=== PATIENT | female | born 1940 | race Caucasian/White ===

== ENCOUNTER → 2017-06-09 | Outpatient (CLI) | payer OTHER ==
[~2017-06-09] MED LIST: AMIODARONE HCL200 MG PO; ASPIR 8181 MG PO; ASPIRIN; ASPIRIN CHEW81 MG PO; ASPIRIN325 MG PO; ASPIRIN81 M1; BENTYL10 MG PO; COREG3.125 MG PO; DIAMOX SEQUELS500 MG PO; DIGOXIN125 MCG PO; DOXYCYCLINE HY100 MG PO; HYDROCHLOROTHIA25 MG; IPRATROPIU0.2 MG/1 M NEB; K DUR10 MEQ PO; LASIX20 MG PO; LEVOTHROID; LEVOTHROID100 MCG; LEVOTHYROXINE100 MC1 PO; LIPITOR20 MG PO; LISINOPRIL; LORAZEPAM0.5 MG PO; METOPROLOL; METOPROLOL SUCC50 MG; METRONIDAZOLE500 MG PO; MIRTAZAPINE15 MG PO; PRADAXA75 MG PO; PRINIVIL10 MG; PROTONIX40 MG/ML PO; SYNTHROID125 MCG PO; ZOLOFT; ZOLOFT100 MG; ZOLOFT50 MG PO
== END ==
LOC: NPA 12:00
DX: I50.9 Heart failure, unspecified (principal)

== ENCOUNTER 2017-07-04 19:43 | Inpatient (IN) | payer MEDICARE, OTHER ==
[~2017-07-04] VITALS: Ht 167.6 cm; Wt 61.2 kg
[2017-07-04] MEDS ORDERED: SODIUM CHLORIDE 0.9% 50ML 50 ML ONE ×2 (20:10→21:05)
[2017-07-04 20:15] LABS: BASOPHILS # (AUTO) 0.1 (0.0-0.1); BASOPHILS % 0.9 % (0.0-1.0); BILIRUBIN,URINE NEGATIVE (NEGATIVE); CLARITY,URINE CLOUDY (CLEAR); COLOR,URINE YELLOW (YELLOW); EOSINOPHILS # (AUTO) 0.7 (0.0-0.4); EOSINOPHILS % 4.9 % (0.0-6.0); HEMATOCRIT 32.7 % (34.2-44.1); HEMOGLOBIN 9.7 g/dL (12.0-16.0); KETONES,URINE NEGATIVE (NEGATIVE); LEUKOCYTE ESTERASE ,URINE 2+ (NEGATIVE); LYMPHOCYTES # (AUTO) 3.4 (1.0-3.2); LYMPHOCYTES % 23.3 % (18.0-39.1); MEAN CORPUSCULAR HEMOGLOBIN 28.5 pg (28-32); MEAN CORPUSCULAR HGB CONC 29.7 g/dL (31-35); MEAN CORPUSCULAR VOLUME 96.2 fL (81-99); MONOCYTES # (AUTO) 0.5 (0.2-0.8); MONOCYTES % 3.5 % (4.4-11.3); NEUTROPHILS # (AUTO) 9.8 (2.1-6.9); NEUTROPHILS % 66.7 % (38.7-80.0); PLATELET COUNT 479 x10e3/uL (140-360); RED CELL DISTRIBUTION WIDTH 15.4 % (11.7-14.4); URINE UROBILINOGEN 0.2 mg/dL (0.2 - 1)
[2017-07-04] MEDS ORDERED: DILTIAZEM HCL 100 ML IV PRN (20:15)
[2017-07-04] MEDS ORDERED: SODIUM CHLORIDE 0.9% 1000ML 1,000 ML IV SCH (20:15)
[2017-07-04] MEDS ORDERED: DILTIAZEM HCL 5 MG/ML 5 ML VIAL IV ONE (20:15)
[2017-07-04 20:20] LABS: NITRITE,URINE POSITIVE (NEGATIVE); PROTEIN,URINE DIPSTICK 1+ (NEGATIVE)
[2017-07-04 20:28] LABS: INR 0.95; PROTHROMBIN TIME 13.1 seconds (11.9-14.5)
[2017-07-04 20:29] LABS: PARTIAL THROMBOPLASTIN TIME 25.2 seconds (23.8-35.5)
--- NOTE | 2017-07-04 20:29 | Diagnostic Imaging Report ---
EXAM: CHEST SINGLE (PORTABLE), AP 1 view DATE: 07/04/2017 7:53 PM Time stamp on exam: 2013 hours INDICATION: Shortness of breath COMPARISON: AP view of the chest December 07, 2016 FINDINGS: LINES/TUBES: Left approach dual-lead cardiac device. LUNGS: Suspected early edema and right lower lobe scarring. PLEURA: No effusions or pneumothorax. HEART AND MEDIASTINUM: Decreased cardiac enlargement and vascular congestion since prior exam. BONES AND SOFT TISSUES: No acute findings. IMPRESSION: Suspected early edema. Signed by: Dr. Melita Fay M.D. on 07/04/2017 8:26 PM
[2017-07-04 20:37] LABS: ALANINE AMINOTRANSFERASE 15 IU/L (0-55); ALBUMIN 2.4 g/dL (3.5-5.0); ALBUMIN/GLOBULIN RATIO 0.7 (0.8-2.0); ALKALINE PHOSPHATASE 106 IU/L (40-150); ANION GAP 16.9 mmol/L (8-16); BLOOD UREA NITROGEN 12 mg/dL (7-26); BUN/CREATININE RATIO 9 (6-25); CALCIUM 8.5 mg/dL (8.4-10.2); CARBON DIOXIDE 24 mmol/L (22-29); CHLORIDE 107 mmol/L (98-107); CREATINE KINASE 56 IU/L (29-168); CREATININE, SERUM 1.38 mg/dL (0.57-1.11); EST GLOMERULAR FILTRATION RATE 37 ML/MIN (60-); GLUCOSE 224 mg/dL (74-118); POTASSIUM 3.9 mmol/L (3.5-5.1); SODIUM 144 mmol/L (136-145)
[2017-07-04 20:45] LABS: AMORPHOUS SEDIMENT,URINE MODERATE (FEW); BACTERIA,URINE MANY /HPF; EPITHELIAL CELLS,URINE RARE /LPF; WBC,URINE (MAN) >50 /HPF (0-5)
[2017-07-04 20:46] LABS: TROPONIN I 0.054 ng/mL (0-0.300)
[2017-07-04] MEDS ORDERED: IOPAMIDOL 370 MG/ML 200 ML INFUS..BTL INJ ONE (21:05)
--- NOTE | 2017-07-04 22:04 | Diagnostic Imaging Report ---
EXAM: CT CHEST W DATE: 07/04/2017 8:44 PM Time stamp on exam: 2134 hours INDICATION: Shortness of breath and positive d-dimer COMPARISON: None TECHNIQUE: Multidetector CT scanning of the chest was performed. Coronal and sagittal multiplanar reformations were obtained. PE protocol performed. IV Contrast: 100 cc Isovue-370 CTDIvol has been reviewed. It is below the limits set by the Radiation Protocol Committee (RPC). FINDINGS: LUNGS AND AIRWAYS: The trachea and major bronchi are unremarkable. Interlobular septal thickening and ground glass opacities. Centrilobular emphysema. Bibasilar atelectasis. PLEURA: Small bilateral pleural effusions. HEART, MEDIASTINUM, VESSELS: The heart is at the upper limits of normal in size. No abnormal pericardial effusion. Calcifications of the thoracic aorta and coronary arteries. The main pulmonary artery is enlarged at 3.5 cm. No evidence of a pulmonary embolism to the segmental level. UPPER ABDOMEN: No acute findings MUSCULOSKELETAL: No acute findings. IMPRESSION: Mild fluid overload with early pulmonary edema and small bilateral pleural effusions. No pulmonary embolism. Signed by: Dr. Melita Fay M.D. on 07/04/2017 10:01 PM
[2017-07-04] MEDS ORDERED: CEFTRIAXONE SOD 1 GM VIAL IV STA (22:12)
[2017-07-04] MEDS ORDERED: FUROSEMIDE INJ 10 MG/ML 4 ML VIAL IV ONE (22:15)
[2017-07-04] MEDS ORDERED: DEXTROSE 50% SYRINGE 50 ML IV PRN (23:00)
[2017-07-05 04:26] LABS: BASOPHILS # (AUTO) 0.1 (0.0-0.1); BASOPHILS % 0.8 % (0.0-1.0); EOSINOPHILS # (AUTO) 0.2 (0.0-0.4); HEMATOCRIT 25.2 % (34.2-44.1); LYMPHOCYTES % 10.5 % (18.0-39.1); MEAN CORPUSCULAR HEMOGLOBIN 28.5 pg (28-32); MEAN CORPUSCULAR HGB CONC 30.2 g/dL (31-35); MEAN CORPUSCULAR VOLUME 94.4 fL (81-99); MONOCYTES # (AUTO) 0.5 (0.2-0.8); MONOCYTES % 4.9 % (4.4-11.3); NEUTROPHILS # (AUTO) 7.7 (2.1-6.9); NEUTROPHILS % 81.3 % (38.7-80.0); PLATELET COUNT 302 x10e3/uL (140-360); RED BLOOD COUNT 2.67 x10e6/uL (3.6-5.1); RED CELL DISTRIBUTION WIDTH 15.2 % (11.7-14.4)
[2017-07-05 04:36] LABS: HEMOGLOBIN 7.6 g/dL (12.0-16.0)
[2017-07-05 04:38] LABS: ALANINE AMINOTRANSFERASE 14 IU/L (0-55); ALBUMIN/GLOBULIN RATIO 0.7 (0.8-2.0); ALKALINE PHOSPHATASE 81 IU/L (40-150); ANION GAP 9.3 mmol/L (8-16); BLOOD UREA NITROGEN 12 mg/dL (7-26); BUN/CREATININE RATIO 10 (6-25); CALCIUM 7.9 mg/dL (8.4-10.2); CARBON DIOXIDE 27 mmol/L (22-29); CHLORIDE 105 mmol/L (98-107); CREATININE, SERUM 1.18 mg/dL (0.57-1.11); EST GLOMERULAR FILTRATION RATE 45 ML/MIN (60-); GLUCOSE 85 mg/dL (74-118); POTASSIUM 3.3 mmol/L (3.5-5.1); SODIUM 138 mmol/L (136-145)
[2017-07-05 04:45] LABS: CREATINE KINASE MB 1.4 ng/mL (0.00-5.00); TROPONIN I 0.083 ng/mL (0-0.300)
[2017-07-05] MEDS ORDERED: LEVOTHYROXINE100 MCG PO (05:41)
[2017-07-05] MEDS ORDERED: LEVOTHYROXINE SODIUM 100 MCG TAB ONE (05:45)
[2017-07-05] MEDS ORDERED: LEVOTHYROXINE SODIUM 75 MCG TAB ONE (05:48)
[2017-07-05] MEDS ORDERED: LEVOTHYROXINE SODIUM 25 MCG TABLET ONE (05:49)
[2017-07-05] MEDS: LEVOTHYROXINE SODIUM 100 MCG TAB PO SCH ×2 (06:00→08:06)
[2017-07-05] MEDS ORDERED: LEVOTHYROXINE SODIUM 125 MCG TAB PO SCH (06:30)
[2017-07-05] MEDS: PANTOPRAZOLE SOD 40 MG TABEC PO SCH (08:05)
[2017-07-05] MEDS: AMIODARONE HCL 200 MG TAB PO SCH ×2 (08:05→15:01)
[2017-07-05] MEDS: FUROSEMIDE INJ 10 MG/ML 4 ML VIAL IV SCH ×2 (08:05→15:01)
[2017-07-05] MEDS: ASPIRIN 81 MG CHEW TAB PO SCH (08:05)
[2017-07-05] MEDS: INSULIN REGULAR, HUMAN 100 UNIT/1 ML 3ML VIAL SQ SCH ×4 (08:05→21:50)
[2017-07-05] MEDS: LORAZEPAM 0.5 MG TAB PO SCH ×3 (08:10→21:50)
[2017-07-05] MEDS ORDERED: LEVOTHYROXINE SODIUM 100 MCG TAB PO SCH (09:00)
[2017-07-05 11:49] LABS: % IRON SATURATION 15 % (15-50); IRON 22 ug/dL (50-170); TOTAL IRON BINDING CAPACITY 148 ug/dL (261-478); TRANSFERRIN 106 mg/dL (180-382)
[2017-07-05] MEDS: ALBUTEROL/IPRATROPIUM 3 ML NEB NEB SCH ×2 (13:00→17:01)
[2017-07-05 13:02] LABS: CREATINE KINASE MB 1.7 ng/mL (0.00-5.00); TROPONIN I 0.071 ng/mL (0-0.300)
[2017-07-05] MEDS: OYST-CAL-D 500MG TABLET PO SCH ×2 (13:16→15:01)
[2017-07-05] MEDS: GUAIFENESIN 600MG/DEXTROMETHORPHAN 30MG TABSR PO SCH ×2 (13:16→15:01)
[2017-07-05] MEDS: POTASSIUM CHLORIDE 20 MEQ TAB CR PO SCH ×2 (13:17→15:01)
[2017-07-05] MEDS: DOXYCYCLINE 100MG/NS 100ML 100 ML IV SCH (13:17)
--- NOTE | 2017-07-05 13:22 | History and Physical ---
PRIMARY CARE PROVIDER: A house-call doctor. CHIEF COMPLAINT: Shortness of breath. HISTORY OF PRESENT ILLNESS: Ms. 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 She had a sigmoid resection and colostomy formation about a week ago and was discharged home a couple of days ago with home health for wound care. She has a chronic indwelling Sarkar for incontinence. She is pretty much bedbound, using a wheelchair right now with home physical therapy for rehabilitation after surgery. The patient began developing shortness of breath yesterday. She does have chronic respiratory failure due to emphysema and is on 2 to 3 L nasal cannula continuous 24/7 at home with nebulized medication for COPD. She had worsening shortness of breath and orthopnea and called 9-- and was brought to the ER by EMS. They noted her O2 sats to be in the 70s at home. She required BiPAP initially but is currently on nasal cannula. PAST MEDICAL HISTORY: Significant for longstanding hypertension, coronary artery disease with previous RI and coronary stent placement in 1996. She has chronic systolic congestive heart failure with an EF of 20% to 25% in 2016, both ischemic and nonischemic apparently in nature. She has chronic atrial fibrillation, chronic kidney disease stage 3, COPD as noted, chronic respiratory failure as noted and urinary incontinence. She had an AICD pacemaker defibrillator placed in 2004. She had a left carotid endarterectomy. She has a distant history of hysterectomy and appendectomy but more recent bladder suspension. She a week ago had sigmoid resection and colostomy formation and repair of colovesicular fistula. CURRENT MEDICATIONS: Include: 1. Doxycycline 100 mg twice daily. 2. Lasix 40 mg daily. 3. Zoloft 200 mg at bedtime. 4. Amiodarone 200 mg twice daily. 5. Aspirin 81 mg daily. 6. Lipitor 40 mg daily. 7. Coreg 3.25 mg twice a day. 8. Pradaxa 75 mg daily. 9. Levothyroxine 100 mcg daily. 10. Lorazepam 0.5 mg 3 times a day. 11. Mirtazapine, Remeron, 15 mg at bedtime. 12. Protonix 40 mg before breakfast. ALLERGIES: SHE HAS STATED ALLERGIES TO LEVOFLOXACIN, CODEINE, LIDOCAINE, NEUROMUSCULAR BLOCKS, AND STEROIDS. PAST SURGICAL HISTORY: The patient is . Pashto is her primary language. She smoked some in college, but has not smoked in over 40 or 50 years. She denies alcohol use. She denies recreational drug use. She is bedbound and uses a wheelchair. Requires quite a bit of assistance with ADLs. FAMILY HISTORY: Significant for hypertension. PHYSICAL EXAMINATION PSYCHIATRIC: She is alert and oriented times 3 with normal mood and affect. CONSTITUTIONAL: She has a normal body habitus. She is in no acute distress. VITAL SIGNS: Blood pressure 126/62. Pulse 72 and irregular. Intermittently paced on the telemetry. Respiratory rate 16. O2 sat is 100% on 2 L nasal cannula. Temperature 98.3. HEENT: Head is atraumatic. Eyes are anicteric with clear conjunctivae. Ears and nares are without erythema or discharge. Oropharynx is clear. NECK: Supple with no mass or thyromegaly. LYMPHATIC SYSTEM: She has no palpable cervical, axillary or inguinal adenopathy. CARDIOVASCULAR: Her heart has an irregularly irregular rhythm without murmur or extra heart sound. She has no carotid bruit. She has trace bipedal edema. Weak dorsal pedal pulses. RESPIRATORY: Lungs reveal generally diminished breath sounds and some bibasilar rales, otherwise clear with no wheezing and normal respiratory effort. GASTROINTESTINAL: Abdomen is soft without organomegaly, masses or tenderness. She has a midline surgical scar that healing well that is without drainage or erythema. It was closed with julio, which are still in place. The dressing, which was the one applied prior to discharge, had some serosanguineous and possibly some purulent drainage. However, again, the wound itself has no drainage or erythema and appears to be healing well. She has a functioning colostomy in the left lower quadrant, which appears healthy. She has no hepatosplenomegaly or masses palpable, and normal bowel sounds are present. CUTANEOUS: Her skin is warm and dry to touch with no rash or skin breakdown. MUSCULOSKELETAL: Her joints are in normal alignment without erythema or swelling. She has no calf tenderness. NEUROLOGIC: Exam is nonfocal with intact cranial nerves and no motor or sensory deficits. DIAGNOSTIC STUDIES: Chest x-ray shows pulmonary edema. D-dimer 3.[address] scan was done, which showed no pulmonary embolus but did confirm early pulmonary edema and small bilateral effusions. Her UA has greater than 50 white cells, 11 to 20 red cells and many bacteria. Cultures pending. Flu screen is negative. EKG shows atrial fibrillation with rapid ventricular response of 124. Currently, she is in AFib with a rate of 72 with occasional pacer spikes. Her troponin is 0.054, 0.083. BNP 2646.5 and then 2800.4. Chemistry profile shows normal electrolytes. CO2 24. Creatinine 1.38 and BUN 37 for a GFR of 37. Her baseline is around 40. Calcium is 8.5. Glucose is 224. After overnight receiving IV Lasix, the patient's potassium is 3.3. The rest of her electrolytes are normal. CO2 is 27. Creatinine 1.18 and BUN 12. Glucose 85. Calcium 7.9. GFR is 45. Her transaminases, bilirubin and alk phos are normal. CBC shows a lactic acid level 28.7 which is elevated. CBC shows a white count of 14.74 with 67% neutrophils and 23% lymphocytes. Overnight white count 9.52 with 81% neutrophils, 10% lymphocytes, 5% monocytes. Hemoglobin 7.6, hematocrit 25.2 with microcytic indices and platelet count 302,000. Coags are normal. IMPRESSION AND PLAN 1. Kfuex-af-yvobrly systolic heart failure. Will start the patient on IV Lasix 40 mg twice daily. Monitor fluid balance, BNP and chest x-ray. 2. Chronic obstructive pulmonary disease and chronic hypoxic respiratory failure. The patient will continue O2. Will give the patient routine nebs. Will continue the doxycycline and Mucinex. 3. Urinary tract infection with sepsis. The patient has a chronic Sarkar. Will use IV cefepime for now pending culture results. 4. Chronic atrial fibrillation. Will continue amiodarone, Pradaxa and Coreg. 5. Hypertension complicated by coronary artery disease and congestive heart failure and chronic kidney disease, stage 4. Will continue Coreg and aspirin. 6. Elevated blood sugar with no history of diabetes. The patient has been started on sliding-scale insulin. Followup glucose is normal. 7. Microcytic anemia. Will check anemia labs, iron and vitamin levels, fecal occult blood test. Patient has been started on Protonix. We will start iron and vitamin supplementation. Her anemia quite likely is due to recent surgery. 8. For prophylaxis, the patient is on Pradaxa for DVT prophylaxis and stroke prophylaxis from the atrial fibrillation and on Protonix for GI prophylaxis. Job#: [id number] MH
[2017-07-05] MEDS: CEFEPIME HCL 1GM 1 GM in WATER STERILE 10ML VIAL 10 ML IV SCH ×2 (15:00→21:58)
[2017-07-05] MEDS: FERROUS SULFATE 325 MG TAB PO SCH (15:01)
[2017-07-05] MEDS: ASCORBIC ACID 500 MG TAB PO SCH (15:01)
[2017-07-05] MEDS: MULTIVITAMINS/MINERALS TAB PO SCH (15:01)
[2017-07-05 21:15] LABS: TROPONIN I 0.069 ng/mL (0-0.300)
[2017-07-05] MEDS ORDERED: ONDANSETRON HCL INJ 2 MG/ML VIAL IV PRN (21:15)
[2017-07-05] MEDS: CARVEDILOL 3.125 MG TAB PO SCH (21:50)
[2017-07-05] MEDS: MIRTAZAPINE 15 MG TAB PO SCH (21:50)
[2017-07-05] MEDS: ATORVASTATIN 20 MG TAB PO SCH (21:50)
[2017-07-05] MEDS: SERTRALINE HCL 100 MG TAB PO SCH (21:50)
[2017-07-06] MEDS: ALBUTEROL/IPRATROPIUM 3 ML NEB NEB SCH ×4 (01:00→19:00)
[2017-07-06] MEDS: DOXYCYCLINE 100MG/NS 100ML 100 ML IV SCH ×2 (01:24→14:34)
[2017-07-06] MEDS: GUAIFENESIN 600MG/DEXTROMETHORPHAN 30MG TABSR PO SCH ×4 (01:24→17:09)
[2017-07-06] MEDS: CEFEPIME HCL 1GM 1 GM in WATER STERILE 10ML VIAL 10 ML IV SCH ×2 (06:34→13:37)
[2017-07-06 06:51] LABS: ANION GAP 10.7 mmol/L (8-16); CALCIUM 8.2 mg/dL (8.4-10.2); CREATININE, SERUM 1.1 mg/dL (0.57-1.11); POTASSIUM 3.7 mmol/L (3.5-5.1)
[2017-07-06 07:01] LABS: BASOPHILS # (AUTO) 0.1 (0.0-0.1); BASOPHILS % 1.2 % (0.0-1.0); EOSINOPHILS # (AUTO) 0.7 (0.0-0.4); EOSINOPHILS % 7.1 % (0.0-6.0); HEMATOCRIT 25.1 % (34.2-44.1); LYMPHOCYTES # (AUTO) 0.8 (1.0-3.2); LYMPHOCYTES % 8.3 % (18.0-39.1); MEAN CORPUSCULAR HEMOGLOBIN 28.6 pg (28-32); MEAN CORPUSCULAR HGB CONC 30.7 g/dL (31-35); MEAN CORPUSCULAR VOLUME 93.3 fL (81-99); MONOCYTES # (AUTO) 0.6 (0.2-0.8); NEUTROPHILS # (AUTO) 7.5 (2.1-6.9); NEUTROPHILS % 76.9 % (38.7-80.0); PLATELET COUNT 327 x10e3/uL (140-360); RED BLOOD COUNT 2.69 x10e6/uL (3.6-5.1); RED CELL DISTRIBUTION WIDTH 15.5 % (11.7-14.4)
[2017-07-06 07:13] LABS: FREE T4 (FREE THYROXINE) 1.02 ng/dL (0.8-1.8); THYROID STIMULATING HORMONE 5.046 uIU/mL (0.350-4.940)
[2017-07-06 07:19] LABS: HEMOGLOBIN 7.7 g/dL (12.0-16.0)
[2017-07-06] MEDS: INSULIN REGULAR, HUMAN 100 UNIT/1 ML 3ML VIAL SQ SCH ×4 (07:54→21:00)
[2017-07-06 08:33] LABS: FOLATE 17.5 ng/mL (7.0-15.4)
[2017-07-06] MEDS ORDERED: ASPIRIN 81 MG CHEW TAB PO SCH (09:00)
[2017-07-06] MEDS ORDERED: MAGNESIUM SULFATE 2GM/50ML 50 ML IV ONE ×2 (09:30→15:30)
[2017-07-06] MEDS: PANTOPRAZOLE SOD 40 MG TABEC PO SCH (10:12)
[2017-07-06] MEDS: ASCORBIC ACID 500 MG TAB PO SCH ×2 (10:12→17:26)
[2017-07-06] MEDS: FERROUS SULFATE 325 MG TAB PO SCH ×2 (10:12→17:26)
[2017-07-06] MEDS: LEVOTHYROXINE SODIUM 100 MCG TAB PO SCH (10:12)
[2017-07-06] MEDS: OYST-CAL-D 500MG TABLET PO SCH ×3 (10:13→17:26)
[2017-07-06] MEDS: ASPIRIN 81 MG CHEW TAB PO SCH (10:13)
[2017-07-06] MEDS: AMIODARONE HCL 200 MG TAB PO SCH ×2 (10:13→17:26)
[2017-07-06] MEDS: POTASSIUM CHLORIDE 20 MEQ TAB CR PO SCH ×2 (10:13→17:26)
[2017-07-06] MEDS: FUROSEMIDE INJ 10 MG/ML 4 ML VIAL IV SCH ×2 (10:13→17:26)
[2017-07-06] MEDS: CARVEDILOL 3.125 MG TAB PO SCH ×2 (10:13→23:23)
[2017-07-06] MEDS: MULTIVITAMINS/MINERALS TAB PO SCH ×2 (10:13→17:26)
[2017-07-06] MEDS: DABIGATRAN ETEXILATE 75 MG CAP PO SCH (10:13)
[2017-07-06] MEDS: LORAZEPAM 0.5 MG TAB PO SCH ×3 (10:13→23:23)
--- NOTE | 2017-07-06 13:23 | Diagnostic Imaging Report ---
PROCEDURE: A single AP view of the chest. COMPARISON: 07/04/17 INDICATIONS: PICC LINE PLACMENT FINDINGS: Lines/tubes: Stable triple lead left chest wall cardiac device in place. Status post right PICC placement with tip overlying inferior SVC. Lungs: The lungs are well inflated and clear. There is no evidence of pneumonia or pulmonary edema. Right apical calcifications again seen. Pleura: There is no pleural effusion or pneumothorax. Heart and mediastinum: The cardiac silhouette is borderline enlarged. Aorta is calcified and tortuous. Bones: No acute bony abnormality. IMPRESSION: Status post right PICC line placement with tip overlying the inferior SVC. No visible pneumothorax. Dictated by: Jed Uribe M.D. on 07/06/2017 at 13:32 Electronically approved by: Jed Uribe M.D. on 07/06/2017 at 13:32
[2017-07-06] MEDS ORDERED: SODIUM CHLORIDE 0.9% 250ML 250 ML IV ONE (15:30)
[2017-07-06] MEDS ORDERED: FUROSEMIDE INJ 10 MG/ML 2 ML VIAL IV SCH (15:30)
[2017-07-06] MEDS: MAGNESIUM OXIDE 400 MG TAB PO SCH (17:26)
[2017-07-06] MEDS ORDERED: SODIUM CHLORIDE 0.9% 250ML 250 ML ONE (19:49)
[2017-07-06 22:15] VITALS: BP 105/63
[2017-07-06] MEDS: MIRTAZAPINE 15 MG TAB PO SCH (23:23)
[2017-07-06] MEDS: ATORVASTATIN 20 MG TAB PO SCH (23:23)
[2017-07-06] MEDS: SERTRALINE HCL 100 MG TAB PO SCH (23:24)
[2017-07-07] MEDS: ALBUTEROL/IPRATROPIUM 3 ML NEB NEB SCH ×4 (01:00→19:00)
[2017-07-07] MEDS ORDERED: SODIUM CHLORIDE 0.9% 50ML 50 ML ONE (02:47)
[2017-07-07] MEDS: DOXYCYCLINE 100MG/NS 100ML 100 ML IV SCH (02:58)
[2017-07-07] MEDS ORDERED: SODIUM CHLORIDE 0.9% 250ML 250 ML ONE (03:40)
[2017-07-07 04:00] VITALS: BP 113/65
[2017-07-07] MEDS: GUAIFENESIN 600MG/DEXTROMETHORPHAN 30MG TABSR PO SCH ×4 (04:55→18:00)
--- NOTE | 2017-07-07 07:01 | Diagnostic Imaging Report ---
EXAM: CHEST SINGLE (PORTABLE), AP 1 view DATE: 07/07/2017 7:00 AM Time stamp on exam: 0 5:24 AM INDICATION: Pulmonary edema COMPARISON: AP view of the chest December 07, 2016, 07/06/2017 FINDINGS: LINES/TUBES: Left approach triple lead ICD device. Right upper extremity PICC line is stable LUNGS: There is no evidence of interlobular septi thickening PLEURA: No effusions or pneumothorax. HEART AND MEDIASTINUM: Decreased cardiac enlargement and vascular congestion since prior exam. BONES AND SOFT TISSUES: No acute findings. IMPRESSION: Resolution of previously noted pulmonary edema Signed by: Dr. Martín Huizar M.D. on 07/07/2017 6:58 AM
[2017-07-07] MEDS: INSULIN REGULAR, HUMAN 100 UNIT/1 ML 3ML VIAL SQ SCH ×4 (07:30→21:00)
[2017-07-07 08:00] VITALS: BP 106/60
[2017-07-07] MEDS: MULTIVITAMINS/MINERALS TAB PO SCH ×2 (09:14→16:18)
[2017-07-07] MEDS: LEVOTHYROXINE SODIUM 100 MCG TAB PO SCH (09:14)
[2017-07-07] MEDS: POTASSIUM CHLORIDE 20 MEQ TAB CR PO SCH ×2 (09:14→16:18)
[2017-07-07] MEDS: ASPIRIN 81 MG CHEW TAB PO SCH (09:14)
[2017-07-07] MEDS: FERROUS SULFATE 325 MG TAB PO SCH ×2 (09:14→16:18)
[2017-07-07] MEDS: PANTOPRAZOLE SOD 40 MG TABEC PO SCH (09:14)
[2017-07-07] MEDS: MAGNESIUM OXIDE 400 MG TAB PO SCH ×2 (09:14→16:18)
[2017-07-07] MEDS: ASCORBIC ACID 500 MG TAB PO SCH ×2 (09:14→16:18)
[2017-07-07] MEDS: OYST-CAL-D 500MG TABLET PO SCH ×3 (09:14→16:19)
[2017-07-07] MEDS: FUROSEMIDE INJ 10 MG/ML 4 ML VIAL IV SCH ×2 (09:14→16:17)
[2017-07-07] MEDS: SUCRALFATE 1 GM TAB PO SCH ×4 (09:14→21:52)
[2017-07-07] MEDS: AMIODARONE HCL 200 MG TAB PO SCH ×2 (09:14→16:18)
[2017-07-07] MEDS: CARVEDILOL 3.125 MG TAB PO SCH ×2 (09:15→21:52)
[2017-07-07] MEDS: LORAZEPAM 0.5 MG TAB PO SCH ×3 (09:32→21:52)
[2017-07-07] MEDS: DABIGATRAN ETEXILATE 75 MG CAP PO SCH (09:32)
[2017-07-07 10:37] LABS: BASOPHILS # (AUTO) 0.1 (0.0-0.1); BASOPHILS % 1.2 % (0.0-1.0); EOSINOPHILS # (AUTO) 0.7 (0.0-0.4); EOSINOPHILS % 6.2 % (0.0-6.0); HEMATOCRIT 32.3 % (34.2-44.1); HEMOGLOBIN 10.4 g/dL (12.0-16.0); LYMPHOCYTES % 9.2 % (18.0-39.1); MEAN CORPUSCULAR HEMOGLOBIN 29.3 pg (28-32); MEAN CORPUSCULAR HGB CONC 32.2 g/dL (31-35); MONOCYTES # (AUTO) 0.7 (0.2-0.8); MONOCYTES % 6.5 % (4.4-11.3); NEUTROPHILS # (AUTO) 8.5 (2.1-6.9); NEUTROPHILS % 76.4 % (38.7-80.0); PLATELET COUNT 347 x10e3/uL (140-360); RED BLOOD COUNT 3.55 x10e6/uL (3.6-5.1); RED CELL DISTRIBUTION WIDTH 15.8 % (11.7-14.4)
[2017-07-07 11:15] LABS: ANION GAP 12.2 mmol/L (8-16); CALCIUM 8.9 mg/dL (8.4-10.2); CREATININE, SERUM 1.22 mg/dL (0.57-1.11); POTASSIUM 4.2 mmol/L (3.5-5.1)
[2017-07-07 11:29] LABS: B-TYPE NATRIURETIC PEPTIDE2 1185.5 pg/mL (0-100)
[2017-07-07 12:00] VITALS: BP 103/61
--- NOTE | 2017-07-07 12:21 | Diagnostic Imaging Report ---
Tagged-RBC GI Bleed Study Clinical information: 76-year-old female with 10 days s/p sigmoid colon resection and colostomy due to perforation and fistulae now with hemoglobin of 7.6 g/dL. Discussion: The patient's own red blood cells were labeled with 27 mCi of technetium-99m pertechnetate using the in vitro method (UltraTag). Dynamic images of the abdomen were obtained through 60 minutes. Distribution of tracer activity appears physiologic throughout the abdomen. No abnormal accumulation of tracer is seen within the gastrointestinal lumen. Impression: No scan evidence of active gastrointestinal bleeding at this time, specifically, none in the sigmoid colon. Signed by: Dr. Catalina Sarmiento M.D. on 07/07/2017 12:18 PM
[2017-07-07] MEDS: DOXYCYCLINE HYCLATE TABLET 100 MG TAB PO SCH ×2 (13:00→21:53)
[2017-07-07 16:00] VITALS: BP 113/63
[2017-07-07] MEDS ORDERED: PROMETHAZINE HCL 25 MG TAB PO PRN (16:15)
[2017-07-07] MEDS: CEFUROXIME AXETIL 250 MG TAB PO SCH (16:20)
[2017-07-07 20:00] VITALS: BP 115/56
[2017-07-07] MEDS: ATORVASTATIN 20 MG TAB PO SCH (21:53)
[2017-07-07] MEDS: MIRTAZAPINE 15 MG TAB PO SCH (21:53)
[2017-07-07] MEDS: SERTRALINE HCL 100 MG TAB PO SCH (21:53)
[2017-07-08] VITALS (7 sets, daily range): BP systolic 113–142; BP diastolic 60–88
[2017-07-08] MEDS: ALBUTEROL/IPRATROPIUM 3 ML NEB NEB SCH ×3 (01:00→13:00)
[2017-07-08] MEDS: GUAIFENESIN 600MG/DEXTROMETHORPHAN 30MG TABSR PO SCH ×3 (05:35→12:00)
[2017-07-08] MEDS: INSULIN REGULAR, HUMAN 100 UNIT/1 ML 3ML VIAL SQ SCH ×2 (07:30→11:30)
[2017-07-08 07:41] LABS: BASOPHILS # (AUTO) 0.1 (0.0-0.1); BASOPHILS % 1.3 % (0.0-1.0); EOSINOPHILS # (AUTO) 0.7 (0.0-0.4); EOSINOPHILS % 7.5 % (0.0-6.0); HEMOGLOBIN 10.8 g/dL (12.0-16.0); LYMPHOCYTES # (AUTO) 1.3 (1.0-3.2); LYMPHOCYTES % 13.3 % (18.0-39.1); MEAN CORPUSCULAR HEMOGLOBIN 29.3 pg (28-32); MEAN CORPUSCULAR HGB CONC 31.8 g/dL (31-35); MEAN CORPUSCULAR VOLUME 92.4 fL (81-99); MONOCYTES # (AUTO) 0.7 (0.2-0.8); MONOCYTES % 6.9 % (4.4-11.3); NEUTROPHILS # (AUTO) 6.7 (2.1-6.9); NEUTROPHILS % 70.5 % (38.7-80.0); PLATELET COUNT 360 x10e3/uL (140-360); RED BLOOD COUNT 3.68 x10e6/uL (3.6-5.1); RED CELL DISTRIBUTION WIDTH 15.3 % (11.7-14.4)
[2017-07-08 07:57] LABS: ANION GAP 12.5 mmol/L (8-16); CALCIUM 9.4 mg/dL (8.4-10.2); CREATININE, SERUM 1.17 mg/dL (0.57-1.11); MAGNESIUM 1.5 MG/DL (1.3-2.1); POTASSIUM 4.5 mmol/L (3.5-5.1)
[2017-07-08] MEDS: SUCRALFATE 1 GM TAB PO SCH ×2 (09:14→11:32)
[2017-07-08] MEDS: ASCORBIC ACID 500 MG TAB PO SCH (09:14)
[2017-07-08] MEDS: AMIODARONE HCL 200 MG TAB PO SCH (09:14)
[2017-07-08] MEDS: FERROUS SULFATE 325 MG TAB PO SCH (09:14)
[2017-07-08] MEDS: PANTOPRAZOLE SOD 40 MG TABEC PO SCH (09:14)
[2017-07-08] MEDS: LORAZEPAM 0.5 MG TAB PO SCH (09:14)
[2017-07-08] MEDS: LEVOTHYROXINE SODIUM 100 MCG TAB PO SCH (09:14)
[2017-07-08] MEDS: CEFUROXIME AXETIL 250 MG TAB PO SCH (09:14)
[2017-07-08] MEDS: OYST-CAL-D 500MG TABLET PO SCH ×2 (09:14→12:42)
[2017-07-08] MEDS: FUROSEMIDE INJ 10 MG/ML 4 ML VIAL IV SCH (09:14)
[2017-07-08] MEDS: CARVEDILOL 3.125 MG TAB PO SCH (09:14)
[2017-07-08] MEDS: MULTIVITAMINS/MINERALS TAB PO SCH (09:14)
[2017-07-08] MEDS: ASPIRIN 81 MG CHEW TAB PO SCH (09:14)
[2017-07-08] MEDS: POTASSIUM CHLORIDE 20 MEQ TAB CR PO SCH (09:15)
[2017-07-08] MEDS: MAGNESIUM OXIDE 400 MG TAB PO SCH (09:15)
[2017-07-08] MEDS: DABIGATRAN ETEXILATE 75 MG CAP PO SCH (09:15)
[2017-07-08] MEDS: DOXYCYCLINE HYCLATE TABLET 100 MG TAB PO SCH (09:15)
[2017-07-08] MEDS ORDERED: Multivitamins/Minerals PO (14:29)
[2017-07-08] MEDS ORDERED: ASCORBIC ACID500 MG PO (14:29)
[2017-07-08] MEDS ORDERED: ZYVOX600 MG PO (14:29)
[2017-07-08] MEDS ORDERED: CEFUROXIME250 MG PO (14:29)
[2017-07-08] MEDS ORDERED: FEOSOL325 MG PO (14:29)
[2017-07-08] MEDS ORDERED: FUROSEMIDE40 MG PO (15:07)
[2017-07-08] MEDS ORDERED: POTASSIUM CHLO20 ME1 PO (15:07)
--- NOTE | 2017-07-08 20:12 | Discharge Summary ---
ADMISSION DIAGNOSES 1. Dclul-ub-zdgmbnq systolic heart failure. 2. Chronic obstructive pulmonary disease. 3. Chronic hypoxic respiratory failure. 4. Urinary tract infection with sepsis. 5. Chronic atrial fibrillation. 6. Hypertension complicated by coronary artery disease and congestive heart failure and chronic kidney disease 4. 7. Elevated blood sugar with no history of diabetes. 8. Microcytic anemia. DISCHARGE DIAGNOSES 1. Kmxik-ho-dvlybvc systolic heart failure. 2. Chronic obstructive pulmonary disease. 3. Chronic hypoxic respiratory failure. 4. Urinary tract infection with sepsis. 5. Chronic atrial fibrillation. 6. Hypertension complicated by coronary artery disease and congestive heart failure and chronic kidney disease 4. 7. Elevated blood sugar with no history of diabetes. 8. Microcytic anemia. 9. Gastrointestinal bleed. HISTORY: The patient has a history of hypertension, CAD with previous TX and stent in 1996, chronic systolic CHF with an EF of 20% to 25%, both ischemic and nonischemic in nature. She has chronic atrial fibrillation, chronic kidney disease 3, COPD, chronic respiratory failure, and urinary incontinence. She had an AICD pacer placed in 2004, left carotid endarterectomy and a distant history of hysterectomy and appendectomy, more recent bladder suspension. About a week ago, she had a sigmoid resection and colostomy formation and repair of a colovesicular fistula. 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 She had the resection and colostomy formation and was discharged home a couple of days ago with home health for wound care. She has a chronic indwelling Sarkar catheter incontinence. She is using a wheelchair and home physical therapy for rehab after surgery. She developed shortness of breath. Even with chronic respiratory failure due to emphysema she is on 2-3 liters nasal cannula, 24 hours, 7 days a week with COPD nebulized medications. Regardless of meds and oxygen she had worsening shortness of breath and orthopnea. At home, her saturation was in the 70's per EMS. She required BiPAP initially but is currently nasal cannula. The patient was started on IV Lasix twice daily. BMP and chest x-ray were ordered. The patient started on Mucinex and doxycycline for COPD and IV cefepime for UTI, pending culture results. For atrial fibrillation, she was continued on amiodarone, Pradaxa and Coreg. Chest x-ray on admission showed mild fluid overload with early pulmonary edema and small bilateral pleural effusion, no PE. On admission, a fecal occult blood test was performed which showed blood in the stool, so per GI she did a sleep scan which was negative. Prior to discharge, chest x-ray was done which showed resolution of previously noted pulmonary edema. Blood cultures negative. Urine culture showed Klebsiella Enterococcus sensitive to Bactrim and Zyvox. Her flu was negative. Her A1c was 4.5 despite her elevated blood sugar at admission. At the time of discharge, WBC was 9.43, hemoglobin 10.8, hematocrit 34.0. To bring the hemoglobin back up the patient received 2 units packed red blood cells after her hemoglobin was dropped to 7.6 during hospitalization. On admission, her BNP was 2646 and at discharge it was 1294. The patient was discharged on antibiotics for UTI, iron, vitamin C, multivitamins, Lasix 40 daily with potassium supplement. The patient is to follow up with surgeon and primary care physician. Dictated by: Gladis Aj NP SHIRLEY KIDD MD Job#: [id number]
[2017-07-08] MEDS ORDERED: ATORVASTATIN 40 MG TAB PO SCH (21:00)
== END 2017-07-08 16:12 | disposition home health service (06) | DRG 871 ==
LOC: ER 19:43 → ERHOLD 23:10 → MED/SURG2 07-06 21:46
PROVIDERS: ADMIT Internal Medicine; ATTEND Internal Medicine
PROC: 02HV33Z Insertion of Infusion Device into Superior Vena Cava, Percutaneous Approach (ICD-10-PCS; principal; 2017-07-06)
PROC: 30243N1 Transfusion of Nonautologous Red Blood Cells into Central Vein, Percutaneous Approach (ICD-10-PCS; 2017-07-06)
DX: A41.89 Other specified sepsis (principal); I50.43 Acute on chronic combined systolic (congestive) and diastolic (congestive) heart failure; N18.4 Chronic kidney disease, stage 4 (severe); J96.11 Chronic respiratory failure with hypoxia; I48.2 Chronic atrial fibrillation; E83.42 Hypomagnesemia; K92.2 Gastrointestinal hemorrhage, unspecified; I13.0 Hypertensive heart and chronic kidney disease with heart failure and stage 1 through stage 4 chronic kidney disease, or unspecified chronic kidney disease; N39.0 Urinary tract infection, site not specified; T83.511A Infection and inflammatory reaction due to indwelling urethral catheter, initial encounter; J44.9 Chronic obstructive pulmonary disease, unspecified; I25.10 Atherosclerotic heart disease of native coronary artery without angina pectoris; R73.9 Hyperglycemia, unspecified; D64.9 Anemia, unspecified; N39.41 Urge incontinence; B95.2 Enterococcus as the cause of diseases classified elsewhere; I25.2 Old myocardial infarction; E03.9 Hypothyroidism, unspecified; F41.9 Anxiety disorder, unspecified; Z95.810 Presence of automatic (implantable) cardiac defibrillator; Z90.49 Acquired absence of other specified parts of digestive tract; Z79.52 Long term (current) use of systemic steroids; Z79.01 Long term (current) use of anticoagulants; D50.0 Iron deficiency anemia secondary to blood loss (chronic); Z99.3 Dependence on wheelchair; Z93.3 Colostomy status
CPT/HCPCS: 36415; 36430; 36569; 71010; 71045; 71260; 78278; 80048; 80053; 81001; 82270; 82550; 82553; 82607; 82746; 82948; 83036; 83540; 83605; 83735; 83880; 84439; 84443; 84466; 84484; 85025; 85379; 85610; 85730; 86850; 86900; 86920; 87040; 87086; 87186; 87400; 93005; 94660; 96374; 99284; A9512; J0692; J0696; J1940; J2405; J7030; J7050; P9016; Q9967

== ENCOUNTER 2017-09-15 05:14 | Inpatient (IN) | payer MEDICARE, OTHER ==
[~2017-09-15] VITALS: Ht 167.6 cm; Wt 61.2 kg
[~2017-09-15 05:14] MED LIST changes: +ASCORBIC ACID500 MG PO; +CEFUROXIME250 MG PO; +FEOSOL325 MG PO; +FUROSEMIDE40 MG PO; +LEVOTHYROXINE100 MCG PO; +Multivitamins/Minerals PO; +POTASSIUM CHLO20 ME1 PO; +ZYVOX600 MG PO
--- OUTSIDE RECORDS SUMMARY | 2017-09-15 05:16 | XMS REPORT ---
Author [facility] Address Unknown Phone Unavailable Care Team Providers Care Professor Of Food Biochemistry Name Role Phone SHIRLEY KIDD Unavailable Unavailable Problems This patient has no known problems. Allergies, Adverse Reactions, Alerts This patient has no known allergies or adverse reactions. Medications This patient has no known medications. Results Test Description Test Time Test Comments Text Results Atomic Results Result Comments CHEST SINGLE (PORTABLE) [place] [id number] Patient Name: ANNALEE ACOSTA MR #: [id number] : 1940 Age/Sex: 76/F Req #: [id number] Adm Physician: SHIRLEY KIDD MD Ordered by: Gladis Yates [employer] LEASING CONSULTANT Report #: [id number] Location: MED/SURG2 Room/Bed: [facility] Procedure: [id number] DX/CHEST SINGLE (PORTABLE) Exam Date: 07/07/17 Exam Time: 0450 REPORT STATUS: Signed EXAM: CHEST SINGLE (PORTABLE), AP 1 view DATE: 07/07/2017 7:00 AM Time stamp on exam: 0 5:24 AM INDICATION: Pulmonary edema COMPARISON: AP view of the chest December 07, 2016, 07/06/2017 FINDINGS: LINES/TUBES: Left approach triple lead ICD device. Right upper extremity PICC line is stable LUNGS: There is no evidence of interlobular septi thickening PLEURA: No effusions or pneumothorax. HEART AND MEDIASTINUM: Decreased cardiac enlargement and vascular congestion since prior exam. BONES AND SOFT TISSUES: No acute findings. IMPRESSION: Resolution of previously noted pulmonary edema Signed by: Dr. Martín Huizar M.D. on 07/07/2017 6:58 AM Dictated By: MARTÍN BELL MD 7 Transcribed By: MARY JANE on 07/07/17657 COPY TO: GLADIS YATES NP G I BLEED [place] [address] Patient Name: ANNALEE ACOSTA MR #: [id number] : 1940 Age/Sex: 76/F Req #: [id number] Adm Physician: SHIRLEY KIDD MD Ordered by: JESUS EDMONDS MD Report #: [id number] Location: MED/SURG2 Room/Bed: [facility] _ Procedure: [id number] NM/G I BLEED Exam Date: 07/07/17 Exam Time: 1000 REPORT STATUS: Signed Tagged-RBC GI Bleed Study Clinical information: 76-year-old female with 10 days s/p sigmoid colon resection and colostomy due to perforation and fistulae now with hemoglobin of 7.6 g/dL. Discussion: The patient's own red blood cells were labeled with 27 mCi of technetium-99m pertechnetate using the in vitro method (UltraTag). Dynamic images of the abdomen were obtained through 60 minutes. Distribution of tracer activity appears physiologic throughout the abdomen. No abnormal accumulation of tracer is seen within the gastrointestinal lumen. Impression: No scan evidence of active gastrointestinal bleeding at this time, specifically, none in the sigmoid colon. Signed by: Dr. Vinh Sarmiento M.D. on 07/07/2017 12:18 PM Dictated By: VINH SARMIENTO MD 17 COPY TO: JESUS EDMONDS MD CHEST XRAY LINE PLACEMENT [place] [address] Patient Name: ANNALEE ACOSTA MR #: [id number] : 1940 Age/Sex: 76/F Req #: [id number] Adm Physician: SHIRLEY KIDD MD Ordered by: SHIRLEY KIDD MD Report #: [id number] Location: [facility] Room/Bed: [place] [address] Procedure: [id number] DX/CHEST XRAY LINE PLACEMENT Exam Date: 07/06/17 Exam Time: 1255 REPORT STATUS: Signed PROCEDURE: A single AP view of the chest. COMPARISON: 07/04/17 INDICATIONS: PICC LINE PLACMENT FINDINGS: Lines/ tubes: Stable triple lead left chest wall cardiac device in place. Status post right PICC placement with tip overlying inferior SVC. Lungs: The lungs are well inflated and clear. There is no evidence of pneumonia or pulmonary edema. Right apical calcifications again seen. Pleura: There is no pleural effusion or pneumothorax. Heart and mediastinum: The cardiac silhouette is borderline enlarged. Aorta is calcified and tortuous. Bones: No acute bony abnormality. IMPRESSION: Status post right PICC line placement with tip overlying the inferior SVC. No visible pneumothorax. Dictated by: Jed Jimenes M.D. on 07/06/2017 at 13:32 Electronically approved by: Jed Jimenes M.D. on 07/06/2017 at 13:32 Dictated By: JED JIMENES MD 31 Transcribed By: ASIA on 07/06/171331 COPY TO: SHIRLEY KIDD MD CT CHEST W [place] [address] Patient Name: ANNALEE ACOSTA MR #: [id number] : 1940 Age/Sex: 76/F Req #: [id number] Adm Physician: Ordered by: ELSY DEWITT MD Report #: [id number] Location: ER Room/Bed: Procedure: [id number] CT/CT CHEST W Exam Date: Exam Time: REPORT STATUS: Signed EXAM: CT CHEST W DATE: 07/04/2017 8:44 PM Time stamp on exam: 2134 hours INDICATION: Shortness of breath and positive d-dimer COMPARISON: None TECHNIQUE: Multidetector CT scanning of the chest was performed. Coronal and sagittal multiplanar reformations were obtained. PE protocol performed. IV Contrast: 100 cc Isovue-370 CTDIvol has been reviewed. It is below the limits set by the Radiation Protocol Committee (RPC) . FINDINGS: LUNGS AND AIRWAYS: The trachea and major bronchi are unremarkable. Interlobular septal thickening and ground glass opacities. Centrilobular emphysema. Bibasilar atelectasis. PLEURA: Small bilateral pleural effusions. HEART, MEDIASTINUM, VESSELS: The heart is at the upper limits of normal in size. No abnormal pericardial effusion. Calcifications of the thoracic aorta and coronary arteries. The main pulmonary artery is enlarged at 3.5 cm. No evidence of a pulmonary embolism to the segmental level. UPPER ABDOMEN: No acute findings MUSCULOSKELETAL: No acute findings. IMPRESSION: Mild fluid overload with early pulmonary edema and small bilateral pleural effusions. No pulmonary embolism. Signed by: Dr. Genevieve Fay M.D. on 07/04/2017 10:01 PM Dictated By : GENEVIEVE FAY MD 00 Transcribed By: MARY JANE on 07/04/172200 COPY TO: ELSY DEWITT MD CHEST SINGLE (PORTABLE) [place] [address] Patient Name: ANNALEE ACOSTA MR #: [id number] : 1940 Age/Sex: 76/F Req #: [id number] Adm Physician: Ordered by: ELSY DEWITT MD Report #: [id number] Location: ER Room/Bed: ___ Procedure: [id number] DX/CHEST SINGLE (PORTABLE) Exam Date: 07/04/17 Exam Time: 2004 REPORT STATUS: Signed EXAM: CHEST SINGLE (PORTABLE), AP 1 view DATE: 07/04/2017 7:53 PM Time stamp on exam : 2013 INDICATION: Shortness of breath COMPARISON: AP view of the chest December 07, 2016 FINDINGS: LINES/TUBES: Left approach dual-lead cardiac device. LUNGS: Suspected early edema and right lower lobe scarring. PLEURA: No effusions or pneumothorax. HEART AND MEDIASTINUM : Decreased cardiac enlargement and vascular congestion since prior exam. BONES AND SOFT TISSUES: No acute findings. IMPRESSION: Suspected early edema. Signed by: Dr. Genevieve Fay M.D. on 07/04/2017 8: 26 PM Dictated By: GENEVIEVE FAY MD 25 Transcribed By: MARY JANE on 07/04/172025 COPY TO: ELSY DEWITT MD
[2017-09-15] MEDS ORDERED: ALBUTEROL SULF 0.083% NEB SOLN 3 ML NEB NEB STA (05:17)
[2017-09-15] MEDS ORDERED: ALBUTEROL SULF 0.083% NEB SOLN 3 ML NEB ONE (05:24)
[2017-09-15] MEDS ORDERED: METHYLPREDNISOLONE SOD SUCC 125 MG/2ML VIAL IV ONE (05:30)
[2017-09-15] MEDS ORDERED: IPRATROPIUM BROMIDE 0.02% 2.5 ML NEB NEB ONE (05:30)
--- NOTE | 2017-09-15 06:20 | Diagnostic Imaging Report ---
CHEST SINGLE (PORTABLE), 09/15/2017 5:17 AM Technique: CHEST SINGLE (PORTABLE) Comparison: 07/07/2017 Clinical history: Shortness of breath Findings: See Impression. Lung apices are partially excluded. Impression: 1. Lines/Tubes: Stable left chest wall ICD. Right PICC is no longer seen. Catheter fragment over the right lung apex may be external. 2. Stable cardiomediastinal silhouette. 3. Central vascular congestion without overt edema. No effusion. Signed by: Dr Tosin Swain MD on 09/15/2017 6:17 AM
[2017-09-15 06:21] LABS: BASOPHILS # (AUTO) 0.1 (0.0-0.1); BASOPHILS % 0.5 % (0.0-1.0); EOSINOPHILS # (AUTO) 0.1 (0.0-0.4); EOSINOPHILS % 0.8 % (0.0-6.0); HEMATOCRIT 33.4 % (34.2-44.1); HEMOGLOBIN 9.8 g/dL (12.0-16.0); LYMPHOCYTES # (AUTO) 1.1 (1.0-3.2); LYMPHOCYTES % 9.2 % (18.0-39.1); MEAN CORPUSCULAR HEMOGLOBIN 29.9 pg (28-32); MEAN CORPUSCULAR HGB CONC 29.3 g/dL (31-35); MEAN CORPUSCULAR VOLUME 101.8 fL (81-99); MONOCYTES # (AUTO) 0.7 (0.2-0.8); MONOCYTES % 5.3 % (4.4-11.3); NEUTROPHILS # (AUTO) 10.2 (2.1-6.9); NEUTROPHILS % 83.6 % (38.7-80.0); PLATELET COUNT 205 x10e3/uL (140-360); RED BLOOD COUNT 3.28 x10e6/uL (3.6-5.1); RED CELL DISTRIBUTION WIDTH 14.6 % (11.7-14.4)
[2017-09-15 06:48] LABS: ALANINE AMINOTRANSFERASE 18 IU/L (0-55); ALBUMIN 3.2 g/dL (3.5-5.0); ALKALINE PHOSPHATASE 89 IU/L (40-150); ANION GAP 15.5 mmol/L (8-16); BLOOD UREA NITROGEN 26 mg/dL (7-26); BUN/CREATININE RATIO 22 (6-25); CALCIUM 9.3 mg/dL (8.4-10.2); CARBON DIOXIDE 25 mmol/L (22-29); CHLORIDE 104 mmol/L (98-107); CREATINE KINASE 36 IU/L (29-168); CREATININE, SERUM 1.19 mg/dL (0.57-1.11); EST GLOMERULAR FILTRATION RATE 44 ML/MIN (60-); GLUCOSE 139 mg/dL (74-118); POTASSIUM 4.5 mmol/L (3.5-5.1); SODIUM 140 mmol/L (136-145)
[2017-09-15] MEDS: ALBUTEROL/IPRATROPIUM 3 ML NEB NEB SCH ×5 (07:00→23:00)
[2017-09-15] MEDS ORDERED: AZITHROMYCIN 500MG/SOD CHL 0.9% 250ML BAG IV SCH (07:00)
[2017-09-15] MEDS: AZITHROMYCIN 500MG/NS 250 ML 250 ML IV SCH (07:53)
[2017-09-15] MEDS ORDERED: BENZONATATE 100 MG CAP PO PRN (08:15)
[2017-09-15 08:36] LABS: CHOL/HDL RATIO 2.9 (3.0-3.6)
--- NOTE | 2017-09-15 08:48 | History and Physical ---
PRIMARY CARE PHYSICIAN: Dr. Olivera CHIEF COMPLAINT: Shortness of breath. HISTORY OF PRESENT ILLNESS: This is a 77-year-old woman with a history of COPD due to second-hand cigarette smoke, now developing shortness of breath over the last day without any cough, fever or chest pain. She does have a history of acute respiratory failure where she was intubated on 2 occasions. Last time was 3 years ago. She is now started on BiPAP, 50% FIO2 and admitted for further evaluation and management. Denies any chest pain. PAST MEDICAL HISTORY: Hypertension, myocardial infarction, status post stent in , hypothyroidism, acute respiratory failure, status post ventilatory support on 2 occasions. Last time was 3 years ago. Hyperlipidemia, systolic congestive heart failure with ejection fraction of 20% to 25%, status post AICD placement, insomnia, chronic atrial fibrillation, chronic kidney disease, stage 3, colovesical fistula, status post colostomy placement. PAST SURGICAL HISTORY: AICD placement, hysterectomy, coronary stent placement in 1996, bladder suspension surgery, bowel resection/colostomy placement. ALLERGIES: PER ELECTRONIC MEDICAL RECORD. FAMILY HISTORY/SOCIAL HISTORY: Patient is . She has children. She denies any alcohol, illicits or cigarettes. MEDICATIONS: Per electronic medical record. REVIEW OF SYSTEMS: Denies any dizziness or chest pain. PHYSICAL EXAMINATION VITAL SIGNS: Reviewed. GENERAL: A tired-appearing woman resting in bed. HEENT: Anicteric. Pupils respond to light. She has a BiPAP mask in place and 50% FIO2 oxygen. CARDIOVASCULAR: Normal S1 and S2. LUNGS: She has reduced breath sounds at the bases. ABDOMEN: Soft, nontender and nondistended. She has left-sided colostomy in place with green stool. She has a right-sided abdominal dressing in place clean and dry. EXTREMITIES: No edema or calf tenderness. NEUROLOGICAL: Alert and oriented times 3. She moves all extremities. SKIN: Dry. PSYCHIATRIC: Normal affect. LABS: Reviewed. MEDICATIONS: Reviewed. ASSESSMENT AND PLAN: This is a 77-year-old woman with: 1. Acute exacerbation of chronic obstructive pulmonary disease: Continue BiPAP support and consult pulmonary services to assist in management. 2. Acute respiratory failure: Continue BiPAP support and medical therapy. 3. Chronic atrial fibrillation: Will continue and continue rate control. 4. Coronary artery disease with history of stent: Will continue medication regimen, including the patient on statin control and blood thinner. Lipid panel. 5. Microcytic anemia which is moderate: Obtain anemia panel. 6. Chronic kidney disease, stage 3: Appears to be at baseline. Will monitor. 7. Systolic congestive heart failure: She has an automatic implanted cardioverter defibrillator in place. Brain natriuretic peptide is 1070, but she does not appear to be fluid overloaded at this time. Chest x-ray does not reveal any excess fluid. Will monitor closely and monitor I's and O's. Will restart her home dose of Lasix. 8. Sigmoid perforation/colovesical fistula: She has a colostomy in place. She has a right-sided dressing in place. Will consult nurse from wound care services. 9. Physical deconditioning: Physical therapy consultation. 10. Prophylaxis: Will use proton pump inhibitor while on . 11. Disposition: Monitor closely. Continue BiPAP. Pulmonary consultation. Job#: [id number] CT
[2017-09-15 08:58] LABS: FERRITIN 140.26 ng/mL (4.63-204.00); THYROID STIMULATING HORMONE 10.272 uIU/mL (0.350-4.940)
[2017-09-15] MEDS ORDERED: LEVOTHYROXINE SODIUM 100 MCG TAB PO SCH (09:00)
[2017-09-15] MEDS ORDERED: FUROSEMIDE 40 MG TAB PO SCH (09:00)
[2017-09-15] MEDS ORDERED: CARVEDILOL 3.125 MG TAB PO SCH (09:00)
[2017-09-15] MEDS: AMIODARONE HCL 200 MG TAB PO SCH ×2 (10:01→17:07)
[2017-09-15] MEDS: ASPIRIN 81 MG CHEW TAB PO SCH (10:01)
[2017-09-15] MEDS: LORATADINE 10 MG TAB PO SCH (10:01)
[2017-09-15] MEDS: DABIGATRAN ETEXILATE 75 MG CAP PO SCH (10:01)
[2017-09-15] MEDS: SERTRALINE HCL 50 MG TAB PO SCH (10:02)
[2017-09-15] MEDS: LORAZEPAM 0.5 MG TAB PO PRN ×2 (10:53→22:10)
[2017-09-15] MEDS ORDERED: METHYLPREDNISOLONE SOD SUCC 40 MG/ML VIAL IV SCH (12:00)
[2017-09-15] MEDS ORDERED: IRON SUCROSE 100 MG in SODIUM CHLORIDE 0.9% 100 ML 100 ML IV SCH (14:15)
[2017-09-15 15:31] LABS: CREATINE KINASE MB 1.5 ng/mL (0-5.0)
[2017-09-15] MEDS ORDERED: FERROUS SULFATE 325 MG TAB PO SCH (17:00)
[2017-09-15] MEDS: IRON SUCROSE 100 MG in SODIUM CHLORIDE 0.9% 100 ML 100 ML IV SCH (17:07)
--- NOTE | 2017-09-15 17:36 | Consultation ---
DATE OF CONSULTATION: September 15, 2017 PULMONARY CONSULTATION A patient of Dr. Rodrigues, Dr. Mora, Dr. Lorenz, , Dr. Chepe Desir. 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 She has a history of COPD though she has smoked only in college. History of anemia which has been chronic, presumably iron deficient. History of coronary disease with stent, congestive heart failure, atrial fibrillation. ALLERGIC TO CODEINE, LIDOCAINE AND FLAGYL. Her home medications in addition to oxygen include aspirin, linezolid, Ceftin, Lasix, Ativan, Remeron, Zoloft, amiodarone, Coreg, Pradaxa and Levoxyl. She has had a hysterectomy, coronary stent, pacemaker, colostomy. She had repair of a colovesicular fistula, chronic draining sinus to the skin approximately 3 months ago. Family history is positive for asthma. PHYSICAL EXAMINATION GENERAL: She is a slight white female. Weak, uses a wheelchair at home, homebound, has housebound medical care. VITAL SIGNS: Temperature 98.8, pulse 78, respiration 17, blood pressure 107/50. HEAD: Normocephalic, atraumatic. NECK: Trachea midline. LUNGS: Diminished breath sounds. HEART: Regular rhythm. ABDOMEN: Nontender. There is a wound which is packed in the abdomen, which she says is quite deep, approximately 1 cm in diameter. There is a colostomy. EXTREMITIES: Nonedematous. IMPRESSION: One of 1. Congestive heart failure. 2. Acute exacerbation of chronic obstructive pulmonary disease versus asthma in this nonsmoker. 3. Hypothyroidism with elevated thyroid-stimulating hormone despite thyroid replacement. 4. Possible malabsorption iron deficiency. PLAN: To optimize bronchodilators. Cautious diuresis. Wound care. Empiric antibiotics. White count is slightly elevated at 12,000. Chest x-ray reveals a pacemaker and moderate vascular congestion. Thank you for this kind referral. Job#: [id number] EV
[2017-09-15 18:05] VITALS: BP 124/58
[2017-09-15] MEDS: FUROSEMIDE INJ 10 MG/ML 2 ML VIAL IV SCH (18:30)
[2017-09-15 18:44] VITALS: BP 124/58
[2017-09-15] MEDS: BUDESONIDE 0.5MG/2 ML NEB INH SCH (19:15)
[2017-09-15 19:47] VITALS: BP 121/62
[2017-09-15] MEDS: ATORVASTATIN 40 MG TAB PO SCH (21:07)
[2017-09-15] MEDS: MONTELUKAST SODIUM 10 MG TAB PO SCH (21:07)
[2017-09-15] MEDS: DIPHENHYDRAMINE HCL 25 MG CAP PO PRN (22:10)
[2017-09-15 23:03] LABS: CREATINE KINASE MB 1.6 ng/mL (0-5.0)
[2017-09-16] VITALS (7 sets, daily range): BP systolic 103–128; BP diastolic 45–66
[2017-09-16] MEDS: ALBUTEROL/IPRATROPIUM 3 ML NEB NEB SCH ×2 (03:00→07:25)
[2017-09-16] MEDS: FUROSEMIDE INJ 10 MG/ML 2 ML VIAL IV SCH ×2 (06:06→17:48)
[2017-09-16] MEDS: LEVOTHYROXINE SODIUM 100 MCG TAB PO SCH (06:06)
[2017-09-16 06:20] LABS: BASOPHILS % 0.4 % (0.0-1.0); EOSINOPHILS # (AUTO) 0.1 (0.0-0.4); EOSINOPHILS % 0.7 % (0.0-6.0); HEMATOCRIT 28.8 % (34.2-44.1); HEMOGLOBIN 8.5 g/dL (12.0-16.0); LYMPHOCYTES # (AUTO) 1.3 (1.0-3.2); LYMPHOCYTES % 18.2 % (18.0-39.1); MEAN CORPUSCULAR HEMOGLOBIN 29.3 pg (28-32); MEAN CORPUSCULAR HGB CONC 29.5 g/dL (31-35); MEAN CORPUSCULAR VOLUME 99.3 fL (81-99); MONOCYTES # (AUTO) 0.5 (0.2-0.8); MONOCYTES % 6.8 % (4.4-11.3); NEUTROPHILS # (AUTO) 5.1 (2.1-6.9); NEUTROPHILS % 73.8 % (38.7-80.0); PLATELET COUNT 198 x10e3/uL (140-360); RED CELL DISTRIBUTION WIDTH 14.5 % (11.7-14.4)
[2017-09-16 06:49] LABS: ANION GAP 12.6 mmol/L (8-16); CALCIUM 9.5 mg/dL (8.4-10.2); CREATININE, SERUM 1.22 mg/dL (0.57-1.11); POTASSIUM 4.6 mmol/L (3.5-5.1)
[2017-09-16] MEDS: BUDESONIDE 0.5MG/2 ML NEB INH SCH ×2 (07:25→20:00)
[2017-09-16] MEDS ORDERED: METHYLPREDNISOLONE SOD SUCC 40 MG/ML VIAL IV SCH (07:30)
[2017-09-16 07:36] LABS: FREE THYROXINE INDEX 2.5087 (1.4-3.8); THYROID STIMULATING HORMONE 11.951 uIU/mL (0.350-4.940)
--- NOTE | 2017-09-16 07:59 | Progress Note ---
DATE: September 16, 2017 TIME: 6:15 a.m. OVERNIGHT: Feeling a little better. REVIEW OF SYSTEMS: Denies any dizziness. VITAL SIGNS: Have been reviewed. PHYSICAL EXAMINATION GENERAL: Resting in bed. HEENT: Anicteric. CARDIOVASCULAR: Normal S1 and S2. LUNGS: Reduced breath sounds at the base. ABDOMEN: Soft, nontender and nondistended. She has left-sided colostomy in place. She has a right-sided abdominal dressing in place. EXTREMITIES: No edema. SKIN: Dry. PSYCHIATRIC: Flat affect. NEUROLOGICAL: Alert and oriented times 3. LABS: Reviewed. MEDICATIONS: Reviewed. ASSESSMENT: This is a 77-year-old woman. 1. Acute exacerbation of chronic obstructive pulmonary disease. 2. Acute respiratory failure. 3. Chronic atrial fibrillation. 4. Coronary artery disease with history of stent. 5. Microcytic anemia. 6. Chronic kidney disease, stage 3. 7. Systolic congestive heart failure with history of automatic implanted cardioverter defibrillator placement. 8. History of sigmoid perforation with colovesical fistula. She has a colostomy in place. 9. Physical deconditioning. 10. Iron deficiency anemia. 11. Hypothyroidism. PLAN 1. Start iron sulfate. Iron level is 26% saturation. 2. TSH 10.2. Will check thyroid function tests. 3. Follow blebs. Respiratory-crocker, the patient is doing better on nasal cannula now. Job#: [id number]
[2017-09-16] MEDS ORDERED: ASPIRIN 81 MG CHEW TAB PO SCH (09:00)
[2017-09-16] MEDS: ASPIRIN 81 MG CHEW TAB PO SCH (09:26)
[2017-09-16] MEDS: AMIODARONE HCL 200 MG TAB PO SCH ×2 (09:26→17:47)
[2017-09-16] MEDS: FERROUS SULFATE 325 MG TAB PO SCH ×2 (09:26→17:48)
[2017-09-16] MEDS: LORATADINE 10 MG TAB PO SCH (09:26)
[2017-09-16] MEDS: AZITHROMYCIN 500MG/NS 250 ML 250 ML IV SCH (09:26)
[2017-09-16] MEDS: METOPROLOL TARTRATE 25 MG TAB PO SCH (09:26)
[2017-09-16] MEDS: PANTOPRAZOLE SOD 40 MG TABEC PO SCH (09:26)
[2017-09-16] MEDS: DABIGATRAN ETEXILATE 75 MG CAP PO SCH (09:27)
[2017-09-16] MEDS: LORAZEPAM 0.5 MG TAB PO PRN ×2 (09:27→18:19)
[2017-09-16] MEDS: SERTRALINE HCL 50 MG TAB PO SCH (09:27)
[2017-09-16] MEDS ORDERED: LEVALBUTEROL HCL SOLN NEBU 0.63 MG/3 ML NEB INH SCH (10:00)
[2017-09-16] MEDS: LEVALBUTEROL HCL SOLN NEBU 0.63 MG/3 ML NEB INH SCH ×2 (11:55→20:00)
--- NOTE | 2017-09-16 12:43 | Diagnostic Imaging Report ---
PROCEDURE: X-RAY CHEST, TWO VIEWS COMPARISON: Patients [facility], CT, CT CHEST W, 07/04/2017, 21:31. Patients [facility], DX, CHEST SINGLE (PORTABLE), 09/15/2017, 6:04. INDICATIONS: COPD, SHORTNESS OF BREATH FINDINGS: LUNGS: Diffusely hyperinflated. No mass or infiltrate.Central pulmonary vasculature is prominent but stable. PLEURA: Trace blunting of the posterior costophrenic angles. No pneumothorax. HEART \T\ MEDIASTINUM: Stable cardiomegaly and aortic ectasia. Multiple pacer/defibrillator wires are present. BONES \T\ SOFT TISSUES: No acute findings. CONCLUSION: Stable cardiomegaly and aortic ectasia. No evidence of CHF. Enlarged central pulmonary vasculature is suggestive of pulmonary artery hypertension. Pulmonary hyperinflation consistent with COPD. Small posterior pleural effusions. Dictated by: Grzegorz Cutler M.D. on 09/16/2017 at 12:44 Electronically approved by: Grzegorz Cutler M.D. on 09/16/2017 at 12:44
[2017-09-16] MEDS: IRON SUCROSE 100 MG in SODIUM CHLORIDE 0.9% 100 ML 100 ML IV SCH (15:00)
[2017-09-16] MEDS ORDERED: TRAZODONE HCL 50 MG TAB PO PRN (16:30)
--- NOTE | 2017-09-16 17:36 | Consultation ---
DATE OF CONSULTATION: September 16, 2017 PSYCHIATRIC CONSULTATION Patient evaluated and events noted. REASON FOR CONSULTATION: To evaluate patient's mood. HISTORY OF PRESENTING ILLNESS: The patient is a 77-year-old female admitted to the hospital for COPD evaluation. Psychiatric consultation is called to evaluate patient's mood. As per the medical record, patient with a history of hypertension, NV status post stent, hypothyroid, acute respiratory failure, hyperlipidemia, systolic congestive heart failure, AFib, chronic kidney disease. Upon evaluation today, patient is found to be lying on the bed. She is alert, awake and oriented to situation, person, place and time. She reports having anxiety all her life and also some depression due to her family issues with her son. She admits she is feeling hopeless and helpless. She denies any suicidal or homicidal ideation. She denies any hallucination. She complains of sleep problem. She slept about 4 hours last night. Her appetite she claims has improved somewhat. Patient states that she believes that life is not worth living but again denies any suicidal ideation. PAST PSYCHIATRIC HISTORY: Patient reports history of depression/anxiety for many years. She denies past suicide attempt. She denies alcohol and drug use. FAMILY HISTORY: Patient denies any family history of psychiatric illness. SOCIAL HISTORY: Patient states she lives alone. MENTAL STATUS EXAMINATION: The patient is an elderly female. She is alert, awake and oriented to situation. Her mood is depressed and anxious. Affect is congruent with mood. Psychomotor state is passive and relaxed. She denies any suicidal or homicidal ideation. She denies any hallucination. Thought process is concrete. She does not elicit paranoia or delusional thinking. Insight and judgment are fair. Memory appears to be grossly intact. CURRENT MEDICATIONS 1. Albuterol. 2. Ativan 0.5 three times a day p.r.n. 3. Zoloft 50 mg p.o. daily. 4. Pradaxa. 5. Ferrous sulfate. 6. Metoprolol. 7. Pantoprazole. 8. Aspirin. 9. Amiodarone. 10. Loratadine. 11. Azithromycin. 12. Budesonide. 13. Lasix. 14. Levothyroxine. 15. Benadryl p.r.n. 16. Atorvastatin. 17. Montelukast. 18. Iron sucrose. 19. Methylprednisolone. 20. Benzonatate. CURRENT LAB: WBC is 6.87, RBC 2.90, hemoglobin 8.5, hematocrit 28.8, platelet 189. Sodium 142, potassium 4.6, chloride 103, CO2 31, BUN 30, creatinine 1.22. ASSESSMENT: Major depressive disorder, recurrent, moderate; generalized anxiety disorder. PLAN 1. Increase Zoloft from 50 mg p.o. daily to 75 mg p.o. daily. 2. Increase Ativan from 0.5 mg p.o. 3 times a day p.r.n. to 0.5 mg q.4 h. p.r.n. 3. Add trazodone 50 mg p.o. nightly p.r.n. 4. Supportive therapy. 5. Monitor for mood. Thank you for this consultation. Dictated by: LAI Proctor Job#: [id number] EV
[2017-09-16] MEDS: MONTELUKAST SODIUM 10 MG TAB PO SCH (20:31)
[2017-09-16] MEDS: ATORVASTATIN 40 MG TAB PO SCH (20:31)
[2017-09-16] MEDS: DIPHENHYDRAMINE HCL 25 MG CAP PO PRN (23:00)
[2017-09-17] MEDS: LEVALBUTEROL HCL SOLN NEBU 0.63 MG/3 ML NEB INH SCH ×4 (02:50→20:30)
[2017-09-17] MEDS: LORAZEPAM 0.5 MG TAB PO PRN ×2 (03:15→16:22)
[2017-09-17 04:00] VITALS: BP 102/43
[2017-09-17] MEDS: LEVOTHYROXINE SODIUM 100 MCG TAB PO SCH (06:00)
[2017-09-17] MEDS: FUROSEMIDE INJ 10 MG/ML 2 ML VIAL IV SCH (06:00)
[2017-09-17] MEDS ORDERED: SODIUM CHLORIDE 0.9% 250ML 250 ML ONE (06:40)
[2017-09-17] MEDS: BUDESONIDE 0.5MG/2 ML NEB INH SCH ×2 (07:00→20:30)
[2017-09-17] MEDS: AZITHROMYCIN 500MG/NS 250 ML 250 ML IV SCH (07:15)
[2017-09-17] MEDS ORDERED: METHYLPREDNISOLONE SOD SUCC 40 MG/ML VIAL IV SCH (07:30)
[2017-09-17] MEDS: PANTOPRAZOLE SOD 40 MG TABEC PO SCH (07:30)
[2017-09-17 08:00] VITALS: BP 126/70
[2017-09-17] MEDS: FERROUS SULFATE 325 MG TAB PO SCH ×2 (08:00→17:00)
[2017-09-17] MEDS ORDERED: ACETAMINOPHEN 325 MG TAB PO PRN (08:15)
[2017-09-17] MEDS ORDERED: AZITHROMYCIN 250 MG TAB PO ONE (08:45)
[2017-09-17] MEDS: LORATADINE 10 MG TAB PO SCH (09:00)
[2017-09-17] MEDS: AMIODARONE HCL 200 MG TAB PO SCH ×2 (09:00→17:00)
[2017-09-17] MEDS: METOPROLOL TARTRATE 25 MG TAB PO SCH (09:00)
[2017-09-17] MEDS ORDERED: SERTRALINE HCL 50 MG TAB PO SCH (09:00)
[2017-09-17] MEDS: ASPIRIN 81 MG CHEW TAB PO SCH (09:00)
[2017-09-17] MEDS: DABIGATRAN ETEXILATE 75 MG CAP PO SCH (09:00)
[2017-09-17 12:00] VITALS: BP 117/52
[2017-09-17] MEDS: IRON SUCROSE 100 MG in SODIUM CHLORIDE 0.9% 100 ML 100 ML IV SCH (15:00)
--- NOTE | 2017-09-17 15:23 | Progress Note ---
DATE: September 17, 2017 Patient evaluated and events noted. Upon evaluation today, the patient was found to be lying on her bed. Her mother is at her bedside. She is alert, awake, and oriented to situation. She is reporting anxiety, but denies feeling depressed. She denies any issues with her appetite. She denies any hallucinations or any suicidal thoughts. She does report that she is having some issues with sleep. The patient appears to be at her baseline from a psychiatric standpoint. ASSESSMENT: Major depressive disorder, recurrent, moderate/generalized anxiety disorder. PLAN 1. Increase Zoloft to 100 mg p.o. daily. 2. Continue p.r.n. Ativan. 3. Continue p.r.n. trazodone. 4. Supportive therapy. Job#: [id number]
[2017-09-17 16:29] VITALS: BP 95/44
[2017-09-17] MEDS: FUROSEMIDE 20 MG TAB PO SCH (18:29)
[2017-09-17 19:42] VITALS: BP 117/54
[2017-09-17 20:00] VITALS: BP 117/54
[2017-09-17] MEDS: ATORVASTATIN 40 MG TAB PO SCH (21:14)
[2017-09-17] MEDS: DIPHENHYDRAMINE HCL 25 MG CAP PO PRN (21:14)
[2017-09-17] MEDS: MONTELUKAST SODIUM 10 MG TAB PO SCH (21:14)
[2017-09-18] MEDS: LEVALBUTEROL HCL SOLN NEBU 0.63 MG/3 ML NEB INH SCH (01:00)
[2017-09-18 01:09] VITALS: BP 108/55
[2017-09-18] MEDS: LEVOTHYROXINE SODIUM 100 MCG TAB PO SCH (05:28)
[2017-09-18] MEDS: FUROSEMIDE 20 MG TAB PO SCH (05:28)
[2017-09-18 06:28] VITALS: BP 114/65
[2017-09-18] MEDS: BUDESONIDE 0.5MG/2 ML NEB INH SCH (07:00)
[2017-09-18] MEDS ORDERED: TESSALON PERLE100 MG PO (07:04)
[2017-09-18] MEDS ORDERED: LORATADINE10 MG PO (07:04)
[2017-09-18] MEDS ORDERED: FUROSEMIDE20 MG PO (07:04)
[2017-09-18] MEDS ORDERED: TRAZODONE HCL50 MG PO (07:04)
[2017-09-18] MEDS ORDERED: FERROUS SULFAT325 MG PO (07:04)
[2017-09-18] MEDS ORDERED: PULMICORT2 M1 INH (07:04)
[2017-09-18] MEDS ORDERED: SINGULAIR10 MG PO (07:04)
[2017-09-18] MEDS ORDERED: SYNTHROID100 MCG PO (07:04)
[2017-09-18] MEDS ORDERED: ZOLOFT50 MG PO (07:04)
[2017-09-18 08:19] VITALS: BP 120/56
--- NOTE | 2017-09-18 08:43 | Progress Note ---
DATE: September 17, 2017 TIME: 7 a.m. OVERNIGHT: Feeling better. REVIEW OF SYSTEMS: Denies any dizziness. PHYSICAL EXAMINATION VITAL SIGNS: Reviewed. GENERAL: A tired-appearing woman resting in bed. HEENT: Anicteric. CARDIOVASCULAR: Normal S1 and S2. LUNGS: Reduced breath sounds. ABDOMEN: Soft and nontender. Left-sided colostomy in place. She has a midline abdominal dressing. EXTREMITIES: No edema. SKIN: Dry. PSYCHIATRIC: Normal affect. LABS: Reviewed. MEDICATIONS: Reviewed. ASSESSMENT: A 77-year-old woman with: 1. Acute exacerbation of chronic obstructive pulmonary disease. 2. Acute respiratory failure. 3. Chronic atrial fibrillation. 4. Coronary artery disease with history of stent. 5. Microcytic anemia. 6. Chronic kidney disease, stage 3. 7. Systolic congestive heart failure with history of automatic implanted cardioverter defibrillator. 8. History of sigmoid perforation and colovesical fistula: Colostomy in place. 9. Physical deconditioning. 10. Iron deficiency anemia. 11. Hypothyroidism. PLAN 1. Continue iron supplementation. 2. Continue antibiotics and breathing treatments. 3. Continue Lasix b.i.d. 4. Continue Singulair. 5. TSH elevated with somewhat low T4. Titrate Synthroid up. 6. Continue care. Discharge planning. Job#: [id number] ELLA
--- NOTE | 2017-09-18 08:58 | Discharge Summary ---
PRINCIPAL DIAGNOSES 1. Acute exacerbation of chronic obstructive pulmonary disease. 2. Acute respiratory failure. 3. Chronic atrial fibrillation. 4. Coronary artery disease with history of stent. 5. Microcytic anemia. 6. Chronic kidney disease, stage 3. 7. Systolic congestive heart failure with history of automatic implanted cardioverter defibrillator. 8. Physical deconditioning. 9. Iron deficiency anemia. SECONDARY DIAGNOSES 1. Hypothyroidism. 2. Systolic congestive heart failure. CHIEF COMPLAINT: Shortness of breath. HISTORY OF PRESENT ILLNESS: A 77-year-old woman with shortness of breath. Refer to the H and P for further details. HOSPITAL COURSE: The patient was treated for acute exacerbation of COPD and acute respiratory failure. Required BiPAP support. She had chronic atrial fibrillation. Rate was controlled. She had coronary artery disease. She had chronic kidney disease, stage 3, which was stable. Systolic congestive heart failure and had AICD in place. She had physical deconditioning treated with physical therapy. Iron deficiency anemia and received iron supplementation. Hypothyroidism. TSH was high. Synthroid was titrated up. The patient is doing better and currently appropriate for discharge and followup. DISCHARGE MEDICATIONS: Per electronic medical record. FOLLOWUP 1. Primary care doctor in 1 week. 2. Follow up with Dr. Wood of pulmonary services in 2 weeks. CONDITION ON DISCHARGE: Stable and improving. DISCHARGE LOCATION: Home with physical therapy. ANGELA TERRAZAS MD Job#: [id number] MD
[2017-09-18] MEDS ORDERED: SERTRALINE HCL 50 MG TAB PO SCH (09:00)
[2017-09-18] MEDS: ASPIRIN 81 MG CHEW TAB PO SCH (09:10)
[2017-09-18] MEDS: METOPROLOL TARTRATE 25 MG TAB PO SCH (09:10)
[2017-09-18] MEDS: AMIODARONE HCL 200 MG TAB PO SCH (09:10)
[2017-09-18] MEDS: DABIGATRAN ETEXILATE 75 MG CAP PO SCH (09:10)
[2017-09-18] MEDS: LORATADINE 10 MG TAB PO SCH (09:10)
[2017-09-18] MEDS: FERROUS SULFATE 325 MG TAB PO SCH (09:10)
[2017-09-18] MEDS: PANTOPRAZOLE SOD 40 MG TABEC PO SCH (09:10)
[2017-09-18 09:30] VITALS: BP 120/56
== END 2017-09-18 12:15 | disposition home or self-care (01) | DRG 190 ==
LOC: ER 05:14 → ERHOLD 06:49 → IMCU 17:03 → MED/SURG2 09-17 18:11
PROVIDERS: ADMIT Internal Medicine; ATTEND Internal Medicine
DX: J44.1 Chronic obstructive pulmonary disease with (acute) exacerbation (principal); J96.00 Acute respiratory failure, unspecified whether with hypoxia or hypercapnia; I13.0 Hypertensive heart and chronic kidney disease with heart failure and stage 1 through stage 4 chronic kidney disease, or unspecified chronic kidney disease; I50.22 Chronic systolic (congestive) heart failure; E61.1 Iron deficiency; K90.9 Intestinal malabsorption, unspecified; F33.1 Major depressive disorder, recurrent, moderate; N18.3 Chronic kidney disease, stage 3 (moderate); I48.2 Chronic atrial fibrillation; Z95.810 Presence of automatic (implantable) cardiac defibrillator; I25.10 Atherosclerotic heart disease of native coronary artery without angina pectoris; Z95.5 Presence of coronary angioplasty implant and graft; D64.9 Anemia, unspecified; Z93.3 Colostomy status; E03.9 Hypothyroidism, unspecified; Z77.22 Contact with and (suspected) exposure to environmental tobacco smoke (acute) (chronic); F41.1 Generalized anxiety disorder
CPT/HCPCS: 36415; 71045; 71046; 80048; 80053; 80061; 82550; 82553; 82607; 82728; 83540; 83880; 84436; 84443; 84466; 84479; 84484; 85025; 93005; 94640; 94660; 96374; 99284; J0456; J1756; J1940; J2920; J2930; J7050

== ENCOUNTER 2017-10-18 22:11 | Inpatient (IN) | payer MEDICARE ==
[~2017-10-18] VITALS: Ht 168.9 cm; Wt 61.2 kg
[~2017-10-18 22:11] MED LIST changes: +FERROUS SULFAT325 MG PO; +FUROSEMIDE20 MG PO; +LORATADINE10 MG PO; +PULMICORT2 M1 INH; +SINGULAIR10 MG PO; +SYNTHROID100 MCG PO; +TESSALON PERLE100 MG PO; +TRAZODONE HCL50 MG PO
--- OUTSIDE RECORDS SUMMARY | 2017-10-18 22:13 | XMS REPORT | Continuity of Care Document ---
Author Author [facility] Organization [facility] Address [address] [place] [address] Phone Unavailable Care Team Providers Care Strap Sewer Name Role Phone NONSTAFF PCP Unavailable Insurance Providers Guarantor Bettye Acosta Address [address] [address] Email PTDECLINED Payer [employer] Medicare Policy Number [id number] Subscriber's Name Bettye Acosta Relationship 18 Self / Same As Patient Group Number [id number] Group Name [employer] Effective Date 17 Advance Directives Directive Response Recorded Date/Time Does the patient have an advance directive? No 09/15/17 6:08pm If yes, is advance directive on file with [facility]? No 09/15/17 6:08pm If not on file with [facility] will patient provide a copy? No 09/15/17 6:08pm Do you have a Directive to Physician? No 09/15/17 5:23am Do you have a Medical Power of Location Man? No 09/15/17 5:23am Do you have an out of hospital Do Not Resuscitate Order? No 09/15/17 5:23am Do you have any special needs we should be aware of? No 09/15/17 5:24am Do you have a support person here with you today? No 09/15/17 5:23am Did patient receive Notice of Privacy Practices? Yes 09/15/17 5:24am Did patient receive patient rights and responsibilities? Yes 09/15/17 5:24am Problems Medical Problem Onset Date Status CHF (congestive heart failure) 2014 Acute CHF (congestive heart failure) Unknown COPD (chronic obstructive pulmonary disease) 2014 Acute COPD exacerbation Unknown Chronic a-fib Unknown Sarkar catheter in place prior to arrival Unknown Pneumonia Unknown Respiratory distress Unknown Respiratory failure Unknown UTI (urinary tract infection) Unknown Medications Current Home Medications Medication Dose Units Route Directions Days Qty Instructions Start Date Amiodarone Hcl 200 Mg Tablet 200 Mg Oral Twice A Day Ascorbic Acid 500 Mg Tablet 500 Mg Oral Twice Daily With Meals 30 Days 07/08/17 Aspirin (Aspir 81) 81 Mg Tablet.dr 81 Mg Oral Daily Atorvastatin Calcium (Lipitor) 20 Mg Tablet 40 Mg Oral Daily 90 Days 12/11/16 Benzonatate (Tessalon Perle) 100 Mg Capsule 100 Mg Oral Twice A Day as needed for Cough 7 Days 09/18/17 Budesonide (Pulmicort) 2 Ml Nebu 2 Ml Inhalation Rt Bid 30 Days Carvedilol (Coreg) 3.125 Mg Tab 3.125 Mg Oral Every 12 Hours 90 Days 12/11/16 Dabigatran Etexilate Mesylate (Pradaxa) 75 Mg Capsule 75 Mg Oral Daily Ferrous Sulfate (Feosol) 325 Mg Tablet 325 Mg Oral Twice Daily With Meals 30 Days 07/08/17 Ferrous Sulfate 325 Mg Tablet 325 Mg Oral Twice Daily With Meals 30 Days 09/18/17 Furosemide 20 Mg Tablet 20 Mg Oral Bid@ 30 Days 09/18/17 Levothyroxine Sodium (Synthroid) 100 Mcg Tab 150 Mcg Oral Daily@06 30 Days 09/18/17 Loratadine 10 Mg Tablet 10 Mg Oral Daily 30 Days 09/18/17 Lorazepam 0.5 Mg Tablet 0.5 Mg Oral Three Times A Day Mirtazapine 15 Mg Tab 15 Mg Oral Bedtime 60 Days 12/11/16 Montelukast Sodium (Singulair) 10 Mg Tablet 10 Mg Oral Bedtime 30 Days 09/18/17 Multivitamins/Minerals 1 Tab 1 Oral Twice Daily With Meals 30 Days 07/08/17 Pantoprazole Sod (Protonix) 40 Mg/Ml Susp 40 Mg Oral Before Breakfast 60 Days 12/11/16 Potassium Chloride 20 Meq Tab.er.prt 20 Meq Oral Daily 30 07/08/17 Sertraline Hcl (Zoloft) 50 Mg Tablet 100 Mg Oral Daily 30 Days Trazodone Hcl 50 Mg Tablet 50 Mg Oral Bedtime as needed for Insomnia 30 Days 09/18/17 Past Home Medications Medication Directions Ordered Status Acetazolamide (Diamox Sequels) 500 Mg Cap, 250 Mg Oral Qmonday Discontinued Aspirin (Aspirin Chew) 81 Mg Chew, 81 Mg Oral Daily 12/11/16 Discontinued Aspirin 325 Mg Tablet, 325 Mg Oral Discontinued Aspirin 81 Mg Tablet, Daily Discontinued Aspirin , Discontinued Cefuroxime Axetil (Cefuroxime) 250 Mg Tablet, 500 Mg Oral Every 12 Hours Discontinued Dicyclomine Hcl (Bentyl) 10 Mg Capsule, 10 Mg Oral Three Times A Day Discontinued Digoxin 125 Mcg Tablet, 0.125 Mg Oral Every Morning 01/10/16 Discontinued Doxycycline Hyclate 100 Mg Capsule, 100 Mg Oral Twice A Day 12/11/16 Discontinued Furosemide 40 Mg Tablet, 40 Mg Oral Daily 07/08/17 Discontinued Furosemide (Lasix) 20 Mg Tablet, 40 Mg Oral Daily Discontinued Furosemide (Lasix) 20 Mg Tablet, 20 Mg Oral Daily Discontinued Hydrochlorothiazide 25 Mg Tablet, Daily Discontinued Ipratropium Luttrell 0.2 Mg/1 Ml Solution, 0.57 Units Nebullizer Four Times Daily Discontinued Levothroid , Discontinued Levothyroxine Sodium 100 Mcg Tablet, 100 Mcg Oral Daily Discontinued Levothyroxine Sodium (Synthroid) 125 Mcg Tab, 100 Mcg Oral Today At 6:30AM Discontinued Levothyroxine Sodium 100 Mcg Vial, 100 Mcg Oral Daily Discontinued Levothyroxine Sodium (Levothroid) 100 Mcg Tablet, Daily Discontinued Linezolid (Zyvox) 600 Mg Tablet, 600 Mg Oral Twice A Day 07/08/17 Discontinued Lisinopril (Prinivil) 10 Mg Tablet, Bid Discontinued Lisinopril , Discontinued Metoprolol , Discontinued Metoprolol Succinate 50 Mg Tab.er.24h, Bid Discontinued Metronidazole 500 Mg Tablet, 500 Mg Oral Three Times A Day 01/10/16 Discontinued Potassium Chloride (K Dur*) 10 Meq Tabcr, 40 Meq Oral Daily Discontinued Sertraline Hcl (Zoloft) 50 Mg Tablet, 50 Mg Oral Daily 12/11/16 Discontinued Sertraline Hcl (Zoloft) 50 Mg Tablet, 200 Mg Oral Every Morning Discontinued Sertraline Hcl (Zoloft) 50 Mg Tablet, 200 Mg Oral Bedtime Discontinued Sertraline Hcl (Zoloft) 100 Mg Tablet, Daily Discontinued Zoloft , Discontinued Social History Social History Problem Response Recorded Date/Time Onset Date Status Hx Psychiatric Problems Y - depression, anxiety 09/15/2017 6:08pm Not Applicable Not Applicable Hx Eating Disorder No 09/15/2017 6:08pm Not Applicable Not Applicable Hx Substance Use Disorder No 09/15/2017 6:08pm Not Applicable Not Applicable Hx Depression Yes 09/15/2017 6:08pm Not Applicable Not Applicable Hx Alcohol Use No 09/15/2017 6:08pm Not Applicable Not Applicable Hx Substance Use Treatment No 09/15/2017 6:08pm Not Applicable Not Applicable Hx Physical Abuse No 09/15/2017 6:08pm Not Applicable Not Applicable Smoking Status Start Date Stop Date Former smoker Hospital Discharge Instructions No hospital discharge instruction information available. Plan of Care Discharge Date 09/18/17 12:15pm Disposition HOME, SELF-CARE Instructions/Education Provided COPD Prescriptions See Medication Section Referrals PCP (Internal Medicine) Order Date: 5-7 Days Entered Date: 09/18/2017 7:05am EFREN PETERSEN MD (Pulmonary) Order Date: 2 Weeks Entered Date: 09/18/2017 7:05am Address: [address] [place] [id number] NUNEZ MD (Psychiatry) Order Date: 1 Week Entered Date: 09/18/2017 7:05am Address: [address] [place] [id number] Additional Instructions/Education Regular Diet. Functional Status Query Response Date Recorded FUNCTIONAL STATUS . September 15, 2017 12:02pm Assistive Devices Standard Walker September 15, 2017 6:44pm Ambulation Ability Minimum Assistance September 15, 2017 6:44pm Toileting Ability Independent September 15, 2017 6:44pm Allergies, Adverse Reactions, Alerts Allergen Type Severity Reaction Status Last Updated Neuromuscular Blockers, Steroidal Allergy Mild HEART PALPITATION Active Lidocaine Allergy Severe ANAPHYLACTIC Active 04/23/09 Codeine Allergy Mild HALLUCINATION Active 04/23/09 Levofloxacin Adverse Reaction Mild HEADACHE, VOMITING Active 04/23/09 Immunizations No immunization information available. Vital Signs Acute Vital Signs Vital Response Date/Time Temperature (Fahrenheit) 96.2 degrees F (97.6 - 99.5) 09/18/2017 9:30am Pulse Pulse Rate (adult) 68 bpm (60 - 90) 09/18/2017 9:30am Respiratory Rate 18 bpm (12 - 24) 09/18/2017 9:30am Blood Pressure 120/56 mm Hg 09/18/2017 9:30am Height 5 ft 6 in 09/15/2017 5:17am Weight 135 lb 09/15/2017 5:17am Body Mass Index 21.8 kg/m^2 09/15/2017 6:08pm Results Laboratory Results Test Name Result Units Flags Reference Collection Date/Time Result Date/ Time Comments Differential Total Cells Counted 100 12/07/2016 5:00am 12/07/2016 10:17am Neutrophils % (Manual) 95 % H 40-74 12/07/2016 5:00am 12/07/2016 10: 17am Lymphocytes % (Manual) 4 % L 19-48 12/07/2016 5:00am 12/07/2016 10:17am Monocytes % (Manual) 1 % L 3.4-9.0 12/07/2016 5:00am 12/07/2016 10:17am Platelet Estimate ADEQUATE 12/07/2016 5:00am 12/07/2016 10:17am Platelet Morphology Comment FEW LARGE 12/07/2016 5:00am 12/07/2016 10:17am Hypochromasia SLIGHT 12/07/2016 5:00am 12/07/2016 10:17am Anisocytosis SLIG 12/07/2016 5:00am 12/07/2016 10:17am Ovalocytes FEW 12/07/2016 5:00am 12/07/2016 10:17am Red Cell Morphology Comment NORMAL 12/07/2016 5:00am 12/07/2016 10: 17am Digoxin Level < 0.30 ng/mL L 0.8-2.0 12/04/2016 9:10pm 12/05/2016 12: 09am Arterial Blood pH 7.45 H 7.31-7.41 12/06/2016 5:39pm 12/06/2016 5: 49pm Arterial Blood Partial Pressure CO2 46 mmHg 41-51 12/06/2016 5:39pm 5:49pm Arterial Blood Partial Pressure O2 181 mmHg H 80-105 12/06/2016 5:39pm 12/06/2016 5:49pm Arterial Blood HCO3 32 mmol/L H 23-28 12/06/2016 5:39pm 12/06/2016 5: 49pm Arterial Blood Base Excess 8.0 mmol/L H -2 - 3 12/06/2016 5:39pm 2016 5:49pm Arterial Blood Oxygen Saturation 100.0 % H 95-98 12/06/2016 5:39pm 12/06 5:49pm Prothrombin Time 13.1 seconds 11.9-14.5 07/04/2017 7:50pm 07/04/2017 8: 40pm Prothromb Time International Ratio 0.95 07/04/2017 7:50pm 2017 8:40pm Oral Anticoagulant Therapy INR Values: 1. Low Intensity Therapy 1.5 - 2.0 2. Moderate Intensity Therapy 2.0 - 3.0 3. High Intensity Therapy(1) 2.5 - 3.5 4. High Intensity Therapy(2) 3.0 - 4.0 5. Panic Value INR > 5.0 Activated Partial Thromboplast Time 25.2 seconds 23.8-35.5 07/04/2017 7: 50pm 07/04/2017 8:40pm D-Dimer Quantitative (PE/DVT) 3.95 ug/mLFEU H 0.00-0.45 07/04/2017 7: 50pm 07/04/2017 8:40pm As with all in vitro diagnostic tests, the test results should be interpreted by the physician in conjunction with clinical findings and other test results. Test results are reported in NEW D-dimer units(ug/mLFEU). Urine Color YELLOW YELLOW 07/04/2017 7:50pm 07/04/2017 8:20pm Urine Clarity CLOUDY H CLEAR 07/04/2017 7:50pm 07/04/2017 8:20pm Urine Specific [place] 1.010 1.010-1.025 07/04/2017 7:50pm 2017 8:20pm Urine pH 6.5 5 - 7 07/04/2017 7:50pm 07/04/2017 8:20pm Urine Leukocyte Esterase 2+ H NEGATIVE 07/04/2017 7:50pm 07/04/2017 8: 20pm Urine Nitrite POSITIVE H NEGATIVE 07/04/2017 7:50pm 07/04/2017 8:20pm Urine Protein 1+ H NEGATIVE 07/04/2017 7:50pm 07/04/2017 8:20pm Urine Glucose (UA) NEGATIVE NEGATIVE 07/04/2017 7:50pm 07/04/2017 8: 20pm Urine Ketones NEGATIVE NEGATIVE 07/04/2017 7:50pm 07/04/2017 8:20pm Urine Urobilinogen 0.2 mg/dL 0.2 - 1 07/04/2017 7:50pm 07/04/2017 8: 20pm Urine Bilirubin NEGATIVE NEGATIVE 07/04/2017 7:50pm 07/04/2017 8: 20pm Urine Blood 2+ H NEGATIVE 07/04/2017 7:50pm 07/04/2017 8:20pm Urine WBC >50 /HPF H 0-5 07/04/2017 7:50pm 07/04/2017 8:45pm Urine RBC 11-20 /HPF H 0-5 07/04/2017 7:50pm 07/04/2017 8:45pm Urine Bacteria MANY /HPF H NONE 07/04/2017 7:50pm 07/04/2017 8:45pm Urine Epithelial Cells RARE /LPF NONE 07/04/2017 7:50pm 07/04/2017 8: 45pm Urine Amorphous Sediment MODERATE H FEW 07/04/2017 7:50pm 07/04/2017 8 :45pm Influenza Virus Types A,B Antigen NEGATIVE NEGATIVE 07/04/2017 7:50pm 07/04/2017 9:12pm Bedside Glucose 122 mg/dL H 70-120 07/08/2017 3:53pm 07/08/2017 4:01pm Meter ID: [id number] Hemoglobin A1c Percent 4.5 % 4.0-7.0 07/07/2017 10:25am 07/07/2017 10: 50am Lactic Acid Level 28.7 MG/DL H 4.5-19.8 07/04/2017 7:50pm 07/04/2017 8: 34pm Magnesium Level 1.5 MG/DL 1.3-2.1 07/08/2017 7:21am 07/08/2017 7:57am Folate 17.5 ng/mL H 7.0-15.4 07/06/2017 6:15am 07/06/2017 8:37am Free Thyroxine 1.02 ng/dL 0.8-1.8 07/06/2017 6:15am 07/06/2017 7:52am Stool Occult Blood POSITIVE H NEGATIVE 07/06/2017 6:30am 07/06/2017 8: 31am White Blood Count 6.87 x10e3/uL 4.8-10.8 09/16/2017 5:55am 09/16/2017 6 :28am Red Blood Count 2.90 x10e6/uL L 3.6-5.1 09/16/2017 5:55am 09/16/2017 6: 28am Hemoglobin 8.5 g/dL L 12.0-16.0 09/16/2017 5:55am 09/16/2017 6:28am Hematocrit 28.8 % L 34.2-44.1 09/16/2017 5:55am 09/16/2017 6:28am Mean Corpuscular Volume 99.3 fL H 81-99 09/16/2017 5:55am 09/16/2017 6: 28am Mean Corpuscular Hemoglobin 29.3 pg 28-32 09/16/2017 5:55am 09/16/2017 6:28am Mean Corpuscular Hemoglobin Concent 29.5 g/dL L 31-35 09/16/2017 5:55am 09/16/2017 6:28am Red Cell Distribution Width 14.5 % H 11.7-14.4 09/16/2017 5:55am 2017 6:28am Platelet Count 198 x10e3/uL 140-360 09/16/2017 5:55am 09/16/2017 6: 28am Neutrophils (%) (Auto) 73.8 % 38.7-80.0 09/16/2017 5:55am 09/16/2017 6: 28am Lymphocytes (%) (Auto) 18.2 % 18.0-39.1 09/16/2017 5:55am 09/16/2017 6: 28am Monocytes (%) (Auto) 6.8 % 4.4-11.3 09/16/2017 5:55am 09/16/2017 6: 28am Eosinophils (%) (Auto) 0.7 % 0.0-6.0 09/16/2017 5:55am 09/16/2017 6: 28am Basophils (%) (Auto) 0.4 % 0.0-1.0 09/16/2017 5:55am 09/16/2017 6:28am IM GRANULOCYTES % 0.1 % 0.0-1.0 09/16/2017 5:55am 09/16/2017 6:28am Neutrophils # (Auto) 5.1 2.1-6.9 09/16/2017 5:55am 09/16/2017 6:28am Lymphocytes # (Auto) 1.3 1.0-3.2 09/16/2017 5:55am 09/16/2017 6:28am Monocytes # (Auto) 0.5 0.2-0.8 09/16/2017 5:55am 09/16/2017 6:28am Eosinophils # (Auto) 0.1 0.0-0.4 09/16/2017 5:55am 09/16/2017 6:28am Basophils # (Auto) 0.0 0.0-0.1 09/16/2017 5:55am 09/16/2017 6:28am Absolute Immature Granulocyte (auto 0.01 x10e3/uL 0-0.1 09/16/2017 5: 55am 09/16/2017 6:28am Sodium Level 142 mmol/L 136-145 09/16/2017 5:55am 09/16/2017 6:52am Potassium Level 4.6 mmol/L 3.5-5.1 09/16/2017 5:55am 09/16/2017 6:52am Chloride Level 103 mmol/L 98-107 09/16/2017 5:55am 09/16/2017 6:52am Carbon Dioxide Level 31 mmol/L H 22-09/16/2017 5:55am 09/16/2017 6: 52am Anion Gap 12.6 mmol/L 8-16 09/16/2017 5:55am 09/16/2017 6:52am Blood Urea Nitrogen 30 mg/dL H 7-09/16/2017 5:55am 09/16/2017 6:52am Creatinine 1.22 mg/dL H 0.57-1.11 09/16/2017 5:55am 09/16/2017 6:52am BUN/Creatinine Ratio 25 6-25 09/16/2017 5:55am 09/16/2017 6:52am Estimat Glomerular Filtration Rate 43 ML/MIN L 60- 09/16/2017 5:55am 6:52am Ranges were taken from the National Kidney Disease Education Program and the National [employer] literature. Reference ranges: 60 or greater: Normal 16-59 (for 3 consecutive months): Chronic kidney disease 15 or less: Kidney failure Glucose Level 89 mg/dL 74-118 09/16/2017 5:55am 09/16/2017 6:52am Calcium Level 9.5 mg/dL 8.4-10.2 09/16/2017 5:55am 09/16/2017 6:52am Iron Level 26 ug/dL L 50-170 09/15/2017 6:00am 09/15/2017 8:35am Total Iron Binding Capacity 312 ug/dL 261-478 09/15/2017 6:00am 2017 8:35am Percent Iron Saturation 8 % L 15-50 09/15/2017 6:00am 09/15/2017 8:35am Transferrin 223 mg/dL 180-382 09/15/2017 6:00am 09/15/2017 8:35am Ferritin 140.26 ng/mL 4.63-204.00 09/15/2017 6:00am 09/15/2017 9:02am Total Bilirubin < 0.3 mg/dL 0.2-1.2 09/15/2017 6:00am 09/15/2017 7: 01am Aspartate Amino Transf (AST/SGOT) 27 IU/L 5-34 09/15/2017 6:00am 2017 7:01am Alanine Aminotransferase (ALT/SGPT) 18 IU/L 0-55 09/15/2017 6:00am 7:01am Total Protein 6.4 g/dL L 6.5-8.1 09/15/2017 6:00am 09/15/2017 7:01am Albumin 3.2 g/dL L 3.5-5.0 09/15/2017 6:00am 09/15/2017 7:01am Globulin 3.2 g/dL 2.3-3.5 09/15/2017 6:00am 09/15/2017 7:01am Albumin/Globulin Ratio 1.0 0.8-2.0 09/15/2017 6:00am 09/15/2017 7: 01am Alkaline Phosphatase 89 IU/L 40-150 09/15/2017 6:00am 09/15/2017 7: 01am Triglycerides Level 123 MG/DL 0-149 09/15/2017 6:00am 09/15/2017 8: 38am Cholesterol Level 180 MD/DL 0-199 09/15/2017 6:00am 09/15/2017 8:38am Less than 200 mg/dL Low Risk 201 - 239 mg/dL Borderline Risk 240 mg/dl and greater High Risk LDL Cholesterol 93 MG/DL 60-130 09/15/2017 6:00am 09/15/2017 8:38am HDL Cholesterol 62 MG/DL H 40-60 09/15/2017 6:00am 09/15/2017 8:38am Cholesterol/HDL Ratio 2.9 L 3.0-3.6 09/15/2017 6:00am 09/15/2017 8: 38am B-Type Natriuretic Peptide 1070.5 pg/mL H 0-100 09/15/2017 6:00am 2017 7:01am Creatine Kinase 57 IU/L 29-168 09/15/2017 10:20pm 09/15/2017 11:02pm Creatine Kinase MB 1.60 ng/mL 0-5.0 09/15/2017 10:20pm 09/15/2017 11: 14pm Troponin I 0.037 ng/mL 0-0.300 09/15/2017 10:20pm 09/15/2017 11:14pm Vitamin B12 Level 838 pg/mL H 213-816 09/15/2017 6:00am 09/15/2017 8: 58am Free Thyroxine Index 2.5087 1.4-3.8 09/16/2017 5:55am 09/16/2017 7: 37am Thyroxine (T4) 7.83 ug/dL 4.5-10.9 09/16/2017 5:55am 09/16/2017 7:37am Our current method for Total T4 is not recommended for use as the only marker for evaluating patients for thyroid disorders. Triiodothyronine (T3) Uptake 32.04 % 22.5-37.0 09/16/2017 5:55am 2017 7:37am Thyroid Stimulating Hormone (TSH) 11.951 uIU/mL H 0.350-4.940 09/16/2017 5:55am 09/16/2017 7:37am Microbiology Results Procedure Source Organism/Result Collection Date/Time Result Date/Time Result Status Blood Culture Blood NO GROWTH AFTER 5 DAYS, FINAL REPORT 07/06/2017 5:30pm 07/11/2017 5:38pm Final Urine Culture Urine,[place] KLEBSIELLA PNEUMONIAE 07/08/2017 10:25am 11:47am Final Procedures Procedure Status Date Provider(s) INSERTION OF ENDOTRACHEAL AIRWAY INTO TRACHEA, VIA OPENING Completed DANNY VANG MD RESPIRATORY VENTILATION, 24-96 CONSECUTIVE HOURS Completed 12/04/16 DANNY VANG MD INSERTION OF INFUSION DEV INTO SUP VENA CAVA, PERC APPROACH Completed SUSAN JAVIER MD INSERTION OF INFUSION DEV INTO SUP VENA CAVA, PERC APPROACH Completed HARSHIL JIMENES MD TRANSFUSE NONAUT RED BLOOD CELLS IN CENTRAL VEIN, PERC Completed 07/06/17 HARLEY YATES NP Computed tomography of brain without radiopaque contrast Active 12/05/16 DANNY VANG MD Ultrasound, renal Active 12/05/16 SHERMAN ROSE Computed tomography of chest with contrast Active 07/04/17 ELSY DEWITT MD X-ray of chest, two views Active 09/16/17 EFREN PETERSEN MD Encounters Encounter Location Arrival/Admit Date Discharge/Depart Date Attending Provider Discharged [facility]patient [facility] 09/15/17 6:49am 09/18/17 12:15pm ANGELA TERRAZAS MD Discharged Inpatient [facility] 07/04/17 11:10pm 4:12pm SHIRLEY KIDD MD Registered Referred [facility] 06/09/17 3:38am HARSHAD EDMONDS MD Discharged Inpatient [facility] 12/05/16 1:18am 12/11/16 2:45pm MARGARETTE ESCOBAR MD
[2017-10-18] MEDS ORDERED: METHYLPREDNISOLONE SOD SUCC 125 MG/2ML VIAL IV ONE (22:15)
[2017-10-18] MEDS ORDERED: ALBUTEROL SULF 0.083% NEB SOLN 3 ML NEB NEB STA (22:24)
[2017-10-18] MEDS ORDERED: IPRATROPIUM BROMIDE 0.02% 2.5 ML NEB NEB ONE (22:30)
[2017-10-18 23:13] LABS: BASOPHILS # (AUTO) 0.1 (0.0-0.1); BASOPHILS % 0.6 % (0.0-1.0); EOSINOPHILS # (AUTO) 0.2 (0.0-0.4); EOSINOPHILS % 1.2 % (0.0-6.0); HEMATOCRIT 33.8 % (34.2-44.1); HEMOGLOBIN 10.1 g/dL (12.0-16.0); LYMPHOCYTES # (AUTO) 1.1 (1.0-3.2); LYMPHOCYTES % 7.9 % (18.0-39.1); MEAN CORPUSCULAR HEMOGLOBIN 29.1 pg (28-32); MEAN CORPUSCULAR HGB CONC 29.9 g/dL (31-35); MEAN CORPUSCULAR VOLUME 97.4 fL (81-99); MONOCYTES # (AUTO) 0.8 (0.2-0.8); MONOCYTES % 5.5 % (4.4-11.3); NEUTROPHILS # (AUTO) 11.5 (2.1-6.9); NEUTROPHILS % 84.4 % (38.7-80.0); PLATELET COUNT 224 x10e3/uL (140-360); RED BLOOD COUNT 3.47 x10e6/uL (3.6-5.1); RED CELL DISTRIBUTION WIDTH 13.9 % (11.7-14.4)
[2017-10-18 23:31] LABS: ALBUMIN 3.3 g/dL (3.5-5.0); ANION GAP 15.6 mmol/L (8-16); CALCIUM 9.5 mg/dL (8.4-10.2); CREATININE, SERUM 1.47 mg/dL (0.57-1.11); POTASSIUM 4.6 mmol/L (3.5-5.1)
[2017-10-18 23:37] LABS: CREATINE KINASE MB 3.3 ng/mL (0-5.0)
--- NOTE | 2017-10-18 23:43 | Diagnostic Imaging Report ---
EXAMINATION: CHEST SINGLE (PORTABLE) INDICATION: Shortness of breath COMPARISON: 09/16/2017 FINDINGS: TUBES and LINES: AICD is intact. LUNGS: Lungs are well inflated. There is alveolar and perihilar interstitial opacities, consistent with interstitial edema. PLEURA: Small left pleural effusion. HEART AND MEDIASTINUM: Cardiac size is moderately enlarged. There are atherosclerotic calcifications within the aorta. BONES AND SOFT TISSUES: No acute osseous lesion. Soft tissues are unremarkable. UPPER ABDOMEN: No free air under the diaphragm. IMPRESSION: Findings are suggestive of recurrent cardiogenic pulmonary edema associated with left pleural effusion. Signed by: Dr. Martín Huizar M.D. on 10/18/2017 11:39 PM
[2017-10-19] MEDS ORDERED: FUROSEMIDE INJ 10 MG/ML 4 ML VIAL IV ONE
[2017-10-19] MEDS ORDERED: CARAFATE1 GM/10 ML PO (01:04)
[2017-10-19] MEDS: ALBUTEROL/IPRATROPIUM 3 ML NEB NEB SCH ×4 (03:20→15:37)
[2017-10-19] MEDS ORDERED: TRAZODONE HCL 50 MG TAB PO PRN (05:30)
[2017-10-19] MEDS ORDERED: GABAPENTIN100 MG PO (05:49)
[2017-10-19] MEDS: LEVOTHYROXINE SODIUM 100 MCG TAB PO SCH (06:29)
[2017-10-19] MEDS: FERROUS SULFATE 325 MG TAB PO SCH ×2 (07:52→16:48)
[2017-10-19] MEDS: ASCORBIC ACID 500 MG TAB PO SCH ×2 (07:52→16:48)
[2017-10-19 07:59] LABS: HEMATOCRIT 30.8 % (34.2-44.1); HEMOGLOBIN 9.2 g/dL (12.0-16.0); LYMPHOCYTES # (AUTO) 0.3 (1.0-3.2); LYMPHOCYTES % 4.5 % (18.0-39.1); MEAN CORPUSCULAR HEMOGLOBIN 28.7 pg (28-32); MEAN CORPUSCULAR HGB CONC 29.9 g/dL (31-35); MONOCYTES # (AUTO) 0.1 (0.2-0.8); MONOCYTES % 1.4 % (4.4-11.3); NEUTROPHILS # (AUTO) 5.2 (2.1-6.9); NEUTROPHILS % 93.6 % (38.7-80.0); PLATELET COUNT 166 x10e3/uL (140-360); RED BLOOD COUNT 3.21 x10e6/uL (3.6-5.1); RED CELL DISTRIBUTION WIDTH 13.8 % (11.7-14.4)
[2017-10-19 08:28] LABS: CREATINE KINASE MB 2.3 ng/mL (0-5.0)
[2017-10-19 08:46] LABS: ALBUMIN 3.1 g/dL (3.5-5.0); ANION GAP 13.8 mmol/L (8-16); CALCIUM 9.4 mg/dL (8.4-10.2); CREATININE, SERUM 1.45 mg/dL (0.57-1.11); POTASSIUM 4.8 mmol/L (3.5-5.1)
[2017-10-19] MEDS: POTASSIUM CHLORIDE 20 MEQ TAB CR PO SCH (09:58)
[2017-10-19] MEDS: FUROSEMIDE INJ 10 MG/ML 4 ML VIAL IV SCH ×2 (09:58→16:48)
[2017-10-19] MEDS: DABIGATRAN ETEXILATE 75 MG CAP PO SCH (09:58)
[2017-10-19] MEDS: ASPIRIN 81 MG CHEW TAB PO SCH (09:58)
[2017-10-19] MEDS: AMIODARONE HCL 200 MG TAB PO SCH ×2 (09:58→16:48)
[2017-10-19] MEDS: LORAZEPAM 0.5 MG TAB PO SCH ×3 (09:58→21:25)
[2017-10-19] MEDS ORDERED: ALBUTEROL/IPRATROPIUM 3 ML NEB NEB PRN (13:00)
--- NOTE | 2017-10-19 19:01 | Consultation ---
DATE OF CONSULTATION: October 19, 2017 CARDIOLOGY CONSULTATION REASON FOR CONSULTATION: CHF exacerbation. HISTORY OF PRESENT ILLNESS: Ms. Hermosillo is a 77-year-old lady with past medical history of hypertension, hypercholesterolemia, coronary artery disease with remote history of PCI in 1997, s/p INCIDENT HANDLER Device. Known systolic heart failure, history of complicated left bundle branch block amongst other things. The patient is known with systolic CHF with the last EF of about 20% to 25% in December 2016 and notable severe global hypokinesis, and noted to have also severe mitral regurgitation. The patient was in her usual state of health utilizing 4 liters of oxygen on home O2 up until the last several days where she has noted progressively worsening exertional dyspnea. 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 Details are unknown. She left the hospital with a left lower quadrant ostomy and what appears to be a large fistulous cavity with 2 drainage spots and requires home nursing and packing. She reports seeing her primary care physician approximately 3 weeks ago, and was decreased on her diuretic therapy from Lasix 40 twice a day to Lasix 20 twice a day and progressively worsened. She reports dyspnea at rest currently. Reports poor exercise tolerance, development of 3 to 4 pillow orthopnea as well as lower extremity edema. PAST MEDICAL HISTORY: 1. Hypertension. 2. Hypercholesterolemia. 3. Chronic systolic heart failure. 4. Left bundle branch block, s/p INCIDENT HANDLER Device 5. Chronic kidney disease, stage 3. 6. COPD on 4 liters home oxygen which exposed to extensive secondary hand smoke, and was a former smoker, quit over 50 years ago. 7. Hypothyroidism. 8. Coronary artery disease with prior history of PCI in 1997. 9. History of pacemaker implant. No details. PAST SURGICAL HISTORY: Major abdominal surgery back in June or July of this year, resulting in ostomy and notable small and large bowel fistula. FAMILY HISTORY: Mother at 79 of breast cancer. Father at the age of 72 with a heart attack. SOCIAL HISTORY: She . She is a former smoker. Denies any alcohol or illicit drug use. ALLERGIES: CODEINE, LIDOCAINE, LEVAQUIN. CURRENT MEDICATIONS: 1. Aspirin 81 mg daily. 2. Plavix 75 mg daily. 3. Metoprolol 12.5 mg b.i.d. 4. Atorvastatin 40 mg daily. 5. Losartan 25 mg daily. 6. Lasix 40 mg b.i.d. 7. Synthroid 100 mcg daily. 8. Lorazepam 0.5 mg daily. 9. Sertraline 100 mg daily. 10. Risperidone 0.25 mg daily. 11. Prednisone 10 mg daily. 12. Iron sulfate 325 mg daily. This was her last known list. However, appears to be on a totally different set of medications as a result from other hospitalizations and other providers, and question her regularity of care. REVIEW OF SYSTEMS: GENERAL: Positive for fatigue and malaise. Denies any fevers or chills. HEENT: Has occasional headaches, occasional lightheadedness, sore throat, stuffy nose. RESPIRATORY: Denies any pleuritic chest pain. Has a nonproductive cough. Positive for shortness of breath at rest. CARDIOVASCULAR: Per HPI. Denies any chest pain, pressure, tightness. Positive for orthopnea and PND as noted above. GI: GERD. Has an ostomy. No nausea or vomiting or bright red blood per rectum. HEMATOLOGY: Positive for easy bruising. No bleeding. : Denies any urinary frequency, incontinence, pyuria in urine currently. MUSCULOSKELETAL: Has chronic lower back pain. Lumbar disk problems. Knee pain and swelling in her legs. SKIN: Positive for fistula in her midline abdominal wounds. PSYCHIATRIC: Positive for depression and trouble sleeping. NEUROLOGIC: Good coordination. Fair memory and speech. Generalized weakness. Appears nonfocal. PHYSICAL EXAMINATION VITAL SIGNS: Height of 66 inches, weight 135 pounds. BMI 21.8. Blood pressure is 115/55. Pulse 85. Respiratory rate 18. O2 sat 98% on 4 liters nasal cannula. GENERAL: A frail, elderly lady who appears older than stated age. Currently, in no apparent distress. HEENT: Normocephalic, atraumatic. Extraocular movements intact. Pupils are equally round and reactive to light. Oropharynx is clear with poor dentition. NECK: There is elevation of the jugular venous pulsation to the angle of the mandible. No carotid bruits. CARDIOVASCULAR: Regular rate and rhythm. Normal S1 and S2. Positive S3 gallop. There is a left shoulder pacemaker scar site that is noted. LUNGS: Left shoulder Pacemaker, Bibasilar Crackles, Poor air entry ABDOMEN: Soft, nontender and nondistended. There is a midline exploratory laparotomy scar with 2 fistula entry spots packed with Iodoform gauze. BACK: No costovertebral angle tenderness. EXTREMITIES: Warm with 1+ to 2+ edema. There are markedly diminished pedal pulses and 2+ femoral pulses and 2+ radial pulses. NEUROLOGIC: Cranial nerves II-XII are intact. Strength is 4+ to 5-/5 in all 4 extremities. PSYCHIATRIC: Normal fluent speech and affect. No delusions. LABORATORY DATA: White count 5.6, hemoglobin 9.2, hematocrit 38.8, platelets 166,000, sodium 140, potassium 4.8, chloride 103, bicarb 28, BUN 34, creatinine 1.45, glucose of 166, calcium 9.4, AST 26, ALT 24, alkaline phosphatase 109, total protein 6.3, albumin 3.1. BNP went from 1222 to 1744. Troponin went from 0.030 to 0.038. EKG reveals sinus rhythm, complicated left bundle branch block pattern. Chest x-ray was suggestive of pulmonary edema pattern and cardiomegaly with left-sided total effusion. DIAGNOSES 1. Uouqf-mx-zldigab decompensated systolic/diastolic heart failure. 2. History of severe mitral regurgitation. 3. Coronary artery disease with prior history of coronary stenting. 4. Chronic obstructive pulmonary disease on home oxygen. 5. Chronic kidney disease, stage 3, with baseline serum creatinine of 1.4. 6. Status post device INCIDENT HANDLER Device. 7. Hypothyroidism. 8. 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 9. Anticoagulant therapy use. 10. Bilateral lower extremity edema. PLAN/RECOMMENDATIONS: 1. From a cardiovascular standpoint, will agree with current diuretic therapy and is currently receiving Lasix 40 mg IV b.i.d. with current improvement in clinical functional status. 2. Continue beta zhou therapy. 3. At one point in time the patient was on losartan therapy. However, seems she might of had issues with hypotension associated with it. 4. Will check echocardiogram to look at her left ventricular function. 5. Telemetry monitoring. 6. Strict I's and O's, daily weights. 7. Will continue to follow this patient with you. Thank you for this referral. Job#: [id number] ROQUE
[2017-10-19 19:41] LABS: CREATINE KINASE MB 1.6 ng/mL (0-5.0)
--- NOTE | 2017-10-19 20:47 | Consultation ---
DATE OF CONSULTATION: October 19, 2017 PULMONARY CONSULTATION REASON FOR CONSULTATION: Shortness of breath. HPI: Ms. Hermosillo is a 77-year-old female who presented to the emergency room with shortness of breath. Patient was in pulmonary edema. Diuretics were given.. Now, she is feeling much better. She reported that she refused the dose of Lasix cause she wanted to go to the republican and she has to urinate so often, and probably that led to difficulty breathing. Her EF was 20% to 25% in December of 2016 with severe global hypokinesis. She denies any chest pain, nausea or vomiting. She is a lifelong nonsmoker. She had a pacemaker placed a few years ago. With her shortness of breath, she had orthopnea as well and she used nebulizer treatment at home without any benefit so she decided to come to the emergency room. REVIEW OF SYSTEMS: GENERAL: Denies any fever or chills. HEENT: Denies any head trauma. Denies any earache. CVS: Denies any chest pain. RESPIRATORY: Shortness of breath. GI: Denies any nausea or vomiting. Rest of the review systems are negative except as in history of present illness. PAST MEDICAL HISTORY: Hypertension, hypercholesterolemia, chronic systolic heart failure with EF of 25%. She says that she has been diagnosed with COPD. She was on lifelong nonsmoker; however, her smoked. She had a bowel perforation in June 2017 for which she had surgery and she has a colostomy which will be reversed soon. PAST SURGICAL HISTORY: As above. FAMILY/SOCIAL HISTORY: Mother with breast cancer. She is a lifelong nonsmoker. Her smoked. She is . She never smoked and never drank in her life. PHYSICAL EXAMINATION: VITALS: Temperature 98.3, pulse of 80, blood pressure 115/55, respiratory rate 18. O2 sat 92% on 2 liters. SKIN: Warm and dry. HEENT: Head atraumatic and normocephalic. Pupils reactive. NECK: Supple. CHEST: Clear to auscultation bilaterally with no wheezing. HEART: S1, S2 audible. ABDOMEN: Soft, nontender, nondistended. Bowel sounds audible. No hepatosplenomegaly. She has a colostomy. EXTREMITIES: No clubbing, cyanosis or edema. NEUROLOGIC: Awake and alert. No focal neurologic deficit. EKG is showing wide QRS complex, sinus rhythm, possibly bundle branch block morphology. Chest x-ray revealed images showing evidence of pulmonary edema. She is feeling much better after diuretic. ASSESSMENT AND PLAN: Ms. Hermosillo is a 77-year-old female with systolic congestive heart failure who presented with worsening pulmonary edema and heart failure. Patient is feeling better. CURRENT PROBLEMS: 1. Goaiq-dw-ormaenc systolic heart failure. Patient is on Lasix, which will be continued. Cardiology has been consulted. 2. History of chronic obstructive pulmonary disease. The patient is to undergo nebulizer as needed. No wheezing at this point. 3. Hypothyroidism. Levothyroxine has been started. 4. History of colostomy. 5. History of bowel perforation status post surgery on colostomy, currently stable. RECOMMENDATIONS: At this point, I do not think the patient needs any antibiotics as there is no evidence of pneumonia on chest x-ray and BNP was 1744. Thank you for this consult. Job#: [id number]
[2017-10-19] MEDS ORDERED: ATORVASTATIN 20 MG TAB PO SCH (21:00)
[2017-10-19] MEDS: MONTELUKAST SODIUM 10 MG TAB PO SCH (21:25)
[2017-10-19] MEDS: GABAPENTIN 100 MG CAP PO SCH (21:25)
[2017-10-19] MEDS: MIRTAZAPINE 15 MG TAB PO SCH (21:25)
[2017-10-19] MEDS: CARVEDILOL 3.125 MG TAB PO SCH (21:25)
[2017-10-19 23:40] VITALS: BP 116/56
[2017-10-20] VITALS (9 sets, daily range): BP systolic 116–135; BP diastolic 58–63
[2017-10-20] MEDS: LEVOTHYROXINE SODIUM 100 MCG TAB PO SCH (06:03)
--- NOTE | 2017-10-20 06:41 | Diagnostic Imaging Report ---
EXAM: CHEST SINGLE (PORTABLE), AP 1 view INDICATION: Congestive heart failure COMPARISON: AP view of the chest October 18, 2017 FINDINGS: LINES/TUBES: Stable cardiac device LUNGS: Interval decreased pulmonary edema PLEURA: No effusions or pneumothorax. HEART AND MEDIASTINUM: Mild cardiac enlargement. BONES AND SOFT TISSUES: No acute findings. IMPRESSION: Interval decreased pulmonary edema. Signed by: Dr. Melita Fay M.D. on 10/20/2017 6:38 AM
[2017-10-20 07:13] LABS: BASOPHILS % 0.3 % (0.0-1.0); EOSINOPHILS # (AUTO) 0.1 (0.0-0.4); EOSINOPHILS % 1.6 % (0.0-6.0); HEMATOCRIT 30.4 % (34.2-44.1); HEMOGLOBIN 9.3 g/dL (12.0-16.0); LYMPHOCYTES # (AUTO) 1.2 (1.0-3.2); LYMPHOCYTES % 17.8 % (18.0-39.1); MEAN CORPUSCULAR HEMOGLOBIN 28.7 pg (28-32); MEAN CORPUSCULAR HGB CONC 30.6 g/dL (31-35); MEAN CORPUSCULAR VOLUME 93.8 fL (81-99); MONOCYTES # (AUTO) 0.5 (0.2-0.8); MONOCYTES % 7.3 % (4.4-11.3); NEUTROPHILS % 72.7 % (38.7-80.0); PLATELET COUNT 186 x10e3/uL (140-360); RED BLOOD COUNT 3.24 x10e6/uL (3.6-5.1)
[2017-10-20 07:51] LABS: ANION GAP 13.4 mmol/L (8-16); CALCIUM 9.6 mg/dL (8.4-10.2); CREATININE, SERUM 1.51 mg/dL (0.57-1.11); MAGNESIUM 1.6 MG/DL (1.3-2.1); POTASSIUM 4.4 mmol/L (3.5-5.1)
[2017-10-20 08:16] LABS: THYROID STIMULATING HORMONE 0.679 uIU/mL (0.350-4.940)
[2017-10-20] MEDS: SERTRALINE HCL 50 MG TAB PO SCH (09:00)
[2017-10-20] MEDS: ASCORBIC ACID 500 MG TAB PO SCH ×2 (09:17→17:33)
[2017-10-20] MEDS: FERROUS SULFATE 325 MG TAB PO SCH ×2 (09:17→17:33)
[2017-10-20] MEDS: FUROSEMIDE INJ 10 MG/ML 4 ML VIAL IV SCH ×2 (09:17→17:33)
[2017-10-20] MEDS: AMIODARONE HCL 200 MG TAB PO SCH ×2 (09:20→17:33)
[2017-10-20] MEDS: LORAZEPAM 0.5 MG TAB PO SCH ×3 (09:20→21:00)
[2017-10-20] MEDS: ASPIRIN 81 MG CHEW TAB PO SCH (09:20)
[2017-10-20] MEDS: CARVEDILOL 3.125 MG TAB PO SCH ×2 (09:21→21:00)
[2017-10-20] MEDS: POTASSIUM CHLORIDE 20 MEQ TAB CR PO SCH (09:21)
[2017-10-20] MEDS: DABIGATRAN ETEXILATE 75 MG CAP PO SCH (09:22)
[2017-10-20] MEDS: DOCUSATE SODIUM LIQD 100 MG/10 ML UDC NG SCH (17:00)
[2017-10-20] MEDS ORDERED: ATORVASTATIN 40 MG TAB PO SCH (21:00)
[2017-10-20] MEDS: MONTELUKAST SODIUM 10 MG TAB PO SCH (21:00)
[2017-10-20] MEDS: GABAPENTIN 100 MG CAP PO SCH (21:00)
[2017-10-20] MEDS: MIRTAZAPINE 15 MG TAB PO SCH (21:00)
[2017-10-21] VITALS (7 sets, daily range): BP systolic 104–125; BP diastolic 52–65
[2017-10-21] MEDS: LEVOTHYROXINE SODIUM 100 MCG TAB PO SCH (05:53)
--- NOTE | 2017-10-21 06:15 | Diagnostic Imaging Report ---
EXAM: CHEST SINGLE (PORTABLE), AP 1 view INDICATION: CHF, COPD COMPARISON: AP view of the chest October 20, 2017 FINDINGS: LINES/TUBES: Stable position of cardiac device. LUNGS: No consolidations or edema. PLEURA: No effusions or pneumothorax. HEART AND MEDIASTINUM: Stable BONES AND SOFT TISSUES: No acute findings. IMPRESSION: No interval change. No significant pulmonary edema. Signed by: Dr. Melita Fay M.D. on 10/21/2017 6:11 AM
[2017-10-21 07:08] LABS: BASOPHILS # (AUTO) 0.1 (0.0-0.1); BASOPHILS % 1.1 % (0.0-1.0); EOSINOPHILS # (AUTO) 0.2 (0.0-0.4); EOSINOPHILS % 3.4 % (0.0-6.0); HEMATOCRIT 32.2 % (34.2-44.1); LYMPHOCYTES # (AUTO) 1.5 (1.0-3.2); LYMPHOCYTES % 21.8 % (18.0-39.1); MEAN CORPUSCULAR HEMOGLOBIN 28.9 pg (28-32); MEAN CORPUSCULAR HGB CONC 31.1 g/dL (31-35); MEAN CORPUSCULAR VOLUME 93.1 fL (81-99); MONOCYTES # (AUTO) 0.6 (0.2-0.8); MONOCYTES % 8.3 % (4.4-11.3); NEUTROPHILS # (AUTO) 4.5 (2.1-6.9); NEUTROPHILS % 64.8 % (38.7-80.0); PLATELET COUNT 229 x10e3/uL (140-360); RED BLOOD COUNT 3.46 x10e6/uL (3.6-5.1); RED CELL DISTRIBUTION WIDTH 13.9 % (11.7-14.4)
[2017-10-21 07:28] LABS: ALBUMIN 3.1 g/dL (3.5-5.0); ANION GAP 14.4 mmol/L (8-16); CALCIUM 9.6 mg/dL (8.4-10.2); CREATININE, SERUM 1.84 mg/dL (0.57-1.11); POTASSIUM 4.4 mmol/L (3.5-5.1)
[2017-10-21] MEDS: AMIODARONE HCL 200 MG TAB PO SCH (08:27)
[2017-10-21] MEDS: FUROSEMIDE INJ 10 MG/ML 4 ML VIAL IV SCH (08:27)
[2017-10-21] MEDS: FERROUS SULFATE 325 MG TAB PO SCH (08:27)
[2017-10-21] MEDS: ASPIRIN 81 MG CHEW TAB PO SCH (08:27)
[2017-10-21] MEDS: LORAZEPAM 0.5 MG TAB PO SCH ×2 (08:27→14:39)
[2017-10-21] MEDS: DOCUSATE SODIUM LIQD 100 MG/10 ML UDC NG SCH (08:27)
[2017-10-21] MEDS: ASCORBIC ACID 500 MG TAB PO SCH (08:27)
[2017-10-21] MEDS: CARVEDILOL 3.125 MG TAB PO SCH (08:27)
[2017-10-21] MEDS: SERTRALINE HCL 50 MG TAB PO SCH (08:28)
[2017-10-21] MEDS: POTASSIUM CHLORIDE 20 MEQ TAB CR PO SCH (08:28)
[2017-10-21] MEDS: DABIGATRAN ETEXILATE 75 MG CAP PO SCH (08:28)
--- NOTE | 2017-10-21 15:23 | Discharge Summary ---
PRIMARY CARE DOCTOR: Dr. Romaine Rodrigues FINAL DIAGNOSIS: Acute systolic congestive heart failure exacerbation. SECONDARY DIAGNOSES 1. Chronic respiratory failure. 2. Hypertension. 3. Atrial fibrillation. 4. Hypothyroidism. 5. Anxiety. 6. Coronary artery disease with previous stent. 7. Stage 3 chronic kidney disease. 8. Automatic implantable cardioverter defibrillator status. 9. Iron deficiency anemia. 10. Colovesical fistula. 11. Colostomy status. CONSULTANTS 1. Dr. Mora, cardiology. 2. Dr. Dowd, frame stripper. HISTORY: Per H and P. HOSPITAL COURSE: The patient was admitted for acute failure, acute congestive heart failure. IV Lasix was initiated. Patient diuresed very well. However her creatinine did bump from 1.5 to 1.8. Initially I was going to hold her IV Lasix and repeat a creatinine in the morning however patient stated she already arranged her caregiver for tonight and she wishes to go home. I have spoken to her house-call doctor, a nurse practitioner. She will schedule a creatinine check tomorrow and if that is stable we may restart oral Lasix. I have discussed this case with Dr. Mora and Dr. Dowd. I have seen and examined today. It took 35 minutes total to discharge this patient. CONDITION ON DISCHARGE: Stable. DISCHARGE MEDICATIONS: Please see medication reconciliation form. ERIC MOCK M.D. Job#: [id number] DG cc:ROMAINE RODRIGUES MD
[2017-10-22] MEDS ORDERED: AMIODARONE HCL 200 MG TAB PO SCH (09:00)
== END 2017-10-21 15:37 | disposition home or self-care (01) | DRG 291 ==
LOC: ER 22:11 → ERHOLD 23:59 → MED/SURG3 10-19 22:41
PROVIDERS: ADMIT Internal Medicine; ATTEND Internal Medicine
PROC: 4B02XTZ Measurement of Cardiac Defibrillator, External Approach (ICD-10-PCS; principal; 2017-10-20)
DX: I13.0 Hypertensive heart and chronic kidney disease with heart failure and stage 1 through stage 4 chronic kidney disease, or unspecified chronic kidney disease (principal); I50.43 Acute on chronic combined systolic (congestive) and diastolic (congestive) heart failure; J96.10 Chronic respiratory failure, unspecified whether with hypoxia or hypercapnia; N32.1 Vesicointestinal fistula; J44.1 Chronic obstructive pulmonary disease with (acute) exacerbation; N18.3 Chronic kidney disease, stage 3 (moderate); I48.91 Unspecified atrial fibrillation; Z79.01 Long term (current) use of anticoagulants; E03.9 Hypothyroidism, unspecified; Z79.52 Long term (current) use of systemic steroids; Z93.3 Colostomy status; F41.9 Anxiety disorder, unspecified; I25.10 Atherosclerotic heart disease of native coronary artery without angina pectoris; Z95.5 Presence of coronary angioplasty implant and graft; Z95.810 Presence of automatic (implantable) cardiac defibrillator; E78.00 Pure hypercholesterolemia, unspecified; I34.0 Nonrheumatic mitral (valve) insufficiency; R60.0 Localized edema
CPT/HCPCS: 36415; 51700; 71045; 80048; 80053; 82550; 82553; 83735; 83880; 84443; 84484; 85025; 93005; 93306; 93970; 94640; 99284; J1940; J2930

== ENCOUNTER 2017-12-07 15:49 | Inpatient (IN) | payer MEDICARE ==
[~2017-12-07] VITALS: Ht 168.9 cm; Wt 61.2 kg
[~2017-12-07 15:49] MED LIST changes: +CARAFATE1 GM/10 ML PO; +GABAPENTIN100 MG PO
[2017-12-07] MEDS ORDERED: FUROSEMIDE INJ 10 MG/ML 4 ML VIAL IV ONE (16:15)
[2017-12-07 16:34] LABS: BASOPHILS # (AUTO) 0.1 (0.0-0.1); EOSINOPHILS # (AUTO) 0.4 (0.0-0.4); HEMATOCRIT 40.8 % (34.2-44.1); HEMOGLOBIN 12.1 g/dL (12.0-16.0); LYMPHOCYTES # (AUTO) 1.7 (1.0-3.2); LYMPHOCYTES % 14.6 % (18.0-39.1); MEAN CORPUSCULAR HEMOGLOBIN 27.4 pg (28-32); MEAN CORPUSCULAR HGB CONC 29.7 g/dL (31-35); MEAN CORPUSCULAR VOLUME 92.3 fL (81-99); MONOCYTES # (AUTO) 0.5 (0.2-0.8); MONOCYTES % 4.1 % (4.4-11.3); NEUTROPHILS # (AUTO) 9.1 (2.1-6.9); NEUTROPHILS % 76.7 % (38.7-80.0); PLATELET COUNT 302 x10e3/uL (140-360); RED BLOOD COUNT 4.42 x10e6/uL (3.6-5.1); RED CELL DISTRIBUTION WIDTH 14.9 % (11.7-14.4)
[2017-12-07 16:44] LABS: INR 1.05; PROTHROMBIN TIME 12.9 seconds (11.9-14.5)
[2017-12-07 16:47] LABS: PARTIAL THROMBOPLASTIN TIME 22.7 seconds (23.8-35.5)
[2017-12-07 16:56] LABS: ALBUMIN/GLOBULIN RATIO 1.1 (0.8-2.0); ANION GAP 17.3 mmol/L (8-16); CALCIUM 9.9 mg/dL (8.4-10.2); CREATININE, SERUM 2.33 mg/dL (0.57-1.11)
[2017-12-07 16:58] LABS: POTASSIUM 5.3 mmol/L (3.5-5.1)
--- NOTE | 2017-12-07 17:19 | Diagnostic Imaging Report ---
PROCEDURE: single AP view of the chest. COMPARISON: Patients [facility], DX, CHEST SINGLE (PORTABLE), 10/21/2017, 5:54. INDICATIONS: SHORTNESS OF BREATH FINDINGS: Lines/tubes: None. Dual lead eft sided cardiac pacemaker again observed. Lungs: Patchy consolidation in the right middle and lower lobes consistent with pneumonia. Mild patchy density in the left lung base may represent atelectasis versus mild pneumonia. Pleura: There is no pleural effusion or pneumothorax. Heart and mediastinum: The heart and the mediastinum are unremarkable. Bones: No acute bony abnormality. IMPRESSION: 1. Right middle and lower lobe pneumonia. Recommend followup chest PA and lateral views after treatment in 6 weeks to document resolution. Shankar Hall M.D. Dictated by: Shankar Hall M.D. on 12/07/2017 at 17:22 Electronically approved by: Shankar Hall M.D. on 12/07/2017 at 17:22
[2017-12-07 17:23] LABS: BILIRUBIN,URINE NEGATIVE (NEGATIVE); CLARITY,URINE CLEAR (CLEAR); COLOR,URINE YELLOW (YELLOW); EPITHELIAL CELLS,URINE RARE /LPF; KETONES,URINE NEGATIVE (NEGATIVE); LEUKOCYTE ESTERASE ,URINE NEGATIVE (NEGATIVE); MUCUS,URINE RARE (RARE); NITRITE,URINE NEGATIVE (NEGATIVE); PROTEIN,URINE DIPSTICK NEGATIVE (NEGATIVE); URINE UROBILINOGEN 0.2 mg/dL (0.2 - 1); WBC,URINE (MAN) 0-5 /HPF (0-5)
[2017-12-07] MEDS ORDERED: ALBUTEROL SULF 0.083% NEB SOLN 3 ML NEB NEB SCH (18:30)
[2017-12-07 19:00] LABS: ABG PCO2 49 mmHg (41-51); ABG PH 7.44 (7.31-7.41)
[2017-12-07] MEDS: ALBUTEROL SULF 0.083% NEB SOLN 3 ML NEB NEB SCH (19:00)
[2017-12-07] MEDS: IPRATROPIUM BROMIDE 0.02% 2.5 ML NEB NEB SCH (19:00)
[2017-12-07 19:01] LABS: ABG HCO3 33 mmol/L (23-28); ABG PO2 362 mmHg (80-105)
[2017-12-07 20:19] VITALS: BP 106/53
[2017-12-07 20:21] VITALS: BP 106/53
[2017-12-07] MEDS ORDERED: TRAZODONE HCL 50 MG TAB PO PRN (20:45)
[2017-12-07] MEDS ORDERED: BENZONATATE 100 MG CAP PO PRN (20:45)
[2017-12-07] MEDS: SODIUM CHLORIDE 0.9% 1000ML 1,000 ML IV SCH (20:50)
[2017-12-07] MEDS: CARVEDILOL 3.125 MG TAB PO SCH (21:00)
[2017-12-07] MEDS ORDERED: VANCOMYCIN 500MG/NS 0.9% 100ML 100 ML IV SCH ×3 (21:00→22:00)
[2017-12-07] MEDS: MIRTAZAPINE 15 MG TAB PO SCH (21:04)
[2017-12-07] MEDS: LORAZEPAM 0.5 MG TAB PO SCH (21:04)
[2017-12-07] MEDS: ATORVASTATIN 20 MG TAB PO SCH (21:04)
[2017-12-07] MEDS: MONTELUKAST SODIUM 10 MG TAB PO SCH (21:04)
[2017-12-07 21:36] VITALS: BP 106/53
--- NOTE | 2017-12-07 21:41 | History and Physical ---
CHIEF COMPLAINT: Shortness of breath that started this morning. HPI: Ms. Hermosillo is a 77-year-old female known to me from previous admission. Patient has history of congestive heart failure with EF of 20% to 25%. She is on Lasix. She is a lifelong nonsmoker. She has a pacemaker as well. She reports that this morning she started having shortness of breath, which progressively got worse. Lately, she has been coughing and bringing up phlegm as well. She denies any fever or chills. REVIEW OF SYSTEMS: GENERAL: Denies any fever or chills. HEAD: Denies any head trauma. ENT: Denies any earache. CVS: Denies any chest pain. RESPIRATORY: Shortness of breath. GI: Denies any nausea or vomiting. The rest of the review of systems are negative except as in HPI. PAST MEDICAL HISTORY: Hypertension, hyperlipidemia, chronic systolic heart failure. She reports that she has COPD, however, she is a lifelong nonsmoker. Her smoked. FAMILY AND SOCIAL HISTORY: Mother with breast cancer. She is a lifelong nonsmoker, smoked. PHYSICAL EXAMINATION: VITAL SIGNS: Temperature 97.9, pulse of 75, blood pressure 106/53, respiratory rate of 18. O2 sat 99%. HEENT: Head atraumatic, normocephalic. NECK: Supple. No JVD. CHEST: Crackles bilaterally. HEART: S1 and S2 audible. ABDOMEN: Soft, nontender. Bowel sounds audible. No hepatosplenomegaly. EXTREMITIES: No clubbing, cyanosis, or edema. NEUROLOGICAL: Awake and alert. No focal neurologic deficit. Chest x-ray showing right lower lobe and middle lobe infiltrate. LABS: White count of 11,000; hemoglobin 12.1; platelets 302,000. Chemistry: Sodium 142, potassium 5.3, chloride 102, bicarb 28, anion gap of 17, BUN 37, creatinine 2.3. Lactic acid 11.7. BNP 1283.6. ASSESSMENT: Ms. Hermosillo is a 77-year-old female. She presented to the emergency room with worsening shortness of breath. Chest x-ray showing evidence of pneumonia. Patient has ejection fraction of 25% and has seen Dr. Mora in the past. PLAN: 1. I will start the patient on IV vancomycin and Zosyn; recent hospitalization. 2. Nebulizer treatment q.4-6h. 3. Will start the patient on IV hydration. Patient's baseline creatinine is around 1.8-1.5. It is 2.33 now. 4. Increasing BNP is likely due to pneumonia. I doubt that this is heart failure. 5. Will consult Dr. Mora. Patient was seen by him during last admission for heart failure. 6. Patient has history of anxiety. Will start the patient on low-dose Ativan, she takes at home. 7. Acute hypoxic respiratory failure. Patient is on BiPAP. I have reviewed the BiPAP setting. Will continue the patient on current BiPAP setting for now. Oxygen saturation is 100% on FiO2 of 60%. She is on IPAP of 14 and EPAP of 7. Critical care time spent 45 minutes. Job#: [id number]
--- NOTE | 2017-12-07 22:14 | Consultation ---
DATE OF CONSULTATION: No Dictation 00:06 seconds. Job#: [id number]
[2017-12-08] VITALS (8 sets, daily range): BP systolic 100–134; BP diastolic 49–59
[2017-12-08] MEDS ORDERED: IPRATROPIUM BROMIDE 0.02% 2.5 ML NEB NEB SCH
[2017-12-08] MEDS: IPRATROPIUM BROMIDE 0.02% 2.5 ML NEB NEB SCH ×4 (00:10→19:55)
[2017-12-08] MEDS: ALBUTEROL SULF 0.083% NEB SOLN 3 ML NEB NEB SCH ×8 (00:15→23:40)
[2017-12-08] MEDS: PIPERACILLIN/TAZO 2.25 GM 50 ML IV SCH ×4 (00:41→17:10)
[2017-12-08 02:40] LABS: CREATINE KINASE MB 1.3 ng/mL (0-5.0)
[2017-12-08 05:41] LABS: BASOPHILS # (AUTO) 0.1 (0.0-0.1); BASOPHILS % 0.6 % (0.0-1.0); EOSINOPHILS # (AUTO) 0.2 (0.0-0.4); EOSINOPHILS % 2.2 % (0.0-6.0); HEMATOCRIT 30.1 % (34.2-44.1); LYMPHOCYTES # (AUTO) 0.9 (1.0-3.2); LYMPHOCYTES % 11.5 % (18.0-39.1); MEAN CORPUSCULAR HGB CONC 29.6 g/dL (31-35); MEAN CORPUSCULAR VOLUME 91.2 fL (81-99); MONOCYTES # (AUTO) 0.6 (0.2-0.8); MONOCYTES % 7.1 % (4.4-11.3); NEUTROPHILS # (AUTO) 6.3 (2.1-6.9); NEUTROPHILS % 78.2 % (38.7-80.0); PLATELET COUNT 187 x10e3/uL (140-360); RED CELL DISTRIBUTION WIDTH 15.1 % (11.7-14.4)
[2017-12-08 05:46] LABS: HEMOGLOBIN 8.9 g/dL (12.0-16.0)
[2017-12-08 06:03] LABS: ANION GAP 11.4 mmol/L (8-16); CALCIUM 9.1 mg/dL (8.4-10.2); CREATININE, SERUM 1.78 mg/dL (0.57-1.11); POTASSIUM 4.4 mmol/L (3.5-5.1)
[2017-12-08] MEDS: LEVOTHYROXINE SODIUM 100 MCG TAB PO SCH (06:27)
--- NOTE | 2017-12-08 06:41 | Diagnostic Imaging Report ---
CHEST SINGLE (PORTABLE), 12/08/2017 5:00 AM Technique: CHEST SINGLE (PORTABLE) Comparison: 10/21/2017, 10/20/2017 Clinical history: Pneumonia Findings: See Impression Impression: 1. Lines/Tubes: Stable left chest wall 3-lead ICD. 2. Stable mildly enlarged cardiac silhouette. 3. Central vascular congestion. Mild bibasilar opacity which could reflect vascular crowding/atelectasis or aspiration/early infection. Recommend follow-up upright PA and lateral when feasible. Signed by: Dr Tosin Swain MD on 12/08/2017 6:37 AM
[2017-12-08 07:00] LABS: CREATINE KINASE MB 1.2 ng/mL (0-5.0)
[2017-12-08] MEDS: SODIUM CHLORIDE 0.9% 1000ML 1,000 ML IV SCH (07:22)
[2017-12-08] MEDS ORDERED: FERROUS SULFATE 325 MG TAB PO SCH (08:00)
[2017-12-08] MEDS: CARVEDILOL 3.125 MG TAB PO SCH ×2 (08:40→20:32)
[2017-12-08] MEDS: LORATADINE 10 MG TAB PO SCH (08:49)
[2017-12-08] MEDS: ASCORBIC ACID 500 MG TAB PO SCH ×2 (08:49→16:26)
[2017-12-08] MEDS: SUCRALFATE 1 GM/10 ML SUSP PO SCH ×2 (08:49→16:25)
[2017-12-08] MEDS: ASPIRIN 81 MG CHEW TAB PO SCH (08:49)
[2017-12-08] MEDS: PANTOPRAZOLE SOD 40 MG TABEC PO SCH (08:49)
[2017-12-08] MEDS: FERROUS SULFATE 325 MG TAB PO SCH ×2 (08:49→16:25)
[2017-12-08] MEDS: LORAZEPAM 0.5 MG TAB PO SCH ×3 (08:49→20:32)
[2017-12-08] MEDS ORDERED: SERTRALINE HCL 50 MG TAB PO SCH (09:00)
[2017-12-08] MEDS ORDERED: DABIGATRAN ETEXILATE 75 MG CAP PO SCH (09:00)
[2017-12-08] MEDS ORDERED: VANCOMYCIN HCL 1GM/NS 250 ML BAG IV SCH (09:00)
[2017-12-08] MEDS ORDERED: ATORVASTATIN 20 MG TAB PO SCH (09:00)
[2017-12-08] MEDS ORDERED: AMIODARONE HCL 200 MG TAB PO SCH (09:00)
[2017-12-08] MEDS ORDERED: VANCOMYCIN 1GM/NS 250 ML 250 ML IV ONE (09:30)
[2017-12-08] MEDS: FUROSEMIDE INJ 10 MG/ML 4 ML VIAL IV SCH (12:38)
--- NOTE | 2017-12-08 13:10 | Consultation ---
DATE OF CONSULTATION: December 08, 2017 REASON FOR CONSULTATION: History of CHF. HPI: This is a well known patient, a 77-year-old lady known to the practice with history of chronic systolic heart failure, hypertension, hypercholesterolemia, CAD with PCI in 1997, status post RESTAURANT AREA MANAGER device, also with known infrarenal abdominal aortic aneurysm and recent history of rectovaginal fistula, underwent bowel resection surgery, status post colostomy at [facility] in June 2017. The patient, however, presented to [facility] ER with complaints of shortness of breath, cough and phlegm that started Thursday morning. Therefore, she came to the ER for further evaluation. On imaging, the patient was noted with right middle and lower lobe pneumonia and has been on antibiotic therapy since. Cardiology is consulted given the patient's extensive cardiac history. The patient is seen in the room in no acute distress on nasal cannula. Reports her breathing is much better. Denies any fever or chills. On antibiotic therapy. PAST MEDICAL HISTORY 1. Hypertension. 2. Hypercholesterolemia. 3. Chronic systolic heart failure. 4. Left bundle-branch block. 5. Status post RESTAURANT AREA MANAGER device. 6. Chronic kidney disease, stage 3. 7. COPD on home oxygen about 4 L. 8. Former smoker. 9. Hypothyroidism. 10. CAD with RCA PCI in 1997. PAST SURGICAL HISTORY 1. Left CEA. 2. Bi-V ICD, [facility], inserted by Dr. Cartwright in January 2017. 3. In June 2017, extensive abdominal surgery for a vaginal-rectal fistula. 4. Also, status post left ostomy tube. 5. Currently with abdominal wound VAC. FAMILY HISTORY: Mother at age 79 apparently from breast cancer. Father at age 72 with apparent [place]. SOCIAL HISTORY: She is . She is a former smoker. Denies any alcohol use or illicit drug use. ALLERGIES: CODEINE, LIDOCAINE, LEVAQUIN. HOME MEDICATIONS: Include: 1. Amiodarone 200 mg twice a day. 2. Aspirin 81 mg once a day. 3. Plavix 75 mg once a day. 4. Coreg 3.125 mg twice a day. 5. Losartan 25 mg a day. 6. Atorvastatin 20 mg once a day. 7. Levothyroxine 150 mcg once a day. 8. Furosemide 40 mg once a day. 9. Sertraline 100 mg once a day. 10. Risperidone 0.25 mg daily. 11. Prednisone 10 mg daily. 12. Iron sulfate 325 mg daily. REVIEW OF SYSTEMS GENERAL: Denies any weight changes. Positive for fatigue and weakness. Denies any fever or chills. SKIN: No rashes. No bruises. HEENT: Denies any nausea, vomiting, vision changes, any blurred vision or double vision, hearing loss, earaches. Positive for nasal stuffiness and sneezing. Denies any epistaxis. Denies any hoarseness or sore throat. CARDIAC: Denies any chest pain. Positive for dyspnea on exertion. Denies any orthopnea or PND. Denies any lower extremity edema. RESPIRATORY: Positive for shortness of breath on exertion. Positive wheezing and coughing. Positive sputum. Denies any hemoptysis. GI: Denies any nausea, vomiting, constipation, diarrhea, any melena, hematochezia. Positive for abdominal wound VAC and left ostomy. URINARY: Positive for frequency and urgency. Positive for nocturia. Denies any hematuria or dysuria. VASCULAR: Denies any lower extremity edema or any claudication. MUSCULOSKELETAL: Positive for generalized muscle weakness. Positive for generalized joint pains and back pain. HEMATOLOGY: Denies any anemia or any easy bruising or bleeding. ENDOCRINE: Denies any heat or cold intolerance or any excessive sweating, polyuria or polydipsia. PHYSICAL EXAMINATION GENERAL: Height 66 inches, weight 135 pounds. Appears stated age, a reliable informant in no acute distress. CURRENT VITAL SIGNS: Temperature 98.6, pulse 68, respiratory rate 18, blood pressure 100/50. On nasal cannula at 2 L, pulse ox 99%. SKIN: No rashes or bruises noted. HEENT: Normocephalic. Pupils are equal and reactive. Extraocular motor intact. Left CEA scar noted. No JVD. No thyromegaly noted. Oral mucosa is pink. Trachea is midline. HEART: Regular rate and rhythm. Soft systolic murmur noted. PMI in 5th intercostal space. LUNGS: Crackles and rhonchi noted predominantly in right lung field ABDOMEN: Soft. Nontender. Positive wound VAC in lower infraumbilical area. Also, with left colostomy. : Positive Sarkar to gravity. MUSCULOSKELETAL: Muscle weakness throughout, 4/5. VASCULAR: There are +2 bilateral radial pulses, +1 DP and PT pulses. NEURO: Cranial nerves II through XII seem intact. LABS: White count 8, hemoglobin 8.9, hematocrit 30, platelets 187. Chemistry: Sodium 140, potassium 4.4, chloride 104, bicarb 29, creatinine 1.78, glucose 88. Troponin 0.03, next 0.06, next 0.05. BNP 1283. Chest x-ray showing right middle and lower lobe pneumonia. No EKG available on the chart. ASSESSMENT 1. Right middle lobe and lower lobe pneumonia. 2. Vuuwj-ho-huhelih systolic and diastolic heart failure. 3. Coronary artery disease with prior history of coronary stent in 1997. 4. Chronic obstructive pulmonary disease on home oxygen. 5. Jbyip-li-xoievcr kidney disease, stage 3, with baseline about 1.4. 6. Status post cardiac resynchronization therapy device. 7. Hypothyroidism. 8. History of moderate to severe mitral regurgitation. 9. 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 10. Wound VAC to abdomen. 11. Left colostomy. 12. Paroxysmal atrial fibrillation. PLAN 1. The patient is progressing slowly. Reports that breathing is much better. On antibiotic therapy as per primary and pulmonary services. 2. Will continue the patient's heart failure regimen, which includes beta zhou. Will hold fluids for now since the patient is known with systolic heart failure. Will give a dose of Lasix. 3. Continue telemetry monitoring for now. 4. Will continue the patient's amiodarone therapy and beta zhou therapy. 5. Regarding the patient's oral anticoagulation, will hold Pradaxa right now since there has been a decrease in her hemoglobin. Hemoglobin initially 12 and now 8.9. Thank you very much for this consult. We will follow the patient and address cardiac therapy as the course dictates. Dictated by: Germán Baptiste NP SEEN AND EXAMINED AMIODARONE TO BE DECREASED TO 100 MG PER DAY PRADAXA IS RELATIVELY CONTRAINDICATED, AGE, RENAL FAILURE ETC.. IF AOC IN FUTURE WARFARIN OR ELIQUIS ARE BETTER CHAR FINCH M.D. Job#: [id number] [facility] HOSPITALJosué
[2017-12-08] MEDS: DOCUSATE SODIUM 100 MG CAP PO SCH (16:25)
[2017-12-08] MEDS: MIRTAZAPINE 15 MG TAB PO SCH (20:32)
[2017-12-08] MEDS: ATORVASTATIN 20 MG TAB PO SCH (20:32)
[2017-12-08] MEDS: MONTELUKAST SODIUM 10 MG TAB PO SCH (20:32)
[2017-12-09] VITALS (8 sets, daily range): BP systolic 95–135; BP diastolic 43–64
[2017-12-09] MEDS: PIPERACILLIN/TAZO 2.25 GM 50 ML IV SCH ×5 (00:19→23:08)
[2017-12-09] MEDS: ALBUTEROL SULF 0.083% NEB SOLN 3 ML NEB NEB SCH ×5 (03:15→19:45)
[2017-12-09] MEDS: IPRATROPIUM BROMIDE 0.02% 2.5 ML NEB NEB SCH ×4 (03:15→19:45)
[2017-12-09 06:06] LABS: BASOPHILS # (AUTO) 0.1 (0.0-0.1); EOSINOPHILS # (AUTO) 0.3 (0.0-0.4); EOSINOPHILS % 4.6 % (0.0-6.0); HEMATOCRIT 31.5 % (34.2-44.1); HEMOGLOBIN 9.4 g/dL (12.0-16.0); LYMPHOCYTES # (AUTO) 0.6 (1.0-3.2); LYMPHOCYTES % 9.7 % (18.0-39.1); MEAN CORPUSCULAR HEMOGLOBIN 27.2 pg (28-32); MEAN CORPUSCULAR HGB CONC 29.8 g/dL (31-35); MONOCYTES # (AUTO) 0.5 (0.2-0.8); MONOCYTES % 7.8 % (4.4-11.3); NEUTROPHILS # (AUTO) 4.8 (2.1-6.9); NEUTROPHILS % 76.6 % (38.7-80.0); PLATELET COUNT 183 x10e3/uL (140-360); RED BLOOD COUNT 3.46 x10e6/uL (3.6-5.1)
[2017-12-09] MEDS: LEVOTHYROXINE SODIUM 100 MCG TAB PO SCH (06:30)
[2017-12-09 06:41] LABS: ALBUMIN 3.2 g/dL (3.5-5.0); ALBUMIN/GLOBULIN RATIO 1.1 (0.8-2.0); ANION GAP 13.6 mmol/L (8-16); CALCIUM 9.4 mg/dL (8.4-10.2); CREATININE, SERUM 1.77 mg/dL (0.57-1.11); POTASSIUM 4.6 mmol/L (3.5-5.1)
[2017-12-09 06:53] LABS: THYROID STIMULATING HORMONE 11.361 uIU/mL (0.350-4.940)
[2017-12-09] MEDS: SUCRALFATE 1 GM/10 ML SUSP PO SCH ×2 (07:51→16:45)
[2017-12-09] MEDS: PANTOPRAZOLE SOD 40 MG TABEC PO SCH (07:51)
[2017-12-09] MEDS: FERROUS SULFATE 325 MG TAB PO SCH ×2 (08:00→16:45)
[2017-12-09] MEDS: ASCORBIC ACID 500 MG TAB PO SCH ×2 (08:00→16:45)
[2017-12-09] MEDS: CARVEDILOL 3.125 MG TAB PO SCH ×2 (08:45→20:41)
[2017-12-09] MEDS: LORAZEPAM 0.5 MG TAB PO SCH ×3 (09:00→20:41)
[2017-12-09] MEDS: FUROSEMIDE INJ 10 MG/ML 4 ML VIAL IV SCH (09:00)
[2017-12-09] MEDS: DOCUSATE SODIUM 100 MG CAP PO SCH (09:00)
[2017-12-09] MEDS: AMIODARONE HCL 200 MG TAB PO SCH (09:00)
[2017-12-09] MEDS: ASPIRIN 81 MG CHEW TAB PO SCH (09:00)
[2017-12-09] MEDS: LORATADINE 10 MG TAB PO SCH (09:00)
[2017-12-09] MEDS ORDERED: FUROSEMIDE INJ 10 MG/ML 4 ML VIAL IV SCH (09:00)
[2017-12-09] MEDS ORDERED: SODIUM CHLORIDE 0.9% 1000ML 1,000 ML ONE (20:29)
[2017-12-09] MEDS: MIRTAZAPINE 15 MG TAB PO SCH (20:42)
[2017-12-09] MEDS: ATORVASTATIN 20 MG TAB PO SCH (20:42)
[2017-12-09] MEDS: MONTELUKAST SODIUM 10 MG TAB PO SCH (20:42)
[2017-12-10] MEDS: ALBUTEROL SULF 0.083% NEB SOLN 3 ML NEB NEB SCH ×6 (02:40→23:00)
[2017-12-10] MEDS: IPRATROPIUM BROMIDE 0.02% 2.5 ML NEB NEB SCH ×4 (02:40→19:35)
[2017-12-10 04:25] VITALS: BP 113/46
[2017-12-10] MEDS: PIPERACILLIN/TAZO 2.25 GM 50 ML IV SCH ×4 (06:17→23:34)
[2017-12-10] MEDS: LEVOTHYROXINE SODIUM 100 MCG TAB PO SCH (06:17)
[2017-12-10 07:00] VITALS: BP 110/55
[2017-12-10] MEDS: FERROUS SULFATE 325 MG TAB PO SCH ×2 (08:52→17:20)
[2017-12-10] MEDS: ASPIRIN 81 MG CHEW TAB PO SCH (08:52)
[2017-12-10] MEDS: ASCORBIC ACID 500 MG TAB PO SCH ×2 (08:52→17:20)
[2017-12-10] MEDS: PANTOPRAZOLE SOD 40 MG TABEC PO SCH (08:52)
[2017-12-10] MEDS: SUCRALFATE 1 GM/10 ML SUSP PO SCH ×2 (08:52→17:00)
[2017-12-10] MEDS: CARVEDILOL 3.125 MG TAB PO SCH ×2 (08:52→21:21)
[2017-12-10] MEDS: LORAZEPAM 0.5 MG TAB PO SCH ×3 (08:52→21:20)
[2017-12-10] MEDS: CLOPIDOGREL BISULFATE 75 MG TAB PO SCH (08:52)
[2017-12-10] MEDS: FUROSEMIDE INJ 10 MG/ML 4 ML VIAL IV SCH (08:52)
[2017-12-10] MEDS: AMIODARONE HCL 200 MG TAB PO SCH (08:52)
[2017-12-10] MEDS: DOCUSATE SODIUM 100 MG CAP PO SCH (08:52)
[2017-12-10] MEDS: LORATADINE 10 MG TAB PO SCH (08:52)
[2017-12-10] MEDS: MUPIROCIN 2% OINT 22 GM TUBE TOP SCH ×2 (09:00→17:20)
[2017-12-10 11:40] VITALS: BP 115/54
--- NOTE | 2017-12-10 11:53 | Diagnostic Imaging Report ---
PROCEDURE:US GUIDANCE FOR VASCULAR ACCESS COMPARISON:None. INDICATIONS:Not provided. FINDINGS:Ultrasound evaluation of potential access sites was performed. After successfully identifying a patent vessel, US guidance was used to puncture the vein. A permanent recording was created for the patient record. CONCLUSION:Successful IV access by Ultrasound guidance. Jhony Candelaria M.D. Dictated by: Jhony Candelaria M.D. on 12/10/2017 at 11:57 Electronically approved by: Jhony Candelaria M.D. on 12/10/2017 at 11:57
--- NOTE | 2017-12-10 12:57 | Consultation ---
DATE OF CONSULTATION: REASON FOR CONSULTATION: Pneumonia. Thank you so much for asking me to see this patient. HISTORY OF PRESENT ILLNESS: This is a very pleasant, 77-year-old white female with history of congestive heart failure, history of COPD, hypertension, chronic systolic heart failure. The patient comes into the hospital because she is not feeling well with shortness of breath and having cough. The patient was admitted on 12/07/2017. She was started on IV antibiotic. She is telling me she is feeling better. She is planning to go home in the next day or two. Infectious disease was consulted today to make recommendation in terms of antibiotic. Patient, who was lying in bed comfortably, has no other complaints. She said today she had a good day in general. PAST MEDICAL HISTORY: Hypertension, hypercholesterolemia, chronic systolic heart failure, left bundle branch block, status post NEON PUMPER device, chronic kidney disease stage 3, COPD on home oxygen, former smoker, hypothyroidism, coronary artery disease with RCA PCI in 1987. PAST SURGICAL HISTORY: Left CEA. Biventricular ICD, [facility]. In June 2017, extensive abdominal surgery for vaginorectal fistula. Status post left ostomy tube. Currently with abdominal wound. FAMILY HISTORY: Mother with breast cancer. Father had myocardial infarction. SOCIAL HISTORY: She is . Used to be a smoker, quit. ALLERGIES: CODEINE. MEDICATION: At home she is on amiodarone, aspirin, Plavix, Coreg, losartan, atorvastatin, levothyroxine, furosemide, prednisone. REVIEW OF SYSTEMS HEENT: There is no headache, visual changes, hearing changes. GI: There is no nausea, no vomiting, no diarrhea. CARDIAC: There is no arrhythmia or chest pain. NEURO: No seizure activity or focal weakness. SKIN: There is no rash. JOINTS: There is no erythema or swelling. PSYCH: There is no depression. LABORATORY DATA: Reviewed. Her blood cultures are negative. She had a culture from the nose that showed MRSA. White count on admission was 11.85, today 6.3. Hemoglobin 9.4 and hematocrit 31. Sodium 142, potassium 4.6, creatinine 1.77. Chest x-ray on 12/08/2017 showed enlarged heart with congestion, mild bibasilar opacities. Patient has been on current medications here. She is on Plavix 75 daily, Colace, Cordarone, Lasix, Carafate, Protonix, Ativan, Claritin, levothyroxine 150 mcg daily, Zosyn, Singulair. PHYSICAL EXAMINATION GENERAL: She is currently alert and oriented, does not seem to be in acute distress. VITALS: Stable. Afebrile since admission. HEENT: She is not icteric. NECK: Supple. CHEST: Clear. HEART: S1 and S2, no murmur. ABDOMEN: Soft. Bowel sounds are present. EXTREMITIES: No edema or skin rash. IMPRESSION 1. Pneumonia on admission, community acquired, seems to be getting better with Zosyn. I would recommend to finish 8 days of antibiotics. Can probably change to oral Augmentin once discharged home, Augmentin 875 p.o. daily to finish 8 days. 2. 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 Can use Bactroban nasal twice a day for 15 days. This will be done as an outpatient. 3. Chronic kidney disease. 4. Congestive heart failure. 5. History hypertension. 6. History of hypothyroidism. 7. From an infectious disease point of view, the patient is otherwise stable. Thank you so much for asking me to see this patient. Will follow. Job#: [id number]
[2017-12-10 19:43] VITALS: BP 127/64
[2017-12-10 20:00] VITALS: BP 127/64
[2017-12-10] MEDS: ATORVASTATIN 20 MG TAB PO SCH (21:21)
[2017-12-10] MEDS: MONTELUKAST SODIUM 10 MG TAB PO SCH (21:21)
[2017-12-10] MEDS: MIRTAZAPINE 15 MG TAB PO SCH (21:21)
[2017-12-11 00:20] VITALS: BP 111/46
[2017-12-11] MEDS: IPRATROPIUM BROMIDE 0.02% 2.5 ML NEB NEB SCH ×3 (02:50→13:00)
[2017-12-11] MEDS: ALBUTEROL SULF 0.083% NEB SOLN 3 ML NEB NEB SCH ×3 (02:50→10:35)
[2017-12-11 05:10] VITALS: BP 130/94
[2017-12-11] MEDS: LEVOTHYROXINE SODIUM 100 MCG TAB PO SCH (05:46)
[2017-12-11] MEDS: PIPERACILLIN/TAZO 2.25 GM 50 ML IV SCH ×2 (05:46→14:43)
[2017-12-11 07:46] VITALS: BP 121/56
[2017-12-11] MEDS: DOCUSATE SODIUM 100 MG CAP PO SCH (08:05)
[2017-12-11] MEDS: SUCRALFATE 1 GM/10 ML SUSP PO SCH (08:05)
[2017-12-11] MEDS: CARVEDILOL 3.125 MG TAB PO SCH (08:05)
[2017-12-11] MEDS: ASCORBIC ACID 500 MG TAB PO SCH (08:05)
[2017-12-11] MEDS: LORAZEPAM 0.5 MG TAB PO SCH (08:05)
[2017-12-11] MEDS: LORATADINE 10 MG TAB PO SCH (08:05)
[2017-12-11] MEDS: FUROSEMIDE INJ 10 MG/ML 4 ML VIAL IV SCH (08:05)
[2017-12-11] MEDS: ASPIRIN 81 MG CHEW TAB PO SCH (08:05)
[2017-12-11] MEDS: FERROUS SULFATE 325 MG TAB PO SCH (08:05)
[2017-12-11] MEDS: PANTOPRAZOLE SOD 40 MG TABEC PO SCH (08:05)
[2017-12-11] MEDS: AMIODARONE HCL 200 MG TAB PO SCH (08:05)
[2017-12-11] MEDS: CLOPIDOGREL BISULFATE 75 MG TAB PO SCH (08:06)
[2017-12-11] MEDS: MUPIROCIN 2% OINT 22 GM TUBE TOP SCH (08:06)
[2017-12-11] MEDS ORDERED: AUGMENTIN 875-1 EACH PO (08:46)
--- NOTE | 2017-12-11 09:51 | Discharge Summary ---
Patient of Dr. Rodrigues and Dr. Mora. A charming but unfortunate 77-year-old woman admitted with shortness of breath, history of severe congestive heart failure with ejection fraction of 20%, history of _knee joint infection \ . Chest x-ray showed a right lower lobe and right middle pneumonia. She was placed on BiPAP and gradually improved. Was eventually weaned to nasal oxygen. She plans to be on oxygen at home. Cultures were negative. She was seen by Dr. Mora. She has a history of hyperlipidemia, CAD with PCI in 1997, status post TECHNICAL ACCOUNT REPRESENTATIVE device. Also, has a known infrarenal abdominal aortic aneurysm, history of colostomy in June of this year, history of chronic kidney disease, history of smoking in the past, on home oxygen at 4 L, stent in the right coronary, left carotid surgery, biventricular AICD, abdominal wound with VAC. She is and former smoker. The patient gradually improved. She is discharged to be followed by Dr. Rodrigues as an outpatient. Discharged on Augmentin. She had been treated in the hospital with Yue. She will be continued on: 1. Albuterol. 2. Amiodarone 100 mg. 3. Aspirin 81 mg. 4. Lipitor 40 mg. 5. Coreg 3.125 mg b.i.d. 6. Plavix 75 mg. 7. Levoxyl 150 mcg. 8. Claritin 10 mg. 9. Lorazepam 0.25 mg t.i.d. 10. Remeron 50 mg at night. 11. Montelukast 10 mg. 12. Protonix 40 mg. 13. Carafate 1 g b.i.d. 14. Trazodone 50 mg at bedtime. 15. Four liters nasal oxygen. 16. Pulmicort. Follow up with Dr. Rodrigues. EFREN PETERSEN MD Job#: [id number] RI MTDD
--- NOTE | 2017-12-11 10:45 | Discharge Summary ---
ADDENDUM TO DISCHARGE SUMMARY Ms. Hermosillo has a degree of renal failure. The patient will be instructed to discontinue her Pradaxa. Defer anticoagulation to Dr. Mora. EFREN PETERSEN MD Job#: [id number]
[2017-12-11 17:18] VITALS: BP 127/67
[2017-12-11] MEDS ORDERED: ATORVASTATIN 40 MG TAB PO SCH (21:00)
== END 2017-12-11 17:45 | disposition home or self-care (01) | DRG 291 ==
LOC: ER 15:49 → ERHOLD 18:35 → IMCU 19:46
PROVIDERS: ADMIT Internal Medicine Pulmonary Disease; ATTEND Internal Medicine Pulmonary Disease
PROC: 02HV33Z Insertion of Infusion Device into Superior Vena Cava, Percutaneous Approach (ICD-10-PCS; principal; 2017-12-07)
DX: I13.0 Hypertensive heart and chronic kidney disease with heart failure and stage 1 through stage 4 chronic kidney disease, or unspecified chronic kidney disease (principal); J15.9 Unspecified bacterial pneumonia; J96.01 Acute respiratory failure with hypoxia; I50.43 Acute on chronic combined systolic (congestive) and diastolic (congestive) heart failure; N17.9 Acute kidney failure, unspecified; N18.4 Chronic kidney disease, stage 4 (severe); I50.22 Chronic systolic (congestive) heart failure; Z95.0 Presence of cardiac pacemaker; Z80.3 Family history of malignant neoplasm of breast; Z93.3 Colostomy status; I48.0 Paroxysmal atrial fibrillation; I25.10 Atherosclerotic heart disease of native coronary artery without angina pectoris; Z95.810 Presence of automatic (implantable) cardiac defibrillator; J44.9 Chronic obstructive pulmonary disease, unspecified; Z99.81 Dependence on supplemental oxygen; Z87.891 Personal history of nicotine dependence; E03.9 Hypothyroidism, unspecified; Z95.5 Presence of coronary angioplasty implant and graft
CPT/HCPCS: 36415; 36600; 51700; 71045; 76937; 80048; 80053; 80202; 81001; 82550; 82553; 82805; 83605; 83880; 84443; 84484; 85025; 85610; 85730; 87040; 87070; 87081; 87086; 87205; 93005; 94640; 94660; 96360; 97605; 97606; 99284; J1940; J2543; J3370; J7030

== ENCOUNTER 2018-07-23 16:43 | Inpatient (IN) | payer MEDICARE, OTHER ==
[~2018-07-23] VITALS: Ht 167.6 cm; Wt 77.4 kg
[~2018-07-23 16:43] MED LIST changes: +AUGMENTIN 875-1 EACH PO
--- OUTSIDE RECORDS SUMMARY | 2018-07-23 16:45 | XMS REPORT | Clinical Summary ---
Author Author [facility] Organization [facility] Address Unknown Phone Unavailable Care Team Providers Care Exchange Specialist Name Role Phone Romaine Rodrigues MD PCP Allergies Comments Active Allergy Reactions Severity Noted Date Codeine 11/04/2017 Metronidazole 11/04/2017 Lidocaine Hcl 11/04/2017 Medications End Date Status Medication Sig Dispensed Refills Start Date Active levothyroxine (SYNTHROID, Take 150 mcg 0 LEVOXYL) 150 mcg tablet by mouth every morning. Active amIODarone (PACERONE) 200 Take 200 mg 0 MG tablet by mouth daily. Active furosemide (LASIX) 20 mg Take 20 mg by 0 tablet mouth 2 (two) times a day. Active loratadine (CLARITIN) 10 Take 10 mg by 0 mg tablet mouth daily. Active clopidogrel (PLAVIX) 75 Take 75 mg by 0 mg tablet mouth daily. Active atorvastatin (LIPITOR) 20 Take 20 mg by 0 MG tablet mouth daily. Default OP ins Active sucralfate (CARAFATE) 1 Take 1 g by 0 gram tablet mouth 4 (four) times a day. Active aspirin 81 mg chewable Chew 81 mg 0 tablet daily. Active METOPROLOL SUCCINATE ORAL Take 12.5 mg 0 by mouth. Active LORAZepam (ATIVAN) 0.5 MG Take 0.5 mg 0 tablet by mouth every 6 (six) hours as needed for anxiety. Active acetaminophen (TYLENOL) Take 325 mg 0 325 MG tablet by mouth every 6 (six) hours as needed for fever. Active ferrous sulfate 325 (65 Take 325 mg 0 FE) MG tablet by mouth daily with breakfast. Active gabapentin (NEURONTIN) Take 100 mg 0 100 mg capsule by mouth 3 (three) times a day. Active traZODone (DESYREL) 50 MG Take 50 mg by 0 tablet mouth nightly. Active montelukast (SINGULAIR) Take 10 mg by 0 10 mg tablet mouth nightly. Active mirtazapine (REMERON) 7.5 Take 7.5 mg 0 MG tablet by mouth nightly. Active shoaib Take by 0 m-hor [phone] mg mouth. tablet Active cholecalciferol, vitamin Take 2,000 0 D3, (VITAMIN D3) 2,000 Units by unit capsule capsule mouth daily. Active ascorbic acid, vitamin C, Take 1,000 mg 0 (ascorbic acid with paxton by mouth hips) 1000 MG tablet daily. Active b complex vitamins Take 1 0 capsule capsule by mouth daily. Active cyanocobalamin Take 1,000 0 (cyanocobalamin) 1000 MCG mcg by mouth tablet daily. Active Problems No known active problems Encounters Care Team Description Date Type Specialty Lázaro May MD 11/05/2017 Anesthesia General Surgery Event Germán Arreaga MD ABDOMINAL WOUND EXPLORATION 11/05/2017 Surgery General Surgery Germán Arreaga MD Preop testing 11/05/2017 [facility] General Surgery Encounter Germán Arreaga MD Preop testing 11/04/2017 Hospital Radiology Encounter Germán Arreaga MD Status post PICC central line placement 11/04/2017 Hospital Radiology Encounter Germán Arreaga MD Preop testing (Primary Dx) 11/04/2017 Pre-Admit Pre-Admission Testing Testing Appointment after 07/22/2017 Family History Medical History Relation Name Comments Hypertension Brother Hypertension Brother Hypertension Father Breast cancer Mother Relation Name Status Comments Brother Brother Father Mother Social History Date Tobacco Use Types Packs/Day Years Used Quit: 1968 Former Smoker Smokeless Tobacco: Never Used Alcohol Use Drinks/Week oz/Week Comments No Sex Assigned at Date Recorded Not on file Industry Job Start Date Occupation Not on file Not on file Not on file Travel End Travel History Travel Start No recent travel history available. Last Filed Vital Signs Time Taken Vital Sign Reading 11/05/2017 9:40 AM CDT Blood Pressure 119/56 11/05/2017 9:40 AM CDT Pulse 74 11/05/2017 9:05 AM CDT Temperature 36.7 C (98 F) 11/05/2017 9:40 AM CDT Respiratory Rate 16 11/05/2017 9:40 AM CDT Oxygen Saturation 99% - Inhaled Oxygen - Concentration 11/05/2017 6:22 AM CDT Weight 64.4 kg (142 lb) 11/05/2017 6:22 AM CDT Height 167.6 cm (5' 6") 11/05/2017 6:22 AM CDT Body Mass Index 22.92 Plan of Treatment Health Maintenance Due Date Last Done Comments SHINGLES VACCINES (1 of 1990 2) PNEUMOCOCCAL 2005 POLYSACCHARIDE VACCINE AGE 65 AND OVER PNEUMOCOCCAL-13 2005 INFLUENZA VACCINE 01/20/2018 Procedures Comments Procedure Name Priority Date/Time Associated Diagnosis [place] AN ELECTIVE Routine 11/05/2017 SUPRAGLOTTIC AIRWAY 7:53 AM CDT Procedure Note - Lynette Cuenca - 11/05/2017 7:53 AM CDT Airway Date/Time: 11/05/2017 7:43 AM Performed by: LYNETTE CUENCA Authorized by: LÁZARO MAY Location: OR Urgency: Elective Difficult Airway: No Anesthesio logist: LÁZARO MAY Resident/C RNA/AA: LYNETTE CUENCA Performed by: resident/C RNA/AA Preoxygena elvis with 100% O2: Yes C-spine Precaution s Maintained Throughout : Yes Mask Ventilatio n: Not attempted Final Airway Type: Supraglott ic airway Final LMA: Classic LMA Size: 4 Number of Attempts at Approach: 1 EXCISION, MASS 11/05/2017 INFECTED ABDOMINAL WOUND 7:15 AM CDT S31.109A XR CHEST 2 VW Routine 11/04/2017 Preop testing 12:17 PM CDT ECG PRE/POST OP Routine 11/04/2017 Preop testing 11:35 AM CDT SMEAR REVIEW Routine 11/04/2017 11:30 AM CDT ZZESTIMATED GFR Routine 11/04/2017 11:30 AM CDT PARTIAL THROMBOPLASTIN Routine 11/04/2017 Preop testing TIME (PTT) 11:30 AM CDT PROTHROMBIN TIME WITH INR Routine 11/04/2017 Preop testing 11:30 AM CDT COMPREHENSIVE METABOLIC Routine 11/04/2017 Preop testing PANEL 11:30 AM CDT HC COMPLETE BLD COUNT Routine 11/04/2017 Preop testing W/AUTO DIFF 11:30 AM CDT after 07/22/2017 Results * XR Chest 2 Vw (11/04/2017 12:17 PM CDT) Narrative Performed At EXAMINATION:XR CHEST 2 VW [facility]IANT CLINICAL HISTORY:Z01.818 Encounter for other preprocedural examination, Fever, preop COMPARISON: None . IMPRESSION: 1.Heart size is normal. 2.There is an AICD device overlying the left chest. 3.Lungs are clear. Both costophrenic sulci are blunted likely due to small pleural effusions. No pneumothorax. Osseous structures are intact. [facility]-[id number] Procedure Note Interface, Radiology Results Incoming - 11/04/2017 12:34 PM CDT EXAMINATION: XR CHEST 2 VW CLINICAL HISTORY: Z01.818 Encounter for other preprocedural examination, Fever, preop COMPARISON: None . IMPRESSION: 1. Heart size is normal. 2. There is an AICD device overlying the left chest. 3. Lungs are clear. Both costophrenic sulci are blunted likely due to small pleural effusions. No pneumothorax. Osseous structures are intact. [facility]-[id number] Performing Organization Address [facility] Phone Number [facility] [address] [place] [address] * ECG Pre/Post Op (11/04/2017 11:35 AM CDT) Ventricular rate 83 [facility] Atrial rate 83 [facility] [place] interval 118 [facility] QRSD interval 146 [facility] QT interval 452 [facility] QTC interval 531 [facility] P axis 1 81 [facility] QRS axis 1 258 [facility] T wave axis 49 [facility] EKG impression Normal sinus rhythm with sinus [facility] M[facility] arrhythmia-Nonspecific intraventricular block-Possible Lateral infarct , age undetermined-Abnormal ECG-No previous ECGs available- Performing Organization Address [facility] Phone Number [facility] [address] [place] [address] * Smear review (11/04/2017 11:30 AM CDT) Platelet slide review Alverto adequate [facility] DEPARTMENT OF PATHOLOGY AND GENOMIC MEDICINE Anisocytosis Slight [facility] DEPARTMENT OF PATHOLOGY AND GENOMIC MEDICINE Anisochromia Slight [facility] DEPARTMENT OF PATHOLOGY AND GENOMIC MEDICINE Performing Organization Address [facility] Phone Number [address] [place] [phone] PATHOLOGY AND GENOMIC MEDICINE * Estimated GFR (11/04/2017 11:30 AM CDT) GFR Non Af Amer 44 (A) mL/min/1.73 m2 [facility] DEPARTMENT OF PATHOLOGY AND GENOMIC MEDICINE GFR Af Amer 53 (A) mL/min/1.73 m2 [facility] DEPARTMENT OF Comment: PATHOLOGY AND Chronic kidney disease: <60 GENOMIC [facility] mL/min/1.73m2 Kidney failure: <15 mL/min/1.73m2 The estimated GFR is calculated from the IDMS-traceable Modification of Diet in Renal Disease Equation. The accuracy of the calculation is poor when the creatinine is normal. Calculated values >90 mL/min/1.73m2 are not reported. This equation has not been validated in children (<18 years), women, the elderly (>70 years), or ethnic groups other than Caucasians and Americans. Specimen Plasma specimen Performing Organization Address [facility] Phone Number [address] [place] [phone] PATHOLOGY AND [facility] * Partial thromboplastin time, activated (11/04/2017 11:30 AM CDT) PTT 33.1 23.0 - 36.0 sec [facility] DEPARTMENT OF Comment: PATHOLOGY AND PTT therapeutic range for [facility] unfractionated heparin is 61.0-112.0 seconds which corresponds to Anti-Xa 0.3-0.7 U/ml. Specimen Blood Performing Organization Address [facility] Phone Number [address] [place] [phone] PATHOLOGY AND [facility] * Prothrombin time with INR (11/04/2017 11:30 AM CDT) Prothrombin time 13.4 12.0 - 15.0 sec [facility] DEPARTMENT OF PATHOLOGY AND GENOMIC MEDICINE INR 1.0 [facility] DEPARTMENT OF Comment: PATHOLOGY AND The International Normalized GENOMIC MEDICINE Ratio (INR) is a therapeutic monitoring tool for patients who are stable on oral anticoagulant therapy. An INR of 2.0-3.0 is suggested for deep vein thrombosis/pulmonary embolism. Specimen Blood Performing Organization Address City/[facility]/Zipcode Phone Number [place] [address] [place] [address] PATHOLOGY AND GENOMIC MEDICINE * CBC with platelet and differential (11/04/2017 11:30 AM CDT) WBC 7.59 4.50 - 11.00 k/uL [facility] DEPARTMENT OF PATHOLOGY AND GENOMIC MEDICINE RBC 3.57 (L) 4.20 - 5.50 m/uL [facility] DEPARTMENT OF PATHOLOGY AND GENOMIC MEDICINE HGB 9.8 (L) 12.0 - 16.0 g/dL [facility] DEPARTMENT OF PATHOLOGY AND GENOMIC MEDICINE HCT 33.7 (L) 37.0 - 47.0 % [facility] DEPARTMENT OF PATHOLOGY AND GENOMIC MEDICINE MCV 94.4 82.0 - 100.0 fL [facility] DEPARTMENT OF PATHOLOGY AND GENOMIC MEDICINE MCH 27.5 27.0 - 34.0 pg [facility] DEPARTMENT OF PATHOLOGY AND GENOMIC MEDICINE MCHC 29.1 (L) 31.0 - 37.0 g/dL [facility] DEPARTMENT OF PATHOLOGY AND GENOMIC MEDICINE RDW - SD 47.9 37.0 - 55.0 fL [facility] DEPARTMENT OF PATHOLOGY AND GENOMIC MEDICINE MPV 10.0 8.8 - 13.2 fL [facility] DEPARTMENT OF PATHOLOGY AND GENOMIC MEDICINE Platelet count 235 150 - 400 k/uL [facility] DEPARTMENT OF PATHOLOGY AND GENOMIC MEDICINE Nucleated RBC 0.00 /100 WBC [facility] DEPARTMENT OF PATHOLOGY AND GENOMIC MEDICINE Neutrophils 79.5 (H) 39.0 - 69.0 % [facility] DEPARTMENT OF PATHOLOGY AND GENOMIC MEDICINE Lymphocytes 10.5 (L) 25.0 - 45.0 % [facility] DEPARTMENT OF PATHOLOGY AND GENOMIC MEDICINE Monocytes 6.7 0.0 - 10.0 % [facility] DEPARTMENT OF PATHOLOGY AND GENOMIC MEDICINE Eosinophils 2.0 0.0 - 5.0 % [facility] DEPARTMENT OF PATHOLOGY AND GENOMIC MEDICINE Basophils 0.9 0.0 - 1.0 % [facility] DEPARTMENT OF PATHOLOGY AND GENOMIC MEDICINE Specimen Blood Performing Organization Address City/[facility]/Zipcode Phone Number [facility] [place] [place] [address] [place] [address] PATHOLOGY AND GENOMIC MEDICINE * Comprehensive metabolic panel (11/04/2017 11:30 AM CDT) Sodium 143 135 - 148 mEq/L [facility] DEPARTMENT OF PATHOLOGY AND GENOMIC MEDICINE Potassium 4.8 3.5 - 5.0 mEq/L [facility] DEPARTMENT OF PATHOLOGY AND GENOMIC MEDICINE Chloride 100 98 - 112 mEq/L [facility] DEPARTMENT OF PATHOLOGY AND GENOMIC MEDICINE CO2 30 24 - 31 mEq/L [facility] DEPARTMENT OF PATHOLOGY AND GENOMIC MEDICINE Anion gap 13@ANIO 7 - 15 mEq/L [facility] DEPARTMENT OF PATHOLOGY AND GENOMIC MEDICINE BUN 31 (H) 8 - 23 mg/dL [facility] DEPARTMENT OF PATHOLOGY AND GENOMIC MEDICINE Creatinine 1.2 (H) 0.5 - 0.9 mg/dL [facility] DEPARTMENT OF PATHOLOGY AND GENOMIC MEDICINE Glucose 96 65 - 99 mg/dL [facility] DEPARTMENT OF PATHOLOGY AND GENOMIC MEDICINE Calcium 9.8 8.8 - 10.2 mg/dL [facility] DEPARTMENT OF PATHOLOGY AND GENOMIC MEDICINE Protein 6.6 6.3 - 8.3 g/dL [facility] DEPARTMENT OF Comment: PATHOLOGY AND [place] GENOMIC MEDICINE 4.6-7.0 g/dL 1 week 4.4-7.6 g/dL 7 months-1year 5.1-7.3 g/dL 1-2 years5.6-7 .5 g/dL >3 years6.0-8 .0 g/dL 18-150 6.3-8.3 g/dL Albumin 3.7 3.5 - 5.0 g/dL [facility] DEPARTMENT OF PATHOLOGY AND GENOMIC MEDICINE A/G ratio 1.3 0.7 - 3.8 [facility] DEPARTMENT OF PATHOLOGY AND GENOMIC MEDICINE Alkaline phosphatase 112 (H) 35 - 104 U/L [facility] DEPARTMENT OF PATHOLOGY AND GENOMIC MEDICINE AST 25 10 - 35 U/L [facility] DEPARTMENT OF PATHOLOGY AND GENOMIC MEDICINE ALT 22 5 - 50 U/L [facility] DEPARTMENT OF PATHOLOGY AND GENOMIC MEDICINE Total bilirubin 0.2 0.0 - 1.2 mg/dL [facility] DEPARTMENT OF PATHOLOGY AND GENOMIC MEDICINE Specimen Plasma specimen Performing Organization Address City/State/Zipcode Phone Number [facility] [address] [place] [address] PATHOLOGY AND GENOMIC MEDICINE after 07/22/2017 Insurance Payer Benefit Subscriber ID Type Phone Address Plan / Group HUMANA MEDICARE HUMANA xxxxxxxxx PPO MEDICARE PPO/PFFS/E [facility] MEDICAID MEDICAID xxxxxxxxx Medicaid Advance Directives Patient has advance care planning documents on file. For more information, pato villanueva contact: Lewis Engel [address] [place] [address]
[2018-07-23] MEDS ORDERED: METHYLPREDNISOLONE SOD SUCC 125 MG/2ML VIAL ONE (17:02)
--- NOTE | 2018-07-23 17:11 | NUR ---
BIPAP ON ARRIVAL 03/11; RATE 16; 50% FIO2
[2018-07-23] MEDS ORDERED: IPRATROPIUM BROMIDE 0.02% 2.5 ML NEB NEB ONE (17:15)
[2018-07-23] MEDS ORDERED: ALBUTEROL SULF 0.083% NEB SOLN 3 ML NEB NEB ONE (17:15)
[2018-07-23] MEDS ORDERED: METHYLPREDNISOLONE SOD SUCC 125 MG/2ML VIAL IV ONE (17:15)
[2018-07-23 17:29] LABS: BASOPHILS # (AUTO) 0.1 (0.0-0.1); BASOPHILS % 0.6 % (0.0-1.0); EOSINOPHILS # (AUTO) 0.2 (0.0-0.4); EOSINOPHILS % 1.5 % (0.0-6.0); HEMATOCRIT 37.8 % (34.2-44.1); LYMPHOCYTES # (AUTO) 2.3 (1.0-3.2); LYMPHOCYTES % 18.6 % (18.0-39.1); MEAN CORPUSCULAR HEMOGLOBIN 28.7 pg (28-32); MEAN CORPUSCULAR HGB CONC 29.1 g/dL (31-35); MEAN CORPUSCULAR VOLUME 98.7 fL (81-99); MONOCYTES # (AUTO) 0.9 (0.2-0.8); MONOCYTES % 7.1 % (4.4-11.3); NEUTROPHILS # (AUTO) 8.9 (2.1-6.9); NEUTROPHILS % 71.8 % (38.7-80.0); PLATELET COUNT 236 x10e3/uL (140-360); RED BLOOD COUNT 3.83 x10e6/uL (3.6-5.1); RED CELL DISTRIBUTION WIDTH 13.6 % (11.7-14.4)
[2018-07-23 17:36] LABS: INR 0.94; PROTHROMBIN TIME 13.4 seconds (11.9-14.5)
[2018-07-23 17:37] LABS: PARTIAL THROMBOPLASTIN TIME 27.4 seconds (23.8-35.5)
[2018-07-23 17:41] LABS: CLARITY,URINE HAZY (CLEAR); COLOR,URINE YELLOW (YELLOW)
[2018-07-23 17:42] LABS: BILIRUBIN,URINE NEGATIVE (NEGATIVE); KETONES,URINE NEGATIVE (NEGATIVE); LEUKOCYTE ESTERASE ,URINE 2+ (NEGATIVE); NITRITE,URINE POSITIVE (NEGATIVE); PROTEIN,URINE DIPSTICK 2+ (NEGATIVE); URINE UROBILINOGEN 0.2 mg/dL (0.2 - 1)
[2018-07-23 17:43] LABS: STREPTOCOCCUS GRP A ANTIGEN NEGATIVE (NEGATIVE)
[2018-07-23 17:46] LABS: ALBUMIN 3.9 g/dL (3.5-5.0); ALBUMIN/GLOBULIN RATIO 1.4 (0.8-2.0); ANION GAP 14.2 mmol/L (8-16); CALCIUM 9.4 mg/dL (8.4-10.2); CREATININE, SERUM 1.71 mg/dL (0.57-1.11); MAGNESIUM 2.2 MG/DL (1.3-2.1); POTASSIUM 4.2 mmol/L (3.5-5.1)
--- NOTE | 2018-07-23 17:47 | Diagnostic Imaging Report ---
EXAM: XR CHEST 1 VIEW DATE: 07/23/2018 4:59 PM INDICATION: Shortness of breath COMPARISON: 12/08/2017, no report available FINDINGS: Lines and Tubes: Left chest wall ICD, stable. Heart and Mediastinum: Heart is enlarged. Aortic vascular calcifications. Lungs and Pleura: Moderate bilateral airspace opacities are present which could represent edema and/or pneumonia. Bones and Soft Tissues: No acute findings. IMPRESSION: 1. Airspace opacities as above. Signed by: Dr. Sudeep Knight MD on 07/23/2018 5:44 PM
[2018-07-23 17:49] LABS: INFLUENZAE A&B ANTIGEN (RAPID) NEGATIVE (NEGATIVE)
[2018-07-23 17:52] LABS: CREATINE KINASE MB 1.4 ng/mL (0-5.0)
[2018-07-23 17:57] LABS: BACTERIA,URINE MANY /HPF; RBC,URINE >50 /HPF (0-5); WBC,URINE (MAN) >50 /HPF (0-5)
[2018-07-23 18:03] LABS: B-TYPE NATRIURETIC PEPTIDE2 2487.8 pg/mL (0-100)
[2018-07-23 18:25] LABS: ABG HCO3 39 mmol/L (23-28); ABG PCO2 74 mmHg (41-51); ABG PH 7.33 (7.31-7.41); ABG PO2 107 mmHg (80-105)
[2018-07-23] MEDS ORDERED: PLAVIX75 MG PO (18:27)
[2018-07-23] MEDS ORDERED: RANITIDINE HCL75 MG PO (18:27)
[2018-07-23] MEDS ORDERED: METOPROLOL TART25 MG PO (18:28)
[2018-07-23] MEDS ORDERED: FUROSEMIDE INJ 10 MG/ML 4 ML VIAL IV ONE (18:30)
[2018-07-23] MEDS ORDERED: VANCOMYCIN 1GM/NS 250 ML 250 ML IV ONE ×2 (19:00→22:15)
--- NOTE | 2018-07-23 19:10 | NUR ---
RECEIVED REPORT FROM MEKA LUNA AND MEKA SAENZ DAY SHIFT NURSES.
[2018-07-23] MEDS: PIPERACILLIN/TAZO 2.25 GM 50 ML IV SCH (19:16)
[2018-07-23] MEDS: AZTREONAM 1 GM/NS 50 ML 50 ML IV SCH (20:40)
[2018-07-23] MEDS: METHYLPREDNISOLONE SOD SUCC 125 MG/2ML VIAL IV SCH (22:19)
--- NOTE | 2018-07-23 22:30 | NUR ---
PERFORMED INCONTINENCE CARE ON PT. PLACED BARRIER CREAM ON SACRUM AND APPLIED AFFELYN LIFE PAD ON SACRUM.
[2018-07-23] MEDS: FUROSEMIDE INJ 10 MG/ML 4 ML VIAL IV SCH (22:33)
[2018-07-23 22:35] LABS: ABG HCO3 41 mmol/L (23-28); ABG PCO2 63 mmHg (41-51); ABG PH 7.43 (7.31-7.41); ABG PO2 87 mmHg (80-105)
[2018-07-24] VITALS (10 sets, daily range): BP systolic 106–130; BP diastolic 45–51
[2018-07-24 01:36] LABS: BASOPHILS % 0.1 % (0.0-1.0); HEMATOCRIT 31.6 % (34.2-44.1); HEMOGLOBIN 9.8 g/dL (12.0-16.0); LYMPHOCYTES # (AUTO) 0.3 (1.0-3.2); LYMPHOCYTES % 3.4 % (18.0-39.1); MEAN CORPUSCULAR HEMOGLOBIN 29.6 pg (28-32); MONOCYTES # (AUTO) 0.1 (0.2-0.8); MONOCYTES % 0.8 % (4.4-11.3); NEUTROPHILS # (AUTO) 7.3 (2.1-6.9); NEUTROPHILS % 95.3 % (38.7-80.0); PLATELET COUNT 153 x10e3/uL (140-360); RED BLOOD COUNT 3.31 x10e6/uL (3.6-5.1); RED CELL DISTRIBUTION WIDTH 13.7 % (11.7-14.4)
[2018-07-24 01:46] LABS: MEAN CORPUSCULAR VOLUME 95.5 fL (81-99)
[2018-07-24 01:56] LABS: ALBUMIN 3.6 g/dL (3.5-5.0); ALBUMIN/GLOBULIN RATIO 1.4 (0.8-2.0); ANION GAP 16.9 mmol/L (8-16); CALCIUM 9.2 mg/dL (8.4-10.2); CREATININE, SERUM 1.49 mg/dL (0.57-1.11); POTASSIUM 3.9 mmol/L (3.5-5.1)
--- NOTE | 2018-07-24 02:00 | NUR ---
`RECEIVED PT BY LYN [email or web address], ON BIPAP, TRANSFERRED EASILY TO BED, INSTRUCTED PT CYLINDER PRESS FEEDER ALVA SYSTEM ORIENTED TO ROOM AND MADE COMFORTABLE , STAGE 2 TO SACRUM, PT STATES HER HOME HEALTH NURSE APPLIED A BARRIER CREAM TO HER SACRUM, PT DOESNT KNOW NAME OF THE CREAM, INFORMED PT ON ADMISSION OF OPPORTUNITY TO HAVE VALUABLES LOCKED UP IN SAFE,. PT REFUSED OFFER,. iNFORMED CHARGE NURSE KEYS, WALLET, CELL PHONE $ OTHER VALUABLES WHICH SHE STATES SHE HAS. THIS NURSE INFORMED CHARGE NURSE, WELL VANDANA SHEPHERD WAS MY WITNESS DURING MY INVENTORY ASSESSMENT OF PT'S BELONGINGS. PT HAS A STGE 2 TO THE TOP PART OF THE SARCUM PEA SIZE IN DIAMETER. INFORMED PT NURSE WILL MONITOR. O2 SATS AT 100% ON MONITOR, INFORMED PT NURSE WILL CONT TO F/U WITH HER DURNING THE NIGHT.
[2018-07-24 02:23] LABS: CREATINE KINASE MB 1.3 ng/mL (0-5.0)
[2018-07-24] MEDS: ALBUTEROL SULF 0.083% NEB SOLN 3 ML NEB NEB SCH ×6 (02:29→22:25)
[2018-07-24] MEDS: IPRATROPIUM BROMIDE 0.02% 2.5 ML NEB NEB SCH ×5 (02:29→22:25)
[2018-07-24] MEDS: LORAZEPAM INJ 2 MG/ML VIAL IV PRN ×2 (03:48→11:47)
--- NOTE | 2018-07-24 04:00 | NUR ---
RESTING WELL NO S/S OF RESP DISTRESS TOLERATING BIPAP WELL. INCONTINENT CARE PROVIDED.
[2018-07-24] MEDS ORDERED: SODIUM CHLORIDE 0.9% 250ML 250 ML ONE (05:16)
[2018-07-24] MEDS: LEVOTHYROXINE SODIUM 100 MCG TAB PO SCH (06:00)
[2018-07-24] MEDS: PIPERACILLIN/TAZO 2.25 GM 50 ML IV SCH ×4 (06:25→17:53)
[2018-07-24] MEDS: METHYLPREDNISOLONE SOD SUCC 125 MG/2ML VIAL IV SCH ×3 (06:32→22:09)
[2018-07-24] MEDS: AZTREONAM 1 GM/NS 50 ML 50 ML IV SCH ×2 (06:32→18:17)
--- NOTE | 2018-07-24 06:37 | Diagnostic Imaging Report ---
CHEST SINGLE (PORTABLE), 07/24/2018 5:00 AM Technique: CHEST SINGLE (PORTABLE) Comparison: Previous day Clinical history: Pneumonia Findings: See Impression Impression: 1. Lines/Tubes: Stable left chest wall ICD. Partially imaged stent over the upper abdomen. 2. Stable enlarged cardiomediastinal silhouette. 3. Persistent bilateral opacities which may be related to edema and/or infection. Suspected small effusions. Signed by: Dr Tosin Swain MD on 07/24/2018 6:33 AM
--- NOTE | 2018-07-24 06:50 | NUR ---
REPORTED OFF TO ILEANA ACKERMAN, PT IN STABLE POSITION, RELAXING WITH EYES CLOSED ON BIPAP, BREATHING EVEN AND UNLABORED.
[2018-07-24] MEDS ORDERED: TRAZODONE HCL 50 MG TAB PO PRN (07:00)
[2018-07-24] MEDS: SUCRALFATE 1 GM/10 ML SUSP PO SCH ×2 (08:00→16:26)
[2018-07-24] MEDS: ASCORBIC ACID 500 MG TAB PO SCH ×2 (08:44→16:26)
[2018-07-24] MEDS: FERROUS SULFATE 325 MG TAB PO SCH ×2 (08:44→16:26)
[2018-07-24] MEDS: FUROSEMIDE INJ 10 MG/ML 4 ML VIAL IV SCH ×2 (08:44→21:15)
[2018-07-24] MEDS: ASPIRIN 81 MG CHEW TAB PO SCH (08:44)
[2018-07-24] MEDS: LORATADINE 10 MG TAB PO SCH (08:45)
[2018-07-24] MEDS: LORAZEPAM 0.5 MG TAB PO SCH ×3 (08:45→21:15)
[2018-07-24] MEDS: ATORVASTATIN 20 MG TAB PO SCH (08:45)
[2018-07-24] MEDS: CLOPIDOGREL BISULFATE 75 MG TAB PO SCH (08:46)
[2018-07-24] MEDS: SERTRALINE HCL 50 MG TAB PO SCH (08:46)
[2018-07-24] MEDS: METOPROLOL TARTRATE 25 MG TAB PO SCH (08:46)
[2018-07-24] MEDS ORDERED: AMIODARONE HCL 200 MG TAB PO SCH (09:00)
--- NOTE | 2018-07-24 18:16 | Consultation ---
DATE OF CONSULTATION: PULMONARY CONSULTATION REASON FOR CONSULTATION: Shortness of breath. HPI: Ms. Hermosillo is a 77-year-old female very well known to me from previous admission and my office visits. She has chronic obstructive asthma. She has never smoked in the life. She becomes hypercapnic due to chronic obstructive asthma. She has a history of anxiety as well and chronic systolic heart failure. She underwent biventricular pacer placement even after that she comes off and on with fluid overload. When she came in last night, her BNP was 2487. Her chest x-ray showing bilateral areas of congestion. She told me that she is compliant with fluid restriction and has not ate anything more salty than she usually does. She uses 4 liters of oxygen at home. She denies any chest pain, nausea, or vomiting. In the emergency room, patient was started on BiPAP as her pCO2 was 74 with a pH of 7.3 when she came in. After the use of BiPAP, her pCO2 started improving and she was switched back to nasal cannula. She is doing better now and more awake and alert. REVIEW OF SYSTEMS GENERAL: Denies any fever or chills. HEAD: Denies any head trauma. ENT: Denies any earache. CVS: Denies any chest pain. RESPIRATORY: Shortness of breath. GI: Denies any nausea or vomiting. MUSCULOSKELETAL: Denies any arthralgias or myalgias. NEURO: Denies any focal weakness. Rest of the review of systems is negative except as in HPI. PAST MEDICAL HISTORY 1. 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 2. History of anxiety, recent admission at [place] around 2 to 3 weeks ago with shortness of breath and chronic obstructive asthma exacerbation. 3. Status post HELP DESK CONSULTANT device. 4. CKD 3. 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 FAMILY AND SOCIAL HISTORY: She lives by herself. She is mostly wheelchair bound. She has difficulty walking. She never smoked in her life. She is . PHYSICAL EXAMINATION VITAL SIGNS: Temperature 98.4, pulse of 70, blood pressure 121/47, respiratory rate of 18. HEENT: Head is atraumatic and normocephalic. NECK: Supple. CHEST: Crackles on the bases bilaterally. HEART: S1, S2, audible. ABDOMEN: Soft, nontender. EXTREMITIES: No pedal edema. No clubbing, cyanosis or edema. NEUROLOGIC: Awake and alert. No focal neurologic deficit. LABORATORY DATA: White count of 12,000, hemoglobin 11.0, platelets 236, and now the white count is 7000. Chemistry; sodium 138, potassium 3.9, chloride 90, bicarb is 35, her bicarb was 37 yesterday, BUN is 17, creatinine 1.49, creatinine was 1.71 yesterday. BNP 2487. Chest x-ray; I reviewed the images bilateral alveolar infiltrate and congestion. IMPRESSION: Ms. Hermosillo is a 77-year-old female. She has chronic obstructive asthma along with congestive heart failure status post biventricular pacemaker placement earlier last year. Patient has multiple admissions with chronic obstructive asthma exacerbation along with congestive heart failure exacerbation. At this time, the BNP is high. She denies any noncompliance with fluid restriction. 1. Kqwzn-hy-vscoypf systolic heart failure. 2. Possibility of pneumonia, recent hospitalization at [facility]. 3. Chronic obstructive asthma. 4. Anxiety. 5. History of hypertension. 6. Patient has biventricular pacemaker placement. 7. Wheelchair bound. 8. Hypothyroidism. PLAN 1. Continue the patient on oxygen, she uses 4 liters at home. 2. Patient is feeling much better with IV Lasix 40 mg b.i.d. 3. Patient had xbexb-gf-wyccwxa hypercapnic respiratory failure, which improved with the use of BiPAP, currently doing well. 4. Use of BiPAP as needed. 5. History of coronary artery disease and congestive heart failure. Cardiology consultation has been done, follow their recommendations. Thank you for this consult. Job#: [id number] AMER[employer]
--- NOTE | 2018-07-24 19:15 | NUR ---
RECEIVED REPORT FROM MINNIE ACKERMAN, REGARDING PT'S STATUS DURING THE DAY. PT AAOX3, OFF BIPAP WITH O2 ON AT 4LITERS PER N/C, PT TOLERATING WELL, INSTRUCTED PT TO CALL IF SHE DEVELOPS SHORTNESS OF BREATH, PT VERBALIZED UNDERSTANDING. CALL ALVA IN REACH.
[2018-07-24] MEDS: MONTELUKAST SODIUM 10 MG TAB PO SCH (21:15)
[2018-07-24] MEDS: MIRTAZAPINE 15 MG TAB PO SCH (21:15)
--- NOTE | 2018-07-24 21:30 | NUR ---
PT RELAXING IN BED, DENIES PAIN, HOWEVER PT STATES HER SACRUM HURTS, AND REQUEST THE ALLEVYN FOAM DRSG BE REMOVED. INSTRUCTED PT IMPORTANCE OF FOAM DRESSING IN REGARDS TO BEING A BEARIER EXPOSING HER SKIN TO URINE DUE TO HER INCONTINENCE, PATIENT DIDN'T SAY ANYTHING EXCEPT SHE WANTED THE PINK FOAM OFF.THIS NURSE DID REQUESTED AND HAD PT LEAVE THE FOAM DRSG OFF, AND REPOSITIONED HER ON HER SIDE. rEPORTED OFF TO DEEPA,
--- NOTE | 2018-07-24 23:14 | Consultation ---
DATE OF CONSULTATION: July 24, 2018 CARDIAC CONSULTATION REASON FOR CONSULTATION: Respiratory distress. HISTORY: This is a 77-year-old lady who is known with chronic systolic heart failure, hypertension, hypercholesterolemia; coronary artery disease status post PCI in 1997, status post WARRANT SERVER device and AV meena ablation for patient having paroxysmal atrial fibrillation. Patient is also known to have infrarenal abdominal aneurysm which was successfully repaired by endovascular exclusion. The patient's other problem is chronic COPD and CO2 retention with several admissions with exacerbation of COPD and pulmonary failure symptoms. She had several admissions also with pneumonia and several courses of antibiotics. Other problems are history of small bowel resection, colostomy and revision of colostomy with fistula infection and subsequently this was healed. Patient basically is very debilitated with multiple medical health problems. She does have frequent admissions with exacerbation of her COPD status. Patient on home oxygen and with CO2 retention and some time with hypoxemic respiratory failure. She also had history of congestive heart failure. Patient for the last 3 days not feeling well. She took extra diuretics. She increased her oxygen and she continued to be feeling unwell. She was unable to breathe. She came to the emergency room. She was in respiratory distress. Her ABG showed pH of 7.33, pCO2 of 74 and pO2 of 107. Her BNP was 2487. Patient was given diuretics, placed on BiPAP and admitted for further management. Cardiac consultation is obtained. By summary, patient's symptoms are class 4 failure symptoms as well as shortness of breath with orthopnea, paroxysmal nocturnal dyspnea, air hunger and failure to thrive and feeling miserable. REVIEW OF SYSTEMS: Extensive to all systems and will be summarized for clarity. GENERAL: Failure to thrive. SKIN: No rashes, no bruise. HEENT: Congestion. CARDIAC AND PULMONARY: Advanced shortness of breath, orthopnea, cough nonproductive, wheezes, and paroxysmal nocturnal dyspnea . GI: Bloating, indigestion. No hematemesis, no melena. : Incontinence, frequency, and urgency. VASCULAR: Edema. MUSCULOSKELETAL: Muscle aches and pain. HEMATOLOGICAL: Easy bruising and bleeding. ENDOCRINE: No heat or cold intolerance. SOCIAL HISTORY: She is a retired nurse. She is . She is former smoker. She is non-alcohol drinker. FAMILY HISTORY: Mother at age of 79 from breast cancer complication. Father of myocardial infarction at age 70. PAST MEDICAL HISTORY 1. Coronary artery disease, status post right coronary artery PCI in 1997. 2. Hjcapvn-zd-fgqvixrh heart failure. 3. Left bundle-branch block. 4. Status post biventricular ICD device. 5. Chronic renal insufficiency. 6. COPD, on home oxygen with frequent respiratory tract infections. 7. Ex-smoker. 8. Hypothyroidism. 9. Hypertension. 10. Left carotid endarterectomy. 11. 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 12. Status post EVAR of abdominal aortic aneurysm. 13. Status post AV node ablation for atrial fibrillation. 14. Debility. ALLERGIES: CODEINE, LIDOCAINE, AND LEVAQUIN. HOME MEDICATIONS 1. Amiodarone 100 mg a day. 2. Aspirin 81 mg a day. 3. Lipitor 20 mg a day. 4. Synthroid 150 mg a day. 5. Lopressor 25 mg twice a day. 6. Lasix 40 mg daily. 7. Ferrous sulfate 325 mg a day. 8. Singulair. 9. Oxygen and nebulizers. 10. Trazodone. 11. Mirtazapine. 12. Other p.r.n. medications. PHYSICAL EXAMINATION VITAL SIGNS: Height of 5 feet 6 inches, weight of 177 pounds, blood pressure is 120/70, heart rate of 70, respiratory rate of 18, and temperature of 98 Fahrenheit. HEENT: Pupils are reactive. NECK: No elevation of jugular venous pulsation. CHEST: Crackles bilaterally. Patient on BiPAP and face mask alternating. HEART: PMI 5th left intercostal space on 1st and 2nd heart sounds. Soft systolic murmur. ICD is noted in place. ABDOMEN: Soft. Liver edge is palpable. Scars of previous surgeries. EXTREMITIES: No cyanosis. No clubbing. No edema. NEUROLOGIC: Awake, alert and oriented. LABORATORY DATA: ABG showed pH of 7.33, pCO2 of 74, and pO2 of 107. BNP of 2487. BUN of 17 and creatinine of 1.5. Sodium 158 and potassium 3.9. White blood cell count of 7.6, hemoglobin of 9.8, hematocrit 32%, and platelet count of 153,000. EKG showing heart rate in the 70, pacing. IMPRESSION 1. Respiratory distress and hypercapnic respiratory failure. 2. Possible tfyhb-ec-carvidy systolic failure. 3. Coronary artery disease. 4. Atrial fibrillation, status post arteriovenous meena ablation. 5. Status post biventricular implantable cardioverter defibrillator device. 6. Hypothyroidism. 7. Advanced congestive heart failure. 8. Debility. PLAN: Cardiac crocker, recommendation will be beta-zhou, small dose of ARB, diuretics, aspirin, Plavix, as well as pulmonary treatment. Pending on her course, further steps to be done. Prognosis is guarded, patient is aware of that. Job#: [id number] LICHA
[2018-07-25] VITALS (8 sets, daily range): BP systolic 116–138; BP diastolic 51–71
[2018-07-25] MEDS: PIPERACILLIN/TAZO 2.25 GM 50 ML IV SCH ×2 (00:19→05:15)
[2018-07-25] MEDS: LORAZEPAM INJ 2 MG/ML VIAL IV PRN (00:40)
--- NOTE | 2018-07-25 01:00 | NUR ---
PT INCONTINENT OF URINE JACKELYN CARE GIVEN, ASSISTED PT IN REPOSITIONING, PT TOLERATED WELL..
[2018-07-25] MEDS: ALBUTEROL SULF 0.083% NEB SOLN 3 ML NEB NEB SCH ×6 (03:00→23:00)
--- NOTE | 2018-07-25 04:00 | NUR ---
COMPLETE BED BATH GIVEN, PT TOLERATED WELL, REMAINS INCONTINENT OF URINE REQUESTED OFF BIPAP, TOLERATING OXYGEN AT 4 LITERS.
[2018-07-25] MEDS: METHYLPREDNISOLONE SOD SUCC 125 MG/2ML VIAL IV SCH (05:15)
[2018-07-25] MEDS: LEVOTHYROXINE SODIUM 100 MCG TAB PO SCH (05:15)
[2018-07-25 05:28] LABS: BASOPHILS % 0.1 % (0.0-1.0); HEMATOCRIT 31.6 % (34.2-44.1); HEMOGLOBIN 9.5 g/dL (12.0-16.0); LYMPHOCYTES # (AUTO) 0.4 (1.0-3.2); LYMPHOCYTES % 4.3 % (18.0-39.1); MEAN CORPUSCULAR HEMOGLOBIN 29.1 pg (28-32); MEAN CORPUSCULAR HGB CONC 30.1 g/dL (31-35); MEAN CORPUSCULAR VOLUME 96.6 fL (81-99); MONOCYTES # (AUTO) 0.4 (0.2-0.8); MONOCYTES % 4.6 % (4.4-11.3); NEUTROPHILS % 90.5 % (38.7-80.0); PLATELET COUNT 149 x10e3/uL (140-360); RED BLOOD COUNT 3.27 x10e6/uL (3.6-5.1); RED CELL DISTRIBUTION WIDTH 14.1 % (11.7-14.4)
[2018-07-25 05:57] LABS: ALBUMIN 3.4 g/dL (3.5-5.0); ALBUMIN/GLOBULIN RATIO 1.5 (0.8-2.0); CALCIUM 9.4 mg/dL (8.4-10.2); CREATININE, SERUM 1.55 mg/dL (0.57-1.11)
[2018-07-25] MEDS: AZTREONAM 1 GM/NS 50 ML 50 ML IV SCH (06:41)
[2018-07-25] MEDS: IPRATROPIUM BROMIDE 0.02% 2.5 ML NEB NEB SCH ×3 (06:58→18:24)
--- NOTE | 2018-07-25 07:00 | NUR ---
DR. RODRIGUEZ MADE AWARE O F GRAM POSITIVE COCCY FROM BLOOD CULTURES, NO NEW ORDERS GIVEN BY THIS AT THIS TIME.
[2018-07-25] MEDS: FUROSEMIDE INJ 10 MG/ML 4 ML VIAL IV SCH ×2 (09:16→21:42)
[2018-07-25] MEDS: ATORVASTATIN 20 MG TAB PO SCH (09:17)
[2018-07-25] MEDS: SERTRALINE HCL 50 MG TAB PO SCH (09:17)
[2018-07-25] MEDS: CLOPIDOGREL BISULFATE 75 MG TAB PO SCH (09:17)
[2018-07-25] MEDS: ASPIRIN 81 MG CHEW TAB PO SCH (09:17)
[2018-07-25] MEDS: LORAZEPAM 0.5 MG TAB PO SCH ×3 (09:17→21:42)
[2018-07-25] MEDS: LORATADINE 10 MG TAB PO SCH (09:17)
[2018-07-25] MEDS: ASCORBIC ACID 500 MG TAB PO SCH ×2 (09:20→16:36)
[2018-07-25] MEDS: FERROUS SULFATE 325 MG TAB PO SCH ×2 (09:20→16:36)
[2018-07-25] MEDS: METOPROLOL TARTRATE 25 MG TAB PO SCH (09:29)
[2018-07-25] MEDS: SUCRALFATE 1 GM/10 ML SUSP PO SCH ×2 (09:38→16:36)
--- NOTE | 2018-07-25 10:36 | NUR ---
Paged Dr. Lorenzana to report urine culture results, wating for call back.
[2018-07-25 10:38] LABS: LYMPHOCYTES % (MANUAL) 7 % (19-48); MONOCYTES % (MANUAL) 4 % (3.4-9.0); NEUTROPHILS % (MANUAL) 89 % (40-74); PLATELET ESTIMATE ADEQUATE; PLATELET MORPHOLOGY COMMENT NORMAL; RBC MORPHOLOGY COMMENT NORMAL
[2018-07-25] MEDS ORDERED: ACETAZOLAMIDE 250 MG TAB PO ONE (12:30)
[2018-07-25] MEDS: DOCUSATE SODIUM 100 MG CAP PO SCH (15:07)
[2018-07-25] MEDS: ACETAMINOPHEN 325 MG TAB PO PRN (15:08)
[2018-07-25] MEDS: MEROPENEM 500MG/ NS 50ML 50 ML IV SCH ×2 (15:10→21:43)
[2018-07-25] MEDS: METHYLPREDNISOLONE SOD SUCC 40 MG/ML VIAL 1ML IV SCH (16:36)
--- NOTE | 2018-07-25 19:30 | NUR ---
RECEIVED REPORT FROM OFF GOING NURSE, HOA3, BREATHING EVEN AND UNLABORED ON 4.0 LITERS OF 02, CALL ALVA IN REACH COLOSTOMY BAG INTACT,
[2018-07-25] MEDS: MIRTAZAPINE 15 MG TAB PO SCH (21:43)
[2018-07-25] MEDS: MONTELUKAST SODIUM 10 MG TAB PO SCH (21:43)
[2018-07-26] VITALS (7 sets, daily range): BP systolic 106–134; BP diastolic 53–66
--- NOTE | 2018-07-26 | NUR ---
ENCOURAGED PT TO TURN AND REPOSITION, INCONTINENT CALRE PROVIDED, CALL ALVA IN REACH.
[2018-07-26] MEDS: IPRATROPIUM BROMIDE 0.02% 2.5 ML NEB NEB SCH ×4 (01:00→19:35)
[2018-07-26] MEDS: ALBUTEROL SULF 0.083% NEB SOLN 3 ML NEB NEB SCH ×5 (03:00→19:35)
[2018-07-26] MEDS: MEROPENEM 500MG/ NS 50ML 50 ML IV SCH ×3 (06:30→21:45)
[2018-07-26] MEDS: LEVOTHYROXINE SODIUM 100 MCG TAB PO SCH (06:57)
--- NOTE | 2018-07-26 07:00 | NUR ---
REPORTED OFF TO ONCOMING NURSE, PT STABLE AWARE SHE MAY GO HOME TODAY PER DR. RODRIGUEZ.
[2018-07-26] MEDS: FERROUS SULFATE 325 MG TAB PO SCH ×2 (08:00→16:31)
[2018-07-26] MEDS: SUCRALFATE 1 GM/10 ML SUSP PO SCH ×2 (08:30→16:31)
[2018-07-26] MEDS: DOCUSATE SODIUM 100 MG CAP PO SCH ×2 (08:59→16:31)
[2018-07-26] MEDS: CLOPIDOGREL BISULFATE 75 MG TAB PO SCH (09:00)
[2018-07-26] MEDS: ATORVASTATIN 20 MG TAB PO SCH (09:00)
[2018-07-26] MEDS: SERTRALINE HCL 50 MG TAB PO SCH (09:00)
[2018-07-26] MEDS: LORAZEPAM 0.5 MG TAB PO SCH ×3 (09:00→21:45)
[2018-07-26] MEDS: ASPIRIN 81 MG CHEW TAB PO SCH (09:01)
[2018-07-26] MEDS: LORATADINE 10 MG TAB PO SCH (09:01)
[2018-07-26] MEDS: ASCORBIC ACID 500 MG TAB PO SCH ×2 (09:02→16:31)
[2018-07-26] MEDS: METOPROLOL TARTRATE 25 MG TAB PO SCH (09:02)
[2018-07-26] MEDS: FUROSEMIDE INJ 10 MG/ML 4 ML VIAL IV SCH ×2 (10:58→21:45)
[2018-07-26] MEDS: METHYLPREDNISOLONE SOD SUCC 40 MG/ML VIAL 1ML IV SCH (10:58)
[2018-07-26] MEDS: ACETAMINOPHEN 325 MG TAB PO PRN (10:59)
--- NOTE | 2018-07-26 14:54 | NUR ---
Nutrition Screen Note RD Recommendation for Physician: -Continue cardiac diet as ordered -Rec MVi w/mineral and vitamin C for wound healing -Consider 1pkt Beneprotein with each meal for wound healing Plan of Care: RD following, monitoring for tolerance and adequacy Nutrition reason for involvement: RN Consult no reason stated Primary Diagnose(s): 1. Respiratory distress and hypercapnic respiratory failure. 2. Possible mmktw-ck-kuxvcxh systolic failure. 3. Coronary artery disease. PMH: COPD, anxiety, CHF, CKD III, HTN, debility Ht: 66in Wt: 173lb BMI: 27.9kg/m2 IBW: 130lb RD Assessment: (07/26) 77yo F, who is admitted for SOB. Chart reviewed. Labs and meds reviewed. Pt was discussed during AM rounds. Pt is on IV lasix, Plavix, and solu-medrol. On isolation for ESBL in urine. Wound care consulted for stage II sacrum pressure wound. Visited pt in room who denied significant wt loss, denied decrease in appetite INTERNAL COMMUNICATIONS INTERN. Pt denied chewing/swallowing problems and nausea/vomiting. Colostomy bag is present. Pt refused diet education. Pt reported being compliant with diet and fluids intake. Will continue to monitor and follow. Current Diet: cardiac diet Malnutrition Evaluation (07/26/2018) The patient does not meet criteria for a specified degree of malnutrition at this time. Will re-evaluate at follow-up as appropriate. Diet Education Needs Assessment: Diet education indicated, pt is not interested. Nutrition Care Level: low Signed: Daria Cooper, MS, RD, LD
--- NOTE | 2018-07-26 16:45 | NUR ---
WOUND CARE CONSULTATION- INITIAL EVALUATION Patient admitted from home with respiratory failure. DX: CHF, CKD, COPD Exac, PNA, Resp Failure. HX: Depression, Anxiety, Hysterectomy, Bladder Suppression, Appendectomy, COPD, CHF,HTN, CAD. LABS: WBC8.8 HGB9.5 HCT31.6 NEUT%89 LCF537 ALB3.4 Jabari Score 15 Alternating Pressure Air Mattress in Place Moderate PUP active. Patient Visit: - Patient in bed calm and in good spirts, AAOX4 - Able to turn self - Good Historian - States she had ulcer at home on her bottom. It was almost healed and the nurses were using a barrier cream that was working really well. - Presents with right gluteal ulcer 0.4x0.4x0.2cm draining serosanguineous fluid- scant. 100% granular pale pink tissue. IMPRESSION: 1. SACRAL- Left- Stage II- P.U. - Present On Admission. RECOMMENDATION: 1.Sacral Left - Stage II - Pressure Ulcer - Cleanse area with Mild Soap and Water then pat dry thoroughly. - Apply Calazime Barrier Cream TID and PRN Soiling. 2. Continue Alternating Pressure Air Mattress 3. Offload Heels With Pillows While In Bed 4. Encourage Patient to Turn and Reposition q2h. Thank you for consulting with Wound Care. Addendum: 07/26/18 at 1656 by Josue La RN Amended: Links added. Addendum: 07/26/18 at 1658 by Josue La RN Patient Incontinent of Urine - Refuses Allevyn Foam Pads- States dressings are uncomfortable and painful
[2018-07-26] MEDS: MIRTAZAPINE 15 MG TAB PO SCH (21:45)
[2018-07-26] MEDS: MONTELUKAST SODIUM 10 MG TAB PO SCH (21:45)
[2018-07-27] VITALS (7 sets, daily range): BP systolic 96–128; BP diastolic 47–67
[2018-07-27] MEDS: ALBUTEROL SULF 0.083% NEB SOLN 3 ML NEB NEB SCH ×6 (00:02→19:50)
[2018-07-27] MEDS: IPRATROPIUM BROMIDE 0.02% 2.5 ML NEB NEB SCH ×4 (00:02→19:50)
[2018-07-27] MEDS: MEROPENEM 500MG/ NS 50ML 50 ML IV SCH ×3 (05:34→22:18)
[2018-07-27] MEDS: LEVOTHYROXINE SODIUM 100 MCG TAB PO SCH (05:34)
[2018-07-27 06:07] LABS: ANION GAP 15.8 mmol/L (8-16); CALCIUM 9.5 mg/dL (8.4-10.2); CREATININE, SERUM 1.41 mg/dL (0.57-1.11); POTASSIUM 3.8 mmol/L (3.5-5.1)
[2018-07-27 06:28] LABS: BASOPHILS % 0.4 % (0.0-1.0); EOSINOPHILS # (AUTO) 0.1 (0.0-0.4); EOSINOPHILS % 1.3 % (0.0-6.0); HEMOGLOBIN 9.9 g/dL (12.0-16.0); LYMPHOCYTES # (AUTO) 1.3 (1.0-3.2); LYMPHOCYTES % 15.6 % (18.0-39.1); MEAN CORPUSCULAR HEMOGLOBIN 28.7 pg (28-32); MEAN CORPUSCULAR VOLUME 95.7 fL (81-99); MONOCYTES # (AUTO) 0.7 (0.2-0.8); MONOCYTES % 7.9 % (4.4-11.3); NEUTROPHILS # (AUTO) 6.1 (2.1-6.9); NEUTROPHILS % 74.1 % (38.7-80.0); PLATELET COUNT 178 x10e3/uL (140-360); RED BLOOD COUNT 3.45 x10e6/uL (3.6-5.1); RED CELL DISTRIBUTION WIDTH 14.3 % (11.7-14.4)
[2018-07-27] MEDS: FERROUS SULFATE 325 MG TAB PO SCH ×2 (08:30→17:08)
[2018-07-27] MEDS: LORATADINE 10 MG TAB PO SCH (08:30)
[2018-07-27] MEDS: PREDNISONE 20 MG TAB PO SCH (08:30)
[2018-07-27] MEDS: DOCUSATE SODIUM 100 MG CAP PO SCH ×2 (08:30→17:08)
[2018-07-27] MEDS: SERTRALINE HCL 50 MG TAB PO SCH (08:30)
[2018-07-27] MEDS: METOPROLOL TARTRATE 25 MG TAB PO SCH (08:30)
[2018-07-27] MEDS: FUROSEMIDE INJ 10 MG/ML 4 ML VIAL IV SCH ×2 (08:30→21:35)
[2018-07-27] MEDS: ATORVASTATIN 40 MG TAB PO SCH (08:30)
[2018-07-27] MEDS: ASPIRIN 81 MG CHEW TAB PO SCH (08:30)
[2018-07-27] MEDS: CLOPIDOGREL BISULFATE 75 MG TAB PO SCH (08:30)
[2018-07-27] MEDS: LORAZEPAM 0.5 MG TAB PO SCH ×3 (08:30→21:35)
[2018-07-27] MEDS: ASCORBIC ACID 500 MG TAB PO SCH ×2 (08:30→17:08)
[2018-07-27] MEDS: SUCRALFATE 1 GM/10 ML SUSP PO SCH ×2 (08:30→17:08)
[2018-07-27] MEDS: ACETAMINOPHEN 325 MG TAB PO PRN (17:08)
[2018-07-27] MEDS: MIRTAZAPINE 15 MG TAB PO SCH (21:35)
[2018-07-27] MEDS: MONTELUKAST SODIUM 10 MG TAB PO SCH (21:35)
--- NOTE | 2018-07-27 22:18 | NUR ---
PATIENT INCONTINENT OF URINE, SHE'S KEPT CLEAN AND DRY. SKIN PROTECTANT APPLIED TO THE OPEN AREA TO THE SACRUM, PATIENT REPOSITION ON HER SIDE. NO RESPIRATORY DISTRESS OBSERVED, SHE DENIES PAIN. BED ALARM ON, CALL LIGHT WITHIN EASY REACH, INSTRUCTED TO CALL FOR ASSISTANCE NEEDED.
[2018-07-28] MEDS: IPRATROPIUM BROMIDE 0.02% 2.5 ML NEB NEB SCH ×2 (00:10→06:45)
[2018-07-28] MEDS: ALBUTEROL SULF 0.083% NEB SOLN 3 ML NEB NEB SCH ×3 (00:10→06:45)
--- NOTE | 2018-07-28 00:45 | NUR ---
ASSISTED WITH ADLS, KEPT CLEAN AND DRY OF URINE, SKIN PROTECTANT APPLIED TO THE SACRUM. NO PAIN VOICED, NO RESPIRATORY DISTRESS OBSERVED.
[2018-07-28 00:47] VITALS: BP 135/62
[2018-07-28 03:30] VITALS: BP 139/63
--- NOTE | 2018-07-28 03:37 | NUR ---
COLOSTOMY CARE PROVIDED, PATIENT KEPT CLEAN AND DRY, SHE'S ENCOURAGED TO THE SIDE. NO RESPIRATORY DISTRESS OBSERVED, SHE DENIES PAIN. BED ALARM ON, CALL LIGHT WITHIN EASY REACH.
[2018-07-28] MEDS: LEVOTHYROXINE SODIUM 100 MCG TAB PO SCH (06:23)
[2018-07-28] MEDS: MEROPENEM 500MG/ NS 50ML 50 ML IV SCH (06:23)
--- NOTE | 2018-07-28 06:32 | Discharge Summary ---
DISCHARGE DIAGNOSES 1. Urinary tract infection with extended spectrum beta-lactamase. 2. Ftnow-ow-jczmpri respiratory failure. 3. Congestive heart failure. 4. Chronic obstructive pulmonary disease exacerbation. 5. Hypertension. 6. Chronic kidney disease, stage 3. 7. Chronic home O2. 8. Community-acquired pneumonia. Follow up in 1 week with PCP. DISCHARGE MEDICATIONS: See discharge AUG. The only new one is Bactrim DS p.o. b.i.d. for 10 more days. HISTORY OF PRESENT ILLNESS AND HOSPITAL COURSE: See hospital chart for full details. Patient is a lady with a history of CHF, COPD, on chronic home oxygen, who presented with severe shortness of breath where she had evidence of sepsis. There was evidence of pneumonia on chest x-ray, as well as a urinary tract infection, which did grow out ESBL sensitive to the meropenem that she was on. She was initially placed on BiPAP continuously, which helped . Seemed to do well and improvement with her symptoms. She was able to be ambulatory on regular oxygen. Each day she made significant improvement. At the time of discharge, she was ambulating well, eating well. Lungs were clear on exam. She felt good and wanted to go home. She was discharged home with p.o. Bactrim to finish out the rest of the treatment for the pneumonia, as well as the ESBL in the urine. She was told to follow up with her primary care physician in 1 week. Return to the emergency room if she worsens. She was very happy with the care and happy to be able to go home. She was also seen by her cushion cover inspector while she was in the hospital. See their notes for full details. ANTHONY RODRIGUEZ MD Job#: [id number] RI
[2018-07-28 08:00] VITALS: BP 133/61
[2018-07-28] MEDS: SUCRALFATE 1 GM/10 ML SUSP PO SCH (08:26)
[2018-07-28] MEDS: FUROSEMIDE INJ 10 MG/ML 4 ML VIAL IV SCH (09:16)
[2018-07-28] MEDS: LORAZEPAM 0.5 MG TAB PO SCH (09:16)
[2018-07-28] MEDS: ATORVASTATIN 40 MG TAB PO SCH (09:16)
[2018-07-28] MEDS: ASCORBIC ACID 500 MG TAB PO SCH (09:16)
[2018-07-28] MEDS: FERROUS SULFATE 325 MG TAB PO SCH (09:16)
[2018-07-28] MEDS: SERTRALINE HCL 50 MG TAB PO SCH (09:16)
[2018-07-28] MEDS: ASPIRIN 81 MG CHEW TAB PO SCH (09:16)
[2018-07-28] MEDS: PREDNISONE 20 MG TAB PO SCH (09:16)
[2018-07-28] MEDS: CLOPIDOGREL BISULFATE 75 MG TAB PO SCH (09:16)
[2018-07-28] MEDS: DOCUSATE SODIUM 100 MG CAP PO SCH (09:16)
[2018-07-28] MEDS: LORATADINE 10 MG TAB PO SCH (09:16)
[2018-07-28 09:17] VITALS: BP 133/61
[2018-07-28] MEDS: METOPROLOL TARTRATE 25 MG TAB PO SCH (09:17)
--- NOTE | 2018-07-28 15:26 | Progress Note ---
DATE: July 28, 2018 SUBJECTIVE: Patient is doing well. Denying any complaints. Breathing much better. PHYSICAL EXAMINATION VITAL SIGNS: Temperature 98.3, pulse of 75, blood pressure 133/61, respiratory rate of 18, O2 sat 100%. HEENT: Head is atraumatic and normocephalic. CHEST: Clear to auscultation bilaterally. No wheezing. HEART: S1, S2 audible. ABDOMEN: Soft. MEDICATIONS: Reviewed. LABS: Reviewed. ASSESSMENT AND PLAN: A 77-year-old female with pneumonia, urinary tract infection and congestive heart failure. She is doing much better. She can be discharged home today. Follow up in the office. Medications have been adjusted. Oxygen as needed. Job#: [id number]
== END 2018-07-28 10:22 | disposition home health service (06) | DRG 291 ==
LOC: ER 16:43 → ERHOLD 19:50 → IMCU 07-24 01:55
PROVIDERS: ADMIT Internal Medicine; ATTEND Internal Medicine
PROC: 5A09357 Assistance with Respiratory Ventilation, Less than 24 Consecutive Hours, Continuous Positive Airway Pressure (ICD-10-PCS; principal; 2018-07-24)
DX: I13.0 Hypertensive heart and chronic kidney disease with heart failure and stage 1 through stage 4 chronic kidney disease, or unspecified chronic kidney disease (principal); J96.22 Acute and chronic respiratory failure with hypercapnia; J18.9 Pneumonia, unspecified organism; I50.23 Acute on chronic systolic (congestive) heart failure; J44.0 Chronic obstructive pulmonary disease with (acute) lower respiratory infection; J44.1 Chronic obstructive pulmonary disease with (acute) exacerbation; N39.0 Urinary tract infection, site not specified; N18.3 Chronic kidney disease, stage 3 (moderate); E78.00 Pure hypercholesterolemia, unspecified; I25.10 Atherosclerotic heart disease of native coronary artery without angina pectoris; I44.7 Left bundle-branch block, unspecified; I48.0 Paroxysmal atrial fibrillation; R53.81 Other malaise; R62.7 Adult failure to thrive; D64.9 Anemia, unspecified; E03.9 Hypothyroidism, unspecified; F41.9 Anxiety disorder, unspecified; B96.20 Unspecified Escherichia coli [E. coli] as the cause of diseases classified elsewhere; Z16.12 Extended spectrum beta lactamase (ESBL) resistance; L89.152 Pressure ulcer of sacral region, stage 2; Z99.81 Dependence on supplemental oxygen; Z95.810 Presence of automatic (implantable) cardiac defibrillator; Z95.5 Presence of coronary angioplasty implant and graft; Z87.891 Personal history of nicotine dependence; Z99.3 Dependence on wheelchair; Z79.02 Long term (current) use of antithrombotics/antiplatelets; Z79.82 Long term (current) use of aspirin; Z88.4 Allergy status to anesthetic agent; Z88.1 Allergy status to other antibiotic agents; Z88.5 Allergy status to narcotic agent
CPT/HCPCS: 36415; 36600; 71045; 80048; 80053; 81001; 82550; 82553; 82805; 82948; 83518; 83605; 83735; 83880; 84484; 85025; 85610; 85730; 87040; 87070; 87071; 87086; 87186; 87205; 87400; 93005; 94640; 94660; 96367; 96376; 97139; 99285; J1940; J2060; J2543; J2920; J2930; J3370; J7050; J7512

== ENCOUNTER 2018-09-11 16:50 | Inpatient (IN) | payer MEDICARE, OTHER ==
[~2018-09-11] VITALS: Ht 167.6 cm; Wt 76.2 kg
[~2018-09-11 16:50] MED LIST changes: +METOPROLOL TART25 MG PO; +PLAVIX75 MG PO; +RANITIDINE HCL75 MG PO
--- NOTE | 2018-09-11 17:36 | Diagnostic Imaging Report ---
EXAMINATION: CHEST SINGLE (PORTABLE) COMPARISON: Chest x-ray 07/24/2018 INDICATION: ^SOB ^[id number] ^1709 ^Y DISCUSSION: Frontal view of the chest obtained at 1717 hours. HEART AND MEDIASTINUM: Stable cardiomegaly with pacer/fibrillator wires in the right atrium and right ventricle and coronary sinus. The pulmonary arteries are enlarged and stable in morphology. LUNGS: Diffuse hyperinflation. Bibasilar airspace opacities are similar. Central pulmonary vasculature is prominent and stable. PLEURA: There is blunting of the lateral costophrenic angles. No pneumothorax BONES AND SOFT TISSUES: No focal osseous lesion. The soft tissues are normal. IMPRESSION: 1. Cardiomegaly and pulmonary artery hypertension. 2. Pulmonary hyperinflation consistent with COPD. Bibasilar airspace opacities are suggestive of either atelectasis or infiltrate. Signed by: Dr. Grzegorz Cutler MD on 09/11/2018 5:33 PM
[2018-09-11] MEDS ORDERED: CEFTRIAXONE SOD 1 GM/NS 50 ML 50 ML IV SCH ×2 (17:45→19:30)
[2018-09-11 18:14] LABS: BASOPHILS # (AUTO) 0.1 (0.0-0.1); BASOPHILS % 0.7 % (0.0-1.0); EOSINOPHILS # (AUTO) 0.1 (0.0-0.4); EOSINOPHILS % 1.6 % (0.0-6.0); HEMATOCRIT 34.8 % (34.2-44.1); HEMOGLOBIN 10.1 g/dL (12.0-16.0); LYMPHOCYTES # (AUTO) 0.6 (1.0-3.2); LYMPHOCYTES % 7.7 % (18.0-39.1); MEAN CORPUSCULAR HEMOGLOBIN 29.1 pg (28-32); MEAN CORPUSCULAR VOLUME 100.3 fL (81-99); MONOCYTES # (AUTO) 0.6 (0.2-0.8); MONOCYTES % 7.3 % (4.4-11.3); NEUTROPHILS # (AUTO) 6.2 (2.1-6.9); NEUTROPHILS % 82.4 % (38.7-80.0); PLATELET COUNT 123 x10e3/uL (140-360); RED BLOOD COUNT 3.47 x10e6/uL (3.6-5.1); RED CELL DISTRIBUTION WIDTH 13.7 % (11.7-14.4)
[2018-09-11 18:28] LABS: ALBUMIN 3.4 g/dL (3.5-5.0); ALBUMIN/GLOBULIN RATIO 1.1 (0.8-2.0); ANION GAP 14.6 mmol/L (8-16); CALCIUM 9.3 mg/dL (8.4-10.2); CREATININE, SERUM 1.61 mg/dL (0.57-1.11); POTASSIUM 3.6 mmol/L (3.5-5.1)
[2018-09-11 18:33] LABS: PARTIAL THROMBOPLASTIN TIME 21.7 seconds (23.8-35.5)
[2018-09-11 18:34] LABS: CREATINE KINASE MB 2.3 ng/mL (0-5.0)
--- NOTE | 2018-09-11 19:00 | NUR ---
PT REPORTS SHE HAS INCONTINENCE, WEARS DEPENDS, STATES SHE NORMALLY HAS TO BE CATHED FOR URINE. PURE WICK PLACED ON PATIENT. AWAKE ALERT SKIN W/D RESP NONLAB. NAD NOTED.
[2018-09-11] MEDS ORDERED: POTASSIUM CHLORIDE IV SCH (19:10)
[2018-09-11] MEDS ORDERED: SODIUM CHLORIDE 0.9% IV SCH (19:10)
[2018-09-11] MEDS ORDERED: CEFTRIAXONE SOD 1 GRAM/0.9% SOD CHL 50ML BAG IV SCH (19:15)
[2018-09-11] MEDS ORDERED: AZITHROMYCIN 500MG/SOD CHL 0.9% 250ML BAG IV SCH (19:15)
[2018-09-11] MEDS: AZITHROMYCIN 500MG/NS 250 ML 250 ML IV SCH ×2 (19:22→20:00)
[2018-09-11] MEDS ORDERED: SODIUM CHLORIDE 0.9% 1000ML 1,000 ML IV SCH (19:30)
[2018-09-11] MEDS: IPRATROPIUM BROMIDE 0.02% 2.5 ML NEB NEB SCH ×2 (19:30→19:35)
[2018-09-11] MEDS: ALBUTEROL SULF 0.083% NEB SOLN 3 ML NEB NEB SCH ×2 (19:35→23:00)
--- NOTE | 2018-09-11 19:43 | NUR ---
RECEIVED REPORT FROM ER. STAT CONSULT NOT CALLED IN ER. WILL CALL WHEN PATIENT ARRIVES TO UNIT.
[2018-09-11 19:55] LABS: CLARITY,URINE HAZY (CLEAR); COLOR,URINE YELLOW (YELLOW)
[2018-09-11 19:57] LABS: LEUKOCYTE ESTERASE ,URINE 1+ (NEGATIVE)
[2018-09-11 19:58] LABS: BILIRUBIN,URINE NEGATIVE (NEGATIVE); KETONES,URINE NEGATIVE (NEGATIVE); NITRITE,URINE POSITIVE (NEGATIVE); PROTEIN,URINE DIPSTICK TRACE (NEGATIVE); URINE UROBILINOGEN 0.2 mg/dL (0.2 - 1)
[2018-09-11] MEDS ORDERED: AZITHROMYCIN 500MG/NS 250 ML 250 ML IV SCH (20:00)
--- NOTE | 2018-09-11 20:15 | NUR ---
IV INFILTRATED IN R DISTAL FOREARM, DC'D, RESTARTED R PROXIMAL DORSAL FOREARM WITH 20G X 2 STICKS, TOLERATED WELL.
[2018-09-11 20:18] LABS: BACTERIA,URINE MANY /HPF; EPITHELIAL CELLS,URINE MODERATE /LPF; RBC,URINE 0-5 /HPF (0-5)
[2018-09-11 21:15] VITALS: BP 122/56
[2018-09-11] MEDS: METHYLPREDNISOLONE SOD SUCC 40 MG/ML VIAL 1ML IV SCH (22:42)
--- NOTE | 2018-09-11 23:07 | NUR ---
SPOKE WITH DR. MACKENZIE, WILL SEE PATIENT TOMORROW. RECEIVED PATIENT STABLE CONDITION, AAOX3, NC 4L. SKIN INTACT, SMALL STAGE 1 TO LEFT BUTTOCK. AIR PUMP ATTACHED TO MATTRESS. RIGHT FOREARM 20G PATENT AND INTACT. COLOSTOMY TO LLQ. PUREWICK TO SUCTION, URINE OUTPUT ORANGE, PATIENT REPORTS PYRIDIUM X1 FOR BURNING WITH URINATION. NO NEEDS VOICED, NO PAIN VOICED. TELE #10 PACED. BED LOCKED AND IN LOWEST POSITION, CALL LIGHT WITHIN EASY REACH. WILL CONTINUE TO MONITOR THE PATIENT CLOSELY.
[2018-09-12] VITALS (8 sets, daily range): BP systolic 101–138; BP diastolic 51–63
[2018-09-12] MEDS: ALBUTEROL SULF 0.083% NEB SOLN 3 ML NEB NEB SCH ×3 (02:04→11:10)
[2018-09-12 03:23] LABS: BASOPHILS % 0.2 % (0.0-1.0); EOSINOPHILS % 0.3 % (0.0-6.0); HEMATOCRIT 34.4 % (34.2-44.1); HEMOGLOBIN 10.2 g/dL (12.0-16.0); LYMPHOCYTES # (AUTO) 0.3 (1.0-3.2); LYMPHOCYTES % 4.8 % (18.0-39.1); MEAN CORPUSCULAR HEMOGLOBIN 29.1 pg (28-32); MEAN CORPUSCULAR HGB CONC 29.7 g/dL (31-35); MEAN CORPUSCULAR VOLUME 98.3 fL (81-99); MONOCYTES # (AUTO) 0.2 (0.2-0.8); MONOCYTES % 2.5 % (4.4-11.3); NEUTROPHILS # (AUTO) 5.6 (2.1-6.9); NEUTROPHILS % 91.7 % (38.7-80.0); PLATELET COUNT 141 x10e3/uL (140-360); RED CELL DISTRIBUTION WIDTH 13.6 % (11.7-14.4)
[2018-09-12 03:35] LABS: ANION GAP 11.1 mmol/L (8-16); CALCIUM 9.1 mg/dL (8.4-10.2); CREATININE, SERUM 1.38 mg/dL (0.57-1.11); POTASSIUM 4.1 mmol/L (3.5-5.1)
[2018-09-12 04:15] LABS: CREATINE KINASE MB 2.7 ng/mL (0-5.0)
[2018-09-12] MEDS ORDERED: TRAZODONE HCL 50 MG TAB PO PRN (05:45)
--- NOTE | 2018-09-12 06:24 | Diagnostic Imaging Report ---
Examination: Single AP view of the chest. COMPARISON: Portable chest 09/11/2018 INDICATION: Pneumonia, difficulty breathing IMPRESSION: 1. Lines and Tubes: Stable left upper chest multilead cardiac device. 2. No significant interval change in enlarged cardiac silhouette, central venous congestion and perihilar interstitial edema. Prominent bilateral pulmonary arteries, likely reflecting pulmonary hypertension. 3. Improved bilateral basal atelectatic changes. 4. No acute bony abnormalities. Signed by: Dr. Jhony Candelaria M.D. on 09/12/2018 6:20 AM
[2018-09-12] MEDS: METHYLPREDNISOLONE SOD SUCC 40 MG/ML VIAL 1ML IV SCH ×3 (06:55→22:00)
[2018-09-12] MEDS: LEVOTHYROXINE SODIUM 100 MCG TAB PO SCH (06:55)
[2018-09-12] MEDS: IPRATROPIUM BROMIDE 0.02% 2.5 ML NEB NEB SCH ×4 (07:00→23:00)
[2018-09-12] MEDS: ASPIRIN 81 MG CHEW TAB PO SCH (09:01)
[2018-09-12] MEDS: SERTRALINE HCL 50 MG TAB PO SCH (09:01)
[2018-09-12] MEDS: LORAZEPAM 0.5 MG TAB PO SCH ×3 (09:01→21:00)
[2018-09-12] MEDS: LORATADINE 10 MG TAB PO SCH (09:01)
[2018-09-12] MEDS: ATORVASTATIN 20 MG TAB PO SCH (09:01)
[2018-09-12] MEDS: ASCORBIC ACID 500 MG TAB PO SCH ×2 (09:01→16:54)
[2018-09-12] MEDS: METOPROLOL TARTRATE 25 MG TAB PO SCH (09:01)
[2018-09-12] MEDS: CLOPIDOGREL BISULFATE 75 MG TAB PO SCH (09:01)
[2018-09-12] MEDS: SUCRALFATE 1 GM/10 ML SUSP PO SCH ×2 (09:01→16:54)
[2018-09-12 09:28] LABS: EOSINOPHILS % (MANUAL) 1 % (0-7); LYMPHOCYTES % (MANUAL) 6 % (19-48); MONOCYTES % (MANUAL) 2 % (3.4-9.0); NEUTROPHILS % (MANUAL) 89 % (40-74)
[2018-09-12 09:29] LABS: BAND NEUTROPHILS % (MANUAL) 2 %; PLATELET ESTIMATE ADEQUATE; PLATELET MORPHOLOGY COMMENT NORMAL; RBC MORPHOLOGY COMMENT NORMAL
--- NOTE | 2018-09-12 11:16 | NUR ---
COLOSTOMY BAG TO THE LLQ LEAKING CHANGED AT THIS TIME
[2018-09-12 11:34] LABS: CREATINE KINASE MB 2.1 ng/mL (0-5.0)
[2018-09-12] MEDS: FERROUS SULFATE 325 MG TAB PO SCH ×2 (12:24→16:54)
[2018-09-12] MEDS: LEVALBUTEROL HCL SOLN NEBU 0.63 MG/3 ML NEB INH SCH ×3 (15:05→23:00)
--- NOTE | 2018-09-12 15:18 | Consultation ---
DATE OF CONSULTATION: Patient of Dr. Anthony Aleman, and Dr. Mora. HISTORY OF PRESENT ILLNESS: [place] 78-year-old woman, well known to the pulmonary service with history of bronchial asthma and congestive heart failure, admitted with pneumonia and shortness of breath, blames on the fumes from the [employer] firing at [employer]. She had a nonproductive cough. Has history of asthma. ALLERGIES: SHE HAS HISTORY OF ALLERGY TO CODEINE, LIDOCAINE, AND FLAGYL. MEDICATIONS: Include Lipitor, Plavix, iron, Levoxyl, Claritin, Atrovent, metoprolol, Remeron, montelukast, Zoloft, trazodone, Zantac. PAST SURGICAL HISTORY: She has had a colostomy. She has had a history of vaginal-rectal fistula repair with colostomy, left carotid surgery, PCI in 1997 of right coronary, abdominal aortic aneurysm stent, radiofrequency ablation for atrial fibrillation. She is scheduled for colostomy reversal. Feels like she has improved remarkably after her ablation. PHYSICAL EXAMINATION: VITAL SIGNS: Temperature 97.6, pulse 70, respirations 18, and blood pressure 129/64. HEAD: Normocephalic, atraumatic. EYES: Extraocular movements are intact. LUNGS: Rales in right base greater than left. HEART: Regular rhythm. ABDOMEN: Nontender. Colostomy in place. EXTREMITIES: Nonedematous. IMPRESSION: Congestive heart failure, pneumonia, chronic anxiety, and depression. White count is normal, hemoglobin is 10.2, presumably anemia of chronic disease. Gram-negative in the urine, she has had resistant organisms in the past, ID pending. PLAN: Continue bronchodilators and cardiac medications. Currently on Zithromax and Rocephin. Continue nebulized Xopenex and Atrovent. Thank you for this kind referral. MD GEORGE Rossi/WESTLEY /[id number]
[2018-09-12] MEDS: AZITHROMYCIN 500MG/NS 250 ML 250 ML IV SCH (16:54)
[2018-09-12] MEDS ORDERED: CEFTRIAXONE SOD 1 GM/NS 50 ML 50 ML IV SCH (18:00)
--- NOTE | 2018-09-12 19:09 | NUR ---
RECEIVED REPORT FROM 7AM NURSE, PATIENT RESTING IN BED WATCHING TV, NO DISTRESS NOTED. CALL LIGHT REMAIN IN REACH. WILL CONTINUE TO MONITOR.
--- NOTE | 2018-09-12 19:09 | NUR ---
RECEIVED REPORT FROM 7AM NURSE, ROUNDS DONE, CALL LIGHT REMAIN INTACT, WILL CONTINUE TO MONITOR.
--- NOTE | 2018-09-12 20:00 | NUR ---
INITIAL ASSESSMENT COMPLETE, PT IN BED, PURE WICK OPERATING, URINE TO SUCTION CANISTER, TELE ON PT, BM AND COLOSTOMY CLEANED OUT, NO DISTRESS NOTED, CALL LIGHT IN REACH, VS STABLE
[2018-09-12] MEDS: MIRTAZAPINE 15 MG TAB PO SCH (21:00)
[2018-09-12] MEDS: MONTELUKAST SODIUM 10 MG TAB PO SCH (21:00)
--- NOTE | 2018-09-13 | NUR ---
PT IN BED, NO DISTRESS NOTED, VS STABLE, TELE ON PT WITH PULSE OX, CALL LIGHT IN REACH
[2018-09-13 00:12] VITALS: BP 148/66
[2018-09-13 04:00] VITALS: BP 143/66
--- NOTE | 2018-09-13 04:00 | NUR ---
PT AWAKE, VS STABLE, CALL LIGHT IN REACH
[2018-09-13] MEDS: LEVOTHYROXINE SODIUM 100 MCG TAB PO SCH (05:44)
[2018-09-13] MEDS: METHYLPREDNISOLONE SOD SUCC 40 MG/ML VIAL 1ML IV SCH ×3 (05:44→20:53)
--- NOTE | 2018-09-13 06:20 | NUR ---
PT AWAKE, NEB TREATMENT, MEDICATIONS GIVEN, VS STABLE, TELE ON PT WITH PULSE OX WNL, CALL LIGHT IN REACH
[2018-09-13] MEDS: IPRATROPIUM BROMIDE 0.02% 2.5 ML NEB NEB SCH ×5 (07:00→23:12)
[2018-09-13] MEDS: LEVALBUTEROL HCL SOLN NEBU 0.63 MG/3 ML NEB INH SCH ×5 (07:00→23:12)
[2018-09-13] MEDS: SUCRALFATE 1 GM/10 ML SUSP PO SCH ×2 (07:30→17:37)
[2018-09-13 08:16] VITALS: BP 144/65
[2018-09-13] MEDS: CLOPIDOGREL BISULFATE 75 MG TAB PO SCH (08:51)
[2018-09-13] MEDS: FERROUS SULFATE 325 MG TAB PO SCH ×2 (08:51→17:00)
[2018-09-13] MEDS: SERTRALINE HCL 50 MG TAB PO SCH (08:51)
[2018-09-13] MEDS: ASCORBIC ACID 500 MG TAB PO SCH ×2 (08:51→17:16)
[2018-09-13] MEDS: METOPROLOL TARTRATE 25 MG TAB PO SCH (08:51)
[2018-09-13] MEDS: ASPIRIN 81 MG CHEW TAB PO SCH (08:51)
[2018-09-13] MEDS: LORAZEPAM 0.5 MG TAB PO SCH ×3 (08:51→20:52)
[2018-09-13] MEDS: ATORVASTATIN 20 MG TAB PO SCH (08:51)
[2018-09-13] MEDS: LORATADINE 10 MG TAB PO SCH (08:51)
--- NOTE | 2018-09-13 08:55 | NUR ---
Call to Dr. Dowd for orders regarding patient having difficulties breathing, requesting a CPAP and contacting RT at this time
--- NOTE | 2018-09-13 09:04 | NUR ---
Call back from Dr. Dowd and orders for CPAP at rate of 14 due to SOB
[2018-09-13] MEDS ORDERED: FUROSEMIDE INJ 10 MG/ML 4 ML VIAL IV ONE (09:30)
--- NOTE | 2018-09-13 09:46 | NUR ---
EDUCATED ABOUT IMM, SIGNED, FILED IN CHART, WITH COPY LEFT WITH FAMILY AT BEDSIDE.
--- NOTE | 2018-09-13 09:52 | NUR ---
Rounds by Dr. Wood and orders to transfer to [facility], placed on CPAP, smokehouse operator notified. Patient breathing better at this time, will monitor
--- NOTE | 2018-09-13 10:17 | NUR ---
ABGs done and reported to Dr. Wood, no orders, positive ESBL in urine, on ISO precautions at this time, attending notified and waiting for abx culture
[2018-09-13 10:18] LABS: ABG PH 7.31 (7.31-7.41)
[2018-09-13 10:19] LABS: ABG HCO3 33 mmol/L (23-28); ABG PCO2 66 mmHg (41-51); ABG PO2 177 mmHg (80-105)
--- NOTE | 2018-09-13 10:46 | Diagnostic Imaging Report ---
Examination: Single AP view of the chest. COMPARISON: 09/12/2018 INDICATION: CHF DISCUSSION: Stable position of left subclavian approach implantable cardiac device body and leads. Lungs remain well-inflated. Worsening bibasilar airspace opacities likely atelectasis. Stable cardiomediastinal contour with prominence of the main pulmonary artery is likely indicative of pulmonary hypertension. Worsening pulmonary venous congestion. No acute osseous abnormality. IMPRESSION: Worsening fluid overload and bibasilar atelectasis relative to 09/12/2018. Signed by: Dr. Germán Workman M.D. on 09/13/2018 10:42 AM
--- NOTE | 2018-09-13 11:42 | NUR ---
Reported ESBL to Dr. Aleman and d/c Rocephine and start on Zosyn Q6
[2018-09-13 11:45] VITALS: BP 144/65
[2018-09-13] MEDS: PIPER-TAZ 3.375 GM 50 ML IV SCH ×3 (12:00→23:56)
--- NOTE | 2018-09-13 14:40 | NUR ---
Report given to receiving nurse in IMCU for transfer of patient
--- NOTE | 2018-09-13 14:56 | NUR ---
Patient alert and responsive, transferred to IMCU room 188 at this time to [facility], receiving RN
[2018-09-13] MEDS ORDERED: LACTULOSE SYRUP 20 GM/30 ML UDC PO ONE (18:00)
[2018-09-13] MEDS ORDERED: FUROSEMIDE 40 MG TAB PO SCH (18:00)
[2018-09-13] MEDS: FUROSEMIDE INJ 10 MG/ML 2 ML VIAL IV SCH (19:16)
[2018-09-13 19:39] VITALS: BP 118/61
[2018-09-13] MEDS: MIRTAZAPINE 15 MG TAB PO SCH (20:53)
[2018-09-13] MEDS: MONTELUKAST SODIUM 10 MG TAB PO SCH (20:53)
[2018-09-13] MEDS ORDERED: TRAZODONE HCL 50 MG TAB PO PRN (21:00)
[2018-09-13 22:46] VITALS: BP 118/61
[2018-09-14] VITALS (8 sets, daily range): BP systolic 129–153; BP diastolic 52–70
--- NOTE | 2018-09-14 02:15 | Progress Note ---
DATE: SUBJECTIVE: A 78-year-old female, who has been admitted for congestive heart failure, pneumonia, chronic anxiety and depression. The patient is currently on Lasix and also is on antibiotics. Currently, being transferred to [facility] for shortness of breath. The patient has been put on CPAP and adjusted for the same. MEDICATIONS: Carafate 1 g, ipratropium q.4 hours, Xopenex q.4 hours, lorazepam 0.5 mg three times a day. She is on Solu-Medrol 20 mg q.8 hours IV, Zosyn q.6 hours, metoprolol 25 mg, loratadine 10 mg, Plavix 75 mg, atorvastatin 40 mg, aspirin, mirtazapine 15 mg at nighttime, and ferrous sulfate 325 mg. The patient is also on azithromycin and Lasix 20 mg twice a day. OBJECTIVE: VITAL SIGNS: Temperature is 97.7, afebrile for the last 24 hours, pulse is about 78, respirations of 20, pulse oximetry of 99%, and blood pressure is 144/65. HEENT: Normocephalic, atraumatic. Pupils are reactive to light and accommodation. CVS: S1, S2 distant. Positive for few rales in the lower bases. Decreased air entry into all other lung osborne. ABDOMEN: Tender in the epigastrium. EXTREMITIES: No clubbing, no cyanosis. Decreased pulses in the lower extremities. LABORATORY VALUES: Yesterday's white count 6.10, hemoglobin of 10.2, hematocrit of 34.4. Chemistries, sodium of 138, BUN of 23, creatinine of 1.38. ASSESSMENT AND PLAN: 1. Congestive heart failure. Continue with Lasix and diuresis. Strict I's and O's, low-salt diet, and the patient's daily weight. 2. Chronic obstructive pulmonary disease exacerbation. Currently, she is on Solu-Medrol, Zosyn, and also azithromycin for atypical coverage. 3. Chronic kidney disease. Continue monitoring the creatinine in lieu of her chronic kidney disease. 4. Hypertension. Continue with antihypertensive. 5. Depression and hypothyroidism. Continue with home medications. The patient's labs will be checked tomorrow. Creatinine will be followed. She is on BiPAP at this time for [id number] hypoxia. Further recommendation and clinical course, as the patient progresses, discharge planning will be done. The patient will need an outpatient home health and also physical therapy. MD CRISSY Jennings/LONGL /[id number]
[2018-09-14] MEDS: LEVALBUTEROL HCL SOLN NEBU 0.63 MG/3 ML NEB INH SCH ×6 (03:15→23:00)
[2018-09-14] MEDS: IPRATROPIUM BROMIDE 0.02% 2.5 ML NEB NEB SCH ×6 (03:15→23:00)
[2018-09-14 05:29] LABS: EOSINOPHILS # (AUTO) 0.2 (0.0-0.4); EOSINOPHILS % 2.1 % (0.0-6.0); HEMATOCRIT 32.7 % (34.2-44.1); HEMOGLOBIN 9.8 g/dL (12.0-16.0); LYMPHOCYTES # (AUTO) 0.4 (1.0-3.2); LYMPHOCYTES % 4.5 % (18.0-39.1); MEAN CORPUSCULAR HEMOGLOBIN 28.7 pg (28-32); MEAN CORPUSCULAR VOLUME 95.9 fL (81-99); MONOCYTES # (AUTO) 0.4 (0.2-0.8); MONOCYTES % 5.4 % (4.4-11.3); NEUTROPHILS # (AUTO) 7.2 (2.1-6.9); NEUTROPHILS % 87.6 % (38.7-80.0); PLATELET COUNT 149 x10e3/uL (140-360); RED BLOOD COUNT 3.41 x10e6/uL (3.6-5.1); RED CELL DISTRIBUTION WIDTH 13.8 % (11.7-14.4)
[2018-09-14] MEDS: PIPER-TAZ 3.375 GM 50 ML IV SCH (05:49)
[2018-09-14 06:01] LABS: ALBUMIN 3.3 g/dL (3.5-5.0); ALBUMIN/GLOBULIN RATIO 1.1 (0.8-2.0); ANION GAP 11.2 mmol/L (8-16); CALCIUM 9.4 mg/dL (8.4-10.2); CREATININE, SERUM 1.39 mg/dL (0.57-1.11); POTASSIUM 4.2 mmol/L (3.5-5.1)
[2018-09-14] MEDS: FUROSEMIDE INJ 10 MG/ML 2 ML VIAL IV SCH (06:33)
[2018-09-14] MEDS: LEVOTHYROXINE SODIUM 100 MCG TAB PO SCH (06:33)
[2018-09-14] MEDS: METHYLPREDNISOLONE SOD SUCC 40 MG/ML VIAL 1ML IV SCH ×3 (06:33→21:45)
--- NOTE | 2018-09-14 06:41 | Diagnostic Imaging Report ---
EXAMINATION: CHEST SINGLE (PORTABLE) INDICATION: CHF COMPARISON: 09/13/2018 FINDINGS: AP view TUBES and LINES: Left chest wall cardiac device. LUNGS: Mildly increased edema. PLEURA: Left pleural effusion. HEART AND MEDIASTINUM: Stable cardiomegaly. Stable pulmonary artery prominence. BONES AND SOFT TISSUES: No acute findings. UPPER ABDOMEN: No free air under the diaphragm. IMPRESSION: Mildly worsening fluid overload. Signed by: DR. Chuck Gillis MD on 09/14/2018 6:38 AM
[2018-09-14] MEDS: FERROUS SULFATE 325 MG TAB PO SCH ×2 (08:00→17:00)
[2018-09-14 08:29] LABS: EOSINOPHILS % (MANUAL) 1 % (0-7); LYMPHOCYTES % (MANUAL) 6 % (19-48); MONOCYTES % (MANUAL) 3 % (3.4-9.0); NEUTROPHILS % (MANUAL) 90 % (40-74)
[2018-09-14] MEDS: SERTRALINE HCL 50 MG TAB PO SCH (08:59)
[2018-09-14] MEDS: CLOPIDOGREL BISULFATE 75 MG TAB PO SCH (08:59)
[2018-09-14] MEDS: SUCRALFATE 1 GM/10 ML SUSP PO SCH ×2 (08:59→17:15)
[2018-09-14] MEDS: LORAZEPAM 0.5 MG TAB PO SCH ×3 (08:59→21:30)
[2018-09-14] MEDS: ASPIRIN 81 MG CHEW TAB PO SCH (09:00)
[2018-09-14] MEDS: ATORVASTATIN 20 MG TAB PO SCH (09:00)
[2018-09-14] MEDS: METOPROLOL TARTRATE 25 MG TAB PO SCH (09:00)
[2018-09-14] MEDS: LORATADINE 10 MG TAB PO SCH (09:01)
[2018-09-14] MEDS: ASCORBIC ACID 500 MG TAB PO SCH ×2 (09:01→18:56)
[2018-09-14] MEDS: AZITHROMYCIN 250 MG TAB PO SCH (09:02)
[2018-09-14] MEDS ORDERED: MEROPENEM 500MG 500 MG in SODIUM CHLORIDE 0.9% 50ML 50 ML IV SCH ×2 (10:45→13:30)
--- NOTE | 2018-09-14 13:32 | Progress Note ---
DATE: SUBJECTIVE: The patient is admitted to the hospital for COPD exacerbation, congestive heart failure, history of pneumonia, history of frequent urinary tract infection. Currently, the patient has been transferred to [facility] for respiratory distress. The patient is better, was on BiPAP. Also had a good bowel movement with a history of constipation. The patient is alert and oriented x3 now. OBJECTIVE: VITAL SIGNS: Temperature is 97.1, pulse of 72, respiration of 20, blood pressure is 129/51, pulse oximetry 93% on 4 L of high flow. HEENT: Normocephalic, atraumatic. CVS: S1 and S2 normal. Regular rate and rhythm. LUNGS: Decreased air entry into all lung osborne. ABDOMEN: Nontender, nondistended. EXTREMITIES: No clubbing, no cyanosis, no edema. LABORATORY VALUES: The patient's white count is 8.22, hemoglobin of 9.8, hematocrit of 32.7. Chemistry; shows sodium of 133, potassium of 4.2, BUN 36, creatinine of 1.39. Coags; D-dimers 2.05 on arrival. ASSESSMENT AND PLAN: 1. Acute chronic obstructive pulmonary disease exacerbation. Continue with steroids, taper off. 2. Continue on Solu-Medrol, Zosyn and azithromycin. 3. Congestive heart failure, strict I and Os, low-salt diet. The patient's daily weight. 4. Chronic kidney disease. Continue monitoring her renal functions. 5. Depression and hypothyroidism. Continue with medication. 6. Acute on chronic hypoxemia. The patient is on BiPAP at this time. We will continue monitoring her oxygen saturation. The patient will need outpatient home health and physical therapy. Physical therapy has been reinstated at the hospital. MD PING JenningsJ/MODL /[id number]
--- NOTE | 2018-09-14 16:16 | NUR ---
SPOKE WITH PATIENT, SHE SATES SHE LIVES IN A MOBILE HOME BY HER SELF WITH HER 13YEAR OLD LITTLE DOG, SHE STATES SHE SHE HAS A PROVIDER FROM [facility] THAT COMES 4 HOURS A DAY, 7 DAYS A WEEK AND [facility]. SHE IS REFUSING SNF AT THIS TIME AND STATES SHE WOULD PREFER TO GO HOME WHILE SHE CAN. SHE STATES SHE HAS A SON LOCAL THAT SHE DOESN'T SEE MUCH AND ONE THAT LIVES IN [place] THAT SHE WILL BE RELOCATING WITH IN THE FUTURE.
--- NOTE | 2018-09-14 19:39 | NUR ---
called reports to Yamileth galvez at med surg 2.
--- NOTE | 2018-09-14 19:56 | NUR ---
patient is transferred with bed, she is awake alert oriented, no distress noted and denied any discomfort. O2 is on, telemetry and puls ox is on.
--- NOTE | 2018-09-14 20:00 | NUR ---
Patient transferred from OBS via bed. Patient is AAO x 4. Patient had no complaints of pain. No signs of respiratory distress. Patient placed on 4L NC. Telemetry, Colostomy bag and Purewick in place. Patient oriented to room, call light and plan of care. Patient made comfortable and instructed to call for assistance when needed. Fall precautions implemented. Call light within reach.
[2018-09-14] MEDS: MONTELUKAST SODIUM 10 MG TAB PO SCH (21:30)
[2018-09-14] MEDS: MIRTAZAPINE 15 MG TAB PO SCH (21:30)
[2018-09-14] MEDS: DOCUSATE SODIUM 100 MG CAP PO SCH (21:30)
[2018-09-15] VITALS (9 sets, daily range): BP systolic 129–166; BP diastolic 64–78
[2018-09-15] MEDS: IPRATROPIUM BROMIDE 0.02% 2.5 ML NEB NEB SCH ×6 (03:00→23:15)
[2018-09-15] MEDS: LEVALBUTEROL HCL SOLN NEBU 0.63 MG/3 ML NEB INH SCH ×6 (03:00→23:15)
[2018-09-15] MEDS: LEVOTHYROXINE SODIUM 100 MCG TAB PO SCH (05:51)
[2018-09-15] MEDS: METHYLPREDNISOLONE SOD SUCC 40 MG/ML VIAL 1ML IV SCH ×2 (05:51→16:09)
--- NOTE | 2018-09-15 06:48 | NUR ---
Dr. Phillip Aleman here to see patient. New orders received.
[2018-09-15] MEDS ORDERED: DOCUSATE SODIUM LIQD 100 MG/10 ML UDC NG SCH (09:00)
[2018-09-15] MEDS: DOCUSATE SODIUM 100 MG CAP PO SCH ×2 (09:21→21:01)
[2018-09-15] MEDS: SUCRALFATE 1 GM/10 ML SUSP PO SCH ×2 (09:21→16:09)
[2018-09-15] MEDS: ASCORBIC ACID 500 MG TAB PO SCH ×2 (09:21→16:09)
[2018-09-15] MEDS: LORATADINE 10 MG TAB PO SCH (09:21)
[2018-09-15] MEDS: LORAZEPAM 0.5 MG TAB PO SCH ×3 (09:21→21:01)
[2018-09-15] MEDS: FERROUS SULFATE 325 MG TAB PO SCH ×2 (09:21→16:09)
[2018-09-15] MEDS: ASPIRIN 81 MG CHEW TAB PO SCH (09:21)
[2018-09-15] MEDS: ATORVASTATIN 20 MG TAB PO SCH (09:22)
[2018-09-15] MEDS: AZITHROMYCIN 250 MG TAB PO SCH (09:22)
[2018-09-15] MEDS: SERTRALINE HCL 50 MG TAB PO SCH (09:22)
[2018-09-15] MEDS: CLOPIDOGREL BISULFATE 75 MG TAB PO SCH (09:22)
[2018-09-15] MEDS: METOPROLOL TARTRATE 25 MG TAB PO SCH (09:22)
--- NOTE | 2018-09-15 09:25 | NUR ---
IMM letter delivered and explained to pt. She verbalized understanding. Signed copy placed in chart. Copy given to pt.
--- NOTE | 2018-09-15 10:23 | Progress Note ---
DATE: SUBJECTIVE: The patient is here for COPD exacerbation, acute CHF exacerbation, urinary tract infection, and respiratory distress. Currently, the patient is asymptomatic, did not use her CPAP yesterday. The patient refused SNF yesterday. I did have a long discussion with the patient, needs SNF to prevent falls and we will also reinstate therapy today. MEDICATIONS: Reviewed. OBJECTIVE: VITAL SIGNS: Temperature is 97.0, blood pressure is 143/70, respiration of 17, pulse of 70, pulse oximetry of 98%. HEENT: Normocephalic, atraumatic. The patient is on O2. CVS: S1, S2. Regular. ABDOMEN: Nontender, nondistended. EXTREMITIES: No clubbing, no cyanosis, trace edema present. LABORATORY VALUES: From yesterday, hemoglobin of 9.8, hematocrit of 32.7. Chemistries; sodium of 133, potassium of 4.2. Coags are normal. D-dimer was high on admission. IMAGING STUDIES: Chest x-ray from yesterday shows mild worsening of the fluid overload. IV diuresis have been decreased yesterday. ASSESSMENT: 1. Acute congestive heart failure. The patient is on IV Lasix. We will continue with strict I's and O's and low-salt diet. 2. Chronic obstructive pulmonary disease with exacerbation. Steroids and taper off it and also with IV antibiotics. 3. Chronic kidney disease. Continue monitoring her renal function. 4. Depression and hypothyroidism. Continue with medication and also with anxiety medicine. 5. Debility. We will order a Detention Facility consult and also we will continue monitoring the patient's progress with physical therapy to see if Detention Facility is appropriate for the patient. 6. Her microbiology grew extended spectrum beta-lactamases sensitive to meropenem. We will continue and Merrem for extended spectrum beta-lactamases. FURTHER RECOMMENDATIONS AND CLINICAL COURSE: Plan is to have physical therapy instated and possible SNF consult and discharge when ready. MD CRISSY Jennings/MODL /[id number]
[2018-09-15] MEDS: FUROSEMIDE INJ 10 MG/ML 2 ML VIAL IV SCH ×2 (11:26→16:09)
--- NOTE | 2018-09-15 11:27 | NUR ---
per wendy Carroll to administer 1st dose lasix now.
--- NOTE | 2018-09-15 12:02 | NUR ---
WENT AND SPOKE WITH PT AGAIN, SHE STATES SHE WILL TALK TO THE REP FROM [facility] AND STATES THE DOCTOR SAID IT WAS FOR A SHORT WHILE, SO SHE SINGED CHOICE FOR [facility], FILED IN CHART AND NOTIFIED REP TO COME SPEAK WITH THE PATIENT.
--- NOTE | 2018-09-15 15:54 | NUR ---
WOUND CARE NURSE CONSULTATION. 78 YEAR OLD FEMALE ADMITTED TO [facility] WITH DX OF ACUTE DYSPNEA, AND BASILAR PNEUMONIA WITH HYPOXIA. HEAD TO TOE SKIN ASSESSMENT PERFORMED TODAY. PT PRESENTS WITH A 6X6CM STAGE I PRESSURE ULCER TO SACRUM AND BILATERAL BUTTOCKS. THERE ARE NO OTHER AREAS OF CONCERN NOTED AT THIS TIME. NO S/S OF INFECTION. LABS: WBC: 8.22 ALB: 3.3 URINE + E COLI. COLOSTOMY TO LLQ. RECOMMENDATIONS. APPLY FOAM DRESSING TO SACRUM AND BILATERAL BUTTOCKS. TURN PT EVERY TWO HOURS AND PRN. CONTINUE WITH ALTERNATING LOW AIR LOSS MATTRESS PROVIDE PT WITH BILATERAL HEEL PROTECTORS AND PILLOW SUSPENSIONS. THANKS FOR THIS CONSULTATION. Addendum: 09/15/18 at 1600 by Mimi Archuleta RN Amended: Links added.
[2018-09-15] MEDS ORDERED: SODIUM CHLORIDE 0.9% 250ML 250 ML ONE (20:46)
[2018-09-15] MEDS ORDERED: MEROPENEM 1GRAM 1 GM in SODIUM CHLORIDE 0.9% 100 ML 100 ML IV SCH (21:00)
[2018-09-15] MEDS: MIRTAZAPINE 15 MG TAB PO SCH (21:01)
[2018-09-15] MEDS: MEROPENEM 1GM 100 ML IV SCH (21:01)
[2018-09-15] MEDS: MONTELUKAST SODIUM 10 MG TAB PO SCH (21:01)
[2018-09-16] VITALS: BP 128/61
[2018-09-16] MEDS: LEVALBUTEROL HCL SOLN NEBU 0.63 MG/3 ML NEB INH SCH ×4 (03:00→15:00)
[2018-09-16] MEDS: IPRATROPIUM BROMIDE 0.02% 2.5 ML NEB NEB SCH ×4 (03:00→15:00)
[2018-09-16 05:00] VITALS: BP 134/61
[2018-09-16] MEDS: LEVOTHYROXINE SODIUM 100 MCG TAB PO SCH (05:12)
[2018-09-16 05:41] LABS: ANION GAP 13.3 mmol/L (8-16); CALCIUM 9.8 mg/dL (8.4-10.2); CREATININE, SERUM 1.19 mg/dL (0.57-1.11)
[2018-09-16 05:56] LABS: POTASSIUM 5.3 mmol/L (3.5-5.1)
--- NOTE | 2018-09-16 07:24 | Progress Note ---
DATE: SUBJECTIVE: This patient is admitted for congestive heart failure, COPD exacerbation, respiratory failure, and urinary tract infection with ESBL. Currently, the patient is asymptomatic, did not use her BiPAP yesterday, is on IV antibiotics for ESBL, and she is on isolation. OBJECTIVE: VITAL SIGNS: Temperature is 97.6, pulse of 70 to 78, respirations of 20, blood pressure is 134/61, pulse oximetry 98% on 4 L of oxygen. HEENT: Normocephalic, atraumatic. Pupils are reactive to light and accommodation. CVS: S1 and S2 normal. Regular rate and rhythm. LUNGS: Decreased air entry. No crackles. ABDOMEN: Tender in the epigastrium. EXTREMITIES: No clubbing, no cyanosis, no edema. LABORATORY VALUES: CBC none from today. Chemistry showed a high potassium of 5.3, which will be repeated. BUN of 46, creatinine of 1.19. EGFR of 44%. Urine, microbiology, ESBL sensitive to antibiotics. ASSESSMENT: 1. Acute congestive heart failure. Continue with IV Lasix. 2. Hyperkalemia. We will check the potassium again, probably spurious. 3. Chronic obstructive pulmonary disease with exacerbation. Steroids taper and IV antibiotics. 4. Chronic kidney disease, better. 5. Depression and hypothyroidism. Continue with Ativan. 6. Debility. She will need penitentiary facility and the patient has agreed for it. 7. Extended-spectrum beta-lactamases. The patient is sensitive to meropenem. Continue with medications. FURTHER RECOMMENDATION AND CLINICAL COURSE: The patient will be transferred to SNF when ready and available. MD CRISSY Jennings/MODL /[id number]
[2018-09-16] MEDS ORDERED: PANTOPRAZOLE SOD 40 MG TABEC PO SCH (07:30)
[2018-09-16 07:55] VITALS: BP 139/65
[2018-09-16 08:02] VITALS: BP 139/65
[2018-09-16] MEDS: DOCUSATE SODIUM 100 MG CAP PO SCH (08:29)
[2018-09-16] MEDS: MEROPENEM 1GM 100 ML IV SCH (08:29)
[2018-09-16] MEDS: FUROSEMIDE INJ 10 MG/ML 2 ML VIAL IV SCH ×2 (08:29→16:14)
[2018-09-16] MEDS: AZITHROMYCIN 250 MG TAB PO SCH (08:29)
[2018-09-16] MEDS: METHYLPREDNISOLONE SOD SUCC 40 MG/ML VIAL 1ML IV SCH (08:29)
[2018-09-16] MEDS: FERROUS SULFATE 325 MG TAB PO SCH ×2 (08:29→16:14)
[2018-09-16] MEDS: ASPIRIN 81 MG CHEW TAB PO SCH (08:29)
[2018-09-16] MEDS: SERTRALINE HCL 50 MG TAB PO SCH (08:29)
[2018-09-16] MEDS: LORATADINE 10 MG TAB PO SCH (08:29)
[2018-09-16] MEDS: SUCRALFATE 1 GM/10 ML SUSP PO SCH ×2 (08:29→16:14)
[2018-09-16] MEDS: METOPROLOL TARTRATE 25 MG TAB PO SCH (08:29)
[2018-09-16] MEDS: CLOPIDOGREL BISULFATE 75 MG TAB PO SCH (08:29)
[2018-09-16] MEDS: ATORVASTATIN 20 MG TAB PO SCH (08:29)
[2018-09-16] MEDS: LORAZEPAM 0.5 MG TAB PO SCH ×2 (08:29→16:14)
[2018-09-16] MEDS: ASCORBIC ACID 500 MG TAB PO SCH ×2 (08:29→16:14)
[2018-09-16 11:09] VITALS: BP 144/76
--- NOTE | 2018-09-16 15:59 | NUR ---
PER DR.JOHN EL D/C TO SNF TODAY.
--- NOTE | 2018-09-16 16:09 | NUR ---
REPORT CALLED TO [facility], SPOKE TO ILYA ACKERMAN. PT TO ADMIT TO RM 310A WITH ADMITTING MD.
[2018-09-16 16:49] VITALS: BP 130/64
--- NOTE | 2018-09-16 17:32 | NUR ---
Nutrition Screen Note RD Recommendation for Physician: -Continue current diet as ordered -RD provided education on cardiac diet and fluids restriction on 09/16. Plan of Care: RD following, monitoring for tolerance and adequacy, diet education Nutrition reason for involvement: LOS Primary Diagnose(s): CHF, hyperkalemia, COPD PMH: CHF, CKD, COPD, HTN, depression, hypothyroidism Ht: 66in Wt: 168lb BMI: 27.1kg/m2 IBW: 130lb RD Assessment: (09/16) Chart reviewed. Labs and meds reviewed. 78yo F, who was admitted for SOB. Currently on Lasix and 1.2L fluids restriction. Visited pt in the room. Pt reported good appetite with 75-100% meal intake. No GI complains noted. Pt has a colostomy bag. No chewing or swallowing difficulty reported. Per diet staff and RN, pt was drinking excessive amount of fluids. RD provided diet education. Will continue to monitor and follow. Current Diet: Cardiac diet w/ 1.2 L fluids restriction Malnutrition Evaluation (09/16) The patient does not meet criteria for a specified degree of malnutrition at this time. Will re-evaluate at follow-up as appropriate. Diet Education Needs Assessment: Diet education indicated, pt was agreeable with plan. Learner(s): pt Time spent: 20mins Barriers: No barriers identified. Cultural/Language Modifications: No cultural/language modifications noted. Pt speaks Malagasy. Readiness: Acceptance Method: Handouts, explanation Topics: heart failure nutrition therapy, fluids restriction Understanding/Compliance: Expect good understanding/compliance from pt. Will benefit from reinforcement. All questions have been answered. Nutrition Care Level: low Signed: Daria Cooper, , RD, LD
[2018-09-17] MEDS ORDERED: METHYLPREDNISOLONE SOD SUCC 40 MG/ML VIAL 1ML IV SCH (07:30)
== END 2018-09-16 19:38 | DRG 291 ==
LOC: ER 16:50 → ERHOLD 19:36 → MED/SURG 20:55 → IMCU 09-13 14:52 → MED/SURG2 09-14 19:58
PROVIDERS: ADMIT Family Medicine; ATTEND Family Medicine
DX: I13.0 Hypertensive heart and chronic kidney disease with heart failure and stage 1 through stage 4 chronic kidney disease, or unspecified chronic kidney disease (principal); J18.9 Pneumonia, unspecified organism; I50.23 Acute on chronic systolic (congestive) heart failure; J96.01 Acute respiratory failure with hypoxia; J44.0 Chronic obstructive pulmonary disease with (acute) lower respiratory infection; N17.9 Acute kidney failure, unspecified; J44.1 Chronic obstructive pulmonary disease with (acute) exacerbation; N18.3 Chronic kidney disease, stage 3 (moderate); F32.9 Major depressive disorder, single episode, unspecified; E03.9 Hypothyroidism, unspecified; E87.5 Hyperkalemia
CPT/HCPCS: 36415; 36600; 71045; 80048; 80053; 81001; 82550; 82553; 82805; 83880; 84484; 85025; 85379; 85730; 87040; 87086; 87186; 93005; 94640; 94660; 97139; 99284; J0456; J0696; J1940; J2185; J2543; J2920; J7030; J7050

== ENCOUNTER 2018-10-13 12:17 | Inpatient (IN) | payer MEDICARE, OTHER ==
[~2018-10-13] VITALS: Ht 153.9 cm; Wt 78.0 kg
[2018-10-13] MEDS ORDERED: IPRATROPIUM BROMIDE 0.02% 2.5 ML NEB NEB STA (12:27)
[2018-10-13] MEDS ORDERED: CEFTRIAXONE SOD 1 GM/NS 50 ML 50 ML IV STA (12:27)
[2018-10-13] MEDS ORDERED: SODIUM CHLORIDE 0.9% 1000ML 1,000 ML IV STA (12:27)
[2018-10-13] MEDS ORDERED: ALBUTEROL SULF 0.083% NEB SOLN 3 ML NEB NEB STA (12:27)
[2018-10-13 13:02] LABS: BASOPHILS # (AUTO) 0.1 (0.0-0.1); BASOPHILS % 0.8 % (0.0-1.0); EOSINOPHILS # (AUTO) 0.1 (0.0-0.4); EOSINOPHILS % 1.1 % (0.0-6.0); HEMATOCRIT 39.3 % (34.2-44.1); HEMOGLOBIN 11.4 g/dL (12.0-16.0); LYMPHOCYTES # (AUTO) 0.6 (1.0-3.2); MEAN CORPUSCULAR HEMOGLOBIN 28.6 pg (28-32); MEAN CORPUSCULAR VOLUME 98.5 fL (81-99); MONOCYTES # (AUTO) 0.5 (0.2-0.8); NEUTROPHILS # (AUTO) 6.2 (2.1-6.9); NEUTROPHILS % 82.7 % (38.7-80.0); PLATELET COUNT 224 x10e3/uL (140-360); RED BLOOD COUNT 3.99 x10e6/uL (3.6-5.1); RED CELL DISTRIBUTION WIDTH 13.9 % (11.7-14.4)
[2018-10-13 13:16] LABS: INR 0.93
[2018-10-13 13:17] LABS: PARTIAL THROMBOPLASTIN TIME 27.8 seconds (23.8-35.5)
[2018-10-13 13:35] LABS: B-TYPE NATRIURETIC PEPTIDE2 1159.5 pg/mL (0-100)
[2018-10-13 13:40] LABS: CREATINE KINASE MB 1.2 ng/mL (0-5.0)
--- NOTE | 2018-10-13 13:54 | Diagnostic Imaging Report ---
EXAMINATION: CHEST 2 VIEWS INDICATION: Shortness of breath. COMPARISON: Chest radiograph 09/14/2018. FINDINGS: TUBES and LINES: Left-sided AICD device. LUNGS: Mild perihilar and interstitial opacities. Patchy opacities in the lower lung zones, left greater than right. PLEURA: Small left and trace right pleural effusion. HEART AND MEDIASTINUM: Stable cardiomegaly. Stable pulmonary artery prominence. Atherosclerotic calcifications of the thoracic aorta. BONES AND SOFT TISSUES: No acute osseous abnormality. UPPER ABDOMEN: No free air under the diaphragm. There is an abdominal aortic endograft. IMPRESSION: Mild pulmonary interstitial edema with small left and trace right pleural effusions. Patchy opacities in the lower lung zones may represent atelectasis, alveolar edema, or pneumonia in the appropriate clinical setting. Suggest follow-up chest radiograph to assess for resolution. Signed by: Dr. Cherie Bae MD on 10/13/2018 1:50 PM
[2018-10-13] MEDS ORDERED: ALBUTEROL/IPRATROPIUM 3 ML NEB ONE (15:38)
[2018-10-13] MEDS ORDERED: CEFTRIAXONE SOD 1 GM/NS 50 ML 50 ML IV ONE (16:00)
[2018-10-13 17:04] LABS: ALBUMIN 3.4 g/dL (3.5-5.0); ANION GAP 15.2 mmol/L (8-16); CALCIUM 10.1 mg/dL (8.4-10.2); CREATININE, SERUM 1.41 mg/dL (0.57-1.11); POTASSIUM 4.2 mmol/L (3.5-5.1)
[2018-10-13 17:16] LABS: BILIRUBIN,URINE NEGATIVE (NEGATIVE); CLARITY,URINE CLEAR (CLEAR); COLOR,URINE YELLOW (YELLOW); KETONES,URINE NEGATIVE (NEGATIVE); LEUKOCYTE ESTERASE ,URINE TRACE (NEGATIVE); NITRITE,URINE NEGATIVE (NEGATIVE); PROTEIN,URINE DIPSTICK NEGATIVE (NEGATIVE); URINE UROBILINOGEN 0.2 mg/dL (0.2 - 1)
[2018-10-13] MEDS ORDERED: DIATRIZOATE MEGL/DIATRIZOA SOD 30 ML BTL PO ONE (17:16)
[2018-10-13 17:26] LABS: BACTERIA,URINE MODERATE /HPF; EPITHELIAL CELLS,URINE FEW /LPF; WBC,URINE (MAN) 0-5 /HPF (0-5)
--- NOTE | 2018-10-13 18:54 | Diagnostic Imaging Report ---
EXAM: CT of the abdomen and pelvis WITHOUT contrast HISTORY: Abdominal distention, abdominal pain, r/o sbo, colostomy, reversal one year ago COMPARISON: CT of the abdomen and pelvis January 05, 2016 TECHNIQUE: The abdomen and pelvis were scanned utilizing a multidetector helical scanner. Coronal and sagittal reformats are available. PROTOCOL: Routine IV CONTRAST: None, which limits sensitivity and specificity of evaluation of the soft tissues and vascular structures. ORAL CONTRAST: Dilute Gastrografin RADIATION DOSE: Total DLP: 653.64 mGy*cm Estimated effective dose: (DLP x 0.015 x size factor) Dose modulation, iterative reconstruction, and/or weight based adjustment of the mA/kV was utilized to reduce the radiation dose to as low as reasonably achievable. COMPLICATIONS: None FINDINGS: LOWER THORAX: Bilateral small to moderate pleural low-density effusions with adjacent atelectasis. Moderate cardiomegaly. HEPATOBILIARY: No definite focal hepatic lesions. No biliary ductal dilatation. The gallbladder is unremarkable. SPLEEN: No splenomegaly. PANCREAS: No focal masses or ductal dilatation. ADRENALS: No adrenal nodule. KIDNEYS/URETERS: No hydronephrosis, stones, or solid mass lesion identified. Mild cortical atrophy. PELVIC ORGANS/BLADDER: The urinary bladder is partially decompressed, which limits evaluation. PERITONEUM / RETROPERITONEUM: No free air or fluid. GI TRACT: Radiopaque contrast from the stomach to the distal colon. On limited evaluation of the gastrointestinal tract, no dilation or wall thickening identified. Subtle postsurgical changes in the region of the sigmoid colon. A large bowel containing left lower quadrant parastomal hernia. LYMPH NODES: No pathologically enlarged lymph nodes. VESSELS: Interval placement of a aortic stent graft, excluding the previous lesion described abdominal aortic aneurysm. Scattered atherosclerotic vascular calcifications, including the coronary arteries. BONES: Diffusely decreased mineralization of the osseous structures limits bone detail. Multifocal degenerative changes, most notably severe of the left hip. SOFT TISSUES: Unremarkable. IMPRESSION: 1. 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 2. Aortic stent graft excluding an abdominal aortic aneurysm. 3. Coronary atherosclerosis. 4. Diffuse osseous demineralization. Signed by: Dr. Master Escoto D.O., M.M.M. on 10/13/2018 6:51 PM
[2018-10-13] MEDS ORDERED: FUROSEMIDE INJ 10 MG/ML 4 ML VIAL IV ONE (19:15)
[2018-10-13] MEDS ORDERED: AZITHROMYCIN 500MG/SOD CHL 0.9% 250ML BAG IV SCH (19:15)
--- OUTSIDE RECORDS SUMMARY | 2018-10-13 19:19 | XMS REPORT | Clinical Summary ---
Author Author [facility] Organization [facility] Address Unknown Phone Unavailable Care Team Providers Care Towerman Name Role Phone Romaine Rodrigues MD PCP [...] nightly. Active shoaib Take by 0 m-hor [phone] mg mouth. tablet Active cholecalciferol, vitamin Take [...] Surgery Germán Arreaga MD Preop testing 11/05/2017 [facility] General Surgery Encounter Germán Arreaga MD Preop testing 11/04/2017 Hospital Radiology Encounter Germán Arreaga MD Status post PICC central line placement 11/04/2017 Hospital Radiology Encounter Germán Arreaga MD Preop testing (Primary Dx) 11/04/2017 Pre-Admit Pre-Admission Testing Testing Appointment after 10/12/2017 Family History Medical History Relation Name Comments [...] Due Date Last Done Comments SHINGLES VACCINES (#1) 1990 65+ PNEUMOCOCCAL VACCINE 2005 (1 of 2 - PCV13) PNEUMOCOCCAL 2005 POLYSACCHARIDE VACCINE AGE 65 AND OVER INFLUENZA VACCINE 01/20/2019 Procedures Comments Procedure Name Priority Date/Time Associated Diagnosis OR AN ELECTIVE Routine 11/05/[address] 7:53 [...] testing W/AUTO DIFF 11:30 AM CDT after 10/12/2017 Results * XR Chest 2 Vw (11/04/2017 [...] effusions. No pneumothorax. Osseous structures are intact. [facility]-[id number] Procedure Note Hm Interface, Radiology Results Incoming - 11/04/2017 12:34 [...] effusions. No pneumothorax. Osseous structures are intact. [facility]-[id number] Performing Organization Address [facility] Phone Number [facility] [address] [place] [address] * ECG Pre/Post Op (11/04/2017 11:35 AM CDT) Ventricular rate 83 [facility] MUSE Atrial rate 83 [facility] MUSE OR interval 118 [facility] M[facility] QRSD interval 146 [facility] MUSE QT interval 452 [facility] MUSE QTC interval 531 [facility] MUSE P axis 1 81 [facility] MUSE QRS axis 1 258 [facility] MUSE T wave axis 49 [facility] MUSE EKG impression Normal sinus rhythm with sinus [facility] MUSE arrhythmia-Nonspecific intraventricular block-Possible Lateral infarct , age undetermined-Abnormal ECG-No previous ECGs available- Performing Organization Address [facility] Phone Number [facility] MUSE [address] [place] [address] * Smear review (11/04/2017 11:30 AM CDT) Platelet slide review Alverto adequate [facility] DEPARTMENT OF PATHOLOGY AND GENOMIC MEDICINE Anisocytosis Slight [facility] DEPARTMENT OF PATHOLOGY AND GENOMIC MEDICINE Anisochromia Slight [facility] DEPARTMENT OF PATHOLOGY AND GENOMIC MEDICINE Performing Organization Address City/[facility] Phone Number [address] [place] [address] PATHOLOGY AND GENOMIC MEDICINE * Estimated GFR (11/04/2017 11:30 AM CDT) GFR Non Af Amer 44 (A) mL/min/1.73 m2 [facility] DEPARTMENT OF PATHOLOGY AND GENOMIC MEDICINE GFR Af Amer 53 (A) mL/min/1.73 m2 [facility] DEPARTMENT OF Comment: PATHOLOGY AND Chronic kidney disease: <60 [facility] mL/min/1.73m2 Kidney failure: <15 mL/min/1.73m2 The estimated [...] Americans. Specimen Plasma specimen Performing Organization Address [facility] Phone Number [address] [place] [address] PATHOLOGY AND [facility] * Partial thromboplastin time, activated (11/04/2017 11:30 AM CDT) PTT 33.1 23.0 - 36.0 sec [facility] DEPARTMENT OF Comment: PATHOLOGY AND PTT therapeutic range for [facility] unfractionated heparin is 61.0-112.0 seconds which corresponds to Anti-Xa 0.3-0.7 U/ml. Specimen Blood Performing Organization Address [facility] Phone Number [address] [place] [phone] PATHOLOGY AND [facility] * Prothrombin time with INR (11/04/2017 11:30 AM CDT) Prothrombin time 13.4 12.0 - 15.0 sec [facility] DEPARTMENT OF PATHOLOGY AND GENOMIC MEDICINE INR 1.0 [facility] DEPARTMENT OF Comment: PATHOLOGY AND The International Normalized GENOMIC MEDICINE Ratio (INR) is a therapeutic monitoring tool for patients who are stable on oral anticoagulant therapy. An INR of 2.0-3.0 is suggested for deep vein thrombosis/pulmonary embolism. Specimen Blood Performing Organization Address City/[facility]/Zipcode Phone Number [facility] [id number] [place] [address] [address] [place] [address] PATHOLOGY AND GENOMIC MEDICINE * CBC with platelet and differential (11/04/2017 11:30 AM CDT) WBC 7.59 4.50 - 11.00 k/uL [facility] DEPARTMENT OF PATHOLOGY AND GENOMIC MEDICINE RBC 3.57 (L) 4.20 - 5.50 m/uL [facility] DEPARTMENT OF PATHOLOGY AND GENOMIC MEDICINE HGB 9.8 (L) 12.0 - 16.0 g/dL [facility] DEPARTMENT OF PATHOLOGY AND GENOMIC MEDICINE HCT 33.7 (L) 37.0 - 47.0 % [facility] DEPARTMENT OF PATHOLOGY AND GENOMIC MEDICINE MCV 94.4 82.0 - 100.0 fL [facility] DEPARTMENT OF PATHOLOGY AND GENOMIC MEDICINE MCH 27.5 27.0 - 34.0 pg [facility] DEPARTMENT OF PATHOLOGY AND GENOMIC MEDICINE MCHC 29.1 (L) 31.0 - 37.0 g/dL [facility] DEPARTMENT OF PATHOLOGY AND GENOMIC MEDICINE RDW - SD 47.9 37.0 - 55.0 fL [facility] DEPARTMENT OF PATHOLOGY AND GENOMIC MEDICINE MPV 10.0 8.8 - 13.2 fL [facility] DEPARTMENT OF PATHOLOGY AND GENOMIC MEDICINE Platelet count 235 150 - 400 k/uL [facility] DEPARTMENT OF PATHOLOGY AND GENOMIC MEDICINE Nucleated RBC 0.00 /100 WBC [facility] DEPARTMENT OF PATHOLOGY AND GENOMIC MEDICINE Neutrophils 79.5 (H) 39.0 - 69.0 % [facility] DEPARTMENT OF PATHOLOGY AND GENOMIC MEDICINE Lymphocytes 10.5 (L) 25.0 - 45.0 % [facility] DEPARTMENT OF PATHOLOGY AND GENOMIC MEDICINE Monocytes 6.7 0.0 - 10.0 % [facility] DEPARTMENT OF PATHOLOGY AND GENOMIC MEDICINE Eosinophils 2.0 0.0 - 5.0 % [facility] DEPARTMENT OF PATHOLOGY AND GENOMIC MEDICINE Basophils 0.9 0.0 - 1.0 % [facility] DEPARTMENT OF PATHOLOGY AND GENOMIC MEDICINE Specimen Blood Performing Organization Address City/State/Zipcode Phone Number [facility] [address] [place] [address] PATHOLOGY AND GENOMIC MEDICINE * Comprehensive metabolic panel (11/04/2017 11:30 AM CDT) Sodium 143 135 - 148 mEq/L [facility] DEPARTMENT OF PATHOLOGY AND GENOMIC MEDICINE Potassium 4.8 3.5 - 5.0 mEq/L [facility] DEPARTMENT OF PATHOLOGY AND GENOMIC MEDICINE Chloride 100 98 - 112 mEq/L [facility] DEPARTMENT OF PATHOLOGY AND GENOMIC MEDICINE CO2 30 24 - 31 mEq/L [facility] DEPARTMENT OF PATHOLOGY AND GENOMIC MEDICINE Anion gap 13@ANIO 7 - 15 mEq/L [facility] DEPARTMENT OF PATHOLOGY AND GENOMIC MEDICINE BUN 31 (H) 8 - 23 mg/dL [facility] DEPARTMENT OF PATHOLOGY AND GENOMIC MEDICINE Creatinine 1.2 (H) 0.5 - 0.9 mg/dL [facility] DEPARTMENT OF PATHOLOGY AND GENOMIC MEDICINE Glucose 96 65 - 99 mg/dL [facility] DEPARTMENT OF PATHOLOGY AND GENOMIC MEDICINE Calcium 9.8 8.8 - 10.2 mg/dL [facility] DEPARTMENT OF PATHOLOGY AND GENOMIC MEDICINE Protein 6.6 6.3 - 8.3 g/dL [facility] DEPARTMENT OF Comment: PATHOLOGY AND [place] GENOMIC MEDICINE 4.6-7.0 g/dL 1 week 4.4-7.6 g/dL 7 months-1year 5.1-7.3 g/dL 1-2 years5.6-7 .5 g/dL >3 years6.0-8 .0 g/dL 18-150 6.3-8.3 g/dL Albumin 3.7 3.5 - 5.0 g/dL [facility] DEPARTMENT OF PATHOLOGY AND GENOMIC MEDICINE A/G ratio 1.3 0.7 - 3.8 [facility] DEPARTMENT OF PATHOLOGY AND GENOMIC MEDICINE Alkaline phosphatase 112 (H) 35 - 104 U/L [facility] DEPARTMENT OF PATHOLOGY AND GENOMIC MEDICINE AST 25 10 - 35 U/L [facility] DEPARTMENT OF PATHOLOGY AND GENOMIC MEDICINE ALT 22 5 - 50 U/L [facility] DEPARTMENT OF PATHOLOGY AND GENOMIC MEDICINE Total bilirubin 0.2 0.0 - 1.2 mg/dL [facility] DEPARTMENT OF PATHOLOGY AND GENOMIC MEDICINE Specimen Plasma specimen Performing Organization Address City/State/Zipcode Phone Number [facility] DEPARTMENT [place] [address] [place] [address] PATHOLOGY AND GENOMIC MEDICINE after 10/12/2017 Insurance Payer Benefit Subscriber ID Type Phone Address Plan / Group HUMANA MEDICARE HUMANA xxxxxxxxx PPO MEDICARE PPO/PFFS/E RS [facility] MEDICAID MEDICAID xxxxxxxxx Medicaid Advance Directives Patient has advance care planning documents on file. For more information, pato villanueva contact: Lewis Engel [address] [place] [address]
[2018-10-13] MEDS ORDERED: AZITHROMYCIN 500MG/NS 250 ML 250 ML IV SCH (19:30)
[2018-10-13] MEDS: PIPERACILLIN/TAZO 2.25 GM 50 ML IV SCH (20:04)
[2018-10-13 21:17] VITALS: BP 134/64
--- NOTE | 2018-10-13 22:00 | NUR ---
LATE ENTRY---RECEIVED PATIENT FROM THE EMERGENCY ROOM PER STRETCHER, POSITIONED IN BED, ASSESSMENT DONE. CALL LIGHT IN REACH. WILL CONTINUE TO MONITOR.
[2018-10-13] MEDS ORDERED: RANITIDINE HCL 75 MG PO SCH (22:15)
[2018-10-13 22:22] VITALS: BP 134/64
[2018-10-13] MEDS ORDERED: SODIUM CHLORIDE 0.9% 250ML 250 ML ONE (23:01)
[2018-10-13] MEDS: ALBUTEROL SULF 0.083% NEB SOLN 3 ML NEB NEB SCH (23:35)
[2018-10-13] MEDS: IPRATROPIUM BROMIDE 0.02% 2.5 ML NEB NEB SCH (23:35)
[2018-10-14] VITALS (8 sets, daily range): BP systolic 110–136; BP diastolic 54–74
[2018-10-14] MEDS: PIPERACILLIN/TAZO 2.25 GM 50 ML IV SCH ×4 (02:03→17:08)
[2018-10-14] MEDS: IPRATROPIUM BROMIDE 0.02% 2.5 ML NEB NEB SCH ×6 (03:00→23:00)
[2018-10-14] MEDS: ALBUTEROL SULF 0.083% NEB SOLN 3 ML NEB NEB SCH ×6 (03:00→23:00)
[2018-10-14 06:01] LABS: BASOPHILS % 0.5 % (0.0-1.0); EOSINOPHILS # (AUTO) 0.1 (0.0-0.4); EOSINOPHILS % 1.8 % (0.0-6.0); HEMATOCRIT 34.5 % (34.2-44.1); HEMOGLOBIN 10.2 g/dL (12.0-16.0); LYMPHOCYTES # (AUTO) 0.7 (1.0-3.2); LYMPHOCYTES % 10.9 % (18.0-39.1); MEAN CORPUSCULAR HEMOGLOBIN 28.9 pg (28-32); MEAN CORPUSCULAR HGB CONC 29.6 g/dL (31-35); MEAN CORPUSCULAR VOLUME 97.7 fL (81-99); MONOCYTES # (AUTO) 0.6 (0.2-0.8); MONOCYTES % 10.3 % (4.4-11.3); NEUTROPHILS # (AUTO) 4.8 (2.1-6.9); PLATELET COUNT 192 x10e3/uL (140-360); RED BLOOD COUNT 3.53 x10e6/uL (3.6-5.1)
[2018-10-14] MEDS: LEVOTHYROXINE SODIUM 75 MCG TAB PO SCH (06:17)
[2018-10-14 06:27] LABS: CREATINE KINASE MB 0.9 ng/mL (0-5.0)
[2018-10-14 06:50] LABS: ANION GAP 12.1 mmol/L (8-16); CALCIUM 9.6 mg/dL (8.4-10.2); CREATININE, SERUM 1.33 mg/dL (0.57-1.11); POTASSIUM 4.1 mmol/L (3.5-5.1)
--- NOTE | 2018-10-14 07:00 | NUR ---
LATE ENTRY--REPORT GIVEN TO ONCOMING NURSE, ROUNDS DONE. NO DISTRESS NOTED. CALL LIGHT REMAIN IN REACH.
--- NOTE | 2018-10-14 07:25 | NUR ---
RECEIVED PATIENT AND WALKING ROUNDS COMPLETE. PATIENT RESTING IN BED AT THIS TIME, NO SIGNS OF DISTRESS. CALL LIGHT IN REACH WILL CONTINUE TO MONITOR.
[2018-10-14] MEDS: SUCRALFATE 1 GM/10 ML SUSP PO SCH ×2 (08:42→16:28)
[2018-10-14] MEDS: SERTRALINE HCL 50 MG TAB PO SCH (08:42)
[2018-10-14] MEDS: CLOPIDOGREL BISULFATE 75 MG TAB PO SCH (08:42)
[2018-10-14] MEDS: METOPROLOL TARTRATE 25 MG TAB PO SCH (08:42)
[2018-10-14] MEDS: LORAZEPAM 0.5 MG TAB PO SCH ×3 (08:42→20:31)
[2018-10-14] MEDS: LORATADINE 10 MG TAB PO SCH (08:42)
[2018-10-14] MEDS: ASCORBIC ACID 500 MG TAB PO SCH ×2 (08:42→16:28)
[2018-10-14] MEDS: FERROUS SULFATE 325 MG TAB PO SCH ×2 (08:42→16:28)
[2018-10-14] MEDS: ASPIRIN 81 MG CHEW TAB PO SCH (08:42)
[2018-10-14] MEDS: MULTIVITAMINS/MINERALS TAB PO SCH ×2 (08:42→16:28)
[2018-10-14] MEDS ORDERED: ATORVASTATIN 20 MG TAB PO SCH ×2 (09:00→21:00)
[2018-10-14] MEDS: SPIRONOLACTONE 25 MG TAB PO SCH (09:46)
[2018-10-14] MEDS: AZITHROMYCIN 250 MG TAB PO SCH (09:46)
[2018-10-14] MEDS: FUROSEMIDE 40 MG TAB PO SCH (09:46)
--- NOTE | 2018-10-14 09:59 | NUR ---
CASE MANAGEMENT ASSESSMENT Survey Coordinator to bedside to discuss plan of care with patient/family. CM/SW role and care transitions discussed. Anticipated discharge plan discussed along with duration of care. CM/SW discussed patients right to make decisions in care. CM/SW work hours given. Patient lives: alone Admit/Transfer: thru ED Hospital/ER visits since last admit: last admit September 112018 for pneumonia POA/Emergency contact: shayy Hermosillo [phone] Current/Previous Home Health: previously had [facility] PCP/Follow-up Care: Dr. Aleman - PCP; advised pt to follow up with MD within 7 days of discharge. Pt verbalized understanding. Current/Previous DME: wheelchair, oxygen concentrator, uses 24/7 Medications (referring to index hospitalization or the first time you were in the hospital) a. Were changes made in your medications when you were in the hospital on September 112018? yes b. Did you understand the changes? yes; protonix, amoxicillin, and "another antibiotic" c. Were you able to obtain your new medications right away? yes d. Were you able to take your medications like the doctor wanted you to? yes e. Did the hospital give you an accurate, easy to understand list of medications when you left? yes Scale of 1-10 how comfortable does patient feel with disease management in outpatient settin Other Services: provider thru [facility] 5-6 hrs a day / 7 days a week; states uses [employer] for transportation Employment Status: retired Areas of Concerns: chf, copd, abdominal pain Referral Needs: may benefit from home health Education Needs: medical management, CHF, COPD IMM/DUVALL given and signed (if applicable): IMM on admission Goal for discharge: home CM/SW left business card at the bedside with contact information. Name and number was also written on the patients whiteboard. Patient verbalized understanding of discussion. CM will follow-up with ongoing discharge and transition of care needs.
--- NOTE | 2018-10-14 12:11 | History and Physical ---
CHIEF COMPLAINT: A 78-year-old female comes in with shortness of breath. HISTORY OF PRESENTING ILLNESS: Mrs. Bettye Hermosillo with a history of COPD, CHF, hypertension, hyperlipidemia, was in her usual state of health until the patient started with shortness of breath and abdominal pain and fullness two to three days prior to admission. The patient's symptoms got worse, shortness of breath was increasing and the patient came into the emergency room, was admitted for COPD exacerbation and CHF exacerbation. PAST MEDICAL HISTORY: History of hypertension, history of hyperlipidemia, history of chronic depression, history of chronic anxiety, history of reflux esophagitis, and also history of insomnia. MEDICINES: She takes at home are ascorbic acid, aspirin 81 mg, atorvastatin 20 mg, clopidogrel 75 mg, ferrous sulfate 325 mg, levothyroxine 150 mcg daily, loratadine 10 mg, lorazepam 0.5 mg tablets, metoprolol 25 mg daily, mirtazapine 15 mg at nighttime, montelukast 10 mg at bedtime, ranitidine 75 mg p.r.n., Zoloft 50 mg daily, Carafate 1 g b.i.d., trazodone 50 mg, and multivitamins. PAST SURGICAL HISTORY: Includes history of hysterectomy, history of colectomy, history of colostomy, history of fistular repairs. ALLERGIES: THE PATIENT IS ALLERGIC TO CODEINE, LIDOCAINE, AND METRONIDAZOLE. SOCIAL HISTORY: No history of smoking at this time. No EtOH. No IV drug abuse. Lives by herself. Social situation has been discussed with the patient and the patient still wants to live alone. PHYSICAL EXAMINATION: GENERAL: The patient is alert and oriented x3, pleasant. VITAL SIGNS: Temperature is 98.5, pulse of 70, respirations of 22, blood pressure is 134/64, and pulse oximetry of 96% on 3 L nasal cannula. HEENT: Normocephalic, atraumatic. Pupils are reactive to light and accommodation. LUNGS: Decreased air entry in all lung osborne. Positive for crackles in lower bases. ABDOMEN: Nontender, nondistended. EXTREMITIES: No clubbing no cyanosis, and no edema. NEUROLOGIC: Alert and oriented x3. No sensory motor deficits. Reflexes are normal. LABORATORY VALUES: White count of 7.52, hemoglobin of 11.4, hematocrit of 39.3. Chemistry shows sodium of 138, potassium of 4.2, BUN 18, creatinine of 1.14, calcium 10.1, magnesium 2.0. Liver enzymes, slightly elevated AST of 48. Troponin has been trended to be negative. Coags normal. Influenza was typed as negative and urine shows moderate bacteria. Chest x-ray shows mild pulmonary interstitial edema with small left and trace right pleural effusion. The patient's abdominal CT shows large bowel containing left lower quadrant parastomal hernia, aortic stent graft, coronary arthrosclerosis and diffuse demineralization. The patient's additional laboratory value also shows lactic acid of 21.4 with a BNP of 1159. ASSESSMENT: 1. Chronic obstructive pulmonary disease exacerbation. 2. Congestive heart failure, acute on chronic. 3. Hypertension. 4. Hyperlipidemia. 5. Anxiety. PLAN: Plan is to continue to monitor the patient. The patient is on O2. Albuterol and Atrovent treatments will be given. The patient will be restarted on her home medications. Last echocardiogram shows paced rhythm, left ventricle mildly elevated, EF was 30%-35% with diastolic filling, pacemaker wire seen on right ventricular cavity. The patient is on antibiotic at this time, fluid resuscitation gently secondary to CHF. Currently, the patient is on albuterol and Atrovent treatments and Zosyn and azithromycin. Continue to monitor the patient. Consults are also on for Cardiology and Pulmonology. MD CRISSY Jennings/[facility] /[id number]
[2018-10-14] MEDS ORDERED: FUROSEMIDE 20 MG TAB PO PRN (12:30)
--- NOTE | 2018-10-14 13:05 | NUR ---
WOUND CARE CONSULTATION- INITIAL EVALUATION Patient admitted from [place] with SOB, Abdominal pain. HX: Depression, Anxiety, Hysterectomy, Bladder Suppression, Appendectomy, COPD, CHF, HTN, CAD, Hyperlipidemia Jabari Score 14 Moderate PUP active. Patient Visit: - Patient in bed calm and in good spirts, AAOX3 - Able to turn self - Colostomy to [facility]. - Presents with right gluteal ulcer 0.4x0.4x0.2cm draining serosanguineous fluid- scant. 100% granular pale pink tissue. IMPRESSION: 1. Left Sacrogluteal- Stage II- P.U. - Present On Admission. 2. Left Gluteal - Stage I - P.U. - Present on Admission. 3. Right Breast Fold, Bilateral groin, Abdominal Folds - Dermatologic Rash - Yeast. RECOMMENDATION: 1. Left Sacrogluteal- Stage II- P.U. - Present On Admission. - Cleanse with mild soap and water and pat dry thoroughly - Apply mixture of Mcdonough Cream and Nystatin Cream (1:1 ratio) and Cover with Allevyn Foam Sacrum Daily. 2. Left Gluteal - Stage I - P.U. - Present on Admission. - Cleanse with mild soap and water and pat dry thoroughly - Apply mixture of Elena Cream and Nystatin Cream (1:1 ratio) and Cover with Allevyn Foam Sacrum Daily. 3. Right Breast Fold, Bilateral groin, Abdominal Folds - Dermatologic Rash - Yeast. - Cleanse with mild soap and water and pat dry thoroughly - Apply Nystatin Cream q12H and PRN soiling. 4. Alternating Pressure Air Mattress and set dial to patient Current weight. 5. Bilateral heel protectors / Offload Heels With Pillows While In Bed. 6. Encourage Patient to Turn and Reposition q2h. 7. Keep HOB at < or = to 30 Degrees as tolerated. Thank you for consulting with Wound Care. Addendum: 10/14/18 at 1317 by Josue La RN Amended: Links added.
[2018-10-14 14:02] LABS: CREATINE KINASE MB 0.8 ng/mL (0-5.0)
--- NOTE | 2018-10-14 15:01 | Consultation ---
DATE OF CONSULTATION: Pulmonary Consultation The patient of Dr. Anthony Aleman and Dr. Madeline Mora. HISTORY OF PRESENT ILLNESS: Charming, but unfortunate 78-year-old woman ill for approximately one week with shortness of breath and epigastric fullness. Thinks, her weight has been fairly stable. She has a history of [place] in the past. Generally weak and has a caregiver at home. She lives with a caregiver. History of bronchial asthma and congestive heart failure. ALLERGIES: HISTORY OF ALLERGIES TO CODEINE, LIDOCAINE, AND FLAGYL. PAST SURGICAL HISTORY: She has had colostomy in the past, rectovaginal fistula repair with colostomy, left carotid surgery, PTCA in 1997 of the right coronary, abdominal aortic aneurysm, radiofrequency ablation for atrial fibrillation. She hopes to have her colostomy reversed. SOCIAL HISTORY: Nonsmoker though exposed to secondhand smoke. Worked as a nurse for [employer]. FAMILY HISTORY: Positive for rheumatoid arthritis and coronary artery disease. HOME MEDICATIONS: Include ascorbic acid, aspirin, Lipitor, Plavix, iron, Levaquin, levothyroxine, Claritin, Ativan, metoprolol, mirtazapine, montelukast, zantac, sertraline, Carafate, trazodone and vitamins. PHYSICAL EXAMINATION: GENERAL: A well-developed white female, chronically ill. VITAL SIGNS: Temperature 98.4, pulse 71, respirations 13, and blood pressure 136/62. HEAD: Normocephalic, atraumatic. EYES: Extraocular movements intact. CHEST: Pacemaker and AICD, left chest wall. LUNGS: Bilateral rales. HEART: Regular rhythm. ABDOMEN: Nontender. EXTREMITIES: Nonedematous. IMPRESSION: Congestive heart failure, most likely atypical pneumonia. We will limit fluids, mobilize, and daily weight. Thank you for this kind referral. MD GEORGE Rossi/[facility] /[id number]
--- NOTE | 2018-10-14 15:01 | NUR ---
PATIENT REFUSED PT AT THIS TIME.
[2018-10-14] MEDS ORDERED: MAGNESIUM/ALUMINUM/SIMETHICONE 30 ML UDC PO ONE (15:15)
--- NOTE | 2018-10-14 15:30 | NUR ---
PAGED DR. PHOENIX REGARDING PATIENT COMPLAINT OF EPIGASTRIC PAIN. MAALOX GIVEN PER MD ORDER.
--- NOTE | 2018-10-14 19:08 | NUR ---
RECEIVED REPORT FROM AM NURSE, ROUNDS DONE, NO DISTRESS NOTED, PATIENT RESTING IN BED WATCHING TV. CALL LIGHT IN REACH. WILL CONTINUE TO MONITOR.
--- NOTE | 2018-10-14 19:54 | Consultation ---
DATE OF CONSULTATION: 10/14/2018 REASON FOR CONSULTATION: Evaluate cardiac status. HISTORY OF PRESENT ILLNESS: Ms. Hermosillo is a 78-year-old lady who is well known to me with past medical history of hypertension, hypercholesteremia, coronary artery disease with PCI in 1997, complicated with left bundle-branch block, status post HOME THERAPY TEACHER-D device and AV meena ablation for paroxysmal atrial fibrillation, abdominal aortic aneurysm, status post successful endovascular aortic aneurysm repair with EVAR device percutaneously, COPD with chronic CO2 retention, multiple histories of repeated bronchial pneumonias and has very tenuous respiratory status at baseline. Additionally, she has had issues with small bowel resection, colostomies, revision of colostomy fistula infection and subsequent other ostomy and is in the process of wanting to get it revised. The patient came into the hospital with 1-week history of progressively worsening midepigastric pain, moderate to severe in nature, burning with no known exacerbating or alleviating factors. In fact, the pain in her abdomen hurt her so much that she was unwilling to take deep breaths and this made her short of breath. Additionally, she feels that she might be retaining a little bit of fluid over the last 48 hours. She normally takes 20 of Lasix a day and may not be doing very well. She came to the hospital for further care and evaluation. She was noted to have a very elevated lactic acid level of 21.[address] on [address] and a CT abdomen and pelvis was performed which did not reveal any obstruction and the only noticed finding was a large bowel parastomal hernia and EVAR device. BNP was checked, noted to be elevated in the 1000 range. The patient denies any chest pain or discomfort. Again, her main complaint is the abdominal pain and dyspnea. PAST MEDICAL HISTORY: 1. Hypertension, essential. 2. Hypercholesteremia. 3. Coronary disease with prior history of RCA and PCI in 1997 and subsequent last catheterization showing basically patent coronary arteries. 4. Left bundle-branch block, status post HOME THERAPY TEACHER-D. 5. History of paroxysmal atrial fibrillation status post AV node ablation. 6. COPD on home oxygen with frequent URI and respiratory tract infections. 7. Abdominal aortic aneurysm status post EVAR. 8. History of left carotid endarterectomy. 9. Hypothyroidism. 10. 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 11. Severe debility. FAMILY HISTORY: Mother at 79 with breast cancer. Father at 70 from heart attack. SOCIAL HISTORY: She is a former smoker. She is and denies any alcohol or illicit drug use. ALLERGIES: INCLUDE CODEINE, LIDOCAINE, AND LEVAQUIN. HOME MEDICATIONS: Include amiodarone 200 mg daily, aspirin 81 mg daily, Lipitor 20 mg daily, Synthroid 150 mcg daily, Lopressor 25 mg b.i.d., Lasix 40 mg daily, iron sulfate 325 mg daily, Singulair, oxygen, trazodone, mirtazapine and other p.r.n. medications. REVIEW OF SYSTEMS: GENERAL: Denies any fevers or chills. Positive for malaise. HEENT: No headaches. No visual complaints. No sore throat or stuffy nose. RESPIRATORY: Denies any cough. Positive exertional dyspnea and wheezing. CARDIOVASCULAR: Denies any chest pain. No orthopnea. No PND. GI: Positive for abdominal pain, having stools through her ostomy. No bright red blood per rectum, melena, or hematemesis. : Denies any dysuria. Positive for incontinence. MUSCULOSKELETAL: Chronic aches and pains in her legs. NEUROLOGIC: Denies any focal weakness, numbness, tingling, seizures, headache, TIA, or stroke. PHYSICAL EXAMINATION: VITAL SIGNS: Height of 61 inches, weight of 172 pounds, BMI is 32.9, pulse of 70, blood pressure 114/54, respiratory rate 18, temperature 97.4. GENERAL: This is a well-nourished, well-developed lady who is currently in no apparent distress. HEENT: Normocephalic, atraumatic. Pupils equal, round and reactive to light. Extraocular movements are intact. Oropharynx is clear. NECK: No elevation of jugular venous pulsation. No carotid bruits. There is an old left CEA scar. CARDIOVASCULAR: Regular rate and rhythm. Normal S1, S2. Soft 2/6 systolic murmur at the left lower sternal border. LUNGS: Show poor air flow throughout the lung osborne compatible with COPD changes and some crackles at the bases. ABDOMEN: Soft, distended. Hypoactive bowel sounds and no hepatosplenomegaly. There is left lower quadrant ostomy. BACK: No costovertebral angle tenderness. EXTREMITIES: Warm with no edema. 1+ pedal pulses. NEUROLOGIC: Cranial nerves 2 through 12 are intact. Strength is 5/5, grossly nonfocal. PSYCH: Normal fluent speech. Appropriate affect. No anxiety or delusions. LABS: White count 6.2, hemoglobin 10.2, hematocrit 34.5, platelets of 192. Sodium 142, potassium 4.1, chloride 98, bicarb 36, BUN 18, creatinine 1.33, glucose of 97, AST of 40, ALT of 25, alkaline phosphatase 89, total protein 6.0, albumin 3.0, calcium 9.6. Troponin went from 0.031 to 0.045, INR is 0.93. Lactic acid level was 21.4. EKG reveals underlying atrial fibrillation with a Bi V paced rhythm. Chest x-ray shows mild congestion. CT abdomen and pelvis shows previous EVAR and the presence of a parastomal hernia. DIAGNOSES: 1. Abdominal pain, likely related to her chronic GI issues. 2. Mild acute on chronic decompensated systolic and diastolic heart failure. 3. Hypertension, essential. 4. Coronary artery disease. 5. Hypercholesteremia. 6. Chronic obstructive pulmonary disease. 7. Remote history of heavy smoking. PLAN/RECOMMENDATIONS: 1. From a cardiovascular standpoint, we will go ahead and restart her on Lasix therapy. We will increase the home dose of 20, which she usually is taking, to 40 mg daily with 20 as needed. 2. Continue beta-zhou therapy. 3. Aggressive risk factor modification medical therapy. 4. Defer to the primary team for her GI issues, which is probably contributing to a restriction in her lung expansion which is contributing to her dyspnea. 5. Appreciate Pulmonary recommendation and evaluation for her severe lung disease with frequent infections. We will continue to follow this patient with you. MD DARRYN Gomez/[place]LEY /[id number]
[2018-10-14] MEDS: MONTELUKAST SODIUM 10 MG TAB PO SCH (20:31)
[2018-10-14] MEDS: MIRTAZAPINE 15 MG TAB PO SCH (20:31)
[2018-10-14] MEDS: NYSTATIN 100,000 UNITS/GM CRM 30GM TUBE TOP SCH (22:57)
[2018-10-15] VITALS (7 sets, daily range): BP systolic 125–140; BP diastolic 58–61
[2018-10-15] MEDS: PIPERACILLIN/TAZO 2.25 GM 50 ML IV SCH ×2 (00:06→05:44)
[2018-10-15] MEDS: IPRATROPIUM BROMIDE 0.02% 2.5 ML NEB NEB SCH ×5 (03:00→23:00)
[2018-10-15] MEDS: ALBUTEROL SULF 0.083% NEB SOLN 3 ML NEB NEB SCH ×6 (03:00→23:00)
[2018-10-15] MEDS: LEVOTHYROXINE SODIUM 75 MCG TAB PO SCH (05:44)
[2018-10-15 06:43] LABS: BASOPHILS # (AUTO) 0.1 (0.0-0.1); BASOPHILS % 0.6 % (0.0-1.0); EOSINOPHILS # (AUTO) 0.2 (0.0-0.4); EOSINOPHILS % 1.9 % (0.0-6.0); HEMATOCRIT 36.7 % (34.2-44.1); LYMPHOCYTES # (AUTO) 1.2 (1.0-3.2); LYMPHOCYTES % 13.1 % (18.0-39.1); MEAN CORPUSCULAR HEMOGLOBIN 28.9 pg (28-32); MEAN CORPUSCULAR VOLUME 96.6 fL (81-99); MONOCYTES # (AUTO) 0.9 (0.2-0.8); MONOCYTES % 9.7 % (4.4-11.3); NEUTROPHILS # (AUTO) 6.5 (2.1-6.9); NEUTROPHILS % 74.1 % (38.7-80.0); PLATELET COUNT 197 x10e3/uL (140-360); RED CELL DISTRIBUTION WIDTH 14.2 % (11.7-14.4)
[2018-10-15 07:02] LABS: ALBUMIN 3.2 g/dL (3.5-5.0); ANION GAP 13.9 mmol/L (8-16); CALCIUM 9.6 mg/dL (8.4-10.2); CREATININE, SERUM 1.26 mg/dL (0.57-1.11); POTASSIUM 3.9 mmol/L (3.5-5.1)
--- NOTE | 2018-10-15 07:05 | NUR ---
BEDSIDE REPORT. NO SIGN OF ANY DISTRESS
[2018-10-15] MEDS: PANTOPRAZOLE SOD 40 MG TABEC PO SCH (07:30)
[2018-10-15] MEDS: FERROUS SULFATE 325 MG TAB PO SCH ×2 (08:00→15:27)
[2018-10-15] MEDS: SUCRALFATE 1 GM/10 ML SUSP PO SCH ×2 (08:00→15:24)
[2018-10-15] MEDS: ASCORBIC ACID 500 MG TAB PO SCH ×2 (08:00→16:23)
[2018-10-15] MEDS: MULTIVITAMINS/MINERALS TAB PO SCH ×2 (08:00→16:23)
--- NOTE | 2018-10-15 08:03 | Progress Note ---
DATE: SUBJECTIVE: This patient is a 78-year-old female, who comes in with COPD exacerbation and also CHF exacerbation. Currently, the patient is with shortness of breath, with expiratory wheezes and also with abdominal pain. The patient's colostomy output has more diarrhea today and she is currently on IV antibiotics. OBJECTIVE: VITAL SIGNS: Temperature is 96.0, pulse of 73, respirations of 20, blood pressure is 125/58, and pulse oximetry of 95% on 3 L of oxygen. HEENT: Normocephalic and atraumatic. Pupils are reactive to light and accommodation. The patient is on O2. CVS: S1 and S2 regular. LUNGS: Decreased air entry. Positive for expiratory wheezes. Minimal rhonchi on the right side. ABDOMEN: Tender in the epigastric area and periumbilical area. Colostomy with lot of diarrheal movements. EXTREMITIES: No clubbing, no cyanosis, no edema. LABORATORY DATA: The patient's white count yesterday was 6.24 with a hemoglobin of 10.2 and 34.5 hematocrit. Labs are pending today for chemistries. ASSESSMENT: 1. Congestive heart failure. We will continue with watching her fluid intake and output. 2. Chronic diarrhea, possible secondary to also IV antibiotics. We will do a Clostridium difficile on her. 3. Vjevv-jc-jpxnuif systolic heart failure. 4. Coronary artery disease. 5. Chronic obstructive pulmonary disease exacerbation. 6. History of hypertension. PLAN: Continue to monitor the patient. I's and O's. Albuterol and Atrovent is in progress. Beta-blockade and FREDRICK inhibitors are on board, and ARBs on board. Continue monitoring the patient's output. Again, C diff will be done for GI for abdominal pain. The patient will be put back on her Protonix and O2 supplementation for chronic hypoxia. Further recommendation per clinical course. The patient is still very debilitated and weak. We will need physical therapy to evaluate her and treat accordingly. MD CRISSY Jennings/MODL /[id number]
[2018-10-15] MEDS: METOPROLOL TARTRATE 25 MG TAB PO SCH (09:00)
[2018-10-15] MEDS: FUROSEMIDE 40 MG TAB PO SCH (09:00)
[2018-10-15] MEDS: ASPIRIN 81 MG CHEW TAB PO SCH (09:00)
[2018-10-15] MEDS: LORATADINE 10 MG TAB PO SCH (09:00)
[2018-10-15] MEDS: LORAZEPAM 0.5 MG TAB PO SCH ×3 (09:00→20:37)
[2018-10-15] MEDS: CLOPIDOGREL BISULFATE 75 MG TAB PO SCH (09:00)
[2018-10-15] MEDS: SERTRALINE HCL 50 MG TAB PO SCH (09:00)
[2018-10-15] MEDS: AZITHROMYCIN 250 MG TAB PO SCH (09:00)
[2018-10-15] MEDS: SPIRONOLACTONE 25 MG TAB PO SCH (09:00)
--- NOTE | 2018-10-15 09:04 | NUR ---
IMM letter delivered and explained to pt. She verbalized understanding. Signed copy placed in chart. Copy to pt.
[2018-10-15 09:27] LABS: ABG HCO3 34 mmol/L (23-28); ABG PCO2 48 mmHg (41-51); ABG PH 7.46 (7.31-7.41); ABG PO2 105 mmHg (80-105)
--- NOTE | 2018-10-15 09:48 | NUR ---
DR PHOENIX INFORM OF LAB RESULSTS.
--- NOTE | 2018-10-15 09:50 | NUR ---
PT DOWN TO CT VIA BED
--- NOTE | 2018-10-15 10:40 | NUR ---
DR PETERSEN TO SEE PT.
--- NOTE | 2018-10-15 10:45 | NUR ---
PT BACK IN ROOM
--- NOTE | 2018-10-15 11:00 | NUR ---
PT TO MRI VIA WC Addendum: 10/15/18 at 1242 by Vera Knight RN WRONG PT
--- NOTE | 2018-10-15 11:15 | Diagnostic Imaging Report ---
Exam: Chest ultrasound to evaluate for pleural effusions History: Pleural effusion Comparison: None available Findings: There are small bilateral pleural effusions; left side slightly larger than the right side. Impression: Small bilateral pleural effusions. Signed by: Dr. Ever Singh DO on 10/15/2018 11:12 AM
--- NOTE | 2018-10-15 12:10 | NUR ---
PT BACK IN . FAMILY AT SIDE. Addendum: 10/15/18 at 1243 by Vera Knight RN WRONG PT
--- NOTE | 2018-10-15 12:50 | Diagnostic Imaging Report ---
EXAM: CT Chest w/o contrast 10/15/2018 10:11 AM INDICATION: CHF COMPARISON: None TECHNIQUE: Chest was scanned utilizing a multidetector helical scanner from the lung apex through the level of the adrenal glands without administration of IV contrast. Coronal and sagittal reformations were obtained. Low-dose protocol was performed. Technique manipulation was accomplished to maintain the lowest dose possible to the patient. IV CONTRAST: None RADIATION DOSE: Total DLP: 506.45 mGy*cm Estimated effective dose: (DLP x 0.014 x size factor) mSv COMPLICATIONS: None FINDINGS: LINES/ TUBES: There is a left-sided triple lead cardiac device present. LUNGS AND AIRWAYS: Mild pulmonary vascular congestion. There is a 12 mm lobular right upper lobe pulmonary nodule (series 3, image 36 through 40). A PET/CT is recommended for further evaluation. Airways are normal. PLEURA: Bilateral small-moderate pleural effusions. HEART AND MEDIASTINUM: The thyroid gland is normal. Pretracheal lymph node measures 12 mm. Main pulmonary artery measures 4.2 cm, right pulmonary artery measures 2.9 cm and the left pulmonary artery measures 2.7 cm. The heart is enlarged. Atherosclerotic calcification within the great vessels and the aorta. There is no pericardial effusion. UPPER ABDOMEN: Limited non-contrast views of the upper abdomen show no abnormality within the visualized liver, spleen, pancreas, or kidneys. The adrenal glands are normal. A stent is present in the abdominal aorta. BONES: Degenerative changes of the spine. SOFT TISSUES: Unremarkable. IMPRESSION: 1. Bilateral pleural effusions and pulmonary vascular congestion in keeping with CHF. 2. Enlarged pulmonary arteries compatible with pulmonary hypertension. 3. Lobular indeterminant right upper lobe mass. 4. Small-moderate bilateral pleural effusions. Signed by: Dr. Ever Singh DO on 10/15/2018 12:47 PM
--- NOTE | 2018-10-15 12:53 | Diagnostic Imaging Report ---
EXAM: CHEST 2 VIEWS, PA and lateral DATE: 10/15/2018 Time stamp on exam: 10:15 AM INDICATION: Shortness of breath COMPARISON: Chest CT dated 10/15/2018 FINDINGS: LINES/TUBES: Triple lead cardiac device present. LUNGS: Moderate pulmonary edema. Right upper lobe nodule identified on the same day chest CT not conspicuous on this study. Bilateral compressive atelectasis. PLEURA: Bilateral pleural effusions. HEART AND MEDIASTINUM: Enlarged cardiac silhouette. BONES AND SOFT TISSUES: No acute findings. IMPRESSION: Cardiomegaly with bilateral pleural effusions and pulmonary edema. Signed by: Dr. Ever Singh DO on 10/15/2018 12:50 PM
--- NOTE | 2018-10-15 13:47 | NUR ---
Nutrition Screen Note RD Recommendation for Physician: -Continue current diet. -Recommend low fiber (GI soft) diet if diarrhea persists. Plan of Care: RD following, monitoring for tolerance and adequacy. Provided education. Nutrition reason for involvement: (Diagnosis- CHF) Primary Diagnose(s): CHF, COPD exacerbation PMH: COPD, CHF,hypertension, hyperlipidemia, small bowel resection, colostomies, revision of colostomy fistula infection and subsequent other ostomy and is in the process of wanting to get it Revised Ht: 60 in Wt: 172 lb BMI: 32 kg/m2 IBW: [address] Assessment: (10/15) 78 YOF admitted for COPD and CHF. Pt reported she has a good appetite now but prior to admission her appetite was poor for about one month. Pt did not see any weight loss. Pt reports she is tolerating her meals well here. Pt had no c/o N/V but stated she had diarrhea within her colostomy bag. Provided education to pt regarding heart healthy diet, pt verbalized understanding and was grateful for handouts. Pt had questions regarding fluid restriction, reported to pt she must ask doctor how much fluid she should consume in a day, noted-pt is on lasix. Wound care was consulted-no note yet within EMR. Chart reviewed. Labs and meds reviewed. Current Diet: cardiac diet Malnutrition Evaluation (10/15) The patient does not meet criteria for a specified degree of malnutrition at this time. Will re-evaluate at follow-up as appropriate. Diet Education Needs Assessment: Diet education indicated, pt was open to receiving education regarding CHF. Learner(s): pt Barriers: none Cultural/Language Modifications: none Readiness: acceptance Method: discussion and handout Topics: Heart Healthy Diet Understanding/Compliance: verbalized understanding, expect good compliance Nutrition Care Level: low Signed: Nhung Molina, RD, LD
[2018-10-15] MEDS: ZINC OXIDE / BALSAM PERU 30 GM TUBE TOP SCH (14:00)
[2018-10-15] MEDS: NYSTATIN 100,000 UNITS/GM CRM 30GM TUBE TOP SCH ×3 (14:00→22:00)
--- NOTE | 2018-10-15 14:00 | NUR ---
WOUND CARE DONE TO LT BUTTOCK STAGE 2 AND SACRAL AREA STAGE 1 NOTED AND BOTH COVER WITH ALLEYN. NYSTATIN APPLIED TO UNDER BREAST AND IN GROIN FOLDS
--- NOTE | 2018-10-15 14:30 | NUR ---
REPORT CALLED TO Shankar HALE LVN. TRANSPORTED VIA BED
--- NOTE | 2018-10-15 15:25 | NUR ---
pt went down for a scan of her lungs with o2 running at 2L/min via NC. No s/s of distress noted.
--- NOTE | 2018-10-15 16:20 | NUR ---
PT RETURNED FROM SCAN. O2 APPLIED AND NO S/S OF DISTRESS. SIDE RAILS UP X2, BED IN LOWEST POSITION, AND CALL ALVA WITHIN REACH
[2018-10-15] MEDS: ENOXAPARIN SOD INJ 40 MG/0.4 ML SYR SC SCH (16:23)
--- NOTE | 2018-10-15 16:48 | Diagnostic Imaging Report ---
Ventilation/perfusion lung scan Clinical Information: Acute onset SOB x 3 days; CHF; COPD Comparison: Chest radiograph 10/15/2018; CT chest w/o contrast 10/15/2018 Discussion: Xenon-133 gas 7.1 mCi was administered via inhalation. The images are of suboptimal quality due to poor breathhold although suitable for interpretation. Dynamic images of the lungs in the posterior projection were obtained through single breath, equilibrium, and washout phases. Distribution of tracer activity is very irregular throughout the lungs. There are no segmental ventilatory defects. Washout of tracer is diffusely delayed with air trapping in the REUBEN. Perfusion images of the lungs were obtained in multiple projections following intravenous administration of approximately 5.8 mCi of Tc-99m MAA. Distribution of tracer is very irregular throughout the lungs. There are no segmental perfusion defects of any size. The cardiomediastinal silhouette is enlarged.. Impression: 1. Scan findings represent a VERY LOW probability for acute pulmonary embolic disease based on the PIOPED II criteria. 2. Scan evidence of severe obstructive lung disease. 3. Enlarged cardiac silhouette. Signed by: Dr. Catalina Sarmiento M.D. on 10/15/2018 4:44 PM
--- NOTE | 2018-10-15 17:00 | NUR ---
PT IS ON BED RESTING WITH EYES OPENED. NO S/S IF DISTRESS. PT ON 3L/MIN OF O2 VIA NC. SIDE RAILS UP X2, BED IN LOWEST POSITION, AND CALL ALVA WITHIN REACH.
--- NOTE | 2018-10-15 19:00 | NUR ---
Received patient from day nurse, patient is alert and oriented, introduced self to patient and patient educated on the importance of calling for help, patient verbalized understanding. safety and fall precautions maintained as per hospital protocol: bed in lowest position and locked, needed items beside bed and call aj placed close to patient, patient instructed to use it to call nurses for any assistance needed, patient verbalized understanding.
[2018-10-15] MEDS: ATORVASTATIN 40 MG TAB PO SCH (20:37)
[2018-10-15] MEDS: MEROPENEM 1GM 100 ML IV SCH (20:37)
[2018-10-15] MEDS: MIRTAZAPINE 15 MG TAB PO SCH (20:37)
[2018-10-15] MEDS: ACETAMINOPHEN 325 MG TAB PO PRN (20:38)
[2018-10-15] MEDS: TRAZODONE HCL 50 MG TAB PO PRN (20:51)
[2018-10-15] MEDS ORDERED: MEROPENEM 1GRAM 1 GM in SODIUM CHLORIDE 0.9% 100 ML 100 ML IV SCH (21:00)
[2018-10-16] VITALS (7 sets, daily range): BP systolic 109–157; BP diastolic 54–67
[2018-10-16] MEDS: IPRATROPIUM BROMIDE 0.02% 2.5 ML NEB NEB SCH ×6 (03:00→23:00)
[2018-10-16] MEDS: ALBUTEROL SULF 0.083% NEB SOLN 3 ML NEB NEB SCH ×6 (03:00→23:00)
[2018-10-16] MEDS: LEVOTHYROXINE SODIUM 75 MCG TAB PO SCH (05:11)
[2018-10-16 06:21] LABS: BASOPHILS # (AUTO) 0.1 (0.0-0.1); BASOPHILS % 0.7 % (0.0-1.0); EOSINOPHILS # (AUTO) 0.2 (0.0-0.4); EOSINOPHILS % 2.3 % (0.0-6.0); HEMATOCRIT 34.5 % (34.2-44.1); HEMOGLOBIN 10.3 g/dL (12.0-16.0); LYMPHOCYTES # (AUTO) 0.8 (1.0-3.2); LYMPHOCYTES % 10.9 % (18.0-39.1); MEAN CORPUSCULAR HEMOGLOBIN 29.1 pg (28-32); MEAN CORPUSCULAR HGB CONC 29.9 g/dL (31-35); MEAN CORPUSCULAR VOLUME 97.5 fL (81-99); MONOCYTES # (AUTO) 0.7 (0.2-0.8); MONOCYTES % 9.6 % (4.4-11.3); NEUTROPHILS # (AUTO) 5.2 (2.1-6.9); NEUTROPHILS % 75.9 % (38.7-80.0); PLATELET COUNT 182 x10e3/uL (140-360); RED BLOOD COUNT 3.54 x10e6/uL (3.6-5.1); RED CELL DISTRIBUTION WIDTH 13.9 % (11.7-14.4)
[2018-10-16 06:35] LABS: ALBUMIN 2.9 g/dL (3.5-5.0); ALBUMIN/GLOBULIN RATIO 0.9 (0.8-2.0); ANION GAP 14.5 mmol/L (8-16); CALCIUM 9.7 mg/dL (8.4-10.2); CREATININE, SERUM 1.28 mg/dL (0.57-1.11); POTASSIUM 4.5 mmol/L (3.5-5.1)
--- NOTE | 2018-10-16 06:35 | NUR ---
patient endorsed to next shift for continuity of care.
--- NOTE | 2018-10-16 07:13 | NUR ---
patient endorsed to next shift for continuity of care.
--- NOTE | 2018-10-16 07:30 | NUR ---
pt up in bed .o2 4l nc in place ,no distress noted,denies pain.
[2018-10-16] MEDS: SUCRALFATE 1 GM/10 ML SUSP PO SCH ×2 (08:36→16:30)
[2018-10-16] MEDS: PANTOPRAZOLE SOD 40 MG TABEC PO SCH (08:36)
[2018-10-16] MEDS: ASCORBIC ACID 500 MG TAB PO SCH ×2 (08:42→17:00)
[2018-10-16] MEDS: MULTIVITAMINS/MINERALS TAB PO SCH ×2 (08:42→17:00)
[2018-10-16] MEDS: FERROUS SULFATE 325 MG TAB PO SCH ×2 (08:42→17:00)
[2018-10-16] MEDS: MEROPENEM 1GM 100 ML IV SCH ×2 (08:42→20:37)
[2018-10-16] MEDS: SPIRONOLACTONE 25 MG TAB PO SCH (08:43)
[2018-10-16] MEDS: ASPIRIN 81 MG CHEW TAB PO SCH (08:43)
[2018-10-16] MEDS: LORAZEPAM 0.5 MG TAB PO SCH ×3 (08:43→20:37)
[2018-10-16] MEDS: FUROSEMIDE 40 MG TAB PO SCH (08:43)
[2018-10-16] MEDS: LORATADINE 10 MG TAB PO SCH (08:43)
[2018-10-16] MEDS: METOPROLOL TARTRATE 25 MG TAB PO SCH (08:44)
[2018-10-16] MEDS: SERTRALINE HCL 50 MG TAB PO SCH (08:44)
[2018-10-16] MEDS: CLOPIDOGREL BISULFATE 75 MG TAB PO SCH (08:44)
--- NOTE | 2018-10-16 09:59 | Progress Note ---
DATE: SUBJECTIVE: The patient is here for acute COPD exacerbation, congestive heart failure, urinary tract infection, and currently diagnosed with C difficile too. The patient is complaining of shortness of breath. No chest pain. No nausea or vomiting. Positive for abdominal pain and positive for diarrhea through her colostomy. OBJECTIVE: HEENT: Normocephalic, atraumatic. Pupils are reactive to light and accommodation. CVS: S1 and S2, normal. Regular rate and rhythm. LUNGS: Decreased air entry to both lung bases. Positive for bibasilar rhonchi. ABDOMEN: Tender in the epigastrium. Colostomy with diarrhea. EXTREMITIES: No clubbing, no cyanosis, and no edema. LABORATORY VALUES: Today's white count is 6.85, hemoglobin of 10.3, hematocrit of 34.5, and platelet count is 182. Chemistries show sodium of 143, potassium of 4.5, BUN of 19, creatinine of 1.28. Coags have been normal. ASSESSMENT AND PLAN: 1. Congestive heart failure. Continue watching fluids, I's and O's. 2. Chronic diarrhea. Positive for Clostridium difficile. We will start her on Flagyl. 3. Acute on chronic systolic heart failure. Continue with Lasix as needed. 4. Coronary artery disease. 5. Chronic obstructive pulmonary disease exacerbation. 6. History of hypertension. Continue monitoring I's and O's. Albuterol and Atrovent as needed. FREDRICK and ARBs. Flagyl for Clostridium difficile. Further recommendation per clinical course. The patient's BNP is on the higher side. We will continue monitoring it and fluid resuscitation and Lasix as needed. MD CRISSY Jennings/MODL /[id number]
[2018-10-16] MEDS: ZINC OXIDE / BALSAM PERU 30 GM TUBE TOP SCH (10:00)
[2018-10-16] MEDS: NYSTATIN 100,000 UNITS/GM CRM 30GM TUBE TOP SCH ×3 (10:00→20:37)
[2018-10-16] MEDS ORDERED: METRONIDAZOLE 500 MG TAB PO SCH (12:00)
--- NOTE | 2018-10-16 12:00 | NUR ---
PT UP IN BED POOR APPETITE,DENIES [APIN O2 3L NC IN PLACE.
[2018-10-16] MEDS: ENOXAPARIN SOD INJ 40 MG/0.4 ML SYR SC SCH (17:00)
[2018-10-16] MEDS: VANCOMYCIN 250MG/5ML ORAL SOLN PO SCH (17:55)
--- NOTE | 2018-10-16 19:10 | NUR ---
Bedside rounds completed with morning nurse. Pt alert and orient to name. Lying in bed HOB 60 degrees. Denies pain at this time. Call aj within reach. Bed low and locked. Will continue to monitor.
[2018-10-16] MEDS ORDERED: ONDANSETRON HCL 4 MG ORAL DISINTEGRATING TAB PO PRN (19:15)
[2018-10-16] MEDS ORDERED: MAGNESIUM/ALUMINUM/SIMETHICONE 30 ML UDC PO ONE (19:30)
[2018-10-16] MEDS: MONTELUKAST SODIUM 10 MG TAB PO SCH ×2 (20:36→20:37)
[2018-10-16] MEDS: MIRTAZAPINE 15 MG TAB PO SCH (20:37)
[2018-10-16] MEDS: ATORVASTATIN 40 MG TAB PO SCH (20:37)
[2018-10-17] VITALS (7 sets, daily range): BP systolic 122–153; BP diastolic 57–65
[2018-10-17] MEDS: ACETAMINOPHEN 325 MG TAB PO PRN (00:01)
[2018-10-17] MEDS: TRAZODONE HCL 50 MG TAB PO PRN ×2 (00:01→21:30)
[2018-10-17] MEDS: VANCOMYCIN 250MG/5ML ORAL SOLN PO SCH ×4 (01:00→18:28)
[2018-10-17] MEDS: IPRATROPIUM BROMIDE 0.02% 2.5 ML NEB NEB SCH ×6 (03:00→22:52)
[2018-10-17] MEDS: ALBUTEROL SULF 0.083% NEB SOLN 3 ML NEB NEB SCH ×6 (03:00→22:52)
[2018-10-17] MEDS: LEVOTHYROXINE SODIUM 75 MCG TAB PO SCH (06:12)
[2018-10-17 07:11] LABS: ANION GAP 12.8 mmol/L (8-16); CALCIUM 9.7 mg/dL (8.4-10.2); CREATININE, SERUM 1.15 mg/dL (0.57-1.11); POTASSIUM 3.8 mmol/L (3.5-5.1)
--- NOTE | 2018-10-17 07:30 | NUR ---
pt in bed sleeping no s/s discomfort,denies pain
[2018-10-17] MEDS: LORAZEPAM 0.5 MG TAB PO SCH ×3 (08:00→21:18)
[2018-10-17] MEDS: SPIRONOLACTONE 25 MG TAB PO SCH (08:00)
[2018-10-17] MEDS: METOPROLOL TARTRATE 25 MG TAB PO SCH (08:00)
[2018-10-17] MEDS: MULTIVITAMINS/MINERALS TAB PO SCH ×2 (08:00→17:03)
[2018-10-17] MEDS: MEROPENEM 1GM 100 ML IV SCH ×2 (08:00→21:18)
[2018-10-17] MEDS: FUROSEMIDE 40 MG TAB PO SCH ×2 (08:00→14:03)
[2018-10-17] MEDS: ASPIRIN 81 MG CHEW TAB PO SCH (08:00)
[2018-10-17] MEDS: FERROUS SULFATE 325 MG TAB PO SCH ×2 (08:00→17:03)
[2018-10-17] MEDS: ASCORBIC ACID 500 MG TAB PO SCH ×2 (08:00→17:03)
[2018-10-17] MEDS: LORATADINE 10 MG TAB PO SCH (08:00)
[2018-10-17] MEDS: CLOPIDOGREL BISULFATE 75 MG TAB PO SCH (08:00)
[2018-10-17] MEDS: SUCRALFATE 1 GM/10 ML SUSP PO SCH ×2 (08:30→15:45)
[2018-10-17] MEDS: PANTOPRAZOLE SOD 40 MG TABEC PO SCH (08:30)
[2018-10-17] MEDS: SERTRALINE HCL 50 MG TAB PO SCH (09:00)
--- NOTE | 2018-10-17 09:38 | Progress Note ---
DATE: SUBJECTIVE: The patient is a 78-year-old female comes in with acute CHF exacerbation and also acute COPD exacerbation, found to have C difficile and started on vancomycin yesterday. OBJECTIVE: VITAL SIGNS: Temperature is 97.6, pulse of 69, respirations of 18, blood pressure is 133/62, and pulse oximetry of 97% on 3 L of oxygen. The patient has been using BiPAP off and on last night. HEENT: Normocephalic, atraumatic. Pupils are reactive to light and accommodation. CVS: S1 and S2. Regular rate and rhythm. LUNGS: Decreased air entry into all lung osborne. ABDOMEN: Tender in the epigastric area. Colostomy tube does show a lot of diarrhea stool. EXTREMITIES: No clubbing, no cyanosis, and no edema. LABORATORY VALUES: Chemistry shows sodium of 141, potassium of 3.8, BUN was 19, and creatinine of 1.15. ASSESSMENT AND PLAN: 1. Congestive heart failure. Continue with I's and O's. Watch fluids. 2. Chronic diarrhea. Positive for Clostridium difficile. Continue with vancomycin 125 mg q.6. 3. Acute on chronic systolic heart failure. Continue on Lasix. 4. Chronic obstructive pulmonary disorder with exacerbation. Continue with O2 and BiPAP as needed. 5. Hypertension. Continue with CV medication. Further recommendation per clinical course. The patient will continue to be monitored along with consultants. MD CRISSY Jennings/MODL /[id number]
[2018-10-17] MEDS: NYSTATIN 100,000 UNITS/GM CRM 30GM TUBE TOP SCH ×3 (13:28→21:18)
[2018-10-17] MEDS: ZINC OXIDE / BALSAM PERU 30 GM TUBE TOP SCH (13:28)
[2018-10-17] MEDS: ENOXAPARIN SOD INJ 40 MG/0.4 ML SYR SC SCH (17:03)
--- NOTE | 2018-10-17 17:05 | NUR ---
PT UP IN BED DENIES PAIN .C/O ANXIETY MEDICATEDAT 1500
--- NOTE | 2018-10-17 19:15 | NUR ---
Bedside rounds completed with morning nurse. Pt alert and orient to name. Lying supine in bed HOB 60 degrees. Denies pain at this time. O2 @3L via NC. Call aj within reach. Bed low and locked. Will continue to monitor.
[2018-10-17] MEDS: ATORVASTATIN 40 MG TAB PO SCH (21:18)
[2018-10-17] MEDS: MONTELUKAST SODIUM 10 MG TAB PO SCH (21:18)
[2018-10-17] MEDS: MIRTAZAPINE 15 MG TAB PO SCH (21:28)
[2018-10-18] VITALS (8 sets, daily range): BP systolic 132–151; BP diastolic 60–65
[2018-10-18] MEDS: VANCOMYCIN 250MG/5ML ORAL SOLN PO SCH ×5 (00:20→23:47)
[2018-10-18] MEDS: ALBUTEROL SULF 0.083% NEB SOLN 3 ML NEB NEB SCH ×4 (03:52→15:48)
[2018-10-18] MEDS: IPRATROPIUM BROMIDE 0.02% 2.5 ML NEB NEB SCH ×6 (03:52→23:21)
[2018-10-18] MEDS: LEVOTHYROXINE SODIUM 75 MCG TAB PO SCH (06:03)
--- NOTE | 2018-10-18 07:04 | NUR ---
RECEIVED PATIENT RESTING IN BED. RESPIRATIONS EVEN AND UNLABORED, NO ACUTE DISTRESS NOTED. CALL LIGHT WITHIN REACH. BED IN THE LOWEST POSITION.
--- NOTE | 2018-10-18 07:33 | Progress Note ---
DATE: SUBJECTIVE: The patient is here for an acute exacerbation of COPD, acute on chronic congestive heart failure, systolic and also for recent diagnosis of C diff, currently asymptomatic. The patient is feeling better. Diarrhea has slowed down from the colostomy. The patient's abdominal pain is also better. Has used BiPAP yesterday. OBJECTIVE: VITAL SIGNS: Temperature 98.8, pulse of 70, respirations of 18, blood pressure is 141/61, and pulse oximetry of 100%. HEENT: Normocephalic, atraumatic. Pupils are reactive to light and accommodation. CVS: S1, S2 normal. Regular rate and rhythm. LUNGS: Decreased air entry. Positive for rhonchi bilaterally in the lower bases. EXTREMITIES: No clubbing, no cyanosis, no edema. ABDOMEN: Colostomy with diarrhea, abdominal tenderness in the epigastric area, much reduced from yesterday. LABORATORY VALUES: None done today. Microbiology, E coli ESBL sensitive to Merrem and also C diff positive. ASSESSMENT AND PLAN: 1. Acute exacerbation of chronic obstructive pulmonary disease. Continue with O2. Continue with albuterol and Atrovent treatment. BiPAP as needed for chronic hypoxia. 2. Chronic diarrhea, positive for Clostridium difficile. Continue with vancomycin 125. ESBL urinary tract infection, on Merrem 1 g q.12 hours. Hypertension, continue on CV medications. Physical therapy will be instituted. Further recommendation per clinical course. MD CRISSY Jennings/MODL /[id number]
[2018-10-18] MEDS: FUROSEMIDE 40 MG TAB PO SCH (08:20)
[2018-10-18] MEDS: ASPIRIN 81 MG CHEW TAB PO SCH (08:20)
[2018-10-18] MEDS: LORAZEPAM 0.5 MG TAB PO SCH ×3 (08:20→20:32)
[2018-10-18] MEDS: MULTIVITAMINS/MINERALS TAB PO SCH ×2 (08:20→16:58)
[2018-10-18] MEDS: MEROPENEM 1GM 100 ML IV SCH ×2 (08:20→20:32)
[2018-10-18] MEDS: ASCORBIC ACID 500 MG TAB PO SCH ×2 (08:20→16:58)
[2018-10-18] MEDS: PANTOPRAZOLE SOD 40 MG TABEC PO SCH (08:20)
[2018-10-18] MEDS: SPIRONOLACTONE 25 MG TAB PO SCH (08:20)
[2018-10-18] MEDS: FERROUS SULFATE 325 MG TAB PO SCH ×2 (08:20→16:58)
[2018-10-18] MEDS: SUCRALFATE 1 GM/10 ML SUSP PO SCH ×2 (08:20→16:58)
[2018-10-18] MEDS: LORATADINE 10 MG TAB PO SCH (08:20)
[2018-10-18] MEDS: CLOPIDOGREL BISULFATE 75 MG TAB PO SCH (08:21)
[2018-10-18] MEDS: METOPROLOL SUCCINATE 25 MG TAB XL PO SCH (08:21)
[2018-10-18] MEDS: SERTRALINE HCL 50 MG TAB PO SCH (08:21)
[2018-10-18] MEDS: NYSTATIN 100,000 UNITS/GM CRM 30GM TUBE TOP SCH ×3 (09:39→20:33)
[2018-10-18] MEDS: ZINC OXIDE / BALSAM PERU 30 GM TUBE TOP SCH (09:39)
[2018-10-18] MEDS ORDERED: FUROSEMIDE INJ 10 MG/ML 2 ML VIAL IV NR (16:30)
[2018-10-18] MEDS: ENOXAPARIN SOD INJ 40 MG/0.4 ML SYR SC SCH (16:58)
--- NOTE | 2018-10-18 18:01 | NUR ---
ORDER RECEIVED FOR SNF. CM MET W THE PT AT THE BEDSIDE. PROVIDED PT LIST. STATES SHE WOULD LIKE TO BE CLOSE TO THE HOSPITAL. PT AGREED TO MED RESORT. CHOICE LETTER WAS SIGNED. COPY TO PT, COPY TO CHART. CALL TO BERENICE Green MED RESORT TO P/U CLINICALS. FAXED UPDATE W PT NOTES AND MAR TO OFF: [phone] / FAX: [phone]. VERIFIED CLINS RECEIVED.
--- NOTE | 2018-10-18 19:27 | NUR ---
REPORT GIVEN TO ONCOMING NURSE, WALKING ROUNDS DONE. PATIENT IS IN STABLE CONDITION, RESPIRATIONS EVEN AND UNLABORED. NO S/S OF PAIN NOTED. CALL LIGHT WITHIN REACH. BED IN THE LOWEST POSITION.
--- NOTE | 2018-10-18 19:40 | NUR ---
PT IS RESTING IN BED. NO RESPIRATORY DISTRESS NOTED. BED IN THE LOWEST POSITION, LOCKED, AND CALL LIGHT WITHIN REACH. WILL CONTINUE TO MONITOR.
[2018-10-18] MEDS: LEVALBUTEROL HCL SOLN NEBU 1.25 MG/3 ML NEB INH SCH ×2 (20:22→23:21)
[2018-10-18] MEDS: ATORVASTATIN 40 MG TAB PO SCH (20:32)
[2018-10-18] MEDS: MIRTAZAPINE 15 MG TAB PO SCH (20:32)
[2018-10-18] MEDS: MONTELUKAST SODIUM 10 MG TAB PO SCH (20:32)
[2018-10-18] MEDS: TRAZODONE HCL 50 MG TAB PO PRN (21:39)
[2018-10-19] VITALS: BP 125/57
[2018-10-19] MEDS: LEVALBUTEROL HCL SOLN NEBU 1.25 MG/3 ML NEB INH SCH ×4 (03:41→15:10)
[2018-10-19] MEDS: IPRATROPIUM BROMIDE 0.02% 2.5 ML NEB NEB SCH ×4 (03:41→15:10)
[2018-10-19 04:00] VITALS: BP 161/69
[2018-10-19] MEDS: LEVOTHYROXINE SODIUM 75 MCG TAB PO SCH (05:47)
[2018-10-19] MEDS: VANCOMYCIN 250MG/5ML ORAL SOLN PO SCH ×2 (05:47→12:11)
[2018-10-19 06:56] LABS: BASOPHILS # (AUTO) 0.1 (0.0-0.1); BASOPHILS % 0.8 % (0.0-1.0); EOSINOPHILS # (AUTO) 0.2 (0.0-0.4); EOSINOPHILS % 1.8 % (0.0-6.0); HEMATOCRIT 33.3 % (34.2-44.1); HEMOGLOBIN 10.2 g/dL (12.0-16.0); LYMPHOCYTES # (AUTO) 0.6 (1.0-3.2); LYMPHOCYTES % 7.5 % (18.0-39.1); MEAN CORPUSCULAR HGB CONC 30.6 g/dL (31-35); MEAN CORPUSCULAR VOLUME 94.6 fL (81-99); MONOCYTES # (AUTO) 0.7 (0.2-0.8); MONOCYTES % 8.3 % (4.4-11.3); NEUTROPHILS # (AUTO) 6.9 (2.1-6.9); PLATELET COUNT 198 x10e3/uL (140-360); RED BLOOD COUNT 3.52 x10e6/uL (3.6-5.1); RED CELL DISTRIBUTION WIDTH 13.8 % (11.7-14.4)
--- NOTE | 2018-10-19 07:04 | NUR ---
RECEIVED PATIENT RESTING IN BED. RESPIRATIONS EVEN AND UNLABORED, NO ACUTE DISTRESS NOTED. CALL LIGHT WITHIN REACH. BED IN THE LOWEST POSITION.
[2018-10-19 07:17] LABS: ANION GAP 12.1 mmol/L (8-16); CALCIUM 9.9 mg/dL (8.4-10.2); CREATININE, SERUM 1.12 mg/dL (0.57-1.11); POTASSIUM 4.1 mmol/L (3.5-5.1)
[2018-10-19 07:20] VITALS: BP 139/65
--- NOTE | 2018-10-19 07:42 | NUR ---
JAZIEL PHOENIX FOR CRITICAL CO2 OF 41.
--- NOTE | 2018-10-19 07:52 | Progress Note ---
DATE: SUBJECTIVE: A 78-year-old female comes in with acute exacerbation of COPD, acute congestive heart failure and also finding of C diff, currently on BiPAP. The patient has chronic hypoxia and also history of chronic UTI and ESBL. The patient is very debilitated, will need SNF evaluation and has been done. OBJECTIVE: VITAL SIGNS: Temperature is 97, pulse of 70, blood pressure is 161/69, and pulse oximetry of 92%. HEENT: Normocephalic, atraumatic. Pupils are reactive to light and accommodation. CVS: S1 and S2. Regular. ABDOMEN: Tender in the epigastrium. EXTREMITIES: No clubbing. No cyanosis. No edema. LABORATORY DATA: Laboratory values pending for today. The patient's coags are normal. ASSESSMENT: Acute exacerbation of chronic obstructive pulmonary disorder with hypoxia. PLAN: 1. Plan is to continue with oxygen and albuterol and Atrovent treatment. BiPAP as needed. 2. C diff. Continue vancomycin 125 mg p.o. q.6 hours. 3. ESBL and urinary tract infection on Merrem 1 g q.12 hours. 4. CHF. Monitor fluid intake and I's and O's. Further recommendation per clinical course. We will continue to monitor the patient. MD CRISSY Jennings/WESTLEY /[id number]
[2018-10-19 08:00] VITALS: BP 139/65
--- NOTE | 2018-10-19 08:12 | NUR ---
SPOKE TO DR. PHOENIX IN REGARDS TO CO2 LEVEL OF 41, PER DR. PHOENIX JUST KEEP HER ON THE CURRENT O2/BIPAP ORDER. NO NEW ORDERS.
[2018-10-19] MEDS: FERROUS SULFATE 325 MG TAB PO SCH (08:47)
[2018-10-19] MEDS: LORAZEPAM 0.5 MG TAB PO SCH ×2 (08:47→14:45)
[2018-10-19] MEDS: LORATADINE 10 MG TAB PO SCH (08:47)
[2018-10-19] MEDS: MULTIVITAMINS/MINERALS TAB PO SCH (08:47)
[2018-10-19] MEDS: ASPIRIN 81 MG CHEW TAB PO SCH (08:47)
[2018-10-19] MEDS: SUCRALFATE 1 GM/10 ML SUSP PO SCH (08:47)
[2018-10-19] MEDS: MEROPENEM 1GM 100 ML IV SCH (08:47)
[2018-10-19] MEDS: CLOPIDOGREL BISULFATE 75 MG TAB PO SCH (08:47)
[2018-10-19] MEDS: ASCORBIC ACID 500 MG TAB PO SCH (08:47)
[2018-10-19] MEDS: PANTOPRAZOLE SOD 40 MG TABEC PO SCH (08:47)
[2018-10-19] MEDS: SPIRONOLACTONE 25 MG TAB PO SCH (08:47)
[2018-10-19] MEDS: SERTRALINE HCL 50 MG TAB PO SCH (08:48)
[2018-10-19] MEDS: ZINC OXIDE / BALSAM PERU 30 GM TUBE TOP SCH (08:48)
[2018-10-19] MEDS: METOPROLOL SUCCINATE 25 MG TAB XL PO SCH (08:48)
[2018-10-19] MEDS: NYSTATIN 100,000 UNITS/GM CRM 30GM TUBE TOP SCH ×2 (08:48)
--- NOTE | 2018-10-19 09:51 | NUR ---
DR. MACKENZIE ROUNDING ON PATIENT. NOTIFIED OF ELEVATED CO2 LEVEL OF 41, NO NEW ORDERS RECEIVED.
[2018-10-19] MEDS ORDERED: ACETAZOLAMIDE SODIUM 500 MG/VIAL IV ONE (10:00)
[2018-10-19] MEDS ORDERED: FUROSEMIDE INJ 10 MG/ML 4 ML VIAL IV ONE (10:00)
[2018-10-19 11:39] VITALS: BP 127/59
--- NOTE | 2018-10-19 13:37 | NUR ---
PT ACCEPTED TO [facility] [id number], [id number]. CALL REPORT TO [phone]. ROOM [address] GREY WALTERS. RTF COMPLETED AND GIVEN TO SHELLFISH BED WORKER TO COMPLETE TRANSFER.
--- NOTE | 2018-10-19 14:17 | NUR ---
CALLED REPORT TO MEKA PAYNE AT [facility] AT 1417.
--- NOTE | 2018-10-19 16:47 | NUR ---
DC ORDER FROM MD FOR PATIENT TO TRANSFER TO THE MEDICAL RESORT. PATIENT IS IN STABLE CONDITION. IV LINES TO RIGHT FOREARM AND LEFT HAND INTACT AND PATENT. REPORT CALLED TO MEKA PAYNE @ [phone]. TRANSFER MAR GIVEN TO EMS PERSONNEL. PATIENT TRANSPORTED VIA STRETCHER BY EMS PERSONNEL.
[2018-10-20] MEDS ORDERED: FUROSEMIDE 40 MG TAB PO SCH (09:00)
== END 2018-10-19 16:49 | DRG 291 ==
LOC: ER 12:17 → ERHOLD 19:15 → MED/SURG 21:18 → MED/SURG3 10-15 14:35
PROVIDERS: ADMIT Family Medicine; ATTEND Family Medicine
DX: I11.0 Hypertensive heart disease with heart failure (principal); J18.9 Pneumonia, unspecified organism; J96.21 Acute and chronic respiratory failure with hypoxia; J44.1 Chronic obstructive pulmonary disease with (acute) exacerbation; N39.0 Urinary tract infection, site not specified; I50.23 Acute on chronic systolic (congestive) heart failure; E78.5 Hyperlipidemia, unspecified; B96.7 Clostridium perfringens [C. perfringens] as the cause of diseases classified elsewhere; B96.20 Unspecified Escherichia coli [E. coli] as the cause of diseases classified elsewhere
CPT/HCPCS: 36415; 71046; 71250; 74176; 76604; 78582; 80048; 80053; 81001; 82550; 82553; 82805; 83605; 83735; 83880; 84484; 85025; 85610; 85730; 87040; 87086; 87186; 87400; 87493; 93005; 94640; 94660; 97139; 99284; A9540; A9558; J0456; J0696; J1650; J1940; J2185; J2543; J7050

== ENCOUNTER 2018-11-15 16:19 | Emergency (ER) | payer MEDICARE, OTHER ==
[~2018-11-15] VITALS: Ht 154.9 cm; Wt 78.0 kg
--- OUTSIDE RECORDS SUMMARY | 2018-11-15 16:22 | XMS REPORT | Clinical Summary ---
Author Author [facility] Organization [facility] Address Unknown Phone Unavailable Care Team Providers Care Christmas Tree Grower Name Role Phone Romaine Rodrigues MD PCP [...] 0 MG tablet by mouth nightly. Active carolyne-raina-osiris Take by 0 m-hor [phone] mg mouth. tablet Active cholecalciferol, vitamin Take [...] daily. Active Problems No known active problems Family History Medical History Relation Name Comments Hypertension Brother Hypertension Brother Hypertension Father Breast cancer Mother Relation Name Status Comments Brother Brother Father Mother Social History Date Tobacco Use Types Packs/Day Years Used Quit: 1967 Former Smoker Smokeless Tobacco: Never Used Alcohol Use Drinks/Week oz/Week Comments No Sex Assigned at Date Recorded Not on file Industry Job Start Date Occupation Not on file Not on file Not on file Travel End Travel History Travel Start No recent travel history available. Last Filed Vital Signs Not on file Plan of Treatment Health Maintenance Due Date Last Done Comments SHINGLES VACCINES (#1) 1990 65+ PNEUMOCOCCAL VACCINE 2005 (1 of 2 - PCV13) PNEUMOCOCCAL 2005 POLYSACCHARIDE VACCINE AGE 65 AND OVER INFLUENZA VACCINE 01/20/2019 Results Not on fileafter 11/14/2017 Insurance Type Payer Benefit Subscriber ID Effective Phone Address Plan / Dates Group PPO HUMANA MEDICARE HUMANA xxxxxxxxx 2017-P MEDICARE resent PPO/PFFS/E [facility] Medicaid MEDICAID MEDICAID xxxxxxxxx 2017-P resent Advance Directives Patient has advance care planning documents on file. For more information, pato villanueva contact: Lewis Engel [address] [place] [address]
--- NOTE | 2018-11-15 17:31 | NUR ---
bladder scan = 130 ml. er made aware. no printer paper in bladder scan to print out report
[2018-11-15 17:46] LABS: BASOPHILS # (AUTO) 0.1 (0.0-0.1); BASOPHILS % 0.6 % (0.0-1.0); EOSINOPHILS # (AUTO) 0.3 (0.0-0.4); EOSINOPHILS % 3.3 % (0.0-6.0); HEMOGLOBIN 12.2 g/dL (12.0-16.0); LYMPHOCYTES # (AUTO) 1.1 (1.0-3.2); LYMPHOCYTES % 12.2 % (18.0-39.1); MEAN CORPUSCULAR HEMOGLOBIN 28.8 pg (28-32); MEAN CORPUSCULAR HGB CONC 30.5 g/dL (31-35); MEAN CORPUSCULAR VOLUME 94.3 fL (81-99); MONOCYTES # (AUTO) 0.6 (0.2-0.8); MONOCYTES % 6.4 % (4.4-11.3); NEUTROPHILS # (AUTO) 6.6 (2.1-6.9); NEUTROPHILS % 77.3 % (38.7-80.0); PLATELET COUNT 174 x10e3/uL (140-360); RED BLOOD COUNT 4.24 x10e6/uL (3.6-5.1); RED CELL DISTRIBUTION WIDTH 13.7 % (11.7-14.4)
[2018-11-15 17:57] LABS: ANION GAP 12.7 mmol/L (8-16); CALCIUM 10.3 mg/dL (8.4-10.2); CREATININE, SERUM 1.22 mg/dL (0.57-1.11); POTASSIUM 3.7 mmol/L (3.5-5.1)
[2018-11-15] MEDS ORDERED: FUROSEMIDE INJ 10 MG/ML 4 ML VIAL IV ONE (18:30)
--- NOTE | 2018-11-15 18:43 | Diagnostic Imaging Report ---
EXAMINATION: CHEST SINGLE (PORTABLE) INDICATION: ^SOB COMPARISON: Chest x-ray 10/15/2018. CT chest 10/15/2018. FINDINGS: AP view TUBES and LINES: Left-sided ICD with 3 leads. LUNGS: Lungs are well inflated. Bilateral intersitial and alveolar opacities remain unchanged. Right upper lobe nodule is better seen on CT chest. Bibasilar atelectasis. PLEURA: Small bilateral pleural effusions are unchanged. HEART AND MEDIASTINUM: Cardiac size is mildly enlarged. There are atherosclerotic calcifications within the aorta. BONES AND SOFT TISSUES: No acute osseous lesion. Soft tissues are unremarkable. UPPER ABDOMEN: No free air under the diaphragm. IMPRESSION: Stable mild cardiomegaly with pulmonary edema. Signed by: Dr. Sal Posadas M.D. on 11/15/2018 6:39 PM
--- NOTE | 2018-11-15 19:02 | NUR ---
[facility] called to transport pt home
[2018-11-15 19:04] VITALS: BP 139/60
== END 2018-11-15 19:44 | disposition home or self-care (01) ==
LOC: ER 16:19
DX: I13.0 Hypertensive heart and chronic kidney disease with heart failure and stage 1 through stage 4 chronic kidney disease, or unspecified chronic kidney disease (principal); N18.9 Chronic kidney disease, unspecified; I50.1 Left ventricular failure, unspecified; I25.10 Atherosclerotic heart disease of native coronary artery without angina pectoris
CPT/HCPCS: 36415; 71045; 80048; 83880; 85025; 99284; J1940

== ENCOUNTER 2018-11-17 09:42 | Emergency (ER) | payer MEDICARE, OTHER ==
[~2018-11-17] VITALS: Ht 154.9 cm; Wt 78.0 kg
--- OUTSIDE RECORDS SUMMARY | 2018-11-17 09:46 | XMS REPORT | Clinical Summary ---
Author Author [facility] Organization [facility] Address Unknown Phone Unavailable Care Team Providers Care Enrober Tender Name Role Phone Romaine Rodrigues MD PCP [...] nightly. Active carolyne-raina-osiris Take by 0 m-hor [phone] mg mouth. tablet Active cholecalciferol, vitamin Take [...] INFLUENZA VACCINE 01/20/2019 Results Not on fileafter 11/16/2017 Insurance Type Payer Benefit Subscriber ID Effective Phone Address Plan / Dates Group PPO HUMANA MEDICARE HUMANA xxxxxxxxx 2017-P MEDICARE resent PPO/PFFS/E [facility] Medicaid MEDICAID MEDICAID xxxxxxxxx 2017-P resent Advance Directives Patient has advance care planning documents on file. For more information, pato villanueva contact: Lewis Engel [address] [place] [address]
[2018-11-17] MEDS ORDERED: ALBUTEROL/IPRATROPIUM 3 ML NEB NEB ONE (10:00)
[2018-11-17 10:42] LABS: ABG HCO3 35 mmol/L (23-28); ABG PCO2 72 mmHg (41-51); ABG PO2 70 mmHg (80-105)
[2018-11-17 11:17] LABS: BASOPHILS % 0.4 % (0.0-1.0); EOSINOPHILS # (AUTO) 0.1 (0.0-0.4); EOSINOPHILS % 1.4 % (0.0-6.0); HEMOGLOBIN 11.3 g/dL (12.0-16.0); LYMPHOCYTES # (AUTO) 0.6 (1.0-3.2); LYMPHOCYTES % 6.3 % (18.0-39.1); MEAN CORPUSCULAR HEMOGLOBIN 28.5 pg (28-32); MEAN CORPUSCULAR HGB CONC 30.5 g/dL (31-35); MEAN CORPUSCULAR VOLUME 93.2 fL (81-99); MONOCYTES # (AUTO) 0.4 (0.2-0.8); MONOCYTES % 4.3 % (4.4-11.3); NEUTROPHILS # (AUTO) 7.9 (2.1-6.9); NEUTROPHILS % 87.2 % (38.7-80.0); PLATELET COUNT 145 x10e3/uL (140-360); RED BLOOD COUNT 3.97 x10e6/uL (3.6-5.1); RED CELL DISTRIBUTION WIDTH 14.8 % (11.7-14.4)
--- NOTE | 2018-11-17 11:23 | NUR ---
NOTIFIED LAB TO RE-DRAW BLOOD,SPECIMEN HEMOLYZED, DIFFICULT STICK.
[2018-11-17] MEDS ORDERED: LASIX40 MG PO (11:29)
[2018-11-17] MEDS ORDERED: COLACE100 MG PO (11:29)
[2018-11-17] MEDS ORDERED: VITAMIN D250000 UNIT PO (11:29)
[2018-11-17] MEDS ORDERED: VITAMIN B-1250 MC1 PO (11:29)
[2018-11-17] MEDS ORDERED: TYLENOL325 MG PO (11:29)
--- NOTE | 2018-11-17 11:33 | NUR ---
SEWER PIPE LAYER HELPER AT BEDSIDE FOR RE-COLLECT.
[2018-11-17 12:13] LABS: ALBUMIN 3.6 g/dL (3.5-5.0); ALBUMIN/GLOBULIN RATIO 1.3 (0.8-2.0); ANION GAP 15.5 mmol/L (8-16); CALCIUM 9.7 mg/dL (8.4-10.2); CREATININE, SERUM 1.42 mg/dL (0.57-1.11); POTASSIUM 3.5 mmol/L (3.5-5.1)
[2018-11-17 12:22] LABS: CREATINE KINASE MB 2.1 ng/mL (0-5.0)
[2018-11-17] MEDS ORDERED: SPIRONOLACTONE25 MG PO (12:23)
[2018-11-17] MEDS ORDERED: FUROSEMIDE INJ 10 MG/ML 4 ML VIAL IV ONE (13:15)
--- NOTE | 2018-11-17 13:28 | Diagnostic Imaging Report ---
Examination: Single AP view of the chest. COMPARISON: 11/15/2018 INDICATION: Shortness of breath DISCUSSION: Lungs remain well-inflated. Worsening interstitial pulmonary edema and small left pleural effusion with trace right pleural effusion relative to 11/15/2018. No new consolidation. Stable cardiomediastinal contour with implantable cardiac device body and leads. No acute osseous abnormality. IMPRESSION: Worsening pulmonary edema relative to 11/15/2018. Signed by: Dr. Germán Workman M.D. on 11/17/2018 1:25 PM
--- NOTE | 2018-11-17 13:55 | NUR ---
RESPIRATORY THERAPY CALLED TO START BIPAP ON PATIENT
--- NOTE | 2018-11-17 14:05 | NUR ---
PATIENT PLACED ON BIPAP FIO2 40 10/5
[2018-11-17] MEDS ORDERED: SODIUM CHLORIDE 0.9% 1000ML 1,000 ML IV SCH (15:45)
[2018-11-17] MEDS ORDERED: ONDANSETRON HCL INJ 2MG/ML 2ML 2 MG/ML VIAL IV PRN (15:45)
--- NOTE | 2018-11-17 15:59 | NUR ---
RESPIRATORY JOHN 2ND BLOOD GAS PATIENT INCONTINENT OF URINE. DIAPER CHANGED X 2
[2018-11-17] MEDS ORDERED: MORPHINE SULFATE INJ 4 MG/ML INJ 1ML IV PRN (16:00)
[2018-11-17 16:17] LABS: ABG HCO3 35 mmol/L (23-28); ABG PCO2 47 mmHg (41-51); ABG PH 7.48 (7.31-7.41); ABG PO2 177 mmHg (80-105)
--- NOTE | 2018-11-17 16:40 | NUR ---
PATIENT SPOKE WITH HER SON AND HE WILL BE AT HER TRAILER WHEN SHE ARRIVES. THEY WILL CALL HOME HEALTH NURSE [facility] CALLED FOR TRANSPORT
== END 2018-11-17 18:16 | disposition home or self-care (01) ==
LOC: ER 09:42
DX: R06.00 Dyspnea, unspecified (principal); I50.21 Acute systolic (congestive) heart failure
CPT/HCPCS: 36415; 36600; 71045; 80053; 82550; 82553; 82805; 83880; 84484; 85025; 87400; 94640; 94660; 99284; J1940

== ENCOUNTER 2018-12-05 15:39 | Emergency (ER) | payer MEDICARE, OTHER ==
[~2018-12-05] VITALS: Ht 167.6 cm; Wt 78.0 kg
[~2018-12-05 15:39] MED LIST changes: +COLACE100 MG PO; +LASIX40 MG PO; +SPIRONOLACTONE25 MG PO; +TYLENOL325 MG PO; +VITAMIN B-1250 MC1 PO; +VITAMIN D250000 UNIT PO
--- OUTSIDE RECORDS SUMMARY | 2018-12-05 15:43 | XMS REPORT | Clinical Summary ---
Author Author [facility] Organization [facility] Address Unknown Phone Unavailable Care Team Providers Care Eeg Tech Name Role Phone Romaine Rodrigues MD PCP [...] 0 MG tablet by mouth nightly. Active saundra-osiris Take by 0 m-hor [phone] mg mouth. tablet Active cholecalciferol, vitamin Take [...] VACCINE 2005 (1 of 2 - PCV13) INFLUENZA VACCINE 01/20/2019 Results Not on fileafter 12/04/2017 Insurance Type Payer Benefit Subscriber ID Effective Phone Address Plan / Dates Group PPO HUMANA MEDICARE HUMANA xxxxxxxxx 2017-P MEDICARE resent PPO/PFFS/E [facility] Medicaid MEDICAID MEDICAID xxxxxxxxx 2017-P resent Advance Directives Patient has advance care planning documents on file. For more information, pato villanueva contact: Lewis Engel [address] [place] [address]
--- NOTE | 2018-12-05 16:45 | Diagnostic Imaging Report ---
Examination: Single AP view of the chest. COMPARISON: None. INDICATION: Posterior back pain DISCUSSION: Lines/tubes: Multi lead cardiac pacemaker. Lungs: Pulmonary venous congestion. No edema. Pleura: There is no pleural effusion or pneumothorax. Heart and mediastinum: Heart enlarged. Bones and soft tissues: No acute bony abnormalities. IMPRESSION: 1. Cardiomegaly with pulmonary venous congestion Signed by: Dr. Derick Clement M.D. on 12/05/2018 4:42 PM
--- NOTE | 2018-12-05 18:25 | NUR ---
[facility] CALLED AT THIS TIME FOR TRANSPORT BACK TO HOME.
[2018-12-05 18:39] VITALS: BP 132/63
== END 2018-12-05 19:22 | disposition home or self-care (01) ==
LOC: ER 15:39
DX: M54.6 Pain in thoracic spine (principal); R07.81 Pleurodynia; Z88.5 Allergy status to narcotic agent; Z88.8 Allergy status to other drugs, medicaments and biological substances; I25.10 Atherosclerotic heart disease of native coronary artery without angina pectoris; I48.91 Unspecified atrial fibrillation; J44.9 Chronic obstructive pulmonary disease, unspecified; D64.9 Anemia, unspecified; I25.2 Old myocardial infarction
CPT/HCPCS: 71045; 99284

== ENCOUNTER 2018-12-25 22:11 | Observation (INO) | payer MEDICARE, OTHER ==
[~2018-12-25] VITALS: Ht 167.6 cm; Wt 77.2 kg
--- OUTSIDE RECORDS SUMMARY | 2018-12-25 22:15 | XMS REPORT | Clinical Summary ---
Author Author [facility] Organization [facility] Address Unknown Phone Unavailable Care Team Providers Care Climate Change Analyst Name Role Phone Romaine Rodrigues MD PCP [...] nightly. Active saundra-osiris Take by 0 m-hor [phone] mg mouth. tablet Active cholecalciferol, vitamin Take [...] INFLUENZA VACCINE 01/20/2019 Results Not on fileafter 12/24/2017 Insurance Type Payer Benefit Subscriber ID Effective Phone Address Plan / Dates Group PPO HUMANA MEDICARE HUMANA xxxxxxxxx 2017-P MEDICARE resent PPO/PFFS/E [facility] Medicaid MEDICAID MEDICAID xxxxxxxxx 2017-P resent Advance Directives Patient has advance care planning documents on file. For more information, pato villanueva contact: Lewis Engel [address] [place] [address]
[2018-12-25] MEDS ORDERED: ASPIRIN 81 MG CHEW TAB PO ONE (22:30)
--- NOTE | 2018-12-25 22:53 | Diagnostic Imaging Report ---
EXAMINATION: CHEST SINGLE (PORTABLE) COMPARISON: Chest x-ray 12/05/2018 INDICATION: Shortness of breath, history of COPD ^SOB H/O COPD AND CFH ^[id number] ^2230 ^Y DISCUSSION: Frontal view of the chest obtained at 2234 hours. HEART AND MEDIASTINUM: Stable cardiomegaly. Aorta is tortuous with calcifications in the arch LINES: Pacer/defibrillator wires are stable in position. LUNGS: Diffuse hyperinflation. Pulmonary vasculature is prominent and stable. Bibasilar airspace opacities are suggestive of atelectasis. Calcified granuloma in the right upper lobe is stable. PLEURA: Blunting of the lateral costophrenic angles. No pneumothorax BONES AND SOFT TISSUES: Stable degenerative changes. The soft tissues are normal. IMPRESSION: Cardiomegaly and chronic pulmonary vascular congestion likely secondary to pulmonary venous hypertension. COPD. Small pleural effusions and bibasilar atelectasis. Signed by: Dr. Grzegorz Cutler MD on 12/25/2018 10:50 PM
[2018-12-25 23:36] LABS: BASOPHILS # (AUTO) 0.1 (0.0-0.1); BASOPHILS % 0.6 % (0.0-1.0); EOSINOPHILS # (AUTO) 0.1 (0.0-0.4); EOSINOPHILS % 1.1 % (0.0-6.0); HEMATOCRIT 39.2 % (34.2-44.1); HEMOGLOBIN 11.9 g/dL (12.0-16.0); LYMPHOCYTES # (AUTO) 0.6 (1.0-3.2); LYMPHOCYTES % 5.7 % (18.0-39.1); MEAN CORPUSCULAR HEMOGLOBIN 28.9 pg (28-32); MEAN CORPUSCULAR HGB CONC 30.4 g/dL (31-35); MEAN CORPUSCULAR VOLUME 95.1 fL (81-99); MONOCYTES # (AUTO) 0.4 (0.2-0.8); MONOCYTES % 3.9 % (4.4-11.3); NEUTROPHILS # (AUTO) 9.2 (2.1-6.9); NEUTROPHILS % 88.3 % (38.7-80.0); PLATELET COUNT 156 x10e3/uL (140-360); RED BLOOD COUNT 4.12 x10e6/uL (3.6-5.1); RED CELL DISTRIBUTION WIDTH 14.3 % (11.7-14.4)
[2018-12-25 23:51] LABS: ANION GAP 16.1 mmol/L (8-16); CALCIUM 9.9 mg/dL (8.4-10.2); POTASSIUM 3.1 mmol/L (3.5-5.1)
[2018-12-25 23:58] LABS: ALBUMIN 3.7 g/dL (3.5-5.0); ALBUMIN/GLOBULIN RATIO 1.1 (0.8-2.0); CREATINE KINASE MB 1.3 ng/mL (0-5.0); CREATININE, SERUM 1.62 mg/dL (0.57-1.11)
[2018-12-26] VITALS (10 sets, daily range): BP systolic 118–144; BP diastolic 54–65
[2018-12-26 00:16] LABS: INR 0.99; PROTHROMBIN TIME 13.6 seconds (11.9-14.5)
[2018-12-26 00:17] LABS: PARTIAL THROMBOPLASTIN TIME 29.7 seconds (23.8-35.5)
[2018-12-26] MEDS ORDERED: POTASSIUM CHLORIDE 20 MEQ TAB CR PO STA (00:29)
[2018-12-26] MEDS ORDERED: FUROSEMIDE INJ 10 MG/ML 4 ML VIAL IV ONE (00:30)
--- OUTSIDE RECORDS SUMMARY | 2018-12-26 00:41 | XMS REPORT | Clinical Summary ---
Author Author [facility] Organization [facility] Address Unknown Phone Unavailable Care Team Providers Care A Operator Name Role Phone Romaine Rodrigues MD PCP [...] nightly. Active saundra-osiris Take by 0 m-hor [phone] mg mouth. tablet Active cholecalciferol, vitamin Take [...] INFLUENZA VACCINE 01/20/2019 Results Not on fileafter 12/25/2017 Insurance Type Payer Benefit Subscriber ID Effective Phone Address Plan / Dates Group PPO HUMANA MEDICARE HUMANA xxxxxxxxx 2017-P MEDICARE resent PPO/PFFS/E [facility] Medicaid MEDICAID MEDICAID xxxxxxxxx 2017-P resent Advance Directives Patient has advance care planning documents on file. For more information, pato villanueva contact: Lewis Engel [address] [place] [address]
[2018-12-26] MEDS: AZITHROMYCIN 500MG/NS 250 ML 250 ML IV SCH ×2 (02:00→23:39)
[2018-12-26] MEDS: ALBUTEROL/IPRATROPIUM 3 ML NEB NEB SCH ×6 (02:29→23:00)
[2018-12-26] MEDS ORDERED: PANTOPRAZOLE SO40 MG PO (03:17)
[2018-12-26] MEDS ORDERED: VITAMIN B-121000 MCG PO (03:17)
[2018-12-26] MEDS ORDERED: ZOLOFT50 MG PO (03:17)
[2018-12-26] MEDS ORDERED: MIRTAZAPINE15 MG PO (03:17)
[2018-12-26] MEDS ORDERED: VITAMIN D1000 UNI1 PO (03:17)
[2018-12-26] MEDS ORDERED: B COMPLEX1 EACH PO (03:17)
[2018-12-26] MEDS ORDERED: ATORVASTATIN CA20 MG PO (03:17)
[2018-12-26] MEDS ORDERED: MULTIVITAMINS1 EAC7 PO (04:12)
[2018-12-26] MEDS ORDERED: TRAZODONE HCL 50 MG TAB PO PRN (05:45)
[2018-12-26] MEDS: METHYLPREDNISOLONE SOD SUCC 40 MG/ML VIAL 1ML IV SCH ×4 (06:27→23:39)
[2018-12-26] MEDS: LEVOTHYROXINE SODIUM 100 MCG TAB PO SCH (06:32)
--- NOTE | 2018-12-26 08:00 | NUR ---
Pt received in bed at this time. Pt is aox4 and able to verbalize needs. Denies any pain at this time. Breaths are even and unlabored. Denies an y chest pain or SOB.
[2018-12-26] MEDS: FUROSEMIDE 40 MG TAB PO SCH (09:00)
[2018-12-26] MEDS: SUCRALFATE 1 GM/10 ML SUSP PO SCH (09:07)
[2018-12-26] MEDS: MULTIVITAMINS/MINERALS TAB PO SCH ×2 (09:07→16:33)
[2018-12-26] MEDS: FERROUS SULFATE 325 MG TAB PO SCH ×2 (09:07→16:33)
[2018-12-26] MEDS: LORAZEPAM 0.5 MG TAB PO SCH ×3 (09:08→21:10)
[2018-12-26] MEDS: LORATADINE 10 MG TAB PO SCH (09:08)
[2018-12-26] MEDS: DOCUSATE SODIUM 100 MG CAP PO SCH ×2 (09:08→16:33)
[2018-12-26] MEDS: METOPROLOL TARTRATE 25 MG TAB PO SCH (09:08)
[2018-12-26] MEDS: ASCORBIC ACID 500 MG TAB PO SCH ×2 (09:08→16:33)
[2018-12-26] MEDS: ASPIRIN 81 MG CHEW TAB PO SCH (09:08)
[2018-12-26] MEDS: CYANOCOBALAMIN 1,000 MCG TAB PO SCH (09:09)
[2018-12-26] MEDS: PANTOPRAZOLE SOD 40 MG TABEC PO SCH (09:09)
[2018-12-26] MEDS: CHOLECALCIFEROL 1,000 UNIT TAB PO SCH (09:09)
[2018-12-26] MEDS: CLOPIDOGREL BISULFATE 75 MG TAB PO SCH (09:09)
[2018-12-26] MEDS: SERTRALINE HCL 50 MG TAB PO SCH (09:09)
[2018-12-26] MEDS: FUROSEMIDE INJ 10 MG/ML 4 ML VIAL IV SCH ×2 (09:14→21:10)
[2018-12-26 09:20] LABS: CREATINE KINASE MB 1.5 ng/mL (0-5.0)
[2018-12-26] MEDS ORDERED: ACETAMINOPHEN 325 MG TAB PO PRN (16:30)
[2018-12-26] MEDS: ACETAMINOPHEN 325 MG TAB PO PRN (16:35)
--- NOTE | 2018-12-26 18:00 | NUR ---
Pt in bed. Axo4 and able to verbalize needs. Denies SOB or chest pain. New IV started on left hand. Denies any pain at this time.
--- NOTE | 2018-12-26 19:06 | NUR ---
WALKING ROUNDS PERFORMED, RECEIVED PT LAYING SEMI FOWLERS IN BED, AAOX3, RR EVEN AND NON-LABORED, O2 BY NASAL CANNULA. NO S/SX OF DISTRESS NOTED. PT HAS PUREWIC IN PLACE DRAINING CLEAR YELLOW URINE. LEFT PT LAYING SEMI FOWLERS IN BED, BED IN LOW LOCKED POSITION, SIDE RAILS UPX2, CALL LIGHT AND PHONE WITHIN REACH.
[2018-12-26 19:23] LABS: CREATINE KINASE MB 1.5 ng/mL (0-5.0)
[2018-12-26] MEDS ORDERED: MIRTAZAPINE 15 MG TAB PO SCH (21:00)
[2018-12-26] MEDS ORDERED: MONTELUKAST SODIUM 10 MG TAB PO SCH (21:00)
[2018-12-26] MEDS ORDERED: ATORVASTATIN 40 MG TAB PO SCH (21:00)
[2018-12-27] VITALS: BP 123/55
[2018-12-27] MEDS: ALBUTEROL/IPRATROPIUM 3 ML NEB NEB SCH ×2 (02:50→07:23)
[2018-12-27 04:00] VITALS: BP 125/58
--- NOTE | 2018-12-27 05:20 | NUR ---
PUREWICK EXTERNAL CATHETER AND SUCTION CANISTER CHANGED AT THIS TIME.
[2018-12-27] MEDS: METHYLPREDNISOLONE SOD SUCC 40 MG/ML VIAL 1ML IV SCH (05:21)
[2018-12-27] MEDS: LEVOTHYROXINE SODIUM 100 MCG TAB PO SCH (05:21)
[2018-12-27 05:49] LABS: BASOPHILS % 0.1 % (0.0-1.0); HEMATOCRIT 36.5 % (34.2-44.1); HEMOGLOBIN 11.2 g/dL (12.0-16.0); LYMPHOCYTES # (AUTO) 0.5 (1.0-3.2); LYMPHOCYTES % 5.1 % (18.0-39.1); MEAN CORPUSCULAR HEMOGLOBIN 28.9 pg (28-32); MEAN CORPUSCULAR HGB CONC 30.7 g/dL (31-35); MEAN CORPUSCULAR VOLUME 94.3 fL (81-99); MONOCYTES # (AUTO) 0.3 (0.2-0.8); MONOCYTES % 2.6 % (4.4-11.3); NEUTROPHILS # (AUTO) 8.9 (2.1-6.9); NEUTROPHILS % 91.7 % (38.7-80.0); PLATELET COUNT 166 x10e3/uL (140-360); RED BLOOD COUNT 3.87 x10e6/uL (3.6-5.1); RED CELL DISTRIBUTION WIDTH 14.4 % (11.7-14.4)
[2018-12-27 06:10] LABS: ANION GAP 16.9 mmol/L (8-16); CREATININE, SERUM 1.52 mg/dL (0.57-1.11)
[2018-12-27 06:16] LABS: POTASSIUM 3.9 mmol/L (3.5-5.1)
--- NOTE | 2018-12-27 07:19 | Progress Note ---
DATE: 12/27/2018 SUBJECTIVE: A 78-year-old female, who came in with congestive heart failure, acute on chronic; COPD exacerbation. The patient is currently better, asymptomatic, breathing better, and diuresing adequately. No chest pain. No shortness of breath. No nausea, vomiting, or diarrhea. The patient is starting on oxygen, which she is oxygen dependent. OBJECTIVE: VITAL SIGNS: Temperature is 96.2, pulse of 69, respirations of 18, blood pressure is 123/55, pulse oximetry of 95% on 3 L of oxygen. HEENT: Normocephalic, atraumatic. Nasal cannula in place. CVS: S1 and S2 irregular. ABDOMEN: Nontender, nondistended. Has a colostomy bag, which is functional. LUNGS: Decreased air entry into all lung osborne. Positive for few crackles at the bases. EXTREMITIES: No clubbing. No cyanosis. Positive for edema. LABORATORY VALUES: White count is normal, hemoglobin of 11.2, hematocrit of 36.2. Chemistries; potassium 3.9 on 12/27, creatinine is 1.52. ALT and AST have been normal. BNP was 2082. IMAGING STUDIES: Chest x-ray initially showed cardiomegaly, small palpebral effusion, bibasilar atelectasis. ASSESSMENT: 1. Acute exacerbation of chronic obstructive pulmonary disease. 2. Ucpfz-bi-aarcmwq congestive heart failure. 3. Hypertension. 4. Hyperlipidemia. 5. History of chronic anxiety. 6. Depression. 7. History of hyperlipidemia and hypothyroidism. PLAN: Continue on home medications. Discharge the patient today after Solu-Medrol 20 mg and IV Lasix 40. Further recommendation per clinical course. The patient can follow up with me in about a week's time and we will continue to monitor the patient as an outpatient. Strict I's and O's and also daily weights advice has been given to the patient. The patient to add Lasix as needed if weight goes up 5 pounds. This has been advocated the patient. MD PING JenningsJ/MODL /[id number]
[2018-12-27 08:00] VITALS: BP 132/60
[2018-12-27 08:04] VITALS: BP 146/64
[2018-12-27 08:36] VITALS: BP 146/64
[2018-12-27] MEDS: FUROSEMIDE INJ 10 MG/ML 4 ML VIAL IV SCH (08:37)
[2018-12-27] MEDS: MULTIVITAMINS/MINERALS TAB PO SCH (08:37)
[2018-12-27] MEDS: SUCRALFATE 1 GM/10 ML SUSP PO SCH (08:37)
[2018-12-27] MEDS: ASPIRIN 81 MG CHEW TAB PO SCH (08:37)
[2018-12-27] MEDS: FERROUS SULFATE 325 MG TAB PO SCH (08:37)
[2018-12-27] MEDS: ASCORBIC ACID 500 MG TAB PO SCH (08:37)
[2018-12-27] MEDS: DOCUSATE SODIUM 100 MG CAP PO SCH (08:38)
[2018-12-27] MEDS: FUROSEMIDE 40 MG TAB PO SCH (08:38)
[2018-12-27] MEDS: LORATADINE 10 MG TAB PO SCH (08:38)
[2018-12-27] MEDS: LORAZEPAM 0.5 MG TAB PO SCH (08:38)
[2018-12-27] MEDS: CHOLECALCIFEROL 1,000 UNIT TAB PO SCH (08:38)
[2018-12-27] MEDS: SERTRALINE HCL 50 MG TAB PO SCH (08:38)
[2018-12-27] MEDS: METOPROLOL TARTRATE 25 MG TAB PO SCH (08:38)
[2018-12-27] MEDS: PANTOPRAZOLE SOD 40 MG TABEC PO SCH (08:38)
[2018-12-27] MEDS: CYANOCOBALAMIN 1,000 MCG TAB PO SCH (08:38)
[2018-12-27] MEDS: CLOPIDOGREL BISULFATE 75 MG TAB PO SCH (08:38)
--- NOTE | 2018-12-27 10:01 | NUR ---
DC INSTRUCTIONS GIVEN, PT VERBALIZED UNDERSTANDING. CALLING [facility] FOR [facility] AT THIS TIME
[2018-12-27] MEDS: ACETAMINOPHEN 325 MG TAB PO PRN (11:20)
--- NOTE | 2018-12-27 12:05 | NUR ---
PT OFF UNIT TO HOME [facility]IA [facility] PER PT PREFERENCE
[2018-12-27] MEDS ORDERED: METHYLPREDNISOLONE SOD SUCC 40 MG/ML VIAL 1ML IV SCH (18:00)
--- NOTE | 2019-03-13 02:27 | Discharge Summary ---
HOSPITAL COURSE: The patient is a 78-year-old female, who came in with COPD exacerbation, CHF exacerbation. The patient has a history of CKD 3 and atrial fibrillation with rapid ventricular response. The patient was given all her medications. IV diuresis was done. Solu-Medrol was started. The patient did better, was given BiPAP treatment as needed. The patient's hypoxemia and hypercapnia improved. The patient was feeling better and the patient was discharged home in a stable condition. The patient will be seen by me in the clinic. The patient to be followed also with Dr. Mora, the [employer] Nozzle Worker and Dr. Wood, the application infrastructure engineer. FINAL DIAGNOSES: 1. Congestive heart failure exacerbation. 2. Chronic obstructive pulmonary disease exacerbation. 3. History of colostomy. 4. History of atrial fibrillation. 5. History of hyperlipidemia. For further information, look in the chart. For medicines on discharge, look in medical reconciliation sheet. MD CRISSY Jennings/[place] /[id number]
== END 2018-12-27 12:05 | disposition home or self-care (01) ==
LOC: ER 22:11 → ERHOLD 12-26 00:38 → MED/SURG 12-26 01:52
PROVIDERS: ADMIT Family Medicine; ATTEND Family Medicine
DX: J44.1 Chronic obstructive pulmonary disease with (acute) exacerbation (principal); I13.0 Hypertensive heart and chronic kidney disease with heart failure and stage 1 through stage 4 chronic kidney disease, or unspecified chronic kidney disease; N18.3 Chronic kidney disease, stage 3 (moderate); I50.23 Acute on chronic systolic (congestive) heart failure; E78.5 Hyperlipidemia, unspecified; F41.9 Anxiety disorder, unspecified; E03.9 Hypothyroidism, unspecified; F32.9 Major depressive disorder, single episode, unspecified
CPT/HCPCS: 36415 ×2; 71045; 80048; 80053; 82550 ×2; 82553 ×2; 83880; 84484 ×2; 85025 ×2; 85610; 85730; 93005; 94640 ×3; 99284; G0378 ×2; J0456; J1940; J2920 ×2; S0164 ×2

== ENCOUNTER 2019-01-13 16:43 | Inpatient (IN) | payer MEDICARE, OTHER ==
[~2019-01-13] VITALS: Ht 167.6 cm; Wt 77.1 kg
[~2019-01-13 16:43] MED LIST changes: +ATORVASTATIN CA20 MG PO; +B COMPLEX1 EACH PO; +MULTIVITAMINS1 EAC7 PO; +PANTOPRAZOLE SO40 MG PO; +VITAMIN B-121000 MCG PO; +VITAMIN D1000 UNI1 PO
--- OUTSIDE RECORDS SUMMARY | 2019-01-13 16:46 | XMS REPORT | Clinical Summary ---
Author Author [employer] Organization [employer] Address Unknown Phone Unavailable Care Team Providers Care Payroll Specialist Name Role Phone Romaine Rodrigues MD [...] nightly. Active saundra-osiris Take by 0 m-hor [phone] mg mouth. tablet Active cholecalciferol, vitamin Take [...] INFLUENZA VACCINE 01/20/2019 Results Not on fileafter 01/12/2018 Insurance Type Payer Benefit Subscriber ID Effective Phone Address Plan / Dates Group PPO HUMANA MEDICARE HUMANA xxxxxxxxx 2017-P MEDICARE resent PPO/PFFS/E [facility] Medicaid MEDICAID MEDICAID xxxxxxxxx 2017-P resent Advance Directives Patient has advance care planning documents on file. For more information, pato villanueva contact: Lewis Engel [address] [place] [address]
[2019-01-13 18:20] LABS: BASOPHILS # (AUTO) 0.1 (0.0-0.1); BASOPHILS % 0.6 % (0.0-1.0); EOSINOPHILS # (AUTO) 0.1 (0.0-0.4); EOSINOPHILS % 1.6 % (0.0-6.0); HEMATOCRIT 38.7 % (34.2-44.1); HEMOGLOBIN 11.4 g/dL (12.0-16.0); LYMPHOCYTES # (AUTO) 0.9 (1.0-3.2); LYMPHOCYTES % 11.2 % (18.0-39.1); MEAN CORPUSCULAR HEMOGLOBIN 28.4 pg (28-32); MEAN CORPUSCULAR HGB CONC 29.5 g/dL (31-35); MEAN CORPUSCULAR VOLUME 96.3 fL (81-99); MONOCYTES # (AUTO) 0.6 (0.2-0.8); MONOCYTES % 6.9 % (4.4-11.3); NEUTROPHILS # (AUTO) 6.3 (2.1-6.9); NEUTROPHILS % 79.3 % (38.7-80.0); PLATELET COUNT 172 x10e3/uL (140-360); RED BLOOD COUNT 4.02 x10e6/uL (3.6-5.1); RED CELL DISTRIBUTION WIDTH 13.7 % (11.7-14.4)
--- NOTE | 2019-01-13 18:30 | NUR ---
PATIENT PLACED ON WAFFLE. OPEN WOUND TO LEFT BUTTOCK
[2019-01-13 18:31] LABS: INR 0.92; PROTHROMBIN TIME 12.9 seconds (11.9-14.5)
[2019-01-13 18:32] LABS: PARTIAL THROMBOPLASTIN TIME 25.2 seconds (23.8-35.5)
[2019-01-13 18:43] LABS: ALBUMIN 3.6 g/dL (3.5-5.0); ALBUMIN/GLOBULIN RATIO 1.1 (0.8-2.0); ANION GAP 16.6 mmol/L (8-16); CALCIUM 9.9 mg/dL (8.4-10.2); CREATININE, SERUM 1.9 mg/dL (0.57-1.11); POTASSIUM 3.6 mmol/L (3.5-5.1)
--- NOTE | 2019-01-13 18:45 | NUR ---
RECEIVED CALL FROM LAB REGARDING CRITICAL LACTIC 22.3 AND CO2 42, INFORMED PRIMARY NURSE MEKA CABRERA AND DR. GARCIA.
[2019-01-13 18:48] LABS: CREATINE KINASE MB 1.5 ng/mL (0-5.0)
[2019-01-13 18:49] LABS: B-TYPE NATRIURETIC PEPTIDE2 1418.3 pg/mL (0-100)
[2019-01-13 18:57] LABS: STREPTOCOCCUS GRP A ANTIGEN NEGATIVE (NEGATIVE)
[2019-01-13] MEDS ORDERED: FUROSEMIDE INJ 10 MG/ML 4 ML VIAL IV ONE (19:00)
[2019-01-13 19:06] LABS: INFLUENZAE A&B ANTIGEN (RAPID) NEGATIVE (NEGATIVE)
[2019-01-13 19:21] LABS: BILIRUBIN,URINE NEGATIVE (NEGATIVE); CLARITY,URINE MUCOUS (CLEAR); COLOR,URINE YELLOW (YELLOW)
[2019-01-13 19:22] LABS: KETONES,URINE NEGATIVE (NEGATIVE); LEUKOCYTE ESTERASE ,URINE LARGE (NEGATIVE); NITRITE,URINE NEGATIVE (NEGATIVE); PROTEIN,URINE DIPSTICK 3+ (NEGATIVE)
--- NOTE | 2019-01-13 19:22 | NUR ---
PATIENT PLACED ON PUREWICK
[2019-01-13 19:23] LABS: URINE UROBILINOGEN 1 mg/dL (0.2 - 1)
[2019-01-13 19:25] LABS: BACTERIA,URINE MANY /HPF; WBC,URINE (MAN) >50 /HPF (0-5)
[2019-01-13] MEDS ORDERED: METHYLPREDNISOLONE SOD SUCC 125 MG/2ML VIAL IV ONE (19:30)
--- NOTE | 2019-01-13 19:48 | Diagnostic Imaging Report ---
EXAMINATION: CHEST SINGLE (PORTABLE) INDICATION: ^ERMD ORDER ^[id number] ^1820 ^Y COMPARISON: Chest radiograph 12/25/2018 FINDINGS: AP view TUBES and LINES: Stable position of a 3-lead ICD. LUNGS: Lungs are well inflated. Worsening bilateral pulmonary edema. Bibasilar atelectasis, unchanged. Bilateral calcified granulomas, unchanged. PLEURA: Trace bilateral pleural effusions, decreased. No pneumothorax. HEART AND MEDIASTINUM: Moderate enlargement of the cardiac silhouette is unchanged. Enlarged pulmonary arteries, stable. Moderate calcifications of the aortic arch. BONES AND SOFT TISSUES: No acute osseous lesion. Soft tissues are unremarkable. UPPER ABDOMEN: No free air under the diaphragm. IMPRESSION: Interval worsening bilateral pulmonary edema. Signed by: Dr. Sandra Gomez M.D. on 01/13/2019 7:45 PM
[2019-01-13] MEDS ORDERED: LORAZEPAM 1 MG TAB PO ONE (20:30)
[2019-01-13] MEDS ORDERED: SODIUM CHLORIDE FLUSH 10 ML SYR INJ PRN (21:30)
--- OUTSIDE RECORDS SUMMARY | 2019-01-13 21:36 | XMS REPORT | Clinical Summary ---
Author Author [facility] Organization [facility] Address Unknown Phone Unavailable Care Team Providers Care Drywall Stripper Helper Name Role Phone Romaine Rodrgiues MD PCP Allergies Comments Active Allergy Reactions [...] nightly. Active saundra-osiris Take by 0 m-hor [phone] mg mouth. tablet Active cholecalciferol, vitamin Take [...] MEDICARE HUMANA xxxxxxxxx 2017-P MEDICARE resent PPO/PFFS/E [facility] Medicaid MEDICAID MEDICAID xxxxxxxxx 2017-P resent Advance Directives Patient has advance care planning documents on file. For more information, pato villanueva contact: Lewis Engel [address] [place] [address]
[2019-01-13] MEDS ORDERED: TRAZODONE HCL 50 MG TAB PO PRN (22:45)
[2019-01-13] MEDS ORDERED: RANITIDINE HCL 75 MG PO SCH (22:45)
--- NOTE | 2019-01-13 23:10 | NUR ---
Received to 188 from ER. Placed on EKG, pulse ox & NBP for monitoring. Bipap on with sats 98-100%. Purewick external catheter in place.
[2019-01-13 23:15] VITALS: BP 115/45
[2019-01-13 23:24] LABS: ABG PCO2 70 mmHg (41-51)
[2019-01-13 23:25] LABS: ABG HCO3 44 mmol/L (23-28); ABG PO2 186 mmHg (80-105)
[2019-01-13 23:27] VITALS: BP 115/45
[2019-01-13] MEDS ORDERED: FAMOTIDINE 20 MG TAB PO PRN (23:30)
[2019-01-14] VITALS (9 sets, daily range): BP systolic 105–135; BP diastolic 45–92
[2019-01-14] MEDS: METHYLPREDNISOLONE SOD SUCC 40 MG/ML VIAL 1ML IV SCH ×3 (01:04→15:36)
--- NOTE | 2019-01-14 02:00 | NUR ---
Purewick external catheter leaking. Replaced with good return.
[2019-01-14] MEDS: LEVOTHYROXINE SODIUM 100 MCG TAB PO SCH (05:28)
--- NOTE | 2019-01-14 05:29 | NUR ---
Taken off Bipap per request and placed on 4L NC. AM meds given.
[2019-01-14 05:35] LABS: BASOPHILS % 0.2 % (0.0-1.0); HEMATOCRIT 37.2 % (34.2-44.1); HEMOGLOBIN 11.3 g/dL (12.0-16.0); LYMPHOCYTES # (AUTO) 0.3 (1.0-3.2); LYMPHOCYTES % 6.3 % (18.0-39.1); MEAN CORPUSCULAR HEMOGLOBIN 28.8 pg (28-32); MEAN CORPUSCULAR HGB CONC 30.4 g/dL (31-35); MEAN CORPUSCULAR VOLUME 94.9 fL (81-99); MONOCYTES # (AUTO) 0.1 (0.2-0.8); MONOCYTES % 1.7 % (4.4-11.3); NEUTROPHILS # (AUTO) 4.2 (2.1-6.9); NEUTROPHILS % 91.4 % (38.7-80.0); PLATELET COUNT 142 x10e3/uL (140-360); RED BLOOD COUNT 3.92 x10e6/uL (3.6-5.1); RED CELL DISTRIBUTION WIDTH 13.5 % (11.7-14.4)
[2019-01-14 05:49] LABS: CREATINE KINASE MB 1.7 ng/mL (0-5.0)
[2019-01-14 06:16] LABS: ALBUMIN 3.4 g/dL (3.5-5.0); ALBUMIN/GLOBULIN RATIO 1.1 (0.8-2.0); CALCIUM 9.7 mg/dL (8.4-10.2); CREATININE, SERUM 1.61 mg/dL (0.57-1.11)
[2019-01-14] MEDS: CEFTRIAXONE SOD 1 GM/NS 50 ML 50 ML IV SCH (06:48)
[2019-01-14] MEDS ORDERED: METHYLPREDNISOLONE SOD SUCC 40 MG/ML VIAL 1ML IV SCH (07:30)
--- NOTE | 2019-01-14 07:38 | History and Physical ---
CHIEF COMPLAINT: The patient is a 78-year-old female, who comes in with shortness of breath and dyspnea. HISTORY OF PRESENTING ILLNESS: Ms. Bettye Hermosillo has been admitted multiple times to this hospital for acute congestive heart failure. The patient has chronic systolic heart failure and also COPD, comes in with shortness of breath, was started on BiPAP, was found to have fluid overload with elevated BNP, so found to have urinary tract infection, also was found to have acute systolic heart failure. The patient has been admitted for the same. PAST MEDICAL HISTORY: History of hypertension, history of hyperlipidemia, history of coronary artery disease, history of acute congestive heart failure, history of hypothyroidism, history of chronic anxiety, history of allergies, history of depression, and history of reflux esophagitis. MEDICATIONS: She takes at home are Tylenol as needed, ascorbic acid 500 mg b.i.d., aspirin 81 mg daily, atorvastatin 20 mg daily. The patient also takes Plavix 75 mg, cyanocobalamin (vitamin B12) 1000 mcg daily, docusate 100 mg b.i.d., ferrous sulfate 325 mg daily, furosemide 40 mg daily, levothyroxine 150 mcg daily, loratadine 10 mg daily, lorazepam three times a day of 0.5 mg, metoprolol tartrate 25 mg b.i.d., mirtazapine 7.5 mg at nighttime, montelukast 10 mg, Protonix 40 mg, ranitidine 75 mg, sertraline 50 mg daily, Carafate 1 g before each meal and at bedtime, trazodone 50 mg, and vitamin B complex daily. PAST SURGICAL HISTORY: History of hysterectomy, bladder suspension, appendectomy, also has a colostomy bag, status post colon resection. The patient is wheelchair dependent. SOCIAL HISTORY: No EtOH. No IV drug abuse. Lives by herself and history of smoking in the past. The patient is also again wheelchair dependent and has a provider at home. FAMILY HISTORY: Positive for CAD, hypertension, and congestive heart failure. ALLERGIES: ALLERGIC TO CODEINE, LIDOCAINE, AND METRONIDAZOLE. REVIEW OF SYSTEMS: Negative for chest pain. Positive for shortness of breath. Positive for orthopnea. Positive for PND. No dysuria. Positive for some diarrhea in the colostomy bag. PHYSICAL EXAMINATION: VITAL SIGNS: Temperature is 97.5, pulse of 70, respirations of 17, blood pressure is 111/45, pulse oximetry of 100%. The patient is on BiPAP at this time. HEENT: Normocephalic, atraumatic. CVS: S1 and S2 normal. Regular rate and rhythm. Positive ejection systolic murmur. ABDOMEN: Nontender, nondistended. Scar is present. Colostomy bag in place. There is a bowel movement in the colostomy bag. EXTREMITIES: No clubbing. No cyanosis. No edema. LUNGS: Positive for trace crackles at the lung bases. Decreased air entry in the lung bases. LABORATORY VALUES: Initial white count is 7.92, current one is 4.58; hemoglobin is 11.4; hematocrit of 38.7, currently 11.3 and 37.2; and platelet count was normal. The patient's neutrophil count elevated at 91.4. Coags; the patient's INR is 0.92. Chemistries; CO2 was 45 on arrival to the ER, BUN is 28, creatinine of 1.90 with a lactic acid of 22.3. Troponins have been trended to be negative. BNP was 1418. Urine did show 3+ protein, white count elevated, large leukocyte esterase too. Serology; influenza and group B has been negative. IMAGING STUDIES: Chest x-ray shows interval worsening of pulmonary edema. The patient has been started on levothyroxine and her regular medications. The patient also is on 40 mg of Lasix b.i.d. at this time, and albuterol and Atrovent treatments. ASSESSMENT: 1. Xecsm-fr-wulhakp systolic heart failure. 2. Chronic obstructive pulmonary disease exacerbation. 3. Hypertension. 4. Urinary tract infection. 5. Chronic anxiety. 6. Reflux esophagitis. 7. Hypothyroidism. 8. Acute respiratory failure with hypercapnia. PLAN: We will continue all her home medications. She is started on Solu-Medrol IV 40 mg q.6 hours. We will cut it down to 40 twice a day for right now. Lasix at a dose of 40 mg twice a day, we will continue that. Continue monitoring her lytes. For her chronic kidney disease, the patient will be continued to monitor BMP on a regular basis. Restart her lorazepam. BiPAP has been ordered for elevated CO2. Further recommendation per clinical course. MD CRISSY Jennings/MODL /[id number]
[2019-01-14 07:53] LABS: HYPOCHROMASIA SLIGHT; LYMPHOCYTES % (MANUAL) 4 % (19-48); MONOCYTES % (MANUAL) 1 % (3.4-9.0); NEUTROPHILS % (MANUAL) 95 % (40-74); PLATELET ESTIMATE ADEQUATE; PLATELET MORPHOLOGY COMMENT NORMAL
[2019-01-14] MEDS: SUCRALFATE 1 GM/10 ML SUSP PO SCH (08:16)
[2019-01-14] MEDS: LORATADINE 10 MG TAB PO SCH (08:20)
[2019-01-14] MEDS: ASCORBIC ACID 500 MG TAB PO SCH ×2 (08:20→16:10)
[2019-01-14] MEDS: LORAZEPAM 0.5 MG TAB PO SCH ×3 (08:20→21:02)
[2019-01-14] MEDS: FUROSEMIDE INJ 10 MG/ML 4 ML VIAL IV SCH ×2 (08:20→16:10)
[2019-01-14] MEDS: SERTRALINE HCL 50 MG TAB PO SCH (08:20)
[2019-01-14] MEDS: CYANOCOBALAMIN 1,000 MCG TAB PO SCH (08:20)
[2019-01-14] MEDS: CLOPIDOGREL BISULFATE 75 MG TAB PO SCH (08:20)
[2019-01-14] MEDS: DOCUSATE SODIUM 100 MG CAP PO SCH ×2 (08:20→16:10)
[2019-01-14] MEDS: MULTIVITAMINS/MINERALS TAB PO SCH ×2 (08:20→16:10)
[2019-01-14] MEDS: CHOLECALCIFEROL 1,000 UNIT TAB PO SCH (08:20)
[2019-01-14] MEDS: FERROUS SULFATE 325 MG TAB PO SCH ×2 (08:20→16:10)
[2019-01-14] MEDS: ASPIRIN 81 MG CHEW TAB PO SCH (08:20)
[2019-01-14] MEDS: PANTOPRAZOLE SOD 40 MG TABEC PO SCH (08:20)
[2019-01-14] MEDS: METOPROLOL TARTRATE 25 MG TAB PO SCH (08:22)
[2019-01-14] MEDS ORDERED: VITAMIN B COMPLEX PO SCH (09:00)
[2019-01-14] MEDS ORDERED: MULTIVITAMINS/MINERALS TAB PO SCH (09:00)
[2019-01-14] MEDS: ACETAMINOPHEN 325 MG TAB PO PRN (10:45)
[2019-01-14 15:17] LABS: CREATINE KINASE MB 1.8 ng/mL (0-5.0)
--- NOTE | 2019-01-14 15:22 | NUR ---
Nutrition Screen Note RD Recommendation for Physician: - Continue Cardiac diet - Diet education provided 01/14 Plan of Care: RD following, monitoring for tolerance and adequacy Nutrition reason for involvement: Nutrition Risk Trigger- CHF dx Primary Diagnose(s): CHF, COPD, respiratory distress PMH: CHF, HTN, HLD, CAD, hypothyroidism, reflux esophagitis Ht: 66 in Wt: 170 lb BMI: 27.43 kg/m2 IBW: [address] Assessment: (01/14) 78 YOF admitted for CHF exacerbation and COPD. Pt seen today per dx screen. 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 Pt wt stable per prior admit 10/15. Pt denies any GI distress. Noted pt with unstagable PU to sacrum per RN. Pt discussed during am rounds. Pt receptive to diet education at time of visit, she states she follows a low Na diet at home- diet education materials provided. Chart reviewed. Labs and meds reviewed. Will monitor and continue to follow. Current Diet: Cardiac Malnutrition Evaluation (01/14/19) The patient does not meet criteria for a specified degree of malnutrition at this time. Will re-evaluate at follow-up as appropriate. Diet Education Needs Assessment: Diet education indicated, pt receptive. Learner(s): pt Barriers: none Cultural/Language Modifications: none Readiness: ready Method: handout, discussion Topics:low Na nutrition therapy Understanding/Compliance: good Nutrition Care Level: low Signed: Shirin Lenz RD, LD, [facility]
--- NOTE | 2019-01-14 15:36 | NUR ---
WOUND CARE NURSE INITIAL CONSULTATION. 78 YEAR OLD FEMALE ADMITTED TO [facility] WITH DX OF CHF, COPD AND RESPIRATORY DISTRESS. HEAD TO TOE SKIN ASSESSMENT PERFORMED TODAY. PT PRESENTS WITH 0.8X0.8X0.2CM STAGE II PRESSURE ULCER TO LEFT BUTTOCK, NONBLANCHABLE REDNESS PRESENT TO PERIWOUND. YEAST TO RIGHT BREAST AND LEFT ABDOMINAL FOLD. THERE ARE NO OTHER AREAS OF CONCERNS NOTED AT THIS TIME. NO S/S OF INFECTION. LABS: WBC: 4.58 ALB: 2.4 RECOMMENDATIONS: PLACE PT ON ALTERNATING LOW AIR LOSS MATTRESS PROVIDE PT BILATERAL HEEL PROTECTORS AND HEEL PROTECTORS. CLEAN LEFT BUTTOCK WITH NS, APPLY PURACOL/FIBRACOL AND COVER WITH FOAM DRESSING DAILY. APPLY NYSTATIN POWDER UNDER RIGHT BREAST AND LEFT ABDOMINAL FOLD DAILY. TURN PT EVERY TWO HOURS AND PRN. THANKS FOR THIS CONSULTATION. Addendum: 01/14/19 at 1545 by Mimi Archuleta RN Amended: Links added.
[2019-01-14] MEDS: OFLOXACIN (OPTH) 5 ML BOTTLE OP SCH ×2 (17:23→23:52)
[2019-01-14] MEDS: ALBUTEROL/IPRATROPIUM 3 ML NEB NEB PRN (19:15)
[2019-01-14] MEDS ORDERED: MIRTAZAPINE 15 MG TAB PO SCH (21:00)
[2019-01-14] MEDS: MONTELUKAST SODIUM 10 MG TAB PO SCH (21:02)
[2019-01-14] MEDS: ATORVASTATIN 20 MG TAB PO SCH (21:02)
[2019-01-15] VITALS (9 sets, daily range): BP systolic 95–140; BP diastolic 34–72
[2019-01-15] MEDS: ACETAMINOPHEN 325 MG TAB PO PRN ×2 (03:26→15:11)
--- NOTE | 2019-01-15 03:42 | NUR ---
Patient had full bag of green formed stool. Assisted to empty colostomy bag and cleaned bag with sterile technique as per patient said. Patient tolerated well. Will continue to monitor.
--- NOTE | 2019-01-15 03:46 | NUR ---
Connected to BIPAP as per patient request. Will continue to monitor.
[2019-01-15] MEDS: LEVOTHYROXINE SODIUM 100 MCG TAB PO SCH (05:40)
[2019-01-15] MEDS: OFLOXACIN (OPTH) 5 ML BOTTLE OP SCH ×4 (05:40→23:18)
[2019-01-15 05:49] LABS: ANION GAP 16.4 mmol/L (8-16); CALCIUM 9.7 mg/dL (8.4-10.2); CREATININE, SERUM 1.5 mg/dL (0.57-1.11); POTASSIUM 4.4 mmol/L (3.5-5.1)
[2019-01-15] MEDS: CEFTRIAXONE SOD 1 GM/NS 50 ML 50 ML IV SCH (06:30)
--- NOTE | 2019-01-15 06:54 | Progress Note ---
DATE: SUBJECTIVE: The patient is a 78-year-old female, who comes in with CHF exacerbation, COPD exacerbation, respiratory failure, and lower respiratory infection. CURRENT MEDICATIONS: The patient is on Rocephin, Ofloxacin for eye infection, levothyroxine, acetaminophen, trazodone, montelukast, lorazepam, atorvastatin, ferrous sulfate, ascorbic acid, furosemide, methylprednisolone 40 mg twice a day, metoprolol 25 mg b.i.d., sertraline, pantoprazole, clopidogrel, aspirin, and Carafate. The patient is added on gabapentin for restless legs syndrome last night. OBJECTIVE: VITAL SIGNS: Temperature is 97.8, pulse of 71, respirations of 22, blood pressure is 130/50, pulse oximetry 100% on BiPAP. HEENT: Normocephalic, atraumatic. Pupils are reactive to light and accommodation. CVS: S1, S2 regular. Ejection systolic murmur present. ABDOMEN: Nontender, nondistended. Colostomy bag in place. EXTREMITIES: No clubbing, no cyanosis, no edema. LABORATORY VALUES: Pending today. Hemoglobin yesterday was 11.3, hematocrit 37.2. Chemistries; today's BUN was 39, creatinine of 1.50. ASSESSMENT: 1. Acute on chronic systolic heart failure. Continue with diuresis. 2. Chronic obstructive pulmonary disease exacerbation. Continue Solu-Medrol IV 40 mg twice a day and Lasix, albuterol and Atrovent treatments. 3. Urinary tract infection. The patient is on Rocephin and Zithromax. 4. Chronic anxiety. Continue with anxiety medication. 5. Reflux esophagitis. Continue with PPI and also continue Plavix for deep venous thrombosis prophylaxis. Further recommendation per clinical course. The patient is improving. We will order physical therapy for her and possible discharge on Thursday. Strict I's and O's to be done too and also daily weights to be done. MD PING JenningsJ/MODL /[id number]
[2019-01-15 07:08] LABS: BASOPHILS % 0.1 % (0.0-1.0); EOSINOPHILS % 0.1 % (0.0-6.0); HEMATOCRIT 35.1 % (34.2-44.1); HEMOGLOBIN 10.7 g/dL (12.0-16.0); LYMPHOCYTES # (AUTO) 0.8 (1.0-3.2); LYMPHOCYTES % 8.8 % (18.0-39.1); MEAN CORPUSCULAR HEMOGLOBIN 28.8 pg (28-32); MEAN CORPUSCULAR HGB CONC 30.5 g/dL (31-35); MEAN CORPUSCULAR VOLUME 94.6 fL (81-99); MONOCYTES # (AUTO) 0.4 (0.2-0.8); MONOCYTES % 4.5 % (4.4-11.3); NEUTROPHILS # (AUTO) 8.1 (2.1-6.9); NEUTROPHILS % 86.2 % (38.7-80.0); PLATELET COUNT 153 x10e3/uL (140-360); RED BLOOD COUNT 3.71 x10e6/uL (3.6-5.1); RED CELL DISTRIBUTION WIDTH 13.7 % (11.7-14.4)
[2019-01-15] MEDS: ALBUTEROL/IPRATROPIUM 3 ML NEB NEB PRN ×4 (07:28→19:35)
[2019-01-15] MEDS: CYANOCOBALAMIN 1,000 MCG TAB PO SCH (08:13)
[2019-01-15] MEDS: ASPIRIN 81 MG CHEW TAB PO SCH (08:13)
[2019-01-15] MEDS: DOCUSATE SODIUM 100 MG CAP PO SCH ×2 (08:13→17:11)
[2019-01-15] MEDS: LORATADINE 10 MG TAB PO SCH (08:13)
[2019-01-15] MEDS: SERTRALINE HCL 50 MG TAB PO SCH (08:13)
[2019-01-15] MEDS: FERROUS SULFATE 325 MG TAB PO SCH ×2 (08:13→17:11)
[2019-01-15] MEDS: MULTIVITAMINS/MINERALS TAB PO SCH ×2 (08:13→17:11)
[2019-01-15] MEDS: FUROSEMIDE INJ 10 MG/ML 4 ML VIAL IV SCH ×2 (08:13→17:11)
[2019-01-15] MEDS: CHOLECALCIFEROL 1,000 UNIT TAB PO SCH (08:13)
[2019-01-15] MEDS: ASCORBIC ACID 500 MG TAB PO SCH ×2 (08:13→17:11)
[2019-01-15] MEDS: CLOPIDOGREL BISULFATE 75 MG TAB PO SCH (08:13)
[2019-01-15] MEDS: METHYLPREDNISOLONE SOD SUCC 40 MG/ML VIAL 1ML IV SCH ×2 (08:13→17:11)
[2019-01-15] MEDS: PANTOPRAZOLE SOD 40 MG TABEC PO SCH (08:13)
[2019-01-15] MEDS: LORAZEPAM 0.5 MG TAB PO SCH ×3 (08:13→21:34)
[2019-01-15] MEDS: SUCRALFATE 1 GM/10 ML SUSP PO SCH (08:13)
[2019-01-15] MEDS: METOPROLOL TARTRATE 25 MG TAB PO SCH (08:14)
[2019-01-15] MEDS: NYSTATIN 15 GM POWDER UD BTL TOP SCH (08:14)
[2019-01-15] MEDS ORDERED: GABAPENTIN 400 MG CAP PO SCH (21:00)
[2019-01-15] MEDS: ATORVASTATIN 20 MG TAB PO SCH (21:34)
[2019-01-15] MEDS: GABAPENTIN 100 MG CAP PO SCH (21:34)
[2019-01-15] MEDS: MONTELUKAST SODIUM 10 MG TAB PO SCH (21:34)
--- NOTE | 2019-01-15 22:30 | NUR ---
Connected to BIPAP at this time. Will continue to monitor.
--- NOTE | 2019-01-15 23:40 | NUR ---
Assisted to changed dressing on stage II wound on sacrum as order. Changed diaper and linen, patient tolerated well. Will continue to monitor.
--- NOTE | 2019-01-16 02:19 | NUR ---
Disconnected to BIPAP at this time per patient request. Connected to 4liters oxygen via nasal canula. Will continue to monitor.
[2019-01-16 05:00] VITALS: BP 112/58
[2019-01-16 05:13] LABS: ANION GAP 17.7 mmol/L (8-16); CALCIUM 9.8 mg/dL (8.4-10.2); CREATININE, SERUM 1.42 mg/dL (0.57-1.11); POTASSIUM 4.7 mmol/L (3.5-5.1)
[2019-01-16] MEDS ORDERED: SODIUM CHLORIDE 0.9% 250ML 250 ML ONE (05:40)
[2019-01-16] MEDS: LEVOTHYROXINE SODIUM 100 MCG TAB PO SCH (06:09)
[2019-01-16] MEDS: CEFTRIAXONE SOD 1 GM/NS 50 ML 50 ML IV SCH (06:09)
[2019-01-16] MEDS: OFLOXACIN (OPTH) 5 ML BOTTLE OP SCH ×3 (06:09→18:09)
--- NOTE | 2019-01-16 06:42 | NUR ---
Started new IV on left AC 20g.
[2019-01-16 07:20] VITALS: BP 105/59
--- NOTE | 2019-01-16 07:20 | NUR ---
PATIENT IN BED RESTING WITH HEAD OF BED ELEVATED, NO RESPIRATORY DISTRESS OBSERVED. O2 IN PLACE VIA N/C. REDNESS REMAINS TO GROIN AND UNDER BREAST, LEFT COLOSTOMY INTACT, STAGE 2 TO SACRUM WITH ALLEVYN DRESSING INTACT. BED IN LOWER POSITION, CALL LIGHT AT REACH. INSTRUCTED TO CALL FOR ASSISTANCE NEEDED.
[2019-01-16] MEDS: ALBUTEROL/IPRATROPIUM 3 ML NEB NEB PRN ×3 (07:45→19:20)
[2019-01-16] MEDS: MULTIVITAMINS/MINERALS TAB PO SCH ×2 (08:25→17:12)
[2019-01-16] MEDS: METHYLPREDNISOLONE SOD SUCC 40 MG/ML VIAL 1ML IV SCH ×2 (08:25→16:55)
[2019-01-16] MEDS: FERROUS SULFATE 325 MG TAB PO SCH ×2 (08:25→17:12)
[2019-01-16] MEDS: SUCRALFATE 1 GM/10 ML SUSP PO SCH (08:25)
[2019-01-16] MEDS: ASCORBIC ACID 500 MG TAB PO SCH ×2 (08:25→17:12)
[2019-01-16] MEDS: LORATADINE 10 MG TAB PO SCH (09:20)
[2019-01-16] MEDS: LORAZEPAM 0.5 MG TAB PO SCH ×3 (09:20→20:31)
[2019-01-16] MEDS: FUROSEMIDE INJ 10 MG/ML 4 ML VIAL IV SCH ×2 (09:20→17:12)
[2019-01-16] MEDS: ASPIRIN 81 MG CHEW TAB PO SCH (09:20)
[2019-01-16] MEDS: DOCUSATE SODIUM 100 MG CAP PO SCH ×2 (09:20→17:12)
[2019-01-16] MEDS: PANTOPRAZOLE SOD 40 MG TABEC PO SCH (09:22)
[2019-01-16] MEDS: METOPROLOL TARTRATE 25 MG TAB PO SCH (09:22)
[2019-01-16] MEDS: CHOLECALCIFEROL 1,000 UNIT TAB PO SCH (09:22)
[2019-01-16] MEDS: CYANOCOBALAMIN 1,000 MCG TAB PO SCH (09:22)
[2019-01-16] MEDS: CLOPIDOGREL BISULFATE 75 MG TAB PO SCH (09:22)
[2019-01-16] MEDS: SERTRALINE HCL 50 MG TAB PO SCH (09:22)
[2019-01-16] MEDS: NYSTATIN 15 GM POWDER UD BTL TOP SCH (09:23)
--- NOTE | 2019-01-16 10:48 | Progress Note ---
DATE: SUBJECTIVE: The patient is a 78-year-old female, who comes in with acute congestive heart failure, urinary tract infection, and also COPD exacerbation, currently asymptomatic. The patient received the dose of gabapentin yesterday and felt better. Slept well. Restless legs syndrome was better and also the burning sensation was better. OBJECTIVE: VITAL SIGNS: Temperature is 97.6, has been afebrile for the last 48 hours, pulse of 79, respirations 17, blood pressure is 112/58, pulse oximetry of 98%. HEENT: Normocephalic, atraumatic. Pupils are reactive to light and accommodation. CVS: S1 and S2. Regular. Ejection systolic murmur. ABDOMEN: Nontender, nondistended. Colostomy in place. EXTREMITIES: No clubbing, no cyanosis, no edema. LABORATORY VALUES: Hemoglobin yesterday was 10.7 and hematocrit 35.1. Today, sodium 137, potassium 4.7, BUN was 42, and creatinine of 1.42. MICROBIOLOGY: Urine culture grew ESBL. The patient is currently on Rocephin. Culture is sensitive to ESBL. We will continue with the same Rocephin. ASSESSMENT AND PLAN: 1. Acute on chronic systolic heart failure. Continue diuresis. 2. Chronic obstructive pulmonary disorder. Continue with Solu-Medrol IV 40 mg. 3. For chronic anxiety, continue the anxiety medication. 4. Further recommendation per clinical course. The patient can be possible discharge tomorrow. MD CRISSY Jennings/MODL /[id number]
[2019-01-16 11:25] VITALS: BP 135/63
--- NOTE | 2019-01-16 11:34 | NUR ---
PATIENT ASSISTED WITH FACIAL CARE. 89
--- NOTE | 2019-01-16 11:35 | NUR ---
PATIENT ASSISTED WITH FACIAL CARE. 890 CC OF CLEAR YELLOW URINE EMPTIED FROM PUREWICK DRAIN. REPOSITIONED IN BED. CALL LIGHT AT REACH.
[2019-01-16] MEDS: PIPERACILLIN/TAZO 2.25 GM 50 ML IV SCH ×2 (12:14→18:09)
--- NOTE | 2019-01-16 15:34 | NUR ---
PATIENT SITTING UP IN BED TALKING ON THE PHONE, NO DISTRESS NOTED. ALL PERSONAL ITEMS CLOSE TO PATIENT. CALL LIGHT AT REACH.
[2019-01-16 16:30] VITALS: BP 129/52
--- NOTE | 2019-01-16 17:30 | NUR ---
PATIENT ATE 100% OF ALL MEALS. IN BED WITH CALL LIGHT AT REACH.
[2019-01-16 20:00] VITALS: BP 129/67
[2019-01-16] MEDS: ACETAMINOPHEN 325 MG TAB PO PRN (20:31)
[2019-01-16] MEDS: GABAPENTIN 100 MG CAP PO SCH (20:31)
[2019-01-16] MEDS: ATORVASTATIN 20 MG TAB PO SCH (20:31)
[2019-01-16] MEDS: MONTELUKAST SODIUM 10 MG TAB PO SCH (20:32)
[2019-01-16 21:00] VITALS: BP 129/67
[2019-01-16] MEDS ORDERED: ATORVASTATIN 40 MG TAB PO SCH (21:00)
[2019-01-17] VITALS: BP 126/63
[2019-01-17] MEDS: OFLOXACIN (OPTH) 5 ML BOTTLE OP SCH ×2 (00:24→05:23)
[2019-01-17] MEDS: PIPERACILLIN/TAZO 2.25 GM 50 ML IV SCH ×2 (00:24→05:23)
[2019-01-17 04:00] VITALS: BP 127/61
[2019-01-17] MEDS: LEVOTHYROXINE SODIUM 100 MCG TAB PO SCH (05:23)
--- NOTE | 2019-01-17 05:51 | NUR ---
Patient assisted to cleaned and changed diaper and purewick at this time. Patient tolerated well. Patient had half bag of BM in colostomy bag,refused to empty. Patient stated that "I want to wait bag is not full I am okay". Will continue to monitor.
--- NOTE | 2019-01-17 07:01 | NUR ---
Report given to oncoming nurse.
--- NOTE | 2019-01-17 07:05 | NUR ---
Pt received resting in bed. Alert and oriented x4. Pt is for discharge this AM. Oriented to staff and surroundings. Encouraged to press call aj if help needed. Pt verbalized understanding of teaching. Will monitor
[2019-01-17] MEDS ORDERED: GABAPENTIN100 MG PO (07:19)
[2019-01-17] MEDS ORDERED: PREDNISONE20 MG PO (07:19)
[2019-01-17 07:20] VITALS: BP 141/71
[2019-01-17] MEDS ORDERED: BACTRIM DS TAB1 EACH PO (07:20)
[2019-01-17] MEDS: ASPIRIN 81 MG CHEW TAB PO SCH (08:28)
[2019-01-17] MEDS: MULTIVITAMINS/MINERALS TAB PO SCH (08:28)
[2019-01-17] MEDS: CLOPIDOGREL BISULFATE 75 MG TAB PO SCH (08:28)
[2019-01-17] MEDS: FUROSEMIDE INJ 10 MG/ML 4 ML VIAL IV SCH (08:28)
[2019-01-17] MEDS: LORAZEPAM 0.5 MG TAB PO SCH (08:28)
[2019-01-17] MEDS: ASCORBIC ACID 500 MG TAB PO SCH (08:28)
[2019-01-17] MEDS: DOCUSATE SODIUM 100 MG CAP PO SCH (08:28)
[2019-01-17] MEDS: SUCRALFATE 1 GM/10 ML SUSP PO SCH (08:28)
[2019-01-17] MEDS: FERROUS SULFATE 325 MG TAB PO SCH (08:28)
[2019-01-17] MEDS: LORATADINE 10 MG TAB PO SCH (08:28)
[2019-01-17] MEDS: METOPROLOL TARTRATE 25 MG TAB PO SCH (08:28)
[2019-01-17] MEDS: METHYLPREDNISOLONE SOD SUCC 40 MG/ML VIAL 1ML IV SCH (08:28)
[2019-01-17] MEDS: PANTOPRAZOLE SOD 40 MG TABEC PO SCH (08:28)
--- NOTE | 2019-01-17 08:28 | NUR ---
All meds given as ordered. Will monitor
[2019-01-17] MEDS: CYANOCOBALAMIN 1,000 MCG TAB PO SCH (08:29)
[2019-01-17] MEDS: CHOLECALCIFEROL 1,000 UNIT TAB PO SCH (08:29)
[2019-01-17] MEDS: SERTRALINE HCL 50 MG TAB PO SCH (08:29)
[2019-01-17] MEDS: NYSTATIN 15 GM POWDER UD BTL TOP SCH (08:30)
--- NOTE | 2019-01-17 08:35 | NUR ---
Called [facility] to discharge patient due to immobility.
[2019-01-17 08:40] VITALS: BP 141/71
--- NOTE | 2019-01-17 09:51 | NUR ---
Pt given discharge papers regarding meds, diet, activities, s/s to report, and follow up appointment with PCP. Pt verbalized understanding of teaching. Left via [facility] due to immobility
--- NOTE | 2019-01-17 10:08 | Progress Note ---
DATE: SUBJECTIVE: The patient is here for COPD exacerbation, acute congestive heart failure, acute on chronic systolic heart failure, urinary tract infection, and history of chronic atrial fibrillation, currently asymptomatic. Slept well. No complaints. No dysuria. No chest pain. No shortness of breath. OBJECTIVE: VITAL SIGNS: Temperature 97.7, pulse of 69, respirations of 18, blood pressure is 127/61, pulse oximetry 100% on 3 L of nasal cannula. HEENT: Normocephalic, atraumatic. Pupils are reactive to light and accommodation. CVS: S1, S2 regular. ABDOMEN: Nontender, nondistended. Colostomy in place and there is fecal matter in it. EXTREMITIES: No clubbing, no cyanosis, no edema. MEDICATIONS: As per medical reconciliation sheet. LABORATORY VALUES: Yesterday's chemistries; BUN is 42 and creatinine of 1.42. ASSESSMENT: 1. Acute on chronic systolic heart failure. The patient to continue diuresis. 2. Chronic obstructive pulmonary disorder, O2 supplementation and decreased Solu-Medrol today. 3. Chronic anxiety. Continue anxiety medication. 4. Urinary tract infection. We switched the patient to Zosyn yesterday, but can be discharged today on Bactrim DS. 5. Chronic kidney injury. Continue monitoring the patient's creatinine levels. The patient will be followed up in the clinic in about 2 to 3 days and in a week's time. We will continue to monitor the patient as an outpatient and continue to monitor her electrolytes. The patient can be discharged today. MD CRISSY Jennings/MODL /[id number]
[2019-01-17] MEDS ORDERED: ATORVASTATIN 40 MG TAB PO SCH (21:00)
== END 2019-01-17 10:32 | disposition home or self-care (01) | DRG 291 ==
LOC: ER 16:43 → ERHOLD 21:34 → IMCU 23:10
PROVIDERS: ADMIT Family Medicine; ATTEND Family Medicine
PROC: 5A09357 Assistance with Respiratory Ventilation, Less than 24 Consecutive Hours, Continuous Positive Airway Pressure (ICD-10-PCS; principal; 2019-01-13)
DX: I13.0 Hypertensive heart and chronic kidney disease with heart failure and stage 1 through stage 4 chronic kidney disease, or unspecified chronic kidney disease (principal); J96.02 Acute respiratory failure with hypercapnia; I50.23 Acute on chronic systolic (congestive) heart failure; J44.1 Chronic obstructive pulmonary disease with (acute) exacerbation; N39.0 Urinary tract infection, site not specified; F41.9 Anxiety disorder, unspecified; E03.9 Hypothyroidism, unspecified; I48.2 Chronic atrial fibrillation; N18.9 Chronic kidney disease, unspecified; K21.0 Gastro-esophageal reflux disease with esophagitis; B96.20 Unspecified Escherichia coli [E. coli] as the cause of diseases classified elsewhere; Z16.12 Extended spectrum beta lactamase (ESBL) resistance; D64.9 Anemia, unspecified; D75.1 Secondary polycythemia; F32.9 Major depressive disorder, single episode, unspecified; L89.322 Pressure ulcer of left buttock, stage 2; Z93.3 Colostomy status; Z79.01 Long term (current) use of anticoagulants; Z90.49 Acquired absence of other specified parts of digestive tract; Z99.3 Dependence on wheelchair; Z95.0 Presence of cardiac pacemaker; Z83.3 Family history of diabetes mellitus; Z82.49 Family history of ischemic heart disease and other diseases of the circulatory system; I25.2 Old myocardial infarction; Z87.891 Personal history of nicotine dependence; Z88.4 Allergy status to anesthetic agent; Z88.3 Allergy status to other anti-infective agents; Z88.5 Allergy status to narcotic agent; Z79.02 Long term (current) use of antithrombotics/antiplatelets; Z79.82 Long term (current) use of aspirin
CPT/HCPCS: 36415; 71045; 80048; 80053; 81001; 82550; 82553; 82805; 83518; 83605; 83735; 83880; 84443; 84484; 85025; 85610; 85730; 87040; 87070; 87086; 87186; 87400; 93005; 94640; 94660; 99285; J0696; J1940; J2543; J2920; J2930; J7050

== ENCOUNTER 2019-01-20 20:05 | Inpatient (IN) | payer MEDICARE, OTHER ==
[~2019-01-20] VITALS: Ht 167.6 cm; Wt 77.1 kg
[~2019-01-20 20:05] MED LIST changes: +BACTRIM DS TAB1 EACH PO; +PREDNISONE20 MG PO
--- OUTSIDE RECORDS SUMMARY | 2019-01-20 20:08 | XMS REPORT | Clinical Summary ---
Author Author [facility] Organization [facility] Address Unknown Phone Unavailable Care Team Providers Care Material Control Analyst Name Role Phone Romaine Rodrigues MD [...] nightly. Active saundra-osiris Take by 0 m-hor [phone] mg mouth. tablet Active cholecalciferol, vitamin Take [...] INFLUENZA VACCINE 01/20/2019 Results Not on fileafter 01/19/2018 Insurance Type Payer Benefit Subscriber ID Effective Phone Address Plan / Dates Group PPO HUMANA MEDICARE HUMANA xxxxxxxxx 2017-P MEDICARE resent PPO/PFFS/E [facility] Medicaid MEDICAID MEDICAID xxxxxxxxx 2017-P resent Advance Directives Patient has advance care planning documents on file. For more information, pato villanueva contact: Lewis Engel [address] [place] [address]
--- NOTE | 2019-01-20 20:20 | NUR ---
RESP CALLED FOR [facility] [place]
[2019-01-20] MEDS ORDERED: METHYLPREDNISOLONE SOD SUCC 125 MG/2ML VIAL IV ONE (20:30)
[2019-01-20] MEDS ORDERED: ALBUTEROL/IPRATROPIUM 3 ML NEB NEB ONE (20:30)
[2019-01-20 20:45] LABS: BASOPHILS % 0.1 % (0.0-1.0); EOSINOPHILS % 0.3 % (0.0-6.0); HEMATOCRIT 38.5 % (34.2-44.1); HEMOGLOBIN 11.7 g/dL (12.0-16.0); LYMPHOCYTES # (AUTO) 0.4 (1.0-3.2); LYMPHOCYTES % 3.2 % (18.0-39.1); MEAN CORPUSCULAR HEMOGLOBIN 28.9 pg (28-32); MEAN CORPUSCULAR HGB CONC 30.4 g/dL (31-35); MEAN CORPUSCULAR VOLUME 95.1 fL (81-99); MONOCYTES # (AUTO) 0.3 (0.2-0.8); MONOCYTES % 2.6 % (4.4-11.3); NEUTROPHILS # (AUTO) 11.1 (2.1-6.9); NEUTROPHILS % 93.4 % (38.7-80.0); PLATELET COUNT 230 x10e3/uL (140-360); RED BLOOD COUNT 4.05 x10e6/uL (3.6-5.1); RED CELL DISTRIBUTION WIDTH 13.7 % (11.7-14.4)
--- NOTE | 2019-01-20 20:46 | Diagnostic Imaging Report ---
A single frontal view of the chest. HISTORY: Shortness of breath COMPARISON: Chest radiograph January 13, 2019 DISCUSSION: Portable technique, limits sensitivity of the exam. Soft tissue attenuation partially limits sensitivity of the exam. Overlying monitoring leads and other artifacts. Tubes/Lines: None Lungs and pleura: Diffusely increased pulmonary interstitial markings. Bilateral more confluent patchy airspace opacities. Small bilateral effusions with adjacent atelectasis. Heart and mediastinum: The the cardiac silhouette and central pulmonary vasculature appear(s) enlarged. Bones and soft tissues: Partially visualized abdominal stent. IMPRESSION: Findings compatible with volume overload resulting in central pulmonary vascular congestion, moderate pulmonary edema, small bilateral pleural effusions, and adjacent atelectasis. Signed by: Dr. Master Escoto D.O., M.M.M. on 01/20/2019 8:43 PM
[2019-01-20 20:50] LABS: INR 0.97; PARTIAL THROMBOPLASTIN TIME 22.2 seconds (23.8-35.5); PROTHROMBIN TIME 13.4 seconds (11.9-14.5)
[2019-01-20 21:00] LABS: ALBUMIN 3.8 g/dL (3.5-5.0); ALBUMIN/GLOBULIN RATIO 1.3 (0.8-2.0); CALCIUM 9.8 mg/dL (8.4-10.2); CREATININE, SERUM 2.23 mg/dL (0.57-1.11)
[2019-01-20 21:25] LABS: CREATINE KINASE MB 2.2 ng/mL (0-5.0)
[2019-01-20] MEDS ORDERED: FUROSEMIDE INJ 10 MG/ML 4 ML VIAL IV ONE (21:45)
[2019-01-20] MEDS ORDERED: MIRTAZAPINE 15 MG TAB PO PRN (22:00)
--- NOTE | 2019-01-20 23:30 | NUR ---
pt c o2 sat 88-90% on o2 4l nc. pt noted c labored breathing. dr whitney informed. bipap ordered. rt called.
[2019-01-20] MEDS: ALBUTEROL/IPRATROPIUM 3 ML NEB NEB SCH (23:45)
--- NOTE | 2019-01-21 | NUR ---
pt resp even and unlabored on bipap. o2 sat improved to 96-98%. pt states that feeling better.
[2019-01-21] MEDS: ALBUTEROL/IPRATROPIUM 3 ML NEB NEB SCH ×6 (00:18→19:45)
[2019-01-21] MEDS ORDERED: GABAPENTIN 100 MG CAP PO ONE (01:15)
--- NOTE | 2019-01-21 05:20 | NUR ---
pt request to remove bipap. pt placed on o2 4l nc. o2 sat 95-97%
[2019-01-21 05:43] LABS: HEMATOCRIT 37.2 % (34.2-44.1); LYMPHOCYTES # (AUTO) 0.3 (1.0-3.2); MEAN CORPUSCULAR HGB CONC 29.6 g/dL (31-35); MEAN CORPUSCULAR VOLUME 94.7 fL (81-99); MONOCYTES # (AUTO) 0.1 (0.2-0.8); MONOCYTES % 1.4 % (4.4-11.3); NEUTROPHILS # (AUTO) 6.1 (2.1-6.9); NEUTROPHILS % 92.8 % (38.7-80.0); PLATELET COUNT 193 x10e3/uL (140-360); RED BLOOD COUNT 3.93 x10e6/uL (3.6-5.1); RED CELL DISTRIBUTION WIDTH 13.5 % (11.7-14.4)
[2019-01-21] MEDS: LEVOTHYROXINE SODIUM 100 MCG TAB PO SCH (05:44)
[2019-01-21 06:08] LABS: ALBUMIN 3.5 g/dL (3.5-5.0); ALBUMIN/GLOBULIN RATIO 1.2 (0.8-2.0); ANION GAP 16.2 mmol/L (8-16); CALCIUM 9.7 mg/dL (8.4-10.2); CREATININE, SERUM 1.83 mg/dL (0.57-1.11); POTASSIUM 4.2 mmol/L (3.5-5.1)
[2019-01-21 07:24] LABS: LYMPHOCYTES % (MANUAL) 5 % (19-48); NEUTROPHILS % (MANUAL) 95 % (40-74)
[2019-01-21 07:25] LABS: PLATELET ESTIMATE ADEQUATE; PLATELET MORPHOLOGY COMMENT NORMAL; RBC MORPHOLOGY COMMENT NORMAL
[2019-01-21] MEDS ORDERED: VITAMIN B COMPLEX PO SCH (09:00)
[2019-01-21] MEDS: FERROUS SULFATE 325 MG TAB PO SCH ×2 (09:00→17:49)
[2019-01-21] MEDS ORDERED: RANITIDINE HCL 75 MG PO SCH (09:00)
[2019-01-21] MEDS: SUCRALFATE 1 GM/10 ML SUSP PO SCH (09:00)
[2019-01-21] MEDS: FUROSEMIDE INJ 10 MG/ML 4 ML VIAL IV SCH ×2 (09:00→21:56)
[2019-01-21] MEDS: ASCORBIC ACID 500 MG TAB PO SCH ×2 (09:00→17:49)
[2019-01-21] MEDS: MULTIVITAMINS/MINERALS TAB PO SCH ×2 (09:01→17:49)
[2019-01-21] MEDS: ASPIRIN 81 MG CHEW TAB PO SCH (09:01)
[2019-01-21] MEDS: FOLIC ACID/CYANOCOB/PYRIDOXINE TAB PO SCH (09:01)
[2019-01-21] MEDS: CHOLECALCIFEROL 1,000 UNIT TAB PO SCH (09:01)
[2019-01-21] MEDS: LORATADINE 10 MG TAB PO SCH (09:02)
[2019-01-21] MEDS: LORAZEPAM 0.5 MG TAB PO SCH ×3 (09:02→21:57)
[2019-01-21] MEDS: DOCUSATE SODIUM 100 MG CAP PO SCH ×2 (09:02→17:49)
[2019-01-21] MEDS: SERTRALINE HCL 50 MG TAB PO SCH (09:02)
[2019-01-21] MEDS: TRIMETHOPRIM/SULFAMETHOXAZOLE 160-800 MG TAB PO SCH ×2 (09:02→17:49)
[2019-01-21] MEDS: FAMOTIDINE 20 MG TAB PO SCH (09:02)
[2019-01-21] MEDS: PANTOPRAZOLE SOD 40 MG TABEC PO SCH (09:02)
[2019-01-21] MEDS: METOPROLOL TARTRATE 25 MG TAB PO SCH (09:02)
[2019-01-21] MEDS: CYANOCOBALAMIN 1,000 MCG TAB PO SCH (09:02)
[2019-01-21] MEDS: CLOPIDOGREL BISULFATE 75 MG TAB PO SCH (09:02)
[2019-01-21] MEDS: PREDNISONE 20 MG TAB PO SCH ×2 (09:02→17:49)
[2019-01-21] MEDS ORDERED: ACETAZOLAMIDE 250 MG TAB PO ONE (10:00)
--- NOTE | 2019-01-21 11:21 | Diagnostic Imaging Report ---
EXAM: CT Chest WITHOUT intravenous contrast 01/21/2019 9:37 AM INDICATION: Shortness of breath COMPARISON: Chest radiograph of 01/20/2019 TECHNIQUE: Chest was scanned utilizing a multidetector helical scanner from the lung apex through the level of the adrenal glands without administration of IV contrast. Coronal and sagittal reformations were obtained. Routine protocol was performed. IV CONTRAST: None RADIATION DOSE: Total DLP: 519.8 mGy*cm. Dose modulation, iterative reconstruction, and/or weight based adjustment of the mA/kV was utilized to reduce the radiation dose to as low as reasonably achievable. COMPLICATIONS: None FINDINGS: LINES/ TUBES: Left chest AICD with leads in right atrium and right ventricle. LUNGS AND AIRWAYS: The central airways are patent. There is diffuse upper lobe predominant centrilobular emphysema. Bilateral groundglass opacification and interlobular septal thickening consistent with pulmonary edema. There is a 1.8 x 1.3 cm right upper lobe pulmonary nodule with slightly spiculated margins. Bibasilar dependent subsegmental atelectasis. PLEURA: Small left pleural effusion. Moderate right pleural effusion. No pneumothorax. HEART AND MEDIASTINUM: The thyroid gland appears heterogeneous with no discrete nodule. There is an enlarged 1.8 x 1.1cm AP window lymph node (series 2 image 50). No supraclavicular, hilar, axillary, subpectoral or internal mammary lymphadenopathy. Multichamber cardiomegaly. No pericardial effusion. Diffuse atherosclerotic calcifications of the coronary arteries. UPPER ABDOMEN: Limited noncontrast images of the upper abdomen demonstrate hepatomegaly. No focal abnormality of the partially visualized spleen. The pancreas, adrenals and kidneys are not visualized. BONES: The visualized bony thorax is within normal limits. SOFT TISSUES: Unremarkable. IMPRESSION: 1.8 x 1.3 cm right upper lobe slightly spiculated pulmonary nodule is highly suspicious for primary pulmonary malignancy. Enlarged AP window lymph node is nonspecific and may be reactive versus metastatic. Pulmonary edema, moderate right pleural effusion, small left pleural effusion, and unchanged cardiomegaly. RECOMMENDATIONS: Tissue sampling of right upper lobe pulmonary nodule. Signed by: Yi Schmitt MD on 01/21/2019 11:17 AM
[2019-01-21 14:42] LABS: CREATINE KINASE MB 2.2 ng/mL (0-5.0)
--- NOTE | 2019-01-21 17:05 | Consultation ---
DATE OF CONSULTATION: 01/21/2019 Pulmonary Consultation Patient of Ash Hastings and Dr. Madeline Mora. 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 Admitted with progressive dyspnea, low saturation despite supplemental oxygen at home. She is a nonsmoker, though is exposed to secondhand smoke. Pulmonary function in the past have been restricted. She has an old MN, chronic atrial fibrillation, pacemaker, colostomy. She has had remote hysterectomy, stent in the left carotid and carotid endarterectomy in the past. Worked as a nurse in [place]. FAMILY HISTORY: Positive for rheumatoid arthritis, coronary disease and breast cancer in her mother. ALLERGIES: TO CODEINE LIDOCAINE AND FLAGYL. SHE HAS A HISTORY OF BRONCHIAL ASTHMA. HOME MEDICATIONS: In addition to oxygen have include Lasix, Tylenol, aspirin, Lipitor, vitamin D, Plavix, B12, Colace, iron, Neurontin, Levoxyl, Ativan, lorazepam, metoprolol, mirtazapine, montelukast, Protonix, prednisone, Zantac, sertraline, Carafate, Bactrim, trazodone, and vitamin B. PHYSICAL EXAMINATION: GENERAL: This is a well-developed white female undergoing echocardiography. HEAD: Normocephalic, atraumatic. EYES: Extraocular movements intact. VITAL SIGNS: Temperature 98, respirations 19, blood pressure of paced rhythm. LUNGS: Diminished breath sounds anteriorly. HEART: Regular rhythm, paced. ABDOMEN: Colostomy. EXTREMITIES: Nonedematous. IMPRESSION: 1. Congestive heart failure. 2. History of bronchial asthma. Nonsmoker. 3. History of diverticular disease with fistula and colostomy. PLAN: To continue supportive care, moderate dose corticosteroids, screening spirometry. CT chest, rule out other pathology. There is a metabolic alkalosis. We will add Diamox p.r.n. BNP is quite elevated 16,000. Creatinine is elevated. We will defer CT angio, suspect moderate pleural effusions. 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 Thank you for this kind referral. MD GEORGE Rossi/LONGL /[id number]
[2019-01-21 17:15] VITALS: BP 134/48
[2019-01-21 17:39] VITALS: BP 122/54
[2019-01-21] MEDS: ENOXAPARIN 30 MG/0.3 ML SYR SC SCH (17:49)
[2019-01-21] MEDS: ACETAMINOPHEN 325 MG TAB PO PRN (17:52)
--- NOTE | 2019-01-21 18:10 | Consultation ---
DATE OF CONSULTATION: 01/21/2019 Cardiac Consultation REASON FOR CONSULTATION: Respiratory distress, congestive heart failure. HISTORY OF PRESENT ILLNESS: Ms. Hermosillo is 78-year-old lady, who is known to our service for many years. She is known with hypertension, hypercholesterolemia, coronary artery disease PCI in 1997, left bundle branch block, status post TUNNEL MUCKER device and AV meena ablation for paroxysmal atrial fibrillation, abdominal aortic aneurysm repaired by EVAR device, COPD with chronic CO2 retention, multiple history of bronchial pneumonia, very borderline respiratory status in addition to chronic congestive heart failure. The patient also does have problem with her GI system. She had small bowel resection, colostomy, revision of colostomy, fistula infection for the longest time, treated and subsequently cured. The patient come back and forth with shortness of breath worsening. She said she increased her Lasix to 40 twice a day, however, this did not give her the relief she was looking for, so she came to the emergency room. Her chest x-ray showed volume overload. Her CT scan in addition to the volume overload unfortunately showed 1.81 x 1.3 lung nodule spiculated possible malignant. The patient given IV diuretics. She was on BiPAP and she improved. Today, she is a little bit better. The patient's symptoms were progressively worse over the last few days. Shortness of breath at rest despite having oxygen at home. She does have orthopnea, paroxysmal nocturnal dyspnea, surprisingly no feet edema. She does have dry cough. Her BNP on admission was markedly elevated at 1586. PAST MEDICAL HISTORY: 1. Hypertension. 2. Hypercholesterolemia. 3. Coronary artery disease, status post PCI to the right coronary artery in 1997. 4. Left bundle branch block, status post TUNNEL MUCKER-D treatment for congestive heart failure and this bundle branch block. 5. Paroxysmal atrial fibrillation, status post AV node ablation. 6. COPD, on home oxygen. 7. Repeated upper respiratory tract infection. 8. Abdominal aortic aneurysm repair, status post EVAR. 9. Left carotid endarterectomy. 10. Hypothyroidism. 11. Chronic GI problem with multiple surgeries, fistula, colostomy revision, finally cured. 12. Debility. 13. Chronic lung disease, on home oxygen. SOCIAL HISTORY: She is a former smoker. She is divorcee. She is non-alcohol drinker. She is retired nurse. ALLERGIES: CODEINE, LIDOCAINE, LEVAQUIN, AND FLAGYL. HOME MEDICATIONS: Include levothyroxine 150 mcg a day, vitamin B12 1000 mg weekly, vitamin C, mirtazapine 7.5 mg at bedtime, prednisone 20 mg twice a day, trazodone 50 mg at bedtime, budesonide, furosemide 40 mg twice a day, aspirin 81 mg a day, loratadine 10 mg a day, Singulair 10 mg a day, Zoloft 50 mg a day, Atorvastatin 40 mg a day, vitamin D, iron sulfate, Lorazepam 0.5 mg t.i.d., multivitamins, Carafate, Pepcid, Plavix 75 mg a day, metoprolol 25 mg a day, sulfa, and gabapentin 100 mg at bedtime. REVIEW OF SYSTEMS: GENERAL: Debility, weakness. No fever, no chills, malaise. HEENT: Repeated congestion, sore throat. Good vision. No hearing problem. PULMONARY: The patient have oxygen at home. CARDIAC: As per above. GI: Bloating, indigestion. : No incontinence. MUSCULOSKELETAL: Aches and pain and debility. NEUROLOGICAL: No focal weakness. Numbness and tingling of the lower extremity. No seizure. Generalized weakness, but no localized symptoms. PHYSICAL EXAMINATION: VITAL SIGNS: Height of 5 feet 6 inches, weight of 170 pounds, blood pressure 110/60, heart rate of 70, respiratory rate of 18, and temperature of 97 Fahrenheit. GENERAL: Chronically ill patient having oxygen by nasal cannula. HEENT: Pupils are equal and reactive. NECK: No elevation of jugular venous pulsation. CHEST: Decreased air entry, increased expiratory phase. HEART: PMI 5th left intercostal space. Normal first and second heart sounds. Soft ejection systolic murmur. Other finding, pacemaker in place. ABDOMEN: Soft. Bowel sounds present. EXTREMITIES: No cyanosis, no clubbing, no edema. +1 pedal pulse. NEUROLOGIC: Awake, alert, oriented, able to move extremities. Generalized weakness, but no localized finding. LABORATORY DATA: Sodium of 139, potassium of 4.2, BUN of 32, and creatinine of 1.83. White blood cell count of 6.5, hemoglobin of 11, hematocrit 31%, and platelet count of 193,000. CT chest showing 1.8 x 1.3 lung nodule spiculated. BNP of 1586. EKG, pacing activity. IMPRESSION AND PLAN: 1. Anfuf-[id number] systolic heart failure. 2. Coronary artery disease. 3. Hypertension. 4. Respiratory distress. Definitely, there is element of chronic lung disease as evident by physical exam. 5. Repeated upper respiratory tract infection. 6. Hypercholesterolemia. 7. Chronic renal insufficiency. 8. Debility. Cardiac-crocker, the patient on appropriate cardiac medication. Her Lasix intravenously seems to be working and we discussed the finding with the patient. I am going to discharge her this time. I will give her prescription for Zaroxolyn to take p.r.n. Probably by doing that will decrease her frequency of hospital admission. Care of heart failure and adjustment of diuretics and fluid are discussed and explained. The patient verbalized understanding. MD MARTHA Rodriges/WESTLEY /[id number]
[2019-01-21 19:00] VITALS: BP 122/54
[2019-01-21] MEDS: BUDESONIDE/FORMOTEROL 160/4.5MCG INHALER INH SCH (19:00)
[2019-01-21 20:00] VITALS: BP 110/48
[2019-01-21] MEDS ORDERED: ATORVASTATIN 20 MG TAB PO SCH (21:00)
[2019-01-21] MEDS: OFLOXACIN (OPTH) 5 ML BOTTLE OP SCH (21:45)
[2019-01-21] MEDS: ATORVASTATIN 40 MG TAB PO SCH (21:57)
[2019-01-21] MEDS: MONTELUKAST SODIUM 10 MG TAB PO SCH (21:57)
[2019-01-21] MEDS: TRAZODONE HCL 50 MG TAB PO PRN (21:57)
[2019-01-21] MEDS: GABAPENTIN 100 MG CAP PO SCH (21:57)
[2019-01-21 23:59] VITALS: BP 110/48
[2019-01-22] VITALS (11 sets, daily range): BP systolic 104–130; BP diastolic 42–84
--- NOTE | 2019-01-22 01:01 | History and Physical ---
CHIEF COMPLAINT: The patient is here for shortness of breath. HISTORY OF PRESENTING ILLNESS: Ms. Bettye Hermosillo has repeatedly going to the hospital secondary to congestive heart failure and COPD exacerbation, was in her usual state of health until the patient was discharged about a week ago and continued to do well and suddenly the patient started getting shortness of breath and increased chest pain. The patient was brought to the emergency room, was admitted to the hospital for [id number] congestive heart failure and COPD. PAST MEDICAL HISTORY: History of hypertension, hypercholesterolemia, coronary artery disease, history of COPD, on home O2, history of abdominal aortic aneurysm repair, history of colon resection with history of colostomy, history of hypertension, and history of multiple hospitalizations. MEDICATIONS: Include vitamin B12, levothyroxine, mirtazapine, prednisone, trazodone, Singulair, Zoloft, atorvastatin, vitamin D, lorazepam 3 times a day, history of taking Plavix 75 mg, Carafate 1 g 3 times a day, metoprolol 25 mg twice a day. PAST SURGICAL HISTORY: Includes history of colostomy, history of chronic GI problems with colectomy, history of left carotid endarterectomy, history of abdominal aneurysm repair, history of AV meena ablation. ALLERGIES: ALLERGIC TO CODEINE, LEVAQUIN, FLAGYL, AND LIDOCAINE. REVIEW OF SYSTEMS: Positive for chest pain. Positive for shortness of breath. No nausea. No vomiting. No fever. No chills. No malaise. Has oxygen at home. Positive for bloating and indigestion with colostomy being distended. The patient also complains of multiple muscle pains and body aches and point tenderness, and the patient also complains of weakness in general. No focal neurological deficits. No headaches. No blurred vision. PHYSICAL EXAMINATION: GENERAL: The patient is alert and oriented x3. VITAL SIGNS: Blood pressure is 110/60, heart rate of 70, respirations of 18, temperature is afebrile. HEENT: Pupils equal and reactive to light and accommodation. LUNGS: Decreased air entry in the lung bases. HEART: The patient has ejection systolic murmur. S1 and S2 are normal. Regular rate and rhythm. ABDOMEN: Soft. Bowel sounds are present. The patient has a colostomy, which is not distended and has a bowel in it. EXTREMITIES: No clubbing, no cyanosis, no edema. NEUROLOGIC: Alert and oriented x3. LABORATORY VALUES: Sodium 139, potassium 4.2, BUN and creatinine 32 and 1.83. White blood count is 6.5, hemoglobin of 11, hematocrit 31.7, and platelets are normal. CT of the scan shows a 1.8 x 1.3 lung nodule just spiculated. BNP was 15,086. EKG, pacing. IMPRESSION: 1. Ratli-dc-zdzjowp systolic heart failure. 2. Lung nodule. 3. Chronic obstructive pulmonary disease exacerbation. 4. Hypertension. 5. History of repeated admission. 6. Chronic renal insufficiency. 7. Debility. 8. Anxiety. 9. Hyperlipidemia. PLAN: The patient's medications have been restarted. The patient has been started on DVT prophylaxis with an enoxaparin 30 mg daily, sulfamethoxazole has been started. The patient is also on 20 mg b.i.d. of prednisone, started by Pulmonary. The patient is also restarted back on lorazepam for anxiety 3 times a day, albuterol and Atrovent treatment q.6 hours, and the patient will get a BiPAP. The patient also get Lasix 40 mg IV, strict I's and O's nose, daily weights and continue monitoring the patient in ICU. The patient possibly can be transferred out soon from the ICU. Further recommendation per clinical course. We will follow the patient along with the consultants. MD CRISSY Jennings/MODL /[id number]
[2019-01-22] MEDS: ALBUTEROL/IPRATROPIUM 3 ML NEB NEB SCH ×6 (03:00→23:19)
[2019-01-22] MEDS: OFLOXACIN (OPTH) 5 ML BOTTLE OP SCH ×5 (03:24→23:05)
[2019-01-22] MEDS: LEVOTHYROXINE SODIUM 100 MCG TAB PO SCH (05:11)
[2019-01-22 05:47] LABS: HEMATOCRIT 36.6 % (34.2-44.1); HEMOGLOBIN 11.4 g/dL (12.0-16.0); LYMPHOCYTES # (AUTO) 0.4 (1.0-3.2); LYMPHOCYTES % 3.8 % (18.0-39.1); MEAN CORPUSCULAR HGB CONC 31.1 g/dL (31-35); MEAN CORPUSCULAR VOLUME 93.1 fL (81-99); MONOCYTES # (AUTO) 0.5 (0.2-0.8); MONOCYTES % 4.1 % (4.4-11.3); NEUTROPHILS # (AUTO) 10.6 (2.1-6.9); NEUTROPHILS % 91.5 % (38.7-80.0); PLATELET COUNT 230 x10e3/uL (140-360); RED BLOOD COUNT 3.93 x10e6/uL (3.6-5.1); RED CELL DISTRIBUTION WIDTH 13.8 % (11.7-14.4)
[2019-01-22 06:24] LABS: ALBUMIN 3.7 g/dL (3.5-5.0); ALBUMIN/GLOBULIN RATIO 1.3 (0.8-2.0); ANION GAP 16.8 mmol/L (8-16); CALCIUM 9.9 mg/dL (8.4-10.2); CREATININE, SERUM 1.78 mg/dL (0.57-1.11); POTASSIUM 3.8 mmol/L (3.5-5.1)
[2019-01-22] MEDS: BUDESONIDE/FORMOTEROL 160/4.5MCG INHALER INH SCH ×2 (07:00→19:00)
[2019-01-22] MEDS: ASCORBIC ACID 500 MG TAB PO SCH ×2 (08:04→16:50)
[2019-01-22] MEDS: FUROSEMIDE INJ 10 MG/ML 4 ML VIAL IV SCH ×2 (08:04→21:45)
[2019-01-22] MEDS: MULTIVITAMINS/MINERALS TAB PO SCH ×2 (08:04→16:50)
[2019-01-22] MEDS: SUCRALFATE 1 GM/10 ML SUSP PO SCH (08:04)
[2019-01-22] MEDS: FERROUS SULFATE 325 MG TAB PO SCH ×2 (08:04→16:50)
[2019-01-22] MEDS: ASPIRIN 81 MG CHEW TAB PO SCH (08:05)
[2019-01-22] MEDS: LORAZEPAM 0.5 MG TAB PO SCH ×3 (08:05→21:45)
[2019-01-22] MEDS: DOCUSATE SODIUM 100 MG CAP PO SCH ×2 (08:06→16:50)
[2019-01-22] MEDS: PREDNISONE 20 MG TAB PO SCH (08:06)
[2019-01-22] MEDS: FAMOTIDINE 20 MG TAB PO SCH (08:06)
[2019-01-22] MEDS: LORATADINE 10 MG TAB PO SCH (08:06)
[2019-01-22] MEDS: CLOPIDOGREL BISULFATE 75 MG TAB PO SCH (08:06)
[2019-01-22] MEDS: METOPROLOL TARTRATE 25 MG TAB PO SCH (08:06)
[2019-01-22] MEDS: FOLIC ACID/CYANOCOB/PYRIDOXINE TAB PO SCH (08:06)
[2019-01-22] MEDS: TRIMETHOPRIM/SULFAMETHOXAZOLE 160-800 MG TAB PO SCH ×2 (08:06→16:50)
[2019-01-22] MEDS: CHOLECALCIFEROL 1,000 UNIT TAB PO SCH (08:07)
[2019-01-22] MEDS: PANTOPRAZOLE SOD 40 MG TABEC PO SCH (08:07)
[2019-01-22] MEDS: SERTRALINE HCL 50 MG TAB PO SCH (08:07)
[2019-01-22] MEDS: CYANOCOBALAMIN 1,000 MCG TAB PO SCH (08:07)
[2019-01-22 15:13] LABS: LYMPHOCYTES % (MANUAL) 6 % (19-48); MONOCYTES % (MANUAL) 8 % (3.4-9.0); NEUTROPHILS % (MANUAL) 86 % (40-74); PLATELET ESTIMATE ADEQUATE; PLATELET MORPHOLOGY COMMENT NORMAL; RBC MORPHOLOGY COMMENT NORMAL
--- NOTE | 2019-01-22 16:25 | NUR ---
Nutrition Screen Note RD Recommendation for Physician: 1.Continue with Cardiac Diet 2.Continue with MVI, Vit C for wound healing promotion Plan of Care: RD following, monitoring for tolerance and adequacy Nutrition reason for involvement: Nutrition Risk Trigger Primary Diagnose(s): CHF, Chronic A-Fib, CKE, COPD Exacerbation PMH: hypertension, hypercholesterolemia, coronary artery disease, COPD Ht: 66in Wt: 170lbs BMI: 27.43kg/m2 IBW:130lbs +/- 10% RD Assessment (01/22) Chart reviewed. Labs and meds reviewed. Pt is a 78 y/o F admitted for CHF and COPD exacerbation. Patient alert and oriented during time of visit, denied any food and nutrition related concerns. Patient stated weight has been stable, reports a good appetite and intake both in the hospital and at home. Noted trying to mostly adhere to a heart healthy. Per pt and chart, pt has a Stage 3 sacral wound. Wound nurse consult has been placed, patient on MVI + Vit C. Denied any N/V/D/C or any difficulties with chewing or swallowing. Will continue to follow and monitor as needed. Current Diet: Cardiac Diet Malnutrition Evaluation (01/22) The patient does not meet criteria for a specified degree of malnutrition at this time. Will re-evaluate at follow-up as appropriate. Diet Education Needs Assessment: Diet education not indicated. Patient reports history of extensive dietary education. Nutrition Care Level: LOW Signed: Daisy Ugarte, MS, RDN, LD
[2019-01-22] MEDS: ENOXAPARIN 30 MG/0.3 ML SYR SC SCH (16:50)
[2019-01-22] MEDS: TRAZODONE HCL 50 MG TAB PO PRN (21:45)
[2019-01-22] MEDS: ATORVASTATIN 40 MG TAB PO SCH (21:45)
[2019-01-22] MEDS: GABAPENTIN 100 MG CAP PO SCH (21:45)
[2019-01-22] MEDS: MONTELUKAST SODIUM 10 MG TAB PO SCH (21:45)
[2019-01-23] VITALS (9 sets, daily range): BP systolic 98–122; BP diastolic 44–69
[2019-01-23] MEDS: ALBUTEROL/IPRATROPIUM 3 ML NEB NEB SCH ×6 (03:11→22:30)
[2019-01-23] MEDS: LEVOTHYROXINE SODIUM 100 MCG TAB PO SCH (05:12)
[2019-01-23] MEDS: OFLOXACIN (OPTH) 5 ML BOTTLE OP SCH ×3 (05:12→18:11)
[2019-01-23 05:40] LABS: BASOPHILS % 0.1 % (0.0-1.0); EOSINOPHILS # (AUTO) 0.1 (0.0-0.4); EOSINOPHILS % 0.9 % (0.0-6.0); HEMOGLOBIN 11.2 g/dL (12.0-16.0); LYMPHOCYTES # (AUTO) 1.2 (1.0-3.2); LYMPHOCYTES % 12.4 % (18.0-39.1); MEAN CORPUSCULAR HEMOGLOBIN 28.9 pg (28-32); MEAN CORPUSCULAR HGB CONC 30.3 g/dL (31-35); MEAN CORPUSCULAR VOLUME 95.4 fL (81-99); MONOCYTES # (AUTO) 0.7 (0.2-0.8); MONOCYTES % 7.3 % (4.4-11.3); NEUTROPHILS # (AUTO) 7.6 (2.1-6.9); NEUTROPHILS % 78.8 % (38.7-80.0); PLATELET COUNT 221 x10e3/uL (140-360); RED BLOOD COUNT 3.88 x10e6/uL (3.6-5.1); RED CELL DISTRIBUTION WIDTH 14.1 % (11.7-14.4)
[2019-01-23 06:30] LABS: ALBUMIN 3.6 g/dL (3.5-5.0); ALBUMIN/GLOBULIN RATIO 1.3 (0.8-2.0); ANION GAP 17.1 mmol/L (8-16); CALCIUM 9.8 mg/dL (8.4-10.2); CREATININE, SERUM 1.92 mg/dL (0.57-1.11); POTASSIUM 4.1 mmol/L (3.5-5.1)
[2019-01-23] MEDS: BUDESONIDE/FORMOTEROL 160/4.5MCG INHALER INH SCH ×2 (07:00→19:00)
[2019-01-23] MEDS ORDERED: PREDNISONE 20 MG TAB PO SCH (07:30)
[2019-01-23] MEDS: FERROUS SULFATE 325 MG TAB PO SCH ×2 (08:24→16:04)
[2019-01-23] MEDS: SUCRALFATE 1 GM/10 ML SUSP PO SCH (08:24)
[2019-01-23] MEDS: METOPROLOL TARTRATE 25 MG TAB PO SCH (08:25)
[2019-01-23] MEDS: PANTOPRAZOLE SOD 40 MG TABEC PO SCH (08:25)
[2019-01-23] MEDS: DOCUSATE SODIUM 100 MG CAP PO SCH ×2 (08:25→16:04)
[2019-01-23] MEDS: CYANOCOBALAMIN 1,000 MCG TAB PO SCH (08:25)
[2019-01-23] MEDS: ASCORBIC ACID 500 MG TAB PO SCH ×2 (08:25→16:04)
[2019-01-23] MEDS: SERTRALINE HCL 50 MG TAB PO SCH (08:25)
[2019-01-23] MEDS: LORATADINE 10 MG TAB PO SCH (08:25)
[2019-01-23] MEDS: FOLIC ACID/CYANOCOB/PYRIDOXINE TAB PO SCH (08:25)
[2019-01-23] MEDS: TRIMETHOPRIM/SULFAMETHOXAZOLE 160-800 MG TAB PO SCH ×2 (08:25→16:04)
[2019-01-23] MEDS: CHOLECALCIFEROL 1,000 UNIT TAB PO SCH (08:25)
[2019-01-23] MEDS: FAMOTIDINE 20 MG TAB PO SCH (08:25)
[2019-01-23] MEDS: MULTIVITAMINS/MINERALS TAB PO SCH ×2 (08:25→16:04)
[2019-01-23] MEDS: LORAZEPAM 0.5 MG TAB PO SCH ×3 (08:25→21:14)
[2019-01-23] MEDS: FUROSEMIDE INJ 10 MG/ML 4 ML VIAL IV SCH ×2 (08:25→21:14)
[2019-01-23] MEDS: ENOXAPARIN 30 MG/0.3 ML SYR SC SCH (16:04)
--- NOTE | 2019-01-23 16:33 | NUR ---
Received patient from ICU, alert and responsive, no resp distress, On O2 4L NC, chronic oxygen use, VSS and no c/o pains, call light within reach and will monitor.
--- NOTE | 2019-01-23 16:39 | NUR ---
PT TRANSFERRED TO ROOM 112 ACCEPTING RN MADE AWARE OF PRESCRIPTIONS IN CHART. PT ORIENTED TO ROOM.
--- NOTE | 2019-01-23 19:10 | NUR ---
Report given to on coming nurse, patient wants to speak with radiologist tomorrow before signing consent for biopsy, spoke with Lilia over in IR and was notified.
--- NOTE | 2019-01-23 19:10 | NUR ---
received report, patient aaox3, resting in bed. no needs voiced. bed locked and in lowest position, call light within reach.
[2019-01-23] MEDS: MONTELUKAST SODIUM 10 MG TAB PO SCH (21:14)
[2019-01-23] MEDS: GABAPENTIN 100 MG CAP PO SCH (21:14)
[2019-01-23] MEDS: ATORVASTATIN 40 MG TAB PO SCH (21:14)
[2019-01-23] MEDS: TRAZODONE HCL 50 MG TAB PO PRN (21:14)
[2019-01-24] VITALS (8 sets, daily range): BP systolic 104–137; BP diastolic 50–67
[2019-01-24] MEDS: ALBUTEROL/IPRATROPIUM 3 ML NEB NEB SCH ×6 (03:10→23:00)
[2019-01-24] MEDS: LEVOTHYROXINE SODIUM 100 MCG TAB PO SCH (06:00)
[2019-01-24] MEDS: OFLOXACIN (OPTH) 5 ML BOTTLE OP SCH ×5 (06:26→23:50)
[2019-01-24] MEDS: BUDESONIDE/FORMOTEROL 160/4.5MCG INHALER INH SCH ×2 (07:00→19:00)
--- NOTE | 2019-01-24 07:10 | NUR ---
PT RESTING IN BED [id number] PT IS ON 4L NC TOLERATING WELL , NO SOB NOTED LOWER CRACKLES UPON AUSCULTATION . PT IS ON IV LASIX TREATMENT PT HAS A SPECIAL MATTRESS GIVEN FROM THE ER. (INFLATABLE MAT FOR PRESSURE ULCER PREVENTION) PT HAS PRESSURE ULCER TO BOTTOM RED COVERED WITH ALLYVEN PAD REDNESS TO PERINEAL SITE WITH PUREWICK IN PLACE FOR IV LASIX TREATMENT AND PT INCONTINENCE PT HAS A COLOSTOMY BAG TO THE LLQ (EMPTIED THIS AM) PLACEMENT SITE IS CLEAN AND DRY PT HAS AN IV TO THE RIGHT FA PATENT DRY AND INTACT WILL CONTINUE TO MONITOR PT CLOSELY SIDE RAILSX2, BED WHEELS LOCKED, CALL LIGHT IS WITHIN EASY REACH,INSTRUCTED TO CALL FOR ASSISTANCE IF NEEDED
--- NOTE | 2019-01-24 07:48 | NUR ---
SPOKE WITH MD PHOENIX REGARDING PT LUNG BX PROCEDURE ON HOLD DUE TO PT BEING HAVING PLAVIX ON THE 3RD PT HAS TO BE OFF THINNER FOR 5 DAYS EXPLAINED THAT TO PT, RADIOLOGY WILL STILL BE COMING IN TO EXPLAIN PROCEDURE FOR A LATER TIME STATES PT CAN DO THIS OP INITIATING SNF TRANSFER AT THIS TIME CARDIAC DIET NOW ORDERED
[2019-01-24] MEDS: ASCORBIC ACID 500 MG TAB PO SCH ×2 (08:26→17:14)
[2019-01-24] MEDS: FOLIC ACID/CYANOCOB/PYRIDOXINE TAB PO SCH (08:26)
[2019-01-24] MEDS: PANTOPRAZOLE SOD 40 MG TABEC PO SCH (08:26)
[2019-01-24] MEDS: TRIMETHOPRIM/SULFAMETHOXAZOLE 160-800 MG TAB PO SCH ×2 (08:26→17:14)
[2019-01-24] MEDS: DOCUSATE SODIUM 100 MG CAP PO SCH ×2 (08:26→17:14)
[2019-01-24] MEDS: LORATADINE 10 MG TAB PO SCH (08:26)
[2019-01-24] MEDS: METOPROLOL TARTRATE 25 MG TAB PO SCH (08:26)
[2019-01-24] MEDS: FERROUS SULFATE 325 MG TAB PO SCH ×2 (08:26→17:14)
[2019-01-24] MEDS: SUCRALFATE 1 GM/10 ML SUSP PO SCH (08:26)
[2019-01-24] MEDS: MULTIVITAMINS/MINERALS TAB PO SCH ×2 (08:26→17:14)
[2019-01-24] MEDS: CYANOCOBALAMIN 1,000 MCG TAB PO SCH (08:26)
[2019-01-24] MEDS: CHOLECALCIFEROL 1,000 UNIT TAB PO SCH (08:26)
[2019-01-24] MEDS: FAMOTIDINE 20 MG TAB PO SCH (08:26)
[2019-01-24] MEDS: LORAZEPAM 0.5 MG TAB PO SCH ×3 (08:26→21:44)
[2019-01-24] MEDS: SERTRALINE HCL 50 MG TAB PO SCH (08:26)
--- NOTE | 2019-01-24 10:09 | Progress Note ---
DATE: 01/24/2019 SUBJECTIVE: This patient comes in with acute congestive heart failure, COPD exacerbation, urinary tract infection, and history of anxiety. Currently, the patient is feeling better. Shortness of breath is better. No chest pain. The patient is due for a biopsy of the pulmonary nodule. OBJECTIVE: VITAL SIGNS: Temperature is 96.7, pulse of 69, respirations of 19, blood pressure is 129/58. HEENT: Normocephalic, atraumatic. Pupils are reactive to light and accommodation. The patient is on chronic O2. CVS: S1, S2 normal. Regular rate and rhythm. ABDOMEN: Nontender. Positive for colostomy. EXTREMITIES: No clubbing, no cyanosis, no edema. LABORATORY VALUES: From yesterday, hemoglobin of 11.2, hematocrit of 37. Chemistries show a sodium of 139, potassium of 4.1, BUN of 43, creatinine of 1.92. Coags are normal. Microbiology; none done. The patient's CT scan done on the shows a 1.8 x 1.3 cm right upper lobe spiculated nodule with pulmonary edema and right pleural effusion. ASSESSMENT: 1. Pulmonary nodule. The patient is scheduled for a CT-guided biopsy by Interventional Radiology. 2. Pleural effusion. 3. Chronic obstructive pulmonary disease exacerbation. 4. Acute congestive heart failure exacerbation. PLAN: Plan is to do the biopsy, diuresis to be continued, steroids to be continued. The patient is reluctant about biopsy. Discussed briefly about risks and benefits of the biopsy and the patient is agreeable at this time. Further recommendations on clinical course and also on biopsy result. MD CRISSY Jennings/MODL /[id number]
[2019-01-24] MEDS ORDERED: NYSTATIN 15 GM POWDER UD BTL TOP PRN (10:15)
--- NOTE | 2019-01-24 10:43 | NUR ---
WOUND CARE NURSE INITIAL CONSULTATION. 78 YEAR OLD FEMALE ADMITTED TO [facility] WITH DX OF CHF, CHRONIC ATRIAL FIBRILLATION, CKD, AND COPD EXACERBATION. HEAD TO TOE SKIN ASSESSMENT PERFORMED TODAY. PT PRESENTS WITH A 0.5X0.5X0.2CM STAGE II PRESSURE ULCER TO LEFT BUTTOCK AND 6X7CM AREA OF NON-BLANCHABLE REDNESS TO BILATERAL BUTTOCKS WELL TO DENUDED PERINEUM AND YEAST UNDER RIGHT BRREAST FOLD. THERE ARE NO OTHER AREAS OF CONCERN AT THIS TIME. NO S/S OF INFECTION. PT EDUCATED ON PLAN OF CARE, DRESSING CHANGES AND IMPORTANCE OF PRESSURE RELIEF TO THE AFFECTED AREAS. STATES UNDERSTANDING. LABS: WBC: 9.62 ALB: 2.8 RECOMMENDATIONS: APPLY VENELEX OINTMENT TO BILATERAL BUTTOCKS BID AND COVER WITH FOAM DRESSING. APPLY NYSTATIN CREAM, RIGHT BREAST FOLD. PROVIDE PT WITH HEEL PROTECTORS AND PILLOW SUSPENSIONS. TURN PT EVERY TWO HOURS AND PRN. REPOSITION PT EVERY TWO HOURS AND PRN. THANKS FOR THIS CONSULTATION. Addendum: 01/24/19 at 1055 by Mimi Archuleta RN Amended: Links added.
--- NOTE | 2019-01-24 13:26 | NUR ---
CM TO THE PATIENT'S BEDSIDE TO DISCUSS PATIENT'S RIGHTS. IMM DISCUSSED AND QUESTIONS ANSWERED - PATIENT/FAMILY VEERBALIZED UNDERSTANDING OF DISCUSSION. SIGNATURE OBTAINED, COPY LEFT AT BEDSIDE AND PLACED IN PATIENT'S CHART.
--- NOTE | 2019-01-24 13:31 | NUR ---
ORDERS FOR SNF EVAL TODAY LAM SPOKE WITH PT WHO IS ADIMATELY REFUSING SNF STATES SHE HAS BEEN TO [facility] AND WILL NOT GO BACK WANTS TO GO HOME AND RESUME [facility] SHE WILL ARRANGE HER OWN TRANSPORTATION HOME WITH [facility] [employer] [facility] DR PHOENIX NOTIFIED OF ABOVE POSSIBLE DC HOME TOMORROW WITH RETURN BACK TO HOSPITAL ON THURSDAY FOR BIOPSY
--- NOTE | 2019-01-24 13:55 | NUR ---
spoke with md phillip regarding pt refusing snf ok with sending pt home possibly tomorrow
[2019-01-24] MEDS: BALSAM PERU/CASTOR OIL 60 GM OINT...G. TP SCH (15:57)
[2019-01-24] MEDS: FUROSEMIDE 40 MG TAB PO SCH (17:14)
[2019-01-24] MEDS: ACETAMINOPHEN 325 MG TAB PO PRN ×2 (17:14→21:47)
[2019-01-24] MEDS: ENOXAPARIN 30 MG/0.3 ML SYR SC SCH (17:14)
[2019-01-24] MEDS: GABAPENTIN 100 MG CAP PO SCH (21:44)
[2019-01-24] MEDS: ATORVASTATIN 40 MG TAB PO SCH (21:44)
[2019-01-24] MEDS: MONTELUKAST SODIUM 10 MG TAB PO SCH (21:44)
[2019-01-24] MEDS: TRAZODONE HCL 50 MG TAB PO PRN (21:47)
--- NOTE | 2019-01-24 22:00 | NUR ---
Repositioned.colostomy bag emptied.bed locked and in lowest position.phone and call light within reach.instructed to call for assistance as needed.
[2019-01-25 00:20] VITALS: BP 109/54
--- NOTE | 2019-01-25 02:30 | NUR ---
Sleeping well.stable condition.
[2019-01-25 04:34] VITALS: BP 114/54
[2019-01-25] MEDS: OFLOXACIN (OPTH) 5 ML BOTTLE OP SCH (06:02)
[2019-01-25] MEDS: FUROSEMIDE 40 MG TAB PO SCH (06:03)
[2019-01-25] MEDS: LEVOTHYROXINE SODIUM 100 MCG TAB PO SCH (06:03)
[2019-01-25] MEDS: ALBUTEROL/IPRATROPIUM 3 ML NEB NEB SCH (06:45)
--- NOTE | 2019-01-25 07:07 | NUR ---
Bed side shift report given to the oncoming Rn.stable condition.
--- NOTE | 2019-01-25 07:27 | Progress Note ---
DATE: 01/25/2019 SUBJECTIVE: The patient was admitted with congestive heart failure, COPD exacerbation and also history of atrial fibrillation and chronic infections. Currently, the patient is asymptomatic, was supposed to have a biopsy of the right lung nodule yesterday, but Interventional Radiology could not do because of the presence of Plavix washout of one week. Currently, patient is stable. No complaints. No chest pain. No shortness of breath. No nausea, vomiting, or diarrhea. Plan is to discharge the patient today. OBJECTIVE: VITAL SIGNS: Temperature is 96.1, pulse of 70, blood pressure is 114/54, and pulse oximetry of 98%. HEENT: Normocephalic and atraumatic. Pupils are reactive to light and accommodation. CVS: S1 and S2, irregular. ABDOMEN: Nontender and nondistended. Positive for colostomy bag. EXTREMITIES: No edema. LABORATORY VALUES: Hemoglobin 11.2 and hematocrit 37.0. Sodium of 139, potassium 4.1, BUN of 43, and creatinine of 1.92. ASSESSMENT AND PLAN: 1. Acute congestive heart failure. Continue with Lasix. 2. Chronic obstructive pulmonary disease exacerbation. 3. Continue with oxygen supplementation and also albuterol Atrovent treatments. 4. History of chronic pain. The patient is on gabapentin. 5. Presence of pulmonary nodule on the right side with pulmonary effusion. Plan is to biopsy it once the Plavix has been washed out. The patient can be discharged today and be followed up back on Thursday for pulmonary biopsy. Further recommendation per clinical course. We will continue to monitor the patient. The patient's additional value of carcinoembryonic antigen was 10.5, which was high. MD PING JenningsJ/MODL /[id number]
[2019-01-25] MEDS ORDERED: PREDNISONE 20 MG TAB PO SCH (07:30)
[2019-01-25 08:08] VITALS: BP 130/58
[2019-01-25 08:17] VITALS: BP 130/58
[2019-01-25] MEDS: ASCORBIC ACID 500 MG TAB PO SCH (08:36)
[2019-01-25] MEDS: SUCRALFATE 1 GM/10 ML SUSP PO SCH (08:36)
[2019-01-25] MEDS: DOCUSATE SODIUM 100 MG CAP PO SCH (08:36)
[2019-01-25] MEDS: MULTIVITAMINS/MINERALS TAB PO SCH (08:36)
[2019-01-25] MEDS: FAMOTIDINE 20 MG TAB PO SCH (08:36)
[2019-01-25] MEDS: TRIMETHOPRIM/SULFAMETHOXAZOLE 160-800 MG TAB PO SCH (08:36)
[2019-01-25] MEDS: FOLIC ACID/CYANOCOB/PYRIDOXINE TAB PO SCH (08:36)
[2019-01-25] MEDS: FERROUS SULFATE 325 MG TAB PO SCH (08:36)
[2019-01-25] MEDS: LORAZEPAM 0.5 MG TAB PO SCH (08:36)
[2019-01-25] MEDS: PANTOPRAZOLE SOD 40 MG TABEC PO SCH (08:36)
[2019-01-25] MEDS: SERTRALINE HCL 50 MG TAB PO SCH (08:36)
[2019-01-25] MEDS: CHOLECALCIFEROL 1,000 UNIT TAB PO SCH (08:36)
[2019-01-25] MEDS: LORATADINE 10 MG TAB PO SCH (08:36)
[2019-01-25] MEDS: CYANOCOBALAMIN 1,000 MCG TAB PO SCH (08:36)
[2019-01-25] MEDS: BALSAM PERU/CASTOR OIL 60 GM OINT...G. TP SCH (08:36)
[2019-01-25] MEDS: METOPROLOL TARTRATE 25 MG TAB PO SCH (08:36)
[2019-01-25] MEDS ORDERED: NYSTATIN 15 GM POWDER UD BTL TOP SCH (09:00)
--- NOTE | 2019-02-18 06:20 | Discharge Summary ---
HOSPITAL COURSE: This is a 78-year-old female, who came in with acute congestive heart failure and Lasix IV was continued. The patient also has a history of COPD exacerbation, which steroids and IV antibiotics were continued, oxygen supplementation, and also albuterol and Atrovent treatments. Chronic pain, the patient was given gabapentin and also the patient had a pulmonary nodule on the right side with pulmonary effusion. Plan was to have a biopsy done, but this was to be done after Plavix has been washed up from the system. The patient is discharged home in stable condition. Plavix was stopped, and the patient was to be followed up with Interventional Radiology for a biopsy of the pulmonary nodule. Further recommendation per clinical course. The patient had a high CEA on discharge. CEA level was 10.5. For further information, look in the chart. For medicines on discharge, look in the medical reconciliation sheet. MD CRISSY Jennings/MODL /[id number]
== END 2019-01-25 10:00 | disposition home or self-care (01) | DRG 291 ==
LOC: ER 20:05 → ERHOLD 22:36 → ICU 01-21 17:19 → MED/SURG 01-23 16:24
PROVIDERS: ADMIT Family Medicine; ATTEND Family Medicine
DX: I13.0 Hypertensive heart and chronic kidney disease with heart failure and stage 1 through stage 4 chronic kidney disease, or unspecified chronic kidney disease (principal); I50.23 Acute on chronic systolic (congestive) heart failure; J96.22 Acute and chronic respiratory failure with hypercapnia; J96.21 Acute and chronic respiratory failure with hypoxia; J44.1 Chronic obstructive pulmonary disease with (acute) exacerbation; N18.4 Chronic kidney disease, stage 4 (severe); E87.3 Alkalosis; N39.0 Urinary tract infection, site not specified; R91.1 Solitary pulmonary nodule; R53.81 Other malaise; F41.9 Anxiety disorder, unspecified; E78.5 Hyperlipidemia, unspecified; I25.2 Old myocardial infarction; I48.91 Unspecified atrial fibrillation; D64.9 Anemia, unspecified; I25.10 Atherosclerotic heart disease of native coronary artery without angina pectoris; R32 Unspecified urinary incontinence; Z93.3 Colostomy status; K57.90 Diverticulosis of intestine, part unspecified, without perforation or abscess without bleeding; E78.00 Pure hypercholesterolemia, unspecified; K21.9 Gastro-esophageal reflux disease without esophagitis; Z88.5 Allergy status to narcotic agent; Z88.8 Allergy status to other drugs, medicaments and biological substances; Z95.2 Presence of prosthetic heart valve
CPT/HCPCS: 36415; 71045; 71250; 80053; 82378; 82550; 82553; 83880; 84484; 85025; 85610; 85730; 93005; 93306; 94640; 94660; 96374; 99285; J1650; J1940; J2930; J7512

== ENCOUNTER → 2019-02-01 | Outpatient (CLI) | payer MEDICARE, OTHER ==
[~2019-02-01] MED LIST changes: +EPHEDRINE SULFATE INJ 50 MG/ML VIAL ONE; +HYDROMORPHONE 2MG/ML 2 MG/ML ML ONE; +LIDOCAINE HCL 1% LOCAL INJ 20 ML VIAL ONE; +PROMETHAZINE HCL (IM) 25 MG/ML VIAL ONE; +PROPOFOL IV EMULSION 10 MG/ML 20 ML VIAL ONE; +SODIUM CHLORIDE 0.9% 500ML 500 ML ONE
--- NOTE | 2019-02-01 12:27 | Diagnostic Imaging Report ---
EXAMINATION: CHEST XRAY POST PROCEDURE INDICATION: Status post lung biopsy, assessment for pneumothorax COMPARISON: Chest CT of 01/21/2019, lung biopsy of a 2018 FINDINGS: LINES/TUBES:Left chest AICD with leads unchanged. LUNGS:The lungs are well-inflated. Patchy opacity at the left lung base. PLEURA:No pneumothorax. Small left pleural effusion. MEDIASTINUM:The cardiomediastinal silhouette appears unchanged in size and shape. Atherosclerotic calcifications of the thoracic aorta. BONES/SOFT TISSUES:No acute osseous injury. ABDOMEN:No free air under the diaphragm. IMPRESSION: No pneumothorax status post right upper lobe lung nodule biopsy. Small left pleural effusion. Patchy left basilar opacity, most likely representing associated subsegmental atelectasis. Signed by: Yi Schmitt MD on 02/01/2019 12:23 PM
--- NOTE | 2019-02-01 15:05 | Diagnostic Imaging Report ---
PROCEDURE: CT-guided right lung biopsy Procedural Personnel Attending physician(s): Yi Schmitt MD Fellow physician(s): None Resident physician(s): None Advanced practice provider(s): None Pre-procedure diagnosis: Right upper lobe lung nodule Post-procedure diagnosis: Same Indication: Histopathologic diagnosis Previous biopsy of same target (QCDR): No Additional clinical history: None Complications: No immediate complications. IMPRESSION: CT-guided biopsy of right upper lobe lung nodule. Plan: Specimen(s) sent for evaluation. PROCEDURE SUMMARY: - Percutaneous CT-guided coaxial core needle biopsy - Additional procedure(s): None PROCEDURE DETAILS: Pre-procedure Reference imaging for biopsy target: Chest CT of 01/21/2019 Consent: Informed consent for the procedure including risks, benefits and alternatives was obtained and time-out was performed prior to the procedure. Preparation: The site was prepared and draped using maximal sterile barrier technique including cutaneous antisepsis. Anesthesia/sedation Level of anesthesia/sedation: Monitored anesthesia care Anesthesia/sedation administered by: Independent trained observer under attending supervision with continuous monitoring of the patient?s level of consciousness and physiologic status Total intra-service sedation time (minutes): 45 Imaging prior to biopsy The patient was positioned supine. Initial imaging was performed using noncontrast CT. Biopsy target: - Maximal diameter (cm): 1.8 - Location: Right upper lobe Other findings: None Biopsy Local anesthesia was administered. Under CT guidance, the biopsy needle was advanced to the target and biopsy was performed. Coaxial needle: 19 gauge 10 cm Core needle biopsy device: 20-gauge 15 cm Core needle size: 20 gauge Number of core specimens: 4 Fine needle aspiration device: None Fine needle size: Not applicable Number of FNA specimens: Not applicable On-site biopsy touch preparation: Yes Additional sampling recommendations: None Preliminary assessment of sample adequacy: Adequate Needle removal The biopsy needle was removed and a sterile dressing was applied. Tract embolization: None Imaging following biopsy Immediate post-biopsy imaging was performed using noncontrast CT. Post-biopsy imaging findings: Small amount of adjacent hemorrhage. No pneumothorax. Contrast Contrast agent: None Contrast volume (mL): [address] dose length product (mGy-cm): 519.8 Additional Details Additional description of procedure: None Equipment details: None Specimens removed: Biopsy samples as detailed above Estimated blood loss (mL): Less than 10 Standardized report: [id number] Attestation Signer name: Yi Schmitt MD I attest that I was present for the entire procedure. I reviewed the stored images and agree with the report as written. Signed by: Yi Schmitt MD on 02/01/2019 3:02 PM
--- NOTE | 2019-02-01 15:13 | Diagnostic Imaging Report ---
EXAMINATION: CHEST XRAY POST PROCEDURE INDICATION: Status post lung biopsy, assessment for pneumothorax COMPARISON: Chest radiograph of earlier the same day, Chest CT of 01/21/2019, lung biopsy of a 2018 FINDINGS: LINES/TUBES:Left chest AICD with leads unchanged. LUNGS:The lungs are well-inflated. Patchy opacity at the left lung base. PLEURA:No pneumothorax. Small left pleural effusion. MEDIASTINUM:The cardiomediastinal silhouette appears unchanged in size and shape. Atherosclerotic calcifications of the thoracic aorta. BONES/SOFT TISSUES:No acute osseous injury. ABDOMEN:No free air under the diaphragm. IMPRESSION: No pneumothorax status post right upper lobe lung nodule biopsy. Small left pleural effusion. Patchy left basilar opacity, most likely representing associated subsegmental atelectasis. Signed by: Yi Schmitt MD on 02/01/2019 3:09 PM
[2019-02-01 16:15] VITALS: BP 150/61
== END ==
LOC: CT 09:20
PROVIDERS: ATTEND Internal Medicine Pulmonary Disease
DX: R91.8 Other nonspecific abnormal finding of lung field (principal)
CPT/HCPCS: 32405; 71045; 77012; 88305; 93005; J1170; J2001; J2550; J7040; 88172; 88342